=== PATIENT | female | born 1965 | race Caucasian/White ===

== ENCOUNTER 2020-05-18 09:13 | Day surgery (SDC) | payer MEDICAID, SELFPAY ==
--- NOTE | 2020-05-17 14:05 | HO.ANESPROP2 ---
Documented by User: Jayshree Hogan 05/17/20 14:07 HPI - Anesthesia Eval Consult details Narrative: 54yo F for left genicular nerve block s/p TKA PMFSH Past Medical History Medical History Anxiety disorder Asthma Back pain COPD (chronic obstructive pulmonary disease) Depression Elevated cholesterol Fibromyalgia GERD (gastroesophageal reflux disease) HTN (hypertension) Irritable bowel syndrome (IBS) Lung nodule Osteopenia Personal history of tuberculosis Surgical History Surgical History (Updated 05/18/20 @ 10:15 by Perla Soria RN) H/O colonoscopy H/O hernia repair History of back surgery History of esophagogastroduodenoscopy (EGD) Hx of section Hx of total knee replacement Social History Social History Advance Directives Information Provided: No Meds Allergies Allergy/AdvReac Type Severity Reaction Status Date / Time latex [LATEX] Allergy Intermediate RASH; Verified 05/18/20 10:17 redness ciprofloxacin [From CIPRO] AdvReac Intermediate Diarrhea Verified 05/18/20 10:16 Home Medications Medication Instructions Recorded Confirmed Type alendronate 70 mg PO QWEEK 05/15/20 05/15/20 History amlodipine 5 mg PO DAILY 05/15/20 05/15/20 History aspirin [Aspirin Low Dose] 81 mg PO DAILY 05/15/20 05/15/20 History atorvastatin 20 mg PO BEDTIME 05/15/20 05/15/20 History budesonide-formoterol [Symbicort] 2 puff INHALATION BID 05/15/20 05/15/20 History clonazepam 1 mg PO BID 05/15/20 05/15/20 History dexlansoprazole [Dexilant] 60 mg PO DAILY 05/15/20 05/15/20 History diltiazem HCl 360 mg PO DAILY 05/15/20 05/15/20 History doxepin 50 mg PO BEDTIME 05/15/20 05/15/20 History escitalopram oxalate 20 mg PO DAILY 05/15/20 05/15/20 History hydrochlorothiazide 50 mg PO DAILY 05/15/20 05/15/20 History metoprolol tartrate 25 mg PO DAILY 05/15/20 05/15/20 History montelukast 10 mg PO BEDTIME 05/15/20 05/15/20 History roflumilast [Daliresp] 500 mcg PO DAILY 05/15/20 05/15/20 History tiotropium bromide [Spiriva 2 puff INHALATION DAILY 05/15/20 05/15/20 History Respimat] triazolam 0.25 mg PO BEDTIME 05/15/20 05/15/20 History Exam Exam Date and Time: May 17, 2020 1405 Height,Weight and Vital Signs: Height 5 ft 1 in Weight 72.121 kg Assessment and Plan Assessment Anesthesia Assessment: Chart Reviewed Documented by User: Gopi Hawkins 05/18/20 10:33 [facility] Past Medical History Medical History Anxiety disorder Asthma Back pain COPD (chronic obstructive pulmonary disease) Depression Elevated cholesterol Fibromyalgia GERD (gastroesophageal reflux disease) HTN (hypertension) Irritable bowel syndrome (IBS) Lung nodule Osteopenia Personal history of tuberculosis Surgical History Surgical History (Updated 05/18/20 @ 10:15 by Perla Soria RN) H/O colonoscopy H/O hernia repair History of back surgery History of esophagogastroduodenoscopy (EGD) Hx of section Hx of total knee replacement Social History Social History Advance Directives Information Provided: No Meds Allergies Allergy/AdvReac Type Severity Reaction Status Date / Time latex [LATEX] Allergy Intermediate RASH; Verified 05/18/20 10:17 redness ciprofloxacin [From CIPRO] AdvReac Intermediate Diarrhea Verified 05/18/20 10:16 Home Medications Medication Instructions Recorded Confirmed Type alendronate 70 mg PO QWEEK 05/15/20 05/15/20 History amlodipine 5 mg PO DAILY 05/15/20 05/15/20 History aspirin [Aspirin Low Dose] 81 mg PO DAILY 05/15/20 05/15/20 History atorvastatin 20 mg PO BEDTIME 05/15/20 05/15/20 History budesonide-formoterol [Symbicort] 2 puff INHALATION BID 05/15/20 05/15/20 History clonazepam 1 mg PO BID 05/15/20 05/15/20 History dexlansoprazole [Dexilant] 60 mg PO DAILY 05/15/20 05/15/20 History diltiazem HCl 360 mg PO DAILY 05/15/20 05/15/20 History doxepin 50 mg PO BEDTIME 05/15/20 05/15/20 History escitalopram oxalate 20 mg PO DAILY 05/15/20 05/15/20 History hydrochlorothiazide 50 mg PO DAILY 05/15/20 05/15/20 History metoprolol tartrate 25 mg PO DAILY 05/15/20 05/15/20 History montelukast 10 mg PO BEDTIME 05/15/20 05/15/20 History roflumilast [Daliresp] 500 mcg PO DAILY 05/15/20 05/15/20 History tiotropium bromide [Spiriva 2 puff INHALATION DAILY 05/15/20 05/15/20 History Respimat] triazolam 0.25 mg PO BEDTIME 05/15/20 05/15/20 History Exam Airway Mallampati Class: II TM Dist: >3cm Neck ROM: Full Loose/Missing/Broken Teeth: Yes Heart: RRR Assessment and Plan Assessment Anesthesia Assessment: Anesthesia Plan Discussed Final Anesthetic Review NPO: Yes ASA Class: III Anesthetic Plan Anesthetic Plan: MAC:
[2020-05-18] VITALS (8 sets, daily range): BP systolic 78–123; BP diastolic 49–71; PULSE 69–89; RESP 12–18; TEMP 35.8–36; O2SAT 96–99
--- NOTE | 2020-05-18 07:48 | MHC.SHP ---
Pre-Procedural Eval Section A The patient is an INPATIENT: No The History & Physical has been completed within 30 days and I have reviewed it.: No Section B Chief Complaint: Satus Post Left TKR, Chronic Pain Syndrome Details of Present Illness: bilateral knee pain Relevant Family History (Specify if Yes): No Relevant Social History: None Present Medications: see Short Stay Collaborative assessment Medical History: No relevant PMH History of Previous Operations: Relevant previous surgery/procedure and date(s) (TKR bilateral) Allergies: Allergies Allergy/AdvReac Type Severity Reaction Status Date / Time ciprofloxacin [From CIPRO] Allergy Intermediate RASH Verified 05/15/20 10:55 latex [LATEX] Allergy Intermediate RASH; Unverified 04/12/20 17:58 redness PPI AdvReac Intermediate diarrhea Uncoded 05/15/20 10:55 Review of Systems Sugical H&P ROS: Negative: Constitution, Cardiovascular, Respiratory, Neurological, Psychiatric, Hem-Onc, Allergic/Immunologic, Gastrointestinal, Genitourinary, Integumentary, Endocrine and Eyes/Ears/Nose/Throat and Yes, Specify: Musculoskeletal (scars well healed on the knees) Exam Surgical H&P Exam: Normal: HEENT, Normal: Heart, Normal: Lungs, Normal: Extremities, Normal: Abdomen, Normal: Skin and Normal: Neurological Plan Diagnosis/Plan: Unchanged Patient has been examined and remains a candidate for the planned procedure
[2020-05-18] MEDS: Lactated Ringers 1,000 ML 100 ML IVCONT (10:20)
--- NOTE | 2020-05-18 10:43 | FL_ITS ---
EXAMINATION: XR FLUOROSCOPY WITH IMAGES CLINICAL INFORMATION: Geniculate nerve block COMPARISON: CT left knee 04/13/2020 TECHNIQUE: Fluoroscopy performed by Dr. Mendez Morales. Fluoroscopy time: 0.3 minutes DAP: 1.19 Gycm2 Images: 2 FINDINGS: There are spinal needles adjacent to mid aspect distal femoral shaft on medial lateral sides. There is a needle adjacent to mid aspect proximal tibial shaft and medial side. There has been prior knee arthroplasty. The hardware appears intact. No visible acute bony abnormality. FL/FL guidance in OR IMPRESSION: Fluoroscopy for pain management procedure.
[2020-05-18] MEDS: Clindamycin Phosphate/D5W 900 MG/50 ML PIGGYBACK 50 MG IV (12:08)
--- NOTE | 2020-05-18 12:09 | PM.OP ---
Brief Operative Note Date of procedure: 05/18/20 Pre-op diagnosis: Status post total knee replacement left secondary to left knee osteoarthrit Post-op diagnosis: same Procedure: Genicular nerve blocks: Left superior lateral genicular nerve block, left infrapatellar saphenous nerve block, left suprapatellar saphenous nerve block. Implants: None Surgeon: Mendez Morales MD Anesthesia: MAC Estimated blood loss (mL): 0 IV fluids (mL): 400 Urine output (mL): 0 Condition: stable Disposition: PACU
--- NOTE | 2020-05-18 12:11 | P.OP_ITS ---
Operative Note Operative Note Narrative: Narrative: This note is constructed using voice recognition software. While every effort has been made to ensure accuracy, data control clerk supervisor errors may have been included. Narrative: Informed consent was obtained for the procedure before surgery and all the risks and benefits were explained to the patient. All the questions were answered. SHE was brought to the operating room and positioned supine on the Operating table. Antibiotic clindamycin 900 mg was infused. patient was moderately sedated. Ketamine, Fentanyl was avoided during sedation. Patient's left knee was elevated on a gel been and prepped with ChloraPrep. C- arm was brought over the operating field and picture of the knee was obtained. The targets were delineated as connection of the medial diaphysis with metaphysis of the distal femur for the suprapatellar saphenous nerve, Connection of the left medial diaphysis and metaphysis of proximal tibia for infrapatellar saphenous nerve, and connection of lateral left diaphysis and metaphysis for superior genicular nerve. The projections of the point of interest to the skin were injected with small amount of lidocaine 2% and after that 3 22 gauge 3-1/2 inch needles were inserted through the skin and advanced to the point of interest in tunnel vision fashion. After needles touched the bone lateral view obtain and position of the needle in mid shaft of the bones was verified. After that small amount of bupivacaine 1 cc 0.5% was injected into each needle. Patient tolerated procedure well needles were removed sterile dressing was applied patient was transferred to PACU without complications. .
--- NOTE | 2020-05-18 13:40 | HO.POSTANES ---
Post Anesthesia Evaluation Post Anesthesia Evaluation Vital Signs: Vital Signs Temp Pulse Resp BP Pulse Ox 05/18/20 13:09 96.8 F 69 18 92/55 L 99 05/18/20 13:04 98/58 L 98 05/18/20 12:59 70 16 98/58 L 97 05/18/20 12:54 69 16 78/54 L 97 05/18/20 12:49 73 16 84/49 L 97 05/18/20 12:44 70 14 92/56 L 96 05/18/20 12:42 96.6 F L 69 12 85/53 L 97 05/18/20 10:04 96.5 F L 89 16 123/71 97 Anesthesia: Monitored Mental Status: Awake Pain Control: Satisfactory Nausea/Vomiting: None Hydration: Adequate Anesthesia-Related Issues: No Anes. Related Issues
== END 2020-05-18 13:50 | disposition home or self-care (01) ==
PROVIDERS: PCP Internal Medicine; Visit Provider Anesthesiology
PROC: (CPT 64454; principal; 2020-05-18 10:40)
DX: G89.4 Chronic pain syndrome (principal); M25.562 Pain in left knee; M25.561 Pain in right knee; Z96.652 Presence of left artificial knee joint; M96.1 Postlaminectomy syndrome, not elsewhere classified; J44.9 Chronic obstructive pulmonary disease, unspecified; Z88.8 Allergy status to other drugs, medicaments and biological substances; Z88.1 Allergy status to other antibiotic agents; Z91.040 Latex allergy status
CPT/HCPCS: 64454; J2250

== ENCOUNTER 2020-05-26 15:36 | Emergency (ER) | payer MEDICAID, SELFPAY ==
[2020-05-26 16:21] VITALS: BP 106/65; PULSE 138; RESP 17; TEMP 36.6; O2SAT 93; BMI 29.5
--- NOTE | 2020-05-26 16:25 | PC.NURSE ---
CHARGE NURSE NOTIFIED PT IS TACHYCARDIC. INSTRUCTED TO WAIT TO HAVE PROVIDER EVAL PATIENT.
--- NOTE | 2020-05-26 16:40 | PC.NURSE ---
PT EVALED BY AMADA PAZ. PT TO MOVE TO MAIN ED FOR TACHYCARDIA. CHARGE NURSE NOTIFIED.
--- NOTE | 2020-05-26 16:47 | ED.URI ---
HPI - URI/Sore Throat General Chief Complaint: General Medical Stated Complaint: sore throat Time Seen by Provider: 05/26/20 16:45 Source: patient Mode of arrival: ambulatory Limitations: no limitations History of Present Illness HPI Narrative: Patient with history of fibromyalgia been complaining of pain and upper back for last 2 days also complaining of sore throat and pain when she swallows denies any fever or cough no recent COVID contract. Patient did not take her medication metoprolol today when she came heart rate was 130s Related Data Home Medications Medication Instructions Recorded Confirmed alendronate 70 mg PO QWEEK 05/15/20 05/15/20 amlodipine 5 mg PO DAILY 05/15/20 05/15/20 aspirin [Aspirin Low Dose] 81 mg PO DAILY 05/15/20 05/15/20 atorvastatin 20 mg PO BEDTIME 05/15/20 05/15/20 budesonide-formoterol [Symbicort] 2 puff INHALATION BID 05/15/20 05/15/20 clonazepam 1 mg PO BID 05/15/20 05/15/20 dexlansoprazole [Dexilant] 60 mg PO DAILY 05/15/20 05/15/20 diltiazem HCl 360 mg PO DAILY 05/15/20 05/15/20 doxepin 50 mg PO BEDTIME 05/15/20 05/15/20 escitalopram oxalate 20 mg PO DAILY 05/15/20 05/15/20 hydrochlorothiazide 50 mg PO DAILY 05/15/20 05/15/20 metoprolol tartrate 25 mg PO DAILY 05/15/20 05/15/20 montelukast 10 mg PO BEDTIME 05/15/20 05/15/20 roflumilast [Daliresp] 500 mcg PO DAILY 05/15/20 05/15/20 tiotropium bromide [Spiriva 2 puff INHALATION DAILY 05/15/20 05/15/20 Respimat] triazolam 0.25 mg PO BEDTIME 05/15/20 05/15/20 Previous Rx's Medication Instructions Recorded linaclotide 145 mcg capsule 145 mcg PO QAM 30 Days #30 cap 05/08/20 azithromycin [Zithromax] 250 mg PO DAILY 4 Days #4 tab 05/26/20 tramadol 50 mg PO Q8H PRN #20 tab 05/26/20 Allergies Allergy/AdvReac Type Severity Reaction Status Date / Time latex [LATEX] Allergy Intermediate RASH; Verified 05/18/20 10:17 redness ciprofloxacin [From CIPRO] AdvReac Intermediate Diarrhea Verified 05/18/20 10:16 Review of Systems Review of Systems: REVIEW OF SYSTEMS: Pertinent positives and negatives are stated above in the history. GEN: no fevers, chills, fatigue HEENT: no nasal congestion, ear pain NEURO: no headache, dizziness, focal weakness PULM: no cough, shortness of breath CV: no chest pain, palpitations, LE edema ABD: no abdominal pain, nausea, vomiting, diarrhea : no dysuria, urgency, frequency SKIN: no rash ROS otherwise negative x 10 PMFSH Past Medical History Medical History Anxiety disorder Asthma Back pain COPD (chronic obstructive pulmonary disease) Depression Elevated cholesterol Fibromyalgia GERD (gastroesophageal reflux disease) HTN (hypertension) Irritable bowel syndrome (IBS) Lung nodule Osteopenia Personal history of tuberculosis Surgical History H/O colonoscopy H/O hernia repair History of back surgery History of esophagogastroduodenoscopy (EGD) Hx of section Hx of total knee replacement Social History Social History Smoking Status: Current every day smoker Use of substances other than those prescribed or required for medical reasons: No Advance Directives: No Advance Directives Information Provided: No Physical Exam Vital Signs: Vital Signs: Vital Signs Temp Pulse Resp BP Pulse Ox 05/26/20 18:53 98.1 F 104 H 17 106/76 95 05/26/20 17:44 128 H 106/65 05/26/20 16:50 133 H 05/26/20 16:21 97.9 F 138 H 17 106/65 93 Body Mass Index 29.5 Appearance: Alert. Oriented X3. No acute distress. Eyes: Pupils equal, round and reactive to light. ENT: Pharynx normal. no erythema no exudate tonsils are normal no cervical lymphadenopathy Neck: Normal inspection. Neck supple. muscular tenderness at the back of the neck and upper part of the back CVS: tachycardia, no murmur. Pulses normal. Respiratory: No respiratory distress. Breath sounds normal. Abdomen: Soft and nontender. Skin: Skin warm and dry. Normal skin color. Normal skin turgor. Extremities: No lower extremity edema. Good range of movement Neuro: Oriented X 3. No motor deficit. No sensory deficit. Course Course Course Narrative: patient likely with fibromyalgia with likely upper respiratory tract infection COVID-19 test was done will give her prescription for Zithromax and tramadol MDM - URI/Sore Throat ECG Data Attestation: I personally reviewed and interpreted this ECG as follows: Interpretation: heart rate 127 sinus tachycardia poor progression of R-waves no acute ST T wave changes normal axis no acute ischemia Discharge Plan Discharge Clinical Impression: Fibromyalgia Pharyngitis Qualifiers: Pharyngitis/tonsillitis etiology: unspecified etiology Qualified Code(s): J02.9 - Acute pharyngitis, unspecified Patient Disposition: Home, Self-Care Instructions: Pharyngitis (ED), Fibromyalgia (ED) Additional Instructions: drink plenty of fluids and take medication as prescribed Prescriptions: New azithromycin [Zithromax] 250 mg tablet 250 mg PO DAILY 4 Days Qty: 4 RF: 0 tramadol 50 mg tablet 50 mg PO Q8H PRN (Reason: pain) Qty: 20 RF: 0 No Action Linzess 145 mcg capsule 145 mcg PO QAM 30 Days Qty: 30 RF: 1 doxepin 50 mg Capsule 50 mg PO BEDTIME RF: 0 atorvastatin 20 mg Tablet 20 mg PO BEDTIME RF: 0 triazolam 0.25 mg Tablet 0.25 mg PO BEDTIME RF: 0 hydrochlorothiazide 50 mg Tablet 50 mg PO DAILY RF: 0 alendronate 70 mg Tablet 70 mg PO QWEEK RF: 0 clonazepam 1 mg Tablet 1 mg PO BID RF: 0 diltiazem HCl 360 mg Capsule,Extended Release 24hr 360 mg PO DAILY RF: 0 amlodipine 5 mg Tablet 5 mg PO DAILY RF: 0 aspirin [Aspirin Low Dose] 81 mg Tablet,Delayed Release (Dr/Ec) 81 mg PO DAILY RF: 0 montelukast 10 mg Tablet 10 mg PO BEDTIME RF: 0 escitalopram oxalate 20 mg Tablet 20 mg PO DAILY RF: 0 metoprolol tartrate 25 mg Tablet 25 mg PO DAILY RF: 0 budesonide-formoterol [Symbicort] 160-4.5 mcg/actuation Hfa Aerosol Inhaler 2 puff INHALATION BID RF: 0 Dexilant 60 mg Capsule,Biphase Delayed Releas 60 mg PO DAILY RF: 0 Daliresp 500 mcg Tablet 500 mcg PO DAILY RF: 0 Spiriva Respimat 2.5 mcg/actuation Mist 2 puff INHALATION DAILY RF: 0
[2020-05-26 16:50] VITALS: PULSE 133
--- NOTE | 2020-05-26 16:59 | ECG_ITS ---
Test Reason : TACHYCARDIA Blood Pressure : / mmHG Vent. Rate : 127 BPM Atrial Rate : 127 BPM P-R Int : 150 ms QRS Dur : 092 ms QT Int : 316 ms P-R-T Axes : 048 027 062 degrees QTc Int : 459 ms Sinus tachycardia Nonspecific ST and T wave abnormality Abnormal ECG Heart rate has increased ST more depressed Referred By: Tito Nino Electronically Signed By:AILYN LIGHT MD
[2020-05-26 17:44] VITALS: BP 106/65; PULSE 128
[2020-05-26] MEDS: Metoprolol Tartrate 25 MG TABLET PO (17:44)
[2020-05-26] MEDS: traMADoL HCL 50 MG TABLET PO (17:44)
[2020-05-26 18:53] VITALS: BP 106/76; PULSE 104; RESP 17; TEMP 36.7; O2SAT 95
[2020-05-26] MEDS: Azithromycin 500 MG TABLET PO (19:40)
== END 2020-05-26 19:53 | disposition home or self-care (01) ==
PROVIDERS: Emergency Provider Internal Medicine; PCP Internal Medicine
DX: M79.7 Fibromyalgia (principal); J02.9 Acute pharyngitis, unspecified; Z11.59 Encounter for screening for other viral diseases; F17.200 Nicotine dependence, unspecified, uncomplicated; Z71.6 Tobacco abuse counseling
CPT/HCPCS: 87071; 87880; 93005; 99283; 99284; U0003

== ENCOUNTER 2020-06-27 14:53 | Outpatient (REF) | payer MEDICAID, SELFPAY ==
--- NOTE | 2020-06-27 15:01 | XR_ITS ---
EXAMINATION: XR CHEST CLINICAL INFORMATION: COPD COMPARISON: Chest 11 TECHNIQUE: 2 views of the chest were obtained. FINDINGS: The lungs are well-expanded and clear of acute pneumonic process. There is a small calcified granuloma left upper lobe. The heart size and pulmonary vascularity is normal. No gross bony abnormality seen. XR/XR chest 2V IMPRESSION: Unremarkable chest exam.
== END 2020-06-27 14:54 | disposition home or self-care (01) ==
LOC: HO.XRAY 14:53
PROVIDERS: PCP Internal Medicine; Visit Provider Internal Medicine Geriatric Medicine
DX: J44.1 Chronic obstructive pulmonary disease with (acute) exacerbation (principal); R06.2 Wheezing; Z20.828 Contact with and (suspected) exposure to other viral communicable diseases
CPT/HCPCS: 71046

== ENCOUNTER → 2020-06-29 10:35 | Outpatient (BNVA) | payer MEDICAID, SELFPAY | PROVIDERS: PCP Internal Medicine; Referring Provider Internal Medicine; Visit Provider Student in an Organized Health Care Education/Training Program | DX: Z76.89 Persons encountering health services in other specified circumstances (principal) ==

== ENCOUNTER → 2020-08-20 13:57 | Outpatient (BNVA) | payer MEDICAID, SELFPAY | PROVIDERS: PCP Internal Medicine; Referring Provider Internal Medicine; Visit Provider Nurse Practitioner ==

== ENCOUNTER 2020-10-08 17:41 | Outpatient (REF) | payer MEDICAID, SELFPAY ==
--- NOTE | ~2020-10-08 | XR_ITS ---
EXAMINATION: XR CHEST CLINICAL INFORMATION: COPD. Acute exacerbation. COMPARISON: Chest 06/27/2020. CTA chest 06/13/2019 TECHNIQUE: 2 views of the chest were obtained. FINDINGS: The lungs are well-expanded and clear of acute pneumonic process. There is a known partially calcified right upper lobe nodule seen on CT chest 06/13/2019 measuring 7 mm. On chest x-ray measures 1.1 cm which is not optimal measurement. A 4 mm nodule is also seen in left upper lobe. Both of these nodules are stable to last chest x-ray. The rest of lungs are well-expanded and clear. There is bullous changes in both lung apices. Heart size and pulmonary vascularity is normal. No gross bony abnormality. XR/XR chest 2V IMPRESSION: 1. Right upper lobe calcified nodule measures 1.1 cm and a left upper lobe nodule measures 4 mm. Recommend follow-up CT chest to compare these nodules. 2. Emphysematous upper lungs. No acute consolidation seen.
== END 2020-10-08 17:42 | disposition home or self-care (01) ==
LOC: HO.XRAY 17:41
PROVIDERS: PCP Internal Medicine; Visit Provider Family Medicine
DX: J44.1 Chronic obstructive pulmonary disease with (acute) exacerbation (principal)
CPT/HCPCS: 71046

== ENCOUNTER 2021-01-25 14:20 | Outpatient (REF) | payer MEDICAID, SELFPAY ==
--- NOTE | ~2021-01-25 | XR_ITS ---
EXAMINATION: XR BILATERAL WRIST SERIES CLINICAL INFORMATION: Radial styloid tenosynovitis (De Quervain's) COMPARISON: X-rays of the right and left hand September 2010. TECHNIQUE: 4 views of the right wrist and 4 views of the left wrist. FINDINGS: Right Wrist: The bones, joints and soft tissues are normal. Left Wrist: Possible small marginal osteophyte along the 1st carpometacarpal joint, not seen previously. No joint space narrowing. Remaining bones, joints and soft tissues unremarkable. XR/XR wrist LT min 3V IMPRESSION: RIGHT WRIST: Normal. LEFT WRIST: Possible minimal osteoarthritis of the 1st carpometacarpal joint, not seen previously.
--- NOTE | ~2021-01-25 | XR_ITS ---
EXAMINATION: XR BILATERAL WRIST SERIES CLINICAL INFORMATION: Radial styloid tenosynovitis (De Quervain's) COMPARISON: X-rays of the right and left hand September 2010. TECHNIQUE: 4 views of the right wrist and 4 views of the left wrist. FINDINGS: Right Wrist: The bones, joints and soft tissues are normal. Left Wrist: Possible small marginal osteophyte along the 1st carpometacarpal joint, not seen previously. No joint space narrowing. Remaining bones, joints and soft tissues unremarkable. XR/XR wrist RT min 3V IMPRESSION: RIGHT WRIST: Normal. LEFT WRIST: Possible minimal osteoarthritis of the 1st carpometacarpal joint, not seen previously.
== END 2021-01-25 14:21 | disposition home or self-care (01) ==
LOC: HO.XRAY 14:20
PROVIDERS: PCP Internal Medicine; Visit Provider Internal Medicine
DX: M65.4 Radial styloid tenosynovitis [de Quervain] (principal)
CPT/HCPCS: 73110

== ENCOUNTER → 2021-02-04 08:51 | Outpatient (BNVA) | payer MEDICAID, SELFPAY | PROVIDERS: PCP Internal Medicine; Visit Provider Nurse Practitioner ==

== ENCOUNTER 2021-02-07 14:36 | Outpatient (REF) | payer MEDICAID, SELFPAY ==
--- NOTE | ~2021-02-07 | MM_ITS ---
EXAMINATION: MM SCREENING DIGITAL BREAST TOMOSYNTHESIS, BILATERAL CLINICAL INFORMATION: Screening. Asymptomatic. The lifetime risk of breast cancer based on the Tyrer-Cuzick Model is 4%. COMPARISON: Mammography: 09/02/2018, 08/17/2017, 04/28/2016 TECHNIQUE: Digital breast tomosynthesis is performed in both the craniocaudal and mediolateral oblique views along with computer-aided detection (CAD). Synthesized 2D images are generated from the tomosynthesis. FINDINGS: There are scattered areas of fibroglandular density (ACR BI-RADS breast composition Category b). There are no significant masses, abnormal calcifications, or other abnormalities. Parenchymal pattern is similar to prior exams. No developing density. Skin contours are smooth. MM/MM tomosynthesis screening BI IMPRESSION: No mammographic evidence of malignancy. ASSESSMENT: BI-RADS 1: Negative RECOMMENDATION: Routine annual mammography screening. This patient's information was entered into a reminder system with a target due date for their next mammogram.
== END 2021-02-07 14:37 | disposition home or self-care (01) ==
LOC: HO.MAMMO 14:36
PROVIDERS: Visit Provider Internal Medicine
DX: Z12.31 Encounter for screening mammogram for malignant neoplasm of breast (principal)
CPT/HCPCS: 77063; 77067

== ENCOUNTER 2021-02-15 12:59 | Outpatient (REF) | payer MEDICAID, SELFPAY ==
--- NOTE | ~2021-02-15 | MM_ITS ---
EXAMINATION: BONE DENSITOMETRY CLINICAL INDICATION: Age-related osteoporosis. COMPARISON: Previous BD dated 06/09/2014 and baseline BD dated 10/04/2010. TECHNIQUE: Using a Marginize DXA System (software version: 13.1) manufactured by [employer], dual-energy x-ray absorptiometry was performed of the lumbar spine and left hip. The images are of good technical quality. Summary results are attached. FINDINGS: AP SPINE L1-L4: Current: BMD 0.872 g/cm2, Z-score -1.8, T-score -2.6, osteoporosis, 12.7% increase from previous, 2.6% increase from baseline (<5% change is not significant). Prior: BMD 0.774 g/cm2. Baseline: BMD 0.850 g/cm2. LEFT FEMUR, NECK: Current: BMD 0.674 g/cm2, Z-score -1.7, T-score -2.6, osteoporosis. Prior: BMD 0.728 g/cm2. Baseline: BMD 0.782 g/cm2. LEFT FEMUR, TOTAL: Current: BMD 0.734 g/cm2, Z-score -1.6, T-score -2.2, osteopenia, 8.9% decrease from previous, 11.5% decrease from baseline (<5% change is not significant). Prior: BMD 0.806 g/cm2. Baseline: BMD 0.829 g/cm2. IDENTIFIED RISK FACTORS: Osteoporosis, history of fracture (adult), tobacco use (current smoker), family history (parental hip fracture), anticonvulsants, thiazide, menopause, hysterectomy, bilateral oophorectomy. HISTORY OF FRACTURE: Ankle. MEDICATIONS: Calcium supplements or multivitamin, vitamin D, bisphosphonate. MM/XR DEXA axial skeleton IMPRESSION: 1. DIAGNOSIS: Osteoporosis based on the lowest T-score value of -2.6 in the lumbar spine and femoral neck applying World Health Organization criteria. 2. 10-YEAR FRACTURE RISK PREDICTION, FRAX: Major osteoporotic fracture (clinical spine, forearm, hip or shoulder) 19.9%. Hip fracture 4.0%. 3. Treatment Recommendations: NOF guidelines recommend consideration for treatment in postmenopausal women and men age 50 and older presenting with the following: -A hip or vertebral (clinical or morphometric) fracture. -T-score less than or equal to -2.5 at the femoral neck or spine after appropriate evaluation to exclude secondary causes. -Low bone mass at the hip or spine and a 10-year fracture probability by FRAX of greater than or equal to 3% for hip fracture or greater than or equal to 20% for major osteoporotic fracture based on the [place] adapted WHO algorithm. 4. Other Recommendations: All treatment decisions require clinical judgment and consideration of individual patient factors, including patient preferences, comorbidities, previous drug use, risk factors not captured in the FRAX model (e.g. frailty, falls, vitamin D deficiency, increased bone turnover, interval significant decline in bone density) and possible under or overestimation of fracture risk by FRAX. Additional medical evaluation for secondary cause of low bone mineral density may be appropriate. FUTURE SCAN RECOMMENDATION: People with diagnosed cases of osteoporosis or at high risk for fracture should have regular bone mineral density tests. For patients eligible for Medicare, routine testing is allowed once every 2 years. The testing frequency can be increased to one year for patients who have rapidly progressing disease, those who are receiving or discontinuing medical therapy to restore bone mass, or have additional risk factors.
== END 2021-02-15 13:00 | disposition home or self-care (01) ==
LOC: HO.MAMMO 12:59
PROVIDERS: PCP Internal Medicine; Visit Provider Internal Medicine
DX: Z13.820 Encounter for screening for osteoporosis (principal); M81.0 Age-related osteoporosis without current pathological fracture; Z78.0 Asymptomatic menopausal state; Z79.899 Other long term (current) drug therapy
CPT/HCPCS: 77080

== ENCOUNTER 2021-03-29 09:01 | Day surgery (SDC) | payer MEDICAID, SELFPAY ==
[2021-03-26 09:24] VITALS: BMI 30.2
--- NOTE | 2021-03-28 12:16 | HO.ANESPROP2 ---
Documented by User: Jayshree Hogan NP 03/28/21 12:16 HPI - Anesthesia Eval Consult details Narrative: 55yo F for Colonoscopy PMFSH Active Problems Active Problems: All Active Problems (Updated 02/04/21 @ 12:56 by JENNI Lopez) Family history of colon cancer in father (Acute) GERD (gastroesophageal reflux disease) (Acute) Fibromyalgia (Acute) Chronic pain syndrome (Acute) Postlaminectomy syndrome (Acute) Presence of left artificial knee joint (Acute) Presence of right artificial knee joint (Acute) Chronic idiopathic constipation (Acute) Past Medical History Medical History Anxiety disorder Asthma Back pain Chronic pain syndrome COPD (chronic obstructive pulmonary disease) Depression Elevated cholesterol Fibromyalgia Fibromyalgia GERD (gastroesophageal reflux disease) HTN (hypertension) Irritable bowel syndrome (IBS) Lung nodule Osteopenia Personal history of tuberculosis Postlaminectomy syndrome Family History Family History Father Cancer Mother Kidney problem Hypertension CVD (cardiovascular disease) Paternal Uncle Cancer Colon cancer Brother Cancer Brother Colon cancer Surgical History Surgical History H/O colonoscopy H/O hernia repair History of back surgery History of esophagogastroduodenoscopy (EGD) Hx of section Hx of total knee replacement Presence of left artificial knee joint Presence of right artificial knee joint Social History Social History (Updated 03/26/21 @ 09:23 by Nely Brand RN) Tobacco use type: Cigarette Cigarettes Per Day: 3 Are you DNR?: No Advance Directives: No Advance Directives Information Provided: No Advance Directives on File: No Meds Allergies Allergy/AdvReac Type Severity Reaction Status Date / Time latex [LATEX] Allergy Intermediate RASH; Verified 03/29/21 10:01 redness ciprofloxacin [From CIPRO] AdvReac Intermediate Diarrhea Verified 03/29/21 10:01 Home Medications Medication Instructions Recorded Confirmed Last Taken Type alendronate 70 mg tablet 70 mg PO QWEEK 05/15/20 03/26/21 Unknown History amlodipine 5 mg tablet 5 mg PO DAILY 05/15/20 03/26/21 05/18/20 08:00 History aspirin 81 mg tablet,delayed 81 mg PO DAILY 05/15/20 03/26/21 03/22/21 08:00 History release (Aspirin Low Dose) atorvastatin 20 mg tablet 20 mg PO BEDTIME 05/15/20 03/26/21 Unknown History budesonide-formoterol HFA 160 2 puff INHALATION BID 05/15/20 03/26/21 Unknown History mcg-4.5 mcg/actuation aerosol inhaler (Symbicort) clonazepam 1 mg tablet 1 mg PO BID 05/15/20 03/26/21 03/29/21 07:00 History diltiazem HCl 360 mg 360 mg PO DAILY 05/15/20 03/26/21 05/18/20 08:00 History capsule,extended release 24 hr doxepin 50 mg capsule 50 mg PO BEDTIME 05/15/20 03/26/21 Unknown History escitalopram oxalate 20 mg tablet 20 mg PO DAILY 05/15/20 03/26/21 Unknown History hydrochlorothiazide 50 mg tablet 50 mg PO DAILY 05/15/20 03/26/21 Unknown History metoprolol tartrate 25 mg tablet 25 mg PO DAILY 05/15/20 03/26/21 03/29/21 07:00 History montelukast 10 mg tablet 10 mg PO BEDTIME 05/15/20 03/26/21 Unknown History roflumilast 500 mcg tablet 500 mcg PO DAILY 05/15/20 03/26/21 Unknown History (Daliresp) tiotropium bromide 2.5 2 puff INHALATION DAILY 05/15/20 03/26/21 Unknown History mcg/actuation mist for inhalation (Spiriva Respimat) ergocalciferol (vitamin D2) 1,250 1 cap PO QWEEK 03/26/21 03/26/21 Unknown History mcg (50,000 unit) capsule Exam Exam Date and Time: March 28, 2021 1216 Height,Weight and Vital Signs: Height 5 ft 1 in Weight 72.575 kg Assessment and Plan Assessment Anesthesia Assessment: Chart Reviewed Documented by User: Mariella Velasquez MD 03/29/21 10:40 [facility] Past Medical History Medical History Anxiety disorder Asthma Back pain Chronic pain syndrome COPD (chronic obstructive pulmonary disease) Depression Elevated cholesterol Fibromyalgia Fibromyalgia GERD (gastroesophageal reflux disease) HTN (hypertension) Irritable bowel syndrome (IBS) Lung nodule Osteopenia Personal history of tuberculosis Postlaminectomy syndrome Family History Family History Father Cancer Mother Kidney problem Hypertension CVD (cardiovascular disease) Paternal Uncle Cancer Colon cancer Brother Cancer Brother Colon cancer Surgical History Surgical History H/O colonoscopy H/O hernia repair History of back surgery History of esophagogastroduodenoscopy (EGD) Hx of section Hx of total knee replacement Presence of left artificial knee joint Presence of right artificial knee joint Social History Social History (Updated 03/26/21 @ 09:23 by Nely Brand RN) Tobacco use type: Cigarette Cigarettes Per Day: 3 Are you DNR?: No Advance Directives: No Advance Directives Information Provided: No Advance Directives on File: No Meds Allergies Allergy/AdvReac Type Severity Reaction Status Date / Time latex [LATEX] Allergy Intermediate RASH; Verified 03/29/21 10:01 redness ciprofloxacin [From CIPRO] AdvReac Intermediate Diarrhea Verified 03/29/21 10:01 Home Medications Medication Instructions Recorded Confirmed Last Taken Type alendronate 70 mg tablet 70 mg PO QWEEK 05/15/20 03/26/21 Unknown History amlodipine 5 mg tablet 5 mg PO DAILY 05/15/20 03/26/21 05/18/20 08:00 History aspirin 81 mg tablet,delayed 81 mg PO DAILY 05/15/20 03/26/21 03/22/21 08:00 History release (Aspirin Low Dose) atorvastatin 20 mg tablet 20 mg PO BEDTIME 05/15/20 03/26/21 Unknown History budesonide-formoterol HFA 160 2 puff INHALATION BID 05/15/20 03/26/21 Unknown History mcg-4.5 mcg/actuation aerosol inhaler (Symbicort) clonazepam 1 mg tablet 1 mg PO BID 05/15/20 03/26/21 03/29/21 07:00 History diltiazem HCl 360 mg 360 mg PO DAILY 05/15/20 03/26/21 05/18/20 08:00 History capsule,extended release 24 hr doxepin 50 mg capsule 50 mg PO BEDTIME 05/15/20 03/26/21 Unknown History escitalopram oxalate 20 mg tablet 20 mg PO DAILY 05/15/20 03/26/21 Unknown History hydrochlorothiazide 50 mg tablet 50 mg PO DAILY 05/15/20 03/26/21 Unknown History metoprolol tartrate 25 mg tablet 25 mg PO DAILY 05/15/20 03/26/21 03/29/21 07:00 History montelukast 10 mg tablet 10 mg PO BEDTIME 05/15/20 03/26/21 Unknown History roflumilast 500 mcg tablet 500 mcg PO DAILY 05/15/20 03/26/21 Unknown History (Daliresp) tiotropium bromide 2.5 2 puff INHALATION DAILY 05/15/20 03/26/21 Unknown History mcg/actuation mist for inhalation (Spiriva Respimat) ergocalciferol (vitamin D2) 1,250 1 cap PO QWEEK 03/26/21 03/26/21 Unknown History mcg (50,000 unit) capsule Exam Airway Mallampati Class: III TM Dist: >3cm Neck ROM: Full
[2021-03-29 09:58] VITALS: BP 116/69; PULSE 81; RESP 18; TEMP 36.2; O2SAT 94
--- NOTE | 2021-03-29 10:05 | MHC.SHP ---
Pre-Procedural Eval Section A Date of Service: 03/29/21 The patient is an INPATIENT: No The History & Physical has been completed within 30 days and I have reviewed it.: No Section B Chief Complaint: Colon cancer screening Details of Present Illness: Colon cancer screening, family history of colon cancer Relevant Family History (Specify if Yes): Yes Present Medications: see Short Stay Collaborative assessment Medical History: Significant History (Anxiety disorder Asthma Back pain Chronic pain syndrome COPD (chronic obstructive pulmonary disease) Depression Elevated cholesterol Fibromyalgia Fibromyalgia GERD (gastroesophageal reflux disease) HTN (hypertension) Irritable bowel syndrome (IBS) Lung nodule Osteopenia Personal history of tuberculo) History of Previous Operations: Relevant previous surgery/procedure and date(s) (H/O colonoscopy H/O hernia repair History of back surgery History of esophagogastroduodenoscopy (EGD) Hx of section Hx of total knee replacement Presence of left artificial knee joint Presence of right artificial knee joint) Allergies: Allergies Allergy/AdvReac Type Severity Reaction Status Date / Time latex [LATEX] Allergy Intermediate RASH; Verified 03/29/21 10:01 redness ciprofloxacin [From CIPRO] AdvReac Intermediate Diarrhea Verified 03/29/21 10:01 Review of Systems Sugical H&P ROS: Negative: Constitution, Cardiovascular, Respiratory and Gastrointestinal Exam Surgical H&P Exam: Normal: Heart, Normal: Lungs, Normal: Extremities and Normal: Abdomen Plan Diagnosis/Plan: Unchanged I have reviewed the history and physical and performed a pertinent physical examination on my patient. No changes have occurred unless specified.
--- NOTE | 2021-03-29 10:06 | P.BOP_ITS ---
Brief Operative Note Date of Service: 03/29/21 Pre-op diagnosis: Colon cancer screening, chronic constipation, family history of colon cancer Post-op diagnosis: other (Colon polyps, diverticulosis, hemorrhoids) Procedure: COLONOSCOPY TILL CECUM WITH SNARE POLYPECTOMY Consent: Indications for the procedure and potential complications of bleeding, perforation, reaction to medications and missed diagnosis were discussed with the patient and informed consent was obtained. Instrument: Olympus PCF H 190 L variable stiffness pediatric colonoscope Monitoring: Vital signs and clinical assessment, intermittent blood pressure monitoring, continuous EKG monitoring, Pulse oximetry and Carbon Dioxide monitoring were done throughout the procedure. Colon withdrawl time was 21 minutes. Procedure: The patient was placed in the left lateral decubitis position and pre-procedure medications were administered. After a digital rectal examination of the ano-rectum, the video colonoscope was inserted into the rectum and advanced through the colon to the cecum. The colonoscope was slowly withdrawn in a retrograde panoramic fashion and the colon mucosa was carefully examined including a retroflexed view of the rectum. Findings and interventions are described below. Procedure Difficulty: Without difficulty Findings: Terminal Ileum: Not evaluated Cecum: Normal Ascending Colon: Normal Transverse Colon: A 10 mm sessile polyp in the distal transverse colon removed with a cold snare Descending Colon: Normal Sigmoid Colon: Moderate diverticulosis Rectum: A 15 mm diminutive appearing polyp removed with a cold snare Ano-rectum: Small internal hemorrhoids Colon preparation: Good after copious irrigation and some residual adherent stool in the right colon Impression and Post Procedure Diagnosis: Colonoscopy Findings: Two medium sized polyps removed Moderate diverticulosis seen in the sigmoid colon Small hemorrhoids on retroflexed exam. Plan: Await pathology results Patient has an appointment on 04/16/21 in the GI [facility] with Brit Rojas NP. Repeat Colonoscopy interval based on path results - in 3 years if polyps are adenomatous and 5 years if polyps are hyperplastic due to fair prep in the right colon. Above findings were reviewed with the patient and colon polyps and diverticulosis handouts were given in the discharge area Surgeon: Inocente Harman MD Anesthesia: MAC (Yuki Rodas CRNA) Was an High Risk Case Manager used for this Procedure?: Yes High Risk Case Manager: Alvaro Case Estimated blood loss (mL): 0 Pathology: other (A. TRANSVERSE COLON POLYP B. RECTAL POLYP) Condition: stable Disposition: PACU
[2021-03-29] MEDS: Lactated Ringers 1,000 ML 100 ML IVCONT (10:20)
--- NOTE | 2021-03-29 11:07 | P.OP_ITS ---
Operative Note Operative Note Date of Service: 03/29/21 Narrative: Pre-op diagnosis:?Colon cancer screening, chronic constipation, family history of colon cancer Post-op diagnosis:?other (Colon polyps, diverticulosis, hemorrhoids) Procedure:? COLONOSCOPY TILL CECUM WITH SNARE POLYPECTOMY Consent: Indications for the procedure and potential complications of bleeding, perforation, reaction to medications and missed diagnosis were discussed with the patient and informed consent was obtained. Instrument: Olympus PCF H 190 L variable stiffness pediatric colonoscope Monitoring: Vital signs and clinical assessment, intermittent blood pressure monitoring, continuous EKG monitoring, Pulse oximetry and Carbon Dioxide monitoring were done throughout the procedure. Colon withdrawl time was 21 minutes. Procedure: The patient was placed in the left lateral decubitis position and pre-procedure medications were administered. After a digital rectal examination of the ano-rectum, the video colonoscope was inserted into the rectum and advanced through the colon to the cecum. The colonoscope was slowly withdrawn in a retrograde panoramic fashion and the colon mucosa was carefully examined including a retroflexed view of the rectum. Findings and interventions are described below. Procedure Difficulty: Without difficulty Findings: Terminal Ileum: Not evaluated Cecum:? Normal Ascending Colon:? Normal Transverse Colon:? A 10 mm sessile polyp in the distal transverse colon removed with a cold snare Descending Colon:? Normal Sigmoid Colon:? Moderate diverticulosis Rectum:? A 15 mm diminutive appearing polyp removed with a cold snare Ano-rectum:? Small internal hemorrhoids Colon preparation:? Good after copious irrigation and some residual adherent stool in the right colon Impression and Post Procedure Diagnosis: Colonoscopy Findings: Two medium sized polyps removed Moderate diverticulosis seen in the sigmoid colon Small hemorrhoids on retroflexed exam. Plan: Await pathology results Patient has an appointment on 04/16/21 in the GI Clinic with? Brit Rojas NP. Repeat Colonoscopy interval based on path results - in 3 years if polyps are adenomatous and 5 years if polyps are hyperplastic due to fair prep in the right colon. Above findings were reviewed with the patient and colon polyps and diverticulosis handouts were given in the discharge area Surgeon:?Inocente Harman MD Anesthesia:?MAC (Yuki Rodas CRNA) Was an Seamless Hosiery Knitter used for this Procedure?:?Yes Seamless Hosiery Knitter:?Alvaro Case Estimated blood loss (mL):?0 Pathology:?other (A. TRANSVERSE COLON POLYP? B. RECTAL POLYP) Condition:?stable Disposition:?PACU
[2021-03-29 11:47] VITALS: BP 93/47; PULSE 67; RESP 16; TEMP 36.7; O2SAT 96
[2021-03-29 12:12] VITALS: BP 106/53; PULSE 66; RESP 18; O2SAT 92
== END 2021-03-29 13:00 | disposition home or self-care (01) ==
PROVIDERS: PCP Internal Medicine; Visit Provider Internal Medicine Gastroenterology
PROC: 0DJD8ZZ Inspection of Lower Intestinal Tract, Via Natural or Artificial Opening Endoscopic (ICD-10-PCS; CPT 45378; principal; 2021-03-29 10:30)
DX: Z12.11 Encounter for screening for malignant neoplasm of colon (principal); Z80.0 Family history of malignant neoplasm of digestive organs; K63.5 Polyp of colon; K62.1 Rectal polyp; K57.30 Diverticulosis of large intestine without perforation or abscess without bleeding; K64.8 Other hemorrhoids; K59.04 Chronic idiopathic constipation; K21.9 Gastro-esophageal reflux disease without esophagitis; J44.9 Chronic obstructive pulmonary disease, unspecified; I10 Essential (primary) hypertension; M79.7 Fibromyalgia; Z79.899 Other long term (current) drug therapy; Z88.1 Allergy status to other antibiotic agents; Z91.040 Latex allergy status; Z86.16 Personal history of COVID-19; Z86.11 Personal history of tuberculosis
CPT/HCPCS: 45385; 88305

== ENCOUNTER → 2021-04-16 14:16 | Outpatient (BNVA) | payer MEDICAID, SELFPAY | PROVIDERS: PCP Internal Medicine; Visit Provider Nurse Practitioner ==

== ENCOUNTER 2021-05-09 08:27 | Outpatient (REF) | payer MEDICAID, SELFPAY ==
--- NOTE | ~2021-05-09 | US_ITS ---
EXAMINATION: US ABDOMEN COMPLETE CLINICAL INFORMATION: Epigastric pain. COMPARISON: Ultrasound abdomen complete 03/17/2018 and 07/31/2016. CT abdomen and pelvis 08/05/2016. TECHNIQUE: Real-time imaging of the abdominal viscera. FINDINGS: PANCREAS: Normal. ABDOMINAL AORTA: There is evidence of mild atherosclerotic disease. The abdominal aorta is normal in caliber. INFERIOR VENA CAVA: Visualized portions are normal. LIVER: Normal. The liver is normal in size. The liver contour is normal. Parenchymal echogenicity is normal. No focal hepatic lesion. There is no intrahepatic biliary duct dilatation seen. GALLBLADDER: Normal. The gallbladder is physiologically distended without evidence of stones, sludge, polyps, wall thickening or pericholecystic fluid. COMMON BILE DUCT: Normal in caliber measuring 0.5 cm in diameter. RIGHT KIDNEY: Normal. No hydronephrosis. No renal calculi or focal parenchymal lesions. The kidney measures 10.1 cm in maximum dimension. LEFT KIDNEY: Normal. No hydronephrosis. No renal calculi or focal parenchymal lesions. The kidney measures 10.8 cm in maximum dimension. SPLEEN: Normal. The spleen measures 9.7 cm in maximum dimension. FREE FLUID: None. US/US abdomen complete IMPRESSION: Unremarkable exam.
[2021-05-09 08:39] LABS: MANUAL DIFF FLAG NO
[2021-05-09 09:17] LABS: Basophils Percent Auto 0.1 % (0-2); Eosinophils Percent Auto 0.1 % (0-4); Hematocrit 40.7 % (37-47); Hemoglobin 13.5 g/dl (12.0-16.0); Imm Gran Pct Auto 0.7 % (0.0-0.4); Lymphocytes Absolute Auto 1.5 X10*3/uL (1.2-4.9); Lymphocytes Percent Auto 10.1 % (20-40); Mean Corpuscular HGB Conc 33.2 g/dl (31.0-35.0); Mean Corpuscular Hemoglobin 30.2 pg (27.0-33.0); Mean Corpuscular Volume 91.1 fL (80-98); Mean Platelet Volume 11.9 fL (9.4-12.3); Monocytes Absolute Auto 1.2 X10*3/uL (0.1-1.2); Monocytes Percent Auto 7.9 % (2-11); Neutrophils Absolute Auto 11.8 X10*3/uL (2.0-8.3); Neutrophils Percent Auto 81.1 % (45-73); Platelet Count 413 X10*3/uL (160-400); Red Blood Count 4.47 X10*6/uL (4.20-5.50); Red Cell Distribution Width 13.5 % (11.0-16.0); White Blood Count 14.6 X10*3/uL (4.8-10.8)
[2021-05-09 09:37] LABS: Alanine Aminotransferase 11 U/L (0-31); Albumin Level 4.7 g/dL (3.5-5.0); Alkaline Phosphatase 131 U/L (39-117); Anion Gap 18 (12-20); Aspartate Amino Transferase 12 U/L (5-31); Bilirubin Total 0.2 mg/dL (0.0-1.0); Blood Urea Nitrogen 23 mg/dL (9-16); Calcium 10.3 mg/dL (8.4-10.2); Carbon Dioxide 21 mmol/L (22-29); Chloride 108 mmol/L (96-108); Estimated Glomerular Filt Rate > 60; Glucose Random 108 mg/dL (60-115); Potassium 4.6 mmol/L (3.3-5.1); Sodium 142 mmol/L (135-145); Total Protein 7.8 g/dL (6.5-8.0)
== END 2021-05-09 08:28 | disposition home or self-care (01) ==
LOC: HO.US 08:27
PROVIDERS: PCP Internal Medicine; Visit Provider Nurse Practitioner
DX: R10.13 Epigastric pain (principal); Z80.0 Family history of malignant neoplasm of digestive organs
CPT/HCPCS: 36415; 76700; 80053; 85025

== ENCOUNTER 2021-05-13 10:20 | Emergency (ER) | payer MEDICAID, SELFPAY ==
--- NOTE | 2021-05-13 | ECG_ITS ---
Test Reason : CHEST PAIN Blood Pressure : / mmHG Vent. Rate : 057 BPM Atrial Rate : 057 BPM P-R Int : 168 ms QRS Dur : 110 ms QT Int : 420 ms P-R-T Axes : 049 031 047 degrees QTc Int : 408 ms Sinus bradycardia with sinus arrhythmia Nonspecific ST abnormality Intra-ventricular conduction delay Borderline ECG Heart rate has decreased Referred By: Generic ED Physician Electronically Signed By:AILYN LIGHT MD
--- NOTE | ~2021-05-13 | XR_ITS ---
EXAMINATION: XR CHEST CLINICAL INFORMATION: Chest pain, shortness of breath. COMPARISON: Chest radiographs dated 10/08/2020, chest CTA dated 06/13/2019. TECHNIQUE: 2 views of the chest were obtained. FINDINGS: Mild coarsened interstitial markings as well as diminished pulmonary markings in the lung apices, right greater than left are noted. Calcified nodules overlying the upper lung santos/apices are unchanged as well. No focal infiltrate or pleural effusion is seen. The heart and mediastinal structures are unremarkable. XR/XR chest 2V IMPRESSION: Chronic changes associated with known COPD as well as several calcified nodules without significant interval change. No acute cardiopulmonary process.
[2021-05-13 11:03] VITALS: BP 103/56; PULSE 67; RESP 18; TEMP 36.4; O2SAT 96; BMI 30.2
--- NOTE | 2021-05-13 12:21 | ED.CHESTPAIN ---
HPI - Chest Pain General Chief Complaint: Chest Pain Stated Complaint: Diff breathing Time Seen by Provider: 05/13/21 12:21 Source: patient Mode of arrival: ambulatory Limitations: no limitations History of Present Illness HPI narrative: 55-year-old female came in for evaluation of COPD exacerbation. Shortness of breath started about 4 days ago despite using albuterol at home, patient is known active smoker, feels diffuse chest tightness with wheezing, productive cough with yellow sputum, no chest pain, no fever, no chills. No sick contact, patient took 2 doses of COVID vaccination with no flu-like symptoms. No lower extremity swelling or edema, no history of DVT, no recent travel, and if no recent prolonged immobilization. Related Data Home Medications Medication Instructions Recorded Confirmed alendronate 70 mg tablet 70 mg PO QWEEK 05/15/20 03/26/21 amlodipine 5 mg tablet 5 mg PO DAILY 05/15/20 03/26/21 aspirin 81 mg tablet,delayed 81 mg PO DAILY 05/15/20 03/26/21 release (Aspirin Low Dose) atorvastatin 20 mg tablet 20 mg PO BEDTIME 05/15/20 03/26/21 budesonide-formoterol HFA 160 2 puff INHALATION BID 05/15/20 03/26/21 mcg-4.5 mcg/actuation aerosol inhaler (Symbicort) clonazepam 1 mg tablet 1 mg PO BID 05/15/20 03/26/21 diltiazem HCl 360 mg 360 mg PO DAILY 05/15/20 03/26/21 capsule,extended release 24 hr doxepin 50 mg capsule 50 mg PO BEDTIME 05/15/20 03/26/21 escitalopram oxalate 20 mg tablet 20 mg PO DAILY 05/15/20 03/26/21 hydrochlorothiazide 50 mg tablet 50 mg PO DAILY 05/15/20 03/26/21 metoprolol tartrate 25 mg tablet 25 mg PO DAILY 05/15/20 03/26/21 montelukast 10 mg tablet 10 mg PO BEDTIME 05/15/20 03/26/21 roflumilast 500 mcg tablet 500 mcg PO DAILY 05/15/20 03/26/21 (Daliresp) tiotropium bromide 2.5 2 puff INHALATION DAILY 05/15/20 03/26/21 mcg/actuation mist for inhalation (Spiriva Respimat) ergocalciferol (vitamin D2) 1,250 1 cap PO QWEEK 03/26/21 03/26/21 mcg (50,000 unit) capsule Previous Rx's Medication Instructions Recorded dexlansoprazole 60 mg 60 mg PO DAILY #30 cap 02/04/21 capsule,biphase delayed release (Dexilant) linaclotide 145 mcg capsule 145 mcg PO QAM 30 Days #30 cap 02/04/21 (Linzess) albuterol sulfate 2.5 mg/0.5 mL 5 mg INHALATION Q6H PRN #30 ea 05/13/21 solution for nebulization albuterol sulfate 90 mcg/actuation 1 inh INHALATION QID PRN #6.7 g 05/13/21 aerosol inhaler azithromycin 250 mg tablet See Rx Instructions .ROUTE 05/13/21 (Zithromax Z-Yordan) .COMPLEX #6 tab Allergies Allergy/AdvReac Type Severity Reaction Status Date / Time latex [LATEX] Allergy Intermediate RASH; Verified 04/16/21 14:16 redness ciprofloxacin [From CIPRO] AdvReac Intermediate Diarrhea Verified 04/16/21 14:16 Review of Systems Review of Systems: All other systems are reviewed and are negative Constitutional: Reports as per HPI and Reports no additional constitutional complaints Eyes: Reports as per HPI and Reports no additional eye complaints Reports system reviewed and no additional complaints, except as documented Cardiovascular: Reports as per HPI and Reports no additional cardiovascular complaints Respiratory: Reports as per HPI and Reports no additional respiratory complaints Gastrointestinal: Reports as per HPI and Reports no additional gastrointestinal complaints Genitourinary: Reports no additional female genitourinary complaints Musculoskeletal: Reports no additional musculoskeletal complaints Skin/Breast: Reports system reviewed and no additional complaints, except as docu Psychiatric: Reports no additional psychiatric complaints Endocrine: Reports no additional endocrine complaints Hematologic/Lymphatic: Reports no additional hematologic/lymphatic complaints Allergic/Immunologic: Reports no additional allergic/immunologic complaints Reports system reviewed and no additional complaints, except as documented and Reports Abnormal speech present PMFSH Past Medical History Medical History Anxiety disorder Asthma Back pain Chronic pain syndrome COPD (chronic obstructive pulmonary disease) Depression Elevated cholesterol Fibromyalgia Fibromyalgia GERD (gastroesophageal reflux disease) HTN (hypertension) Irritable bowel syndrome (IBS) Lung nodule Osteopenia Personal history of tuberculosis Postlaminectomy syndrome Surgical History H/O colonoscopy H/O hernia repair History of back surgery History of esophagogastroduodenoscopy (EGD) Hx of section Hx of total knee replacement Presence of left artificial knee joint Presence of right artificial knee joint Family History Family History Father Cancer Mother Kidney problem Hypertension CVD (cardiovascular disease) Paternal Uncle Cancer Colon cancer Brother Cancer Brother Colon cancer Social History Social History Patient Tobacco Use Status: Current everyday Tobacco user Tobacco use type: Cigarette Cigarettes Per Day: 3 Use of substances other than those prescribed or required for medical reasons: No Advance Directives: No Advance Directives Information Provided: No Patient : No Physical Exam Vital Signs: Vital Signs: Last Vital Signs Temp 97.6 F 05/13/21 11:03 Pulse 67 05/13/21 13:03 Resp 20 05/13/21 13:03 BP 108/55 L 05/13/21 13:03 Pulse Ox 99 05/13/21 13:03 Body Mass Index 30.2 Vital signs have been reviewed as appeared to be correct. Blood pressure normal. Heart rate normal. Respiration rate normal. Temperature normal. Oxygen saturation normal. Appearance: Alert. Oriented X3. No acute distress. Head: Normal external exam. Normocephalic. Atraumatic. No Quintanilla signs noted. No raccoon eyes noted Eyes: PERRLA. EOMI. Conjunctiva and sclera normal. Eyelids normal. ENT: TM's Normal. Pharynx normal. Uvula midline. Moist mucous membranes. No trismus noted. No drooling noted. No muffled voice noted. Neck: Normal inspection. Neck supple. FROM. No adenopathy. Thyroid Normal. No meningeal signs. No neck mass noted. CVS: Normal heart rate and rhythm. Heart sound normal. No murmurs noted. Pulses normal throughout. Respiratory: No respiratory distress. Painless inspiration. Breath sounds normal. Diffuse bilateral expiratory mild wheezing, with prolonged expiratory phase, Chest nontender. No accessory muscle usage noted or decreased air movement noted. Abdomen: Soft and nontender. Bowel sounds normal in all 4 quadrants. No distention noted. No organomegaly noted. No visible injury noted. Back: No CVA tenderness. Full range of motion noted. Skin: Skin warm and dry. Normal skin color. Normal skin turgor. No rashes/lesions/lacerations noted. Extremities: No lower extremity edema. Extremities exhibit normal range of motion. Extremities nontender. Neuro: Oriented X 3. Cranial nerve exam: II-XII are grossly intact No motor deficit. No sensory deficit. Reflexes normal. Course Course Course Narrative: Assessment and plan. 55-year-old female smoker with history of COPD came in with increased wheezing and difficulty breathing, physical exam is consistent with COPD exacerbation. Leukocytosis patient with a history of chronic leukocytosis in the past. MDM - Chest Pain Medical Records Data Attestation: I reviewed the patient's medical records. Lab Data Attestation: I reviewed the patient's lab results. Result diagrams: 05/13/21 12:47 05/13/21 12:47 Labs: Lab Results 05/13/21 05/13/21 05/13/21 Range/Units 12:47 12:47 12:47 WBC 17.3 H (4.8-10.8) X10*3/uL RBC 4.21 (4.20-5.50) X10*6/uL Hgb 12.8 (12.0-16.0) g/dl Hct 38.7 (37-47) % MCV 91.9 (80-98) fL MCH 30.4 (27.0-33.0) pg MCHC 33.1 (31.0-35.0) g/dl RDW 13.9 (11.0-16.0) % Plt Count 397 (160-400) X10*3/uL MPV 11.6 (9.4-12.3) fL Immature Gran % (Auto) 0.6 H (0.0-0.4) % Neut % (Auto) 63.4 (45-73) % Lymph % (Auto) 26.2 (20-40) % Bledsoe % (Auto) 9.1 (2-11) % Eos % (Auto) 0.5 (0-4) % Baso % (Auto) 0.2 (0-2) % Lymph # (Auto) 4.5 (1.2-4.9) X10*3/uL Bledsoe # (Auto) 1.6 H (0.1-1.2) X10*3/uL Eos # (Auto) 0.1 (0.0-0.4) X10*3/uL Baso # (Auto) 0.0 (0.0-0.2) X10*3/uL Abs Immat Gran (auto) 0.10 H (0.00-0.03) X10*3/uL Absolute Neuts (auto) 10.9 H (2.0-8.3) X10*3/uL Absolute Nucleated RBC 0.000 (0.0-0.012) X10*3/uL Nucleated RBC % (auto) 0.0 (0.0-0.2) /100WBC Smear Tech's Comments VERIFIED Sodium 141 (135-145) mmol/L Potassium 3.9 (3.3-5.1) mmol/L Chloride 106 (96-108) mmol/L Carbon Dioxide 25 (22-29) mmol/L Anion Gap 14 (12-20) BUN 23 H (9-16) mg/dL Creatinine 1.00 (0.5-1.4) mg/dL Estim Creat Clear Calc 56.5 Estimated GFR 57 Random Glucose 92 (60-115) mg/dL Calcium 9.4 D (8.4-10.2) mg/dL Total Bilirubin 0.3 (0.0-1.0) mg/dL Direct Bilirubin < 0.2 (0.0-0.5) mg/dL AST 10 (5-31) U/L ALT 13 (0-31) U/L Alkaline Phosphatase 107 (39-117) U/L Troponin I High Sens < 3.5 (<3.5-17.0) ng/L Total Protein 6.9 (6.5-8.0) g/dL Albumin 4.2 (3.5-5.0) g/dL Lipase 21 (8-78) U/L Imaging Data Chest x-ray: Radiologist's impression: Chronic changes associated with known COPD as well as several calcified nodules without significant interval change. No acute cardiopulmonary process. Discharge Plan Discharge Clinical Impression: Acute exacerbation of chronic obstructive pulmonary disease Patient Disposition: Home, Self-Care Instructions: COPD (Chronic Obstructive Pulmonary Disease) (ED) Prescriptions: New albuterol sulfate 90 mcg/actuation HFA aerosol inhaler 1 inh inhalation QID PRN (Reason: shortness of breath or wheezing) Qty: 6.7 RF: 0 albuterol sulfate 2.5 mg/0.5 mL solution for nebulization 5 mg inhalation Q6H PRN (Reason: shortness of breath or wheezing) Qty: 30 RF: 0 azithromycin [Zithromax Z-Yordan] 250 mg tablet See Rx Instructions .ROUTE .COMPLEX Qty: 6 RF: 0 No Action doxepin 50 mg Capsule 50 mg PO BEDTIME RF: 0 atorvastatin 20 mg Tablet 20 mg PO BEDTIME RF: 0 hydrochlorothiazide 50 mg Tablet 50 mg PO DAILY RF: 0 alendronate 70 mg Tablet 70 mg PO QWEEK RF: 0 clonazepam 1 mg Tablet 1 mg PO BID RF: 0 diltiazem HCl 360 mg Capsule,Extended Release 24hr 360 mg PO DAILY RF: 0 amlodipine 5 mg Tablet 5 mg PO DAILY RF: 0 aspirin [Aspirin Low Dose] 81 mg Tablet,Delayed Release (Dr/Ec) 81 mg PO DAILY RF: 0 montelukast 10 mg Tablet 10 mg PO BEDTIME RF: 0 escitalopram oxalate 20 mg Tablet 20 mg PO DAILY RF: 0 metoprolol tartrate 25 mg Tablet 25 mg PO DAILY RF: 0 budesonide-formoterol [Symbicort] 160-4.5 mcg/actuation Hfa Aerosol Inhaler 2 puff INHALATION BID RF: 0 Daliresp 500 mcg Tablet 500 mcg PO DAILY RF: 0 Spiriva Respimat 2.5 mcg/actuation Mist 2 puff INHALATION DAILY RF: 0 ergocalciferol (vitamin D2) 1,250 mcg (50,000 unit) capsule 1 cap PO QWEEK RF: 0 Linzess 145 mcg capsule 145 mcg PO QAM 30 Days Qty: 30 RF: 6 Dexilant 60 mg capsule,biphase delayed releas 60 mg PO DAILY Qty: 30 RF: 6 Referrals: Isabelle Colon MD [Primary Care Provider] - 2 days
[2021-05-13] MEDS: Albuterol/Iprat 2.5/0.5MG 3 ML AMPUL.NEB INHALE (12:37)
[2021-05-13 12:38] VITALS: PULSE 52; O2SAT 95
[2021-05-13] MEDS: Albuterol Sulfate (0.083%) 2.5 MG/3 ML VIAL.NEB 5 MG INHALE ×2 (12:38→14:28)
[2021-05-13] MEDS: predniSONE 20 MG TABLET 60 MG PO (13:01)
[2021-05-13 13:03] VITALS: BP 108/55; PULSE 67; RESP 20; O2SAT 99
[2021-05-13 13:03] LABS: Basophils Percent Auto 0.2 % (0-2); Eosinophils Absolute Auto 0.1 X10*3/uL (0.0-0.4); Eosinophils Percent Auto 0.5 % (0-4); Hematocrit 38.7 % (37-47); Hemoglobin 12.8 g/dl (12.0-16.0); Imm Gran Pct Auto 0.6 % (0.0-0.4); Lymphocytes Absolute Auto 4.5 X10*3/uL (1.2-4.9); Lymphocytes Percent Auto 26.2 % (20-40); MANUAL DIFF FLAG SCAN; Mean Corpuscular HGB Conc 33.1 g/dl (31.0-35.0); Mean Corpuscular Hemoglobin 30.4 pg (27.0-33.0); Mean Corpuscular Volume 91.9 fL (80-98); Mean Platelet Volume 11.6 fL (9.4-12.3); Monocytes Absolute Auto 1.6 X10*3/uL (0.1-1.2); Monocytes Percent Auto 9.1 % (2-11); Neutrophils Absolute Auto 10.9 X10*3/uL (2.0-8.3); Neutrophils Percent Auto 63.4 % (45-73); Platelet Count 397 X10*3/uL (160-400); Red Blood Count 4.21 X10*6/uL (4.20-5.50); Red Cell Distribution Width 13.9 % (11.0-16.0); SCAN SMEAR FLAG 1; White Blood Count 17.3 X10*3/uL (4.8-10.8)
--- NOTE | 2021-05-13 13:04 | PC.NURSE ---
asthma exacerbation x 4 days. LS with exp wheezing and tight cough heard. Recieving updraft at this time. skin pwd. normal resp effort
[2021-05-13 13:06] VITALS: PULSE 74
[2021-05-13 13:15] LABS: Troponin-I High Sensitivity < 3.5 ng/L (<3.5-17.0)
[2021-05-13 13:22] LABS: Alanine Aminotransferase 13 U/L (0-31); Albumin Level 4.2 g/dL (3.5-5.0); Alkaline Phosphatase 107 U/L (39-117); Anion Gap 14 (12-20); Aspartate Amino Transferase 10 U/L (5-31); Bilirubin Direct < 0.2 mg/dL (0.0-0.5); Bilirubin Total 0.3 mg/dL (0.0-1.0); Blood Urea Nitrogen 23 mg/dL (9-16); Calcium 9.4 mg/dL (8.4-10.2); Carbon Dioxide 25 mmol/L (22-29); Chloride 106 mmol/L (96-108); Creatinine Clr Calc Pharmacy 56.5; Estimated Glomerular Filt Rate 57; Glucose Random 92 mg/dL (60-115); Lipase 21 U/L (8-78); Potassium 3.9 mmol/L (3.3-5.1); Sodium 141 mmol/L (135-145); Total Protein 6.9 g/dL (6.5-8.0)
[2021-05-13 13:39] LABS: SLIDE REVIEW VERIFIED
--- NOTE | 2021-05-13 13:50 | PC.NURSE ---
s/p updraft pt without SOB but ls remain with i/e wheezing
--- NOTE | 2021-05-13 14:07 | PC.NURSE ---
resp called for additional updraft
[2021-05-13 14:29] VITALS: PULSE 64; O2SAT 93
[2021-05-13 15:50] VITALS: BP 114/50; PULSE 76; RESP 18; O2SAT 97
== END 2021-05-13 15:52 | disposition home or self-care (01) ==
PROVIDERS: Emergency Provider Emergency Medicine; PCP Internal Medicine
DX: J44.0 Chronic obstructive pulmonary disease with (acute) lower respiratory infection (principal); R07.9 Chest pain, unspecified; R06.02 Shortness of breath; F17.210 Nicotine dependence, cigarettes, uncomplicated; Z20.822 Contact with and (suspected) exposure to COVID-19; Z71.6 Tobacco abuse counseling; Z79.899 Other long term (current) drug therapy
CPT/HCPCS: 36415; 71046; 80048; 80076; 83690; 84484; 85025; 93005; 94640; 94644; 99285

== ENCOUNTER → 2021-05-23 15:45 | Outpatient (BNVA) | payer MEDICAID, SELFPAY | PROVIDERS: PCP Internal Medicine; Visit Provider Nurse Practitioner ==

== ENCOUNTER 2021-07-23 13:18 | Emergency (ER) | payer MEDICAID, SELFPAY | END 2021-07-23 18:15 | disposition left against medical advice (07) | PROVIDERS: Emergency Provider Emergency Medicine; PCP Internal Medicine | DX: R68.89 Other general symptoms and signs (principal) ==

== ENCOUNTER → 2021-08-21 08:04 | Outpatient (REF) | payer MEDICAID, SELFPAY ==
--- NOTE | ~2021-08-21 | NM_ITS ---
EXAMINATION: NM RADIONUCLIDE SOLID FOOD GASTRIC EMPTYING 4-HOUR STUDY CLINICAL INFORMATION: Gastroesophageal reflux. COMPARISON: No similar priors. TECHNIQUE: A meal consisting of 4 oz of Egg Beaters brand tagged with 1.04 microcuries Tc-99m Sulfur Colloid, 8 oz water and 1 slice of toast with jelly was administered orally to the patient. Images were obtained using a dual head gamma camera in the anterior and posterior projections over of the stomach immediately post ingestion and at hourly intervals up to 4 hours post ingestion. The anterior and posterior counts at each time interval were averaged using the geometric mean and expressed as percentage of the immediate post ingestion counts. FINDINGS: There is good visualization of activity in the stomach immediately post ingestion. As the study progresses, there is good clearance of activity from the stomach and visualization of progressively increasing small bowel activity. By the end of the study, there is almost no retention noted in the stomach. Retention in the stomach at each time interval was: 1 hour 75% (normal 37%-90%) 2 hours 35% (normal 30%-60%) 3 hours 20% 4 hours 2% (normal 0%-10%) NM/NM gastric emptying study IMPRESSION: Normal 4-hour solid food gastric emptying study.
== END ==
LOC: HO.NUCMED 08:04
PROVIDERS: PCP Internal Medicine; Visit Provider Nurse Practitioner
DX: K21.9 Gastro-esophageal reflux disease without esophagitis (principal)
CPT/HCPCS: 78264; A9541

== ENCOUNTER → 2021-08-30 15:53 | Outpatient (BNVA) | payer MEDICAID, SELFPAY | PROVIDERS: Referring Provider Internal Medicine; Visit Provider Nurse Practitioner | DX: K59.04 Chronic idiopathic constipation (principal); K21.9 Gastro-esophageal reflux disease without esophagitis; M81.0 Age-related osteoporosis without current pathological fracture | CPT/HCPCS: 99212 ==

== ENCOUNTER → 2021-09-11 12:49 | Outpatient (BNVA) | payer MEDICAID, SELFPAY | PROVIDERS: PCP Internal Medicine; Referring Provider Internal Medicine; Visit Provider Surgery | DX: R22.2 Localized swelling, mass and lump, trunk (principal) | CPT/HCPCS: 99202 ==

== ENCOUNTER → 2021-09-26 15:04 | Outpatient (BNVA) | payer MEDICAID, SELFPAY | PROVIDERS: PCP Internal Medicine; Referring Provider Internal Medicine; Visit Provider Surgery | DX: R22.2 Localized swelling, mass and lump, trunk (principal); K58.9 Irritable bowel syndrome, unspecified; K21.9 Gastro-esophageal reflux disease without esophagitis; I10 Essential (primary) hypertension; E78.00 Pure hypercholesterolemia, unspecified; G89.4 Chronic pain syndrome; M96.1 Postlaminectomy syndrome, not elsewhere classified; M79.7 Fibromyalgia; M85.80 Other specified disorders of bone density and structure, unspecified site; F17.210 Nicotine dependence, cigarettes, uncomplicated; Z96.651 Presence of right artificial knee joint; Z96.652 Presence of left artificial knee joint; Z88.1 Allergy status to other antibiotic agents; Z91.040 Latex allergy status; Z79.52 Long term (current) use of systemic steroids; Z79.899 Other long term (current) drug therapy | CPT/HCPCS: 99212 ==

== ENCOUNTER 2021-11-08 12:07 | Day surgery (SDC) | payer MEDICAID, SELFPAY ==
--- NOTE | ~2021-11-08 | CT_ITS ---
EXAMINATION: CT ABDOMEN AND PELVIS WITHOUT CONTRAST CLINICAL INFORMATION: Localization scanning for CT-guided biopsy. Biopsy was canceled. Localized swelling, mass and lump, trunk. COMPARISON: 08/16/2021 TECHNIQUE: Multidetector volumetric imaging was performed from the superior aspect of the liver through the pubic symphysis. Sagittal and coronal reformatted images were obtained on the technologist's workstation. This CT examination was performed using dose optimization techniques as appropriate, variously including the following: *Automated exposure control. *Adjustment of mA and/or kV according to patient size (this includes techniques or standardized protocols for targeted exams where dose is matched to indication/reason for exam; i.e. extremities or head). *Use of iterative reconstruction technique. DLP: 342 mGy-cm FINDINGS: Scanning was performed in preparation for anterior midline increased density structure adjacent to scar. Previous PET/CT imaging from [facility] had not been obtained so direct imaging comparison as to whether this definitely represented the mass for biopsy could not be made at time of examination. Review of previous studies dating back to study of 06/19/2014 demonstrated this to have been present and unchanged since that time. I was unable to contact the referring provider and, therefore, biopsy was canceled until further consultation could be obtained. The lesion may represent an endometrioma as it is along the midline scar and patient has had multiple sections in the past. Endometriomas can show up as PET positive lesions. CT/CT abdomen pelvis wo con IMPRESSION: Aborted abdominal biopsy as described above.
[2021-11-08 12:27] VITALS: BMI 31.9
[2021-11-08 12:47] LABS: MANUAL DIFF FLAG NO
[2021-11-08 12:49] LABS: Basophils Absolute Auto 0.1 X10*3/uL (0.0-0.2); Eosinophils Absolute Auto 0.6 X10*3/uL (0.0-0.4); Eosinophils Percent Auto 5.2 % (0-4); Hematocrit 40.5 % (37.0-47.0); Hemoglobin 13.4 g/dl (12.0-16.0); Imm Gran Abs Auto 0.03 X10*3/uL (0.00-0.03); Imm Gran Pct Auto 0.2 % (0.0-0.4); Lymphocytes Absolute Auto 2.9 X10*3/uL (1.2-4.9); Mean Corpuscular HGB Conc 33.1 g/dl (31.0-35.0); Mean Corpuscular Volume 90.8 fL (80.0-98.0); Mean Platelet Volume 10.8 fL (9.4-12.3); Monocytes Absolute Auto 1.1 X10*3/uL (0.1-1.2); Monocytes Percent Auto 8.7 % (2-11); Neutrophils Absolute Auto 7.4 x10*3/uL (2.0-8.3); Neutrophils Percent Auto 60.9 % (45-73); Platelet Count 478 X10*3/uL (160-400); Red Blood Count 4.46 X10*6/uL (4.20-5.50); Red Cell Distribution Width 12.8 % (11.0-16.0); White Blood Count 12.2 X10*3/uL (4.8-10.8)
[2021-11-08 12:59] LABS: INTERNATIONAL NORM RATIO 1.1 (0.9-1.1); Prothrombin Time 12.8 SEC (9.9-13.0)
[2021-11-08 13:02] LABS: Partial Thromboplastin Time 43.7 SEC (24.1-38.0)
== END 2021-11-08 15:37 | disposition home or self-care (01) ==
LOC: HO.SSS 12:08
PROVIDERS: PCP Internal Medicine; Visit Provider Radiology Diagnostic Radiology
DX: R22.2 Localized swelling, mass and lump, trunk (principal); Z53.8 Procedure and treatment not carried out for other reasons
CPT/HCPCS: 36415; 74176; 85025; 85610; 85730; J2250; J3010

== ENCOUNTER → 2021-11-18 09:10 | Outpatient (BNVA) | payer MEDICAID, SELFPAY | PROVIDERS: PCP Internal Medicine; Referring Provider Internal Medicine; Visit Provider Surgery | DX: R22.2 Localized swelling, mass and lump, trunk (principal) | CPT/HCPCS: 99212 ==

== ENCOUNTER 2022-01-29 06:08 | Outpatient (REF) | payer MEDICAID, SELFPAY | END 2022-01-29 06:09 | disposition home or self-care (01) | LOC: HO.HOSX 06:08 | PROVIDERS: Visit Provider Physician Assistant | DX: Z13.89 Encounter for screening for other disorder (principal) ==

== ENCOUNTER 2022-03-14 07:40 | Outpatient (REF) | payer MEDICAID, SELFPAY ==
--- NOTE | ~2022-03-14 | XR_ITS ---
EXAMINATION: XR HIP, LEFT CLINICAL INFORMATION: Pain in unspecified hip. COMPARISON: Right hip done on 08/24/2019. TECHNIQUE: Frontal view of the pelvis and frontal and frog-leg lateral view of the left hip were obtained. FINDINGS: Postsurgical changes are noted overlying the sacrum at midline, similar to prior study dated 08/24/2019. Mild diffuse osteopenia. The bony alignments are intact. The cortices are intact. Mild osteoarthrosis is noted at the superolateral aspect of the left hip, appears similar to the right site. Phleboliths are seen in the pelvis. XR/XR hip LT w PEL1V IMPRESSION: 1. Mild osteoarthrosis of the left hip. 2. Mild diffuse osteopenia. 3. Stable postsurgical changes overlying the sacrum at midline, unchanged since 08/24/2019.
== END 2022-03-14 07:41 | disposition home or self-care (01) ==
LOC: HO.HOSX 07:40
PROVIDERS: Visit Provider Physician Assistant
DX: M70.62 Trochanteric bursitis, left hip (principal)
CPT/HCPCS: 20610; 73502; 99202; J1040

== ENCOUNTER 2022-04-14 13:15 | Emergency (ER) | payer MEDICAID, SELFPAY ==
[2022-04-14] VITALS (8 sets, daily range): BP systolic 100–146; BP diastolic 50–78; PULSE 62–118; RESP 16–26; TEMP 36.6–37.2; O2SAT 75–98; BMI 29.8
--- NOTE | ~2022-04-14 | CT_ITS ---
EXAMINATION: CT CHEST WITHOUT CONTRAST CLINICAL INFORMATION: Cough, leukocytosis. COMPARISON: Chest radiograph 04/14/2022; CTA chest 06/13/2019 TECHNIQUE: Multidetector volumetric CT imaging of the chest is performed without intravenous contrast. Axial MIP volume rendering provided. Sagittal and coronal reformatted images were obtained. This CT examination was performed using dose optimization techniques as appropriate, variously including the following: *Automated exposure control *Adjustment of mA and/or kV according to patient size (this includes techniques or standardized protocols for targeted exams where dose is matched to indication/reason for exam; i.e. extremities or head) *Use of iterative reconstruction technique DLP: 222 mGy-cm FINDINGS: LUNGS: There is no lobar or segmental airspace consolidation or groundglass opacities. There are emphysematous changes greatest upper zones as well as scattered upper bullous changes. There is mild tracheomegaly. No endobronchial lesion or bronchiectasis. There are accentuated subpleural reticular markings and mild linear scarring at the bilateral posterior bases, greater on the right. There are multiple bilateral small calcified granuloma. Largest calcified granuloma left lateral upper lobe just under 0.5 cm and there is heavily calcified granuloma or calcified scar apical lateral right upper lobe 0.6 x 1.3 cm. Calcified granulomata are unremarkable and benign (Fleischner criteria). MEDIASTINUM: No hilar or mediastinal adenopathy. Thoracic aorta normal in caliber. Heart size normal. Trace pericardial effusion greatest anteriorly, 0.8 cm thickness. CORONARY ARTERY CALCIFICATION: Scattered atherosclerotic calcifications. PLEURA: There is no pleural effusion. No pleural mass or thickening. AXILLA: No lymphadenopathy. UPPER ABDOMEN: Unremarkable. OSSEOUS STRUCTURES: Unremarkable. CT/CT chest wo IV con IMPRESSION: -No airspace consolidation or effusion. -Emphysematous and bullous changes. Numerous scattered benign calcified granulomata.
--- NOTE | ~2022-04-14 | XR_ITS ---
EXAMINATION: PORTABLE CHEST 1 VIEW CLINICAL INFORMATION: cough . COMPARISON: 05/13/2021 chest x-ray and 05/09/2021 PET/CT scan. TECHNIQUE: Portable frontal view of the chest was obtained. FINDINGS: Lungs well-expanded. Emphysematous changes are seen bilaterally. Calcified bilateral granulomas are seen in the lung apices. Chronic reticular markings are again seen more set the lung bases. No superimposed focal infiltrate, effusion, edema, or pneumothorax. Cardiac and mediastinal silhouettes within normal limits for size. Mild vascular calcification in the aorta. No acute bony abnormality. XR/XR chest 1V IMPRESSION: Emphysematous changes with calcified granulomas bilaterally. There are chronic appearing coarsened reticular markings similar to prior studies without definitive acute superimposed airspace disease on these chronic changes
--- NOTE | 2022-04-14 13:27 | ECG_ITS ---
Test Reason : DYSPNEA Blood Pressure : / mmHG Vent. Rate : 110 BPM Atrial Rate : 110 BPM P-R Int : 170 ms QRS Dur : 108 ms QT Int : 374 ms P-R-T Axes : 053 017 075 degrees QTc Int : 506 ms Sinus tachycardia Septal infarct , age undetermined ST & T wave abnormality, consider lateral ischemia Abnormal ECG When compared with ECG of 13-MAY-2021 12:06, Vent. rate has increased BY 53 BPM Septal infarct is now Present Non-specific change in ST segment in Anterior leads T wave inversion now evident in Lateral leads QT has lengthened Referred By: Juan Carlos Falcon Electronically Signed By:JASMYN HEREDIA
[2022-04-14] MEDS: Albuterol Sulfate 7.5 MG, Albuterol Sulfate (0.083%) 2.5 MG 10 MG INHALE (13:33)
--- NOTE | 2022-04-14 13:34 | ED.GENADULT ---
HPI - General Adult General Chief complaint: Upper Respiratory Symptoms Stated complaint: SOB X'S 1 WEEK,15LPM NRB 99% PER EMS Time Seen by Provider: 04/14/22 13:18 Source: patient, EMS and old records reviewed History of Present Illness HPI narrative: Patient with history of COPD presents with shortness of breath. She states for the past 5 days or so she has had a cough with brown sputum as well as night sweats. She does not have a history of pneumonia. She tested herself for COVID was negative. Chest pain with coughing and deep breath. It is sharp and left-sided. No nausea vomiting diarrhea or constipation. She has been using her nebulizer without much improvement at home. EMS found patient to have an oxygen saturation in the 70s on room air. She improved significantly with non-rebreather and they were able to wean her down to nasal cannula prior to arrival to the emergency department. She is still complaining of significant dyspnea subjectively however. No other precipitating factors that she is aware of. Former smoker. Related Data Home Medications Medication Instructions Recorded Confirmed amlodipine 5 mg tablet 5 mg PO DAILY 05/15/20 11/18/21 aspirin 81 mg tablet,delayed 81 mg PO DAILY 05/15/20 11/18/21 release (Brianna Low Dose Aspirin) atorvastatin 20 mg tablet 20 mg PO BEDTIME 05/15/20 11/18/21 budesonide-formoterol HFA 160 2 puff inhalation BID 05/15/20 11/18/21 mcg-4.5 mcg/actuation aerosol inhaler (Symbicort) clonazepam 1 mg tablet 1 mg PO BID 05/15/20 11/18/21 diltiazem HCl 360 mg 360 mg PO DAILY 05/15/20 11/18/21 capsule,extended release 24 hr doxepin 50 mg capsule 50 mg PO BEDTIME 05/15/20 11/18/21 escitalopram oxalate 20 mg tablet 20 mg PO DAILY 05/15/20 11/18/21 hydrochlorothiazide 50 mg tablet 50 mg PO DAILY 05/15/20 11/18/21 metoprolol tartrate 25 mg tablet 25 mg PO DAILY 05/15/20 11/18/21 montelukast 10 mg tablet 10 mg PO BEDTIME 05/15/20 11/18/21 roflumilast 500 mcg tablet 500 mcg PO DAILY 05/15/20 11/18/21 (Daliresp) tiotropium bromide 2.5 2 puff inhalation DAILY 05/15/20 11/18/21 mcg/actuation mist for inhalation (Spiriva Respimat) ergocalciferol (vitamin D2) 1,250 1 cap PO QWEEK 03/26/21 11/18/21 mcg (50,000 unit) capsule calcium carbonate 600 mg calcium 600 mg PO BID 08/30/21 11/18/21 (1,500 mg) tablet celecoxib 100 mg capsule 100 mg PO BID 08/30/21 11/18/21 diltiazem HCl 240 mg capsule,24 240 mg PO DAILY 08/30/21 11/18/21 hr,extended release fluticasone propionate 50 1 - 2 spray intranasal DAILY PRN 08/30/21 11/18/21 mcg/actuation nasal spray,suspension zolpidem 10 mg tablet 10 mg PO BEDTIME 08/30/21 11/18/21 Previous Rx's Medication Instructions Recorded albuterol sulfate 2.5 mg/0.5 mL 5 mg inhalation Q6H PRN shortness 05/13/21 solution for nebulization of breath or wheezing #30 ea albuterol sulfate 90 mcg/actuation 1 inh inhalation QID PRN shortness 05/13/21 aerosol inhaler of breath or wheezing #6.7 grams prednisone 20 mg tablet 20 mg PO BID #10 tabs 05/13/21 calcitonin (salmon) 200 1 spray intranasal (ALT) DAILY 08/30/21 unit/actuation nasal spray #3.7 mL lansoprazole 30 mg capsule,delayed 30 mg PO BID 30 days #60 caps 08/30/21 release linaclotide 145 mcg capsule 145 mcg PO QAM #30 caps 09/09/21 (Linzess) tramadol 50 mg tablet 50 mg PO BID PRN pain #20 tabs 11/20/21 famotidine 40 mg tablet 40 mg PO BEDTIME #30 tabs 12/30/21 azithromycin 250 mg tablet 250 mg PO DAILY 5 days #5 tabs 04/14/22 prednisone 20 mg tablet 40 mg PO DAILY #10 tabs 04/14/22 Allergies Allergy/AdvReac Type Severity Reaction Status Date / Time latex [LATEX] Allergy Intermediate RASH; Verified 03/14/22 15:27 redness ciprofloxacin [From CIPRO] AdvReac Intermediate Diarrhea Verified 03/14/22 15:27 Review of Systems Constitutional: Comments: Night sweats. No documented fevers. General malaise. Cardiovascular: Comments: Chest pain as described Respiratory: Comments: dyspnea with cough and brown phlegm Gastrointestinal: Comments: abdominal pain Integumentary/Breasts: Comments: no rash Neurologic: Comments: no focal weakness PMFSH Past Medical History Medical History Abdominal wall mass Anxiety disorder Asthma Back pain Chronic pain syndrome COPD (chronic obstructive pulmonary disease) Depression Elevated cholesterol Fibromyalgia Fibromyalgia GERD (gastroesophageal reflux disease) HTN (hypertension) Irritable bowel syndrome (IBS) Lung nodule Osteopenia Personal history of tuberculosis Postlaminectomy syndrome Surgical History H/O colonoscopy H/O hernia repair History of back surgery History of esophagogastroduodenoscopy (EGD) Hx of section Hx of total knee replacement Presence of left artificial knee joint Presence of right artificial knee joint Family History Family History Father Cancer Mother Kidney problem Hypertension CVD (cardiovascular disease) Paternal Uncle Cancer Colon cancer Brother Cancer Brother Colon cancer Social History Social History Alcohol intake: never Patient Tobacco Use Status: Current everyday Tobacco user Tobacco use type: Cigarette Cigarettes Per Day: 3 Smoked in Last 30 Days: Yes Use of substances other than those prescribed or required for medical reasons: No Advance Directives: No Advance Directives Information Provided: Yes Patient : No Physical Exam ED Vital Signs: Vital Signs - 24 hr 04/14/22 13:21 04/14/22 13:33 04/14/22 13:55 Temperature 98 F Pulse Rate 105 H 104 H 118 H Respiratory Rate 26 H 22 H 20 Blood Pressure 133/73 133/64 Pulse Oximetry 98 97 Oxygen Delivery Method Nasal Cannula Nasal Cannula Oxygen Flow Rate 2 04/14/22 15:58 04/14/22 15:59 04/14/22 18:00 Temperature 98.9 F 98.0 F Pulse Rate 102 H 62 105 H Respiratory Rate 19 16 18 Blood Pressure 116/69 100/50 L 109/55 L Pulse Oximetry 98 98 98 Oxygen Delivery Method Nasal Cannula Nasal Cannula Room Air Oxygen Flow Rate 2 2 BMI result Body Mass Index 29.8 Const Other: patient is awake and alert. Moderate respiratory distress with increased effort. Chest Other: Anterior chest tender palpation along the sternal border Resp Other: bilateral rhonchi with poor air entry. Cardio Other: Mild tachycardia. No murmurs rubs or gallops GI Other: soft nontender nondistended Skin Other: warm pink and dry without rash Neuro Other: nonfocal neuro exam Course Course Course Narrative: COPD exacerbation Bronchitis Pneumonia Chest pain PE less likely IV fluids IV Solu-Medrol 10 mg albuterol with DuoNeb IV antibiotics as patient meets SIRS criteria. patient now with shaking chills. Will repeat temperature. X-ray shows no obvious infiltrates. Labs show leukocytosis at 17,000. D-dimer normal. Will add noncontrast chest CT to evaluate for pneumonia not found on chest x-ray. 17:43. Patient is feeling much better. She states she feels good enough to go home. Will do ambulatory sat 20:32. Patient is ambulatory sat went down to 86% at its lowest. Patient states she feels good however in with still rather go home. Her room air resting saturation is 94 97%. Given this, I think going home is reasonable. Will discharge her home on Zithromax and prednisone Medical Decision Making Lab Data Result diagrams: 04/14/22 13:46 04/14/22 13:46 Labs: Lab Results 04/14/22 04/14/22 04/14/22 Range/Units 13:46 13:46 13:46 WBC 17.4 H (4.8-10.8) X10*3/uL RBC 3.86 L (4.20-5.50) X10*6/uL Hgb 11.4 L (12.0-16.0) g/dl Hct 34.9 L (37.0-47.0) % MCV 90.4 (80.0-98.0) fL MCH 29.5 (27.0-33.0) pg MCHC 32.7 (31.0-35.0) g/dl RDW 13.9 (11.0-16.0) % Plt Count 510 H (160-400) X10*3/uL MPV 9.7 (9.4-12.3) fL Immature Gran % (Auto) 0.8 H (0.0-0.4) % Neut % (Auto) 75.8 H (45-73) % Lymph % (Auto) 13.7 L (20-40) % [place] % (Auto) 6.0 (2-11) % Eos % (Auto) 3.0 (0-4) % Baso % (Auto) 0.7 (0-2) % Lymph # (Auto) 2.4 (1.2-4.9) X10*3/uL [place] # (Auto) 1.1 (0.1-1.2) X10*3/uL Eos # (Auto) 0.5 H (0.0-0.4) X10*3/uL Baso # (Auto) 0.1 (0.0-0.2) X10*3/uL Abs Immat Gran (auto) 0.14 H (0.00-0.03) X10*3/uL Absolute Neuts (auto) 13.2 H (2.0-8.3) x10*3/uL Absolute Nucleated RBC 0.000 (0.0-0.012) X10*3/uL Nucleated RBC % (auto) 0.0 (0.0-0.2) /100WBC D-Dimer High Sensitivty NG/ML Sodium 138 (135-145) mmol/L Potassium 3.4 (3.3-5.1) mmol/L Chloride 93 L (96-108) mmol/L Carbon Dioxide 33 H (22-29) mmol/L Anion Gap 15 (12-20) BUN 12 (9-16) mg/dL Creatinine 0.90 (0.5-1.4) mg/dL Estim Creat Clear Calc 61.6 Estimated GFR > 60 Random Glucose 98 (60-115) mg/dL Lactic Acid 0.6 (0.5-2.0) mmol/L Calcium 10.4 H D (8.4-10.2) mg/dL Total Bilirubin 0.2 (0.0-1.0) mg/dL AST 13 (5-31) U/L ALT 12 (0-31) U/L Alkaline Phosphatase 97 (39-117) U/L Troponin I High Sens (<3.5-17.0) ng/L B-Natriuretic Peptide (<100) pg/mL Total Protein 7.8 (6.5-8.0) g/dL Albumin 4.0 (3.5-5.0) g/dL Respiratory Panel [place] Adenovirus (Rapid PCR) (Not Detect.) B.pert (TEM-PCR) (Not Detect.) B.parapertussis DNA PCR (Not Detect.) C. pneumoniae DNA (PCR) (Not Detect.) Coronavirus OC43 (PCR) (Not Detect.) Coronavirus HKU1 (PCR) (Not Detect.) Coronavirus 229E (PCR) (Not Detect.) Coronavirus NL63 (PCR) (Not Detect.) Human Metapneumovir PCR (Not Detect.) Influenza A (RT-PCR) (Not Detect.) Influenza B (RT-PCR) (Not Detect.) M. pneumoniae (PCR) (Not Detect.) Parainfluenza 1 (PCR) (Not Detect.) Parainfluenza 2 (PCR) (Not Detect.) Parainfluenza 3 (PCR) (Not Detect.) Parainfluenza 4 (PCR) (Not Detect.) RSV (PCR) (Not Detect.) Entero/Rhino (PCR) (Not Detect.) SARS-CoV-2 RNA (RT-PCR) (Not Detect.) 04/14/22 04/14/22 04/14/22 Range/Units 13:46 13:46 13:52 WBC (4.8-10.8) X10*3/uL RBC (4.20-5.50) X10*6/uL Hgb (12.0-16.0) g/dl Hct (37.0-47.0) % MCV (80.0-98.0) fL MCH (27.0-33.0) pg MCHC (31.0-35.0) g/dl RDW (11.0-16.0) % Plt Count (160-400) X10*3/uL MPV (9.4-12.3) fL Immature Gran % (Auto) (0.0-0.4) % Neut % (Auto) (45-73) % Lymph % (Auto) (20-40) % [place] % (Auto) (2-11) % Eos % (Auto) (0-4) % Baso % (Auto) (0-2) % Lymph # (Auto) (1.2-4.9) X10*3/uL [place] # (Auto) (0.1-1.2) X10*3/uL Eos # (Auto) (0.0-0.4) X10*3/uL Baso # (Auto) (0.0-0.2) X10*3/uL Abs Immat Gran (auto) (0.00-0.03) X10*3/uL Absolute Neuts (auto) (2.0-8.3) x10*3/uL Absolute Nucleated RBC (0.0-0.012) X10*3/uL Nucleated RBC % (auto) (0.0-0.2) /100WBC D-Dimer High Sensitivty 202 NG/ML Sodium (135-145) mmol/L Potassium (3.3-5.1) mmol/L Chloride (96-108) mmol/L Carbon Dioxide (22-29) mmol/L Anion Gap (12-20) BUN (9-16) mg/dL Creatinine (0.5-1.4) mg/dL Estim Creat Clear Calc Estimated GFR Random Glucose (60-115) mg/dL Lactic Acid (0.5-2.0) mmol/L Calcium (8.4-10.2) mg/dL Total Bilirubin (0.0-1.0) mg/dL AST (5-31) U/L ALT (0-31) U/L Alkaline Phosphatase (39-117) U/L Troponin I High Sens < 3.5 (<3.5-17.0) ng/L B-Natriuretic Peptide 15 (<100) pg/mL Total Protein (6.5-8.0) g/dL Albumin (3.5-5.0) g/dL Respiratory Panel [place] See note Adenovirus (Rapid PCR) Not Detected (Not Detect.) B.pert (TEM-PCR) Not Detected (Not Detect.) B.parapertussis DNA PCR Not Detected (Not Detect.) C. pneumoniae DNA (PCR) Not Detected (Not Detect.) Coronavirus OC43 (PCR) Not Detected (Not Detect.) Coronavirus HKU1 (PCR) Not Detected (Not Detect.) Coronavirus 229E (PCR) Not Detected (Not Detect.) Coronavirus NL63 (PCR) Not Detected (Not Detect.) Human Metapneumovir PCR Not Detected (Not Detect.) Influenza A (RT-PCR) Not Detected (Not Detect.) Influenza B (RT-PCR) Not Detected (Not Detect.) M. pneumoniae (PCR) Not Detected (Not Detect.) Parainfluenza 1 (PCR) Not Detected (Not Detect.) Parainfluenza 2 (PCR) Not Detected (Not Detect.) Parainfluenza 3 (PCR) Not Detected (Not Detect.) Parainfluenza 4 (PCR) Not Detected (Not Detect.) RSV (PCR) Not Detected (Not Detect.) Entero/Rhino (PCR) Not Detected (Not Detect.) SARS-CoV-2 RNA (RT-PCR) Not Detected (Not Detect.) Discharge Plan Discharge Clinical Impression: Bronchitis, COPD (chronic obstructive pulmonary disease) Patient Disposition: Home, Self-Care Instructions: Acute Bronchitis (ED), COPD (Chronic Obstructive Pulmonary Disease) (ED) Prescriptions: New azithromycin 250 mg tablet 250 mg PO DAILY 5 Days Qty: 5 0RF prednisone 20 mg tablet 40 mg PO DAILY Qty: 10 0RF No Action Linzess 145 mcg capsule 145 mcg PO QAM Qty: 30 6RF famotidine 40 mg tablet 40 mg PO BEDTIME Qty: 30 3RF doxepin 50 mg Capsule 50 mg PO BEDTIME atorvastatin 20 mg Tablet 20 mg PO BEDTIME hydrochlorothiazide 50 mg Tablet 50 mg PO DAILY clonazepam 1 mg Tablet 1 mg PO BID diltiazem HCl 360 mg Capsule,Extended Release 24hr 360 mg PO DAILY amlodipine 5 mg Tablet 5 mg PO DAILY aspirin [Brianna Low Dose Aspirin] 81 mg Tablet,Delayed Release (Dr/Ec) 81 mg PO DAILY montelukast 10 mg Tablet 10 mg PO BEDTIME escitalopram oxalate 20 mg Tablet 20 mg PO DAILY metoprolol tartrate 25 mg Tablet 25 mg PO DAILY budesonide-formoterol [Symbicort] 160-4.5 mcg/actuation Hfa Aerosol Inhaler 2 puff INHALATION BID Daliresp 500 mcg Tablet 500 mcg PO DAILY Spiriva Respimat 2.5 mcg/actuation Mist 2 puff INHALATION DAILY ergocalciferol (vitamin D2) 1,250 mcg (50,000 unit) capsule 1 cap PO QWEEK albuterol sulfate 90 mcg/actuation HFA aerosol inhaler 1 inh inhalation QID PRN (Reason: shortness of breath or wheezing) Qty: 6.7 0RF albuterol sulfate 2.5 mg/0.5 mL solution for nebulization 5 mg inhalation Q6H PRN (Reason: shortness of breath or wheezing) Qty: 30 0RF prednisone 20 mg tablet 20 mg PO BID Qty: 10 0RF calcium carbonate 600 mg calcium (1,500 mg) tablet 600 mg PO BID fluticasone propionate 50 mcg/actuation spray,suspension 1 - 2 spray intranasal DAILY PRN celecoxib 100 mg capsule 100 mg PO BID diltiazem HCl 240 mg capsule,extended release 24 hr 240 mg PO DAILY zolpidem 10 mg tablet 10 mg PO BEDTIME lansoprazole 30 mg capsule,delayed release(DR/EC) 30 mg PO BID 30 Days Qty: 60 6RF calcitonin (salmon) 200 unit/actuation spray,non-aerosol 1 spray intranasal (ALT) DAILY Qty: 3.7 6RF tramadol 50 mg tablet 50 mg PO BID PRN (Reason: pain) Qty: 20 0RF
[2022-04-14] MEDS: Ipratropium Bromide 0.5 MG/2.5 ML SOLUTION INHALE (13:36)
[2022-04-14 13:59] LABS: MANUAL DIFF FLAG NO
[2022-04-14 14:00] LABS: Basophils Absolute Auto 0.1 X10*3/uL (0.0-0.2); Basophils Percent Auto 0.7 % (0-2); Eosinophils Absolute Auto 0.5 X10*3/uL (0.0-0.4); Hematocrit 34.9 % (37.0-47.0); Hemoglobin 11.4 g/dl (12.0-16.0); Imm Gran Abs Auto 0.14 X10*3/uL (0.00-0.03); Imm Gran Pct Auto 0.8 % (0.0-0.4); Lymphocytes Absolute Auto 2.4 X10*3/uL (1.2-4.9); Lymphocytes Percent Auto 13.7 % (20-40); Mean Corpuscular HGB Conc 32.7 g/dl (31.0-35.0); Mean Corpuscular Hemoglobin 29.5 pg (27.0-33.0); Mean Corpuscular Volume 90.4 fL (80.0-98.0); Mean Platelet Volume 9.7 fL (9.4-12.3); Monocytes Absolute Auto 1.1 X10*3/uL (0.1-1.2); Neutrophils Absolute Auto 13.2 x10*3/uL (2.0-8.3); Neutrophils Percent Auto 75.8 % (45-73); Platelet Count 510 X10*3/uL (160-400); Red Blood Count 3.86 X10*6/uL (4.20-5.50); Red Cell Distribution Width 13.9 % (11.0-16.0); White Blood Count 17.4 X10*3/uL (4.8-10.8)
[2022-04-14 14:12] LABS: D Dimer High Sensitivity 202 NG/ML
[2022-04-14 14:13] LABS: Lactic Acid 0.6 mmol/L (0.5-2.0)
[2022-04-14] MEDS: HYDROmorphone HCl 0.5 MG/0.5 ML SYRINGE IVPUSH (14:15)
[2022-04-14] MEDS: Azithromycin 500 MG TABLET PO (14:16)
[2022-04-14] MEDS: cefTRIAXone sodium 1 GM in 0.9 % Sodium Chloride 50 ML IV (14:16)
[2022-04-14] MEDS: methylPREDNISolone Sod Succ 125 MG/2 ML VIAL IVPUSH (14:16)
[2022-04-14 14:20] LABS: Alanine Aminotransferase 12 U/L (0-31); Alkaline Phosphatase 97 U/L (39-117); Anion Gap 15 (12-20); Aspartate Amino Transferase 13 U/L (5-31); Bilirubin Total 0.2 mg/dL (0.0-1.0); Blood Urea Nitrogen 12 mg/dL (9-16); Calcium 10.4 mg/dL (8.4-10.2); Carbon Dioxide 33 mmol/L (22-29); Chloride 93 mmol/L (96-108); Creatinine Clr Calc Pharmacy 61.6; Estimated Glomerular Filt Rate > 60; Glucose Random 98 mg/dL (60-115); Potassium 3.4 mmol/L (3.3-5.1); Sodium 138 mmol/L (135-145); Total Protein 7.8 g/dL (6.5-8.0)
[2022-04-14] MEDS: 0.9 % Sodium Chloride 500 ML IV (14:21)
[2022-04-14 14:27] LABS: B Type Natriuretic Peptide 15 pg/mL (<100); Troponin-I High Sensitivity < 3.5 ng/L (<3.5-17.0)
[2022-04-14 15:27] LABS: Adenovirus PCR Not Detected (Not Detect.); Bordetella parapertussis PCR Not Detected (Not Detect.); Bordetella pertussis PCR Not Detected (Not Detect.); Chlamydia pneumoniae PCR Not Detected (Not Detect.); Coronavirus 229E PCR Not Detected (Not Detect.); Coronavirus HKU1 PCR Not Detected (Not Detect.); Coronavirus NL63 PCR Not Detected (Not Detect.); Coronavirus OC43 PCR Not Detected (Not Detect.); Human metapneumovirus PCR Not Detected (Not Detect.); Influenza A PCR Not Detected (Not Detect.); Influenza B PCR Not Detected (Not Detect.); Mycoplasma pneumoniae PCR Not Detected (Not Detect.); Parainfluenza 1 PCR Not Detected (Not Detect.); Parainfluenza 2 PCR Not Detected (Not Detect.); Parainfluenza 3 PCR Not Detected (Not Detect.); Parainfluenza 4 PCR Not Detected (Not Detect.); RSV PCR Not Detected (Not Detect.); Rhino/Enterovirus PCR Not Detected (Not Detect.); SARS-CoV-2 PCR Not Detected (Not Detect.)
--- NOTE | 2022-04-14 18:44 | PC.NURSE ---
provider requested ambulating O2 eval. at rest HR 106 SpO2 95% RA. pt walked approx. 100 feet. HR 116 and SpO2 86% RA.Pt stated she feels better than when she came in, however still some SOB on exertion. Informed provider of Desat.
== END 2022-04-14 19:11 | disposition home or self-care (01) ==
PROVIDERS: Emergency Provider Emergency Medicine; PCP Internal Medicine
DX: J40 Bronchitis, not specified as acute or chronic (principal); J44.9 Chronic obstructive pulmonary disease, unspecified; R06.02 Shortness of breath; I10 Essential (primary) hypertension; E78.00 Pure hypercholesterolemia, unspecified; K21.9 Gastro-esophageal reflux disease without esophagitis; Z20.822 Contact with and (suspected) exposure to COVID-19; Z79.82 Long term (current) use of aspirin; Z79.02 Long term (current) use of antithrombotics/antiplatelets; Z79.899 Other long term (current) drug therapy
CPT/HCPCS: 36415; 71045; 71250; 80053; 83605; 83880; 84484; 85025; 85379; 87040; 87633; 93005; 94640; 96365; 96375; 99284; 99285; J0696; J1170; J2930

== ENCOUNTER → 2022-05-19 15:11 | Outpatient (BNVA) | payer MEDICAID, SELFPAY | PROVIDERS: PCP Internal Medicine; Referring Provider Internal Medicine; Visit Provider Surgery | DX: R22.2 Localized swelling, mass and lump, trunk (principal) | CPT/HCPCS: 99212 ==

== ENCOUNTER → 2022-08-08 14:44 | Outpatient (BNVA) | payer MEDICAID, SELFPAY | PROVIDERS: PCP Internal Medicine; Visit Provider Nurse Practitioner | DX: K21.9 Gastro-esophageal reflux disease without esophagitis (principal); K59.04 Chronic idiopathic constipation; R68.81 Early satiety | CPT/HCPCS: 99212 ==

== ENCOUNTER → 2022-10-01 08:02 | Outpatient (REF) | payer MEDICAID, SELFPAY ==
--- NOTE | ~2022-10-01 | NM_ITS ---
EXAMINATION: RADIONUCLIDE SOLID FOOD GASTRIC EMPTYING 4-HOUR STUDY CLINICAL INFORMATION: Early satiety. COMPARISON: A previous gastric emptying study dated 08/21/2021 is available for comparison. TECHNIQUE: A standard meal consisting of 4 oz of Egg Beaters brand tagged with 816 microcuries Tc-99m Sulfur Colloid, 8 oz water and 2 slices of toast with jelly was administered orally to the patient. Images were obtained using a dual head gamma camera in the anterior and posterior projections over of the stomach immediately post ingestion and at hourly intervals up to 3 hours post ingestion. Images were not obtained at 4 hours due to the minimal retention at 3 hours. The anterior and posterior counts at each time interval were averaged using the geometric mean and expressed as percentage of the immediate post ingestion counts. FINDINGS: There is good visualization of activity in the stomach immediately post ingestion. As the study progresses, there is good clearance of activity from the stomach and visualization of progressively increasing small bowel activity. By the end of the study, there is almost no retention noted in the stomach. Retention in the stomach at each time interval was: 1 hour 58% (normal 37%-90%) 2 hours 27% (normal 30%-60%) 3 hours 3% 4 hours (Not Obtained) (normal 0%-10%) NM/NM gastric emptying study IMPRESSION: Normal solid food gastric emptying study.
== END ==
LOC: HO.NUCMED 08:02
PROVIDERS: PCP Internal Medicine; Visit Provider Nurse Practitioner
DX: R68.81 Early satiety (principal); K21.9 Gastro-esophageal reflux disease without esophagitis
CPT/HCPCS: 78264; A9541

== ENCOUNTER 2022-10-23 07:43 | Outpatient (REF) | payer MEDICAID, SELFPAY ==
--- NOTE | ~2022-10-23 | CT_ITS ---
EXAMINATION: CT ABDOMEN AND PELVIS WITHOUT AND WITH CONTRAST CLINICAL INFORMATION: Pancreatic mucinous tumor suspected. COMPARISON: 11/08/[address] of the abdomen of 08/05/2016. TECHNIQUE: Multidetector volumetric imaging was performed of the abdomen and pelvis before and after the IV administration of 85 mL of Omnipaque 350 intravenous contrast. Sagittal and coronal reformatted images were obtained on the technologist's workstation. This CT examination was performed using dose optimization techniques as appropriate, variously including the following: *Automated exposure control *Adjustment of mA and/or kV according to patient size (this includes techniques or standardized protocols for targeted exams where dose is matched to indication/reason for exam; i.e. extremities or head) *Use of iterative reconstruction technique DLP: 673 mGy-cm. FINDINGS: LUNG BASES: There are a few calcific granulomas present. No pleural effusion. There is a small amount of pericardial fluid. Heart normal size. LIVER, GALLBLADDER, AND BILIARY TREE: The liver is normal in size, shape, and attenuation. No focal hepatic lesion or biliary ductal dilatation is present. The gallbladder is unremarkable with no evidence of radiopaque gallstones, gallbladder wall thickening, or obvious pericholecystic inflammatory changes. PANCREAS: About the head of the pancreas, there is a 2.6 x 1.5 x 2.5 cm low-density mass, which on noncontrasted study measures approximately 1 Hounsfield unit and on contrast study measures approximately 14 Hounsfield units. No pancreatic ductal dilatation is seen. No peripancreatic inflammatory changes noted. On PET/CT of 05/09/2021 this appeared to measure approximately 1.7 x 1.1 cm in size and was PET negative. On outside study from [facility] from 08/16/2021 this measured approximately 1.7 x 1.0 cm in size. SPLEEN: Unremarkable. ADRENAL GLANDS: Unremarkable. KIDNEYS AND URETERS: The kidneys are normal in size, shape, and attenuation. No hydronephrosis, hydroureter, or calculi seen. No perinephric stranding. There are a few subcentimeter low density structures likely representing cysts seen bilaterally. BLADDER: Decompressed. GASTROINTESTINAL TRACT: No free air or free fluid is identified. No dilated loops of large or small bowel are seen. No pericolonic inflammatory change. The appendix is not visualized. ABDOMINAL WALL: There is again noted to be an anterior midline abdominal wall enhancing mass measuring approximately 2.0 x 1.0 cm in size and is unchanged in size and appearance to study of 08/16/2021 from [facility] and stable compared to study of 06/10/2014 and likely representing an endometrioma. No significant hernia is appreciated. LYMPH NODES: No lymphadenopathy appreciated. VASCULAR: Visceral vessels are patent. No abdominal aortic aneurysm. PELVIC VISCERA: Unremarkable. OSSEOUS STRUCTURES: No suspicious destructive bony lesions identified. Patient is status post previous surgery with fusion L5-S1. CT/CT abdomen pelvis wo/w IV con IMPRESSION: Enlarging pancreatic head low density lesion demonstrating minimal enhancement by approximately 13 Hounsfield units measuring approximately 2.6 x 1.5 x 2.5 cm in size. There is no associated calcification or pancreatic duct dilatation. The above appearance could be seen with serous cystic neoplasm or mucinous cystic neoplasm. An intraductal papillary mucinous neoplasm would seem somewhat less likely due to no dilatation of the pancreatic duct. Less likely, this could be seen with solid pseudopapillary epithelial neoplasm or cystic degeneration of adenocarcinoma, neuroendocrine tumor. Stable anterior midline enhancing solid lesion with appearance of endometrioma. Fleischner guidelines were followed.
[2022-10-23] MEDS: iohexoL 350 MG/ML 100 ML INFUS..BTL IV (08:25)
== END 2022-10-23 07:44 | disposition home or self-care (01) ==
LOC: HO.CT 07:43
PROVIDERS: PCP Internal Medicine; Visit Provider Internal Medicine
DX: K86.2 Cyst of pancreas (principal); M54.9 Dorsalgia, unspecified
CPT/HCPCS: 74178; Q9967

== ENCOUNTER 2023-02-24 11:49 | Outpatient (REF) | payer MEDICAID, SELFPAY ==
--- NOTE | ~2023-02-24 | XR_ITS ---
EXAMINATION: XR HIP, LEFT CLINICAL INFORMATION: Left hip pain, atraumatic COMPARISON: February 2022. TECHNIQUE: Two views of the left hip. FINDINGS: No evidence for acute fracture or dislocation. Slight narrowing of the superior medial left hip joint space is not appreciably changed. Spurring of the superior lateral left acetabular margin does not appear to be appreciably changed. No erosive process. The acetabular and pubic margins are intact. Postsurgical changes overlying the lower lumbar or lumbosacral level. XR/XR hip LT min 2V IMPRESSION: No acute process. Slight narrowing of the superior medial left hip joint space, not appearing significantly changed. Superior lateral left acetabular marginal spurring appears stable.
== END 2023-02-24 11:50 | disposition home or self-care (01) ==
LOC: HO.HHCX 11:49
PROVIDERS: Visit Provider Nurse Practitioner Primary Care
DX: M25.552 Pain in left hip (principal)
CPT/HCPCS: 73502

== ENCOUNTER 2023-03-20 12:45 | Outpatient (AMB) | payer MEDICAID, SELFPAY ==
[2023-03-20 12:56] VITALS: BP 128/94; BMI 33.0
--- NOTE | 2023-03-20 12:56 | A.OFFVIS_ITS ---
Intake Vital Signs 03/20/23 12:56 Height 5 ft 1 in Weight 174 lb 9.698 oz BMI 33.0 BP 128/94 H Blood Pressure Location Rt brachial Position Sitting Intake Visit Reasons: Follow up Results Intake Note: Patient presents to in office visit today in follow up of GERD. CC: Pt c/o LT inguinal pain with radiation to leg for two weeks. Patient sates Famotidine has been working for her but feels like metoclopramide is not working for her. 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 She also feels like the Miacalcin spray is irritating her nose. Will have her stop this then resume her alendronate. She is taking the lansoprazole twice a day and since we really maximized her acid reducing therapy I think will try her on a low dose of Reglan to see if a delay in gastric emptying is causing her severe GERD. I explained this to her and explained to her how to use the medications and any adverse effects that would necessitate immediate cessation of use a notification of my office. She is not diabetic but I will also order a gastric emptying study just to make sure we do not having idiopathic delay that is worse than what I assume is fermentation. She is instructed not to take the Reglan the day of the test although this is probably far into the future given delays in scheduling. She feels that the Linzess 145 micro g is moving her bowels well so this is not a apparent contributing factor. Return office visit in 4 weeks to evaluate her response to these interventions. (2) Chronic idiopathic constipation: Code(s): K59.04 - Chronic idiopathic constipation (3) Early satiety: Code(s): R68.81 - Early satiety Orders: Orders NM gastric emptying study 08/08/22 K21.9 - Gastro-esophageal reflux disease without esophagitis, R68.81 - Early satiety Medications: New metoclopramide HCl (Reglan) Provider aware of possible interaction with lexpro and is monitoring 5 mg PO QIDACHS 120 tabs 3RF K21.9 - Gastro-esophageal reflux disease without esophagitis, R68.81 - Early satiety Patient Instructions: Sarahtony Cardenas Ynes Contin?e tomando el lansoprazol dos veces al d?a, si tiene Dexilant en casa, no lo tome. Puede suspender el aerosol nasal y volver a mildred el alendronato. Estoy agregando un nuevo medicamento llamado metoclopramida y lo jose antes de cada comida y antes de acostarme. Continuar el LInzess. Quiero verte en semanas para lila c?mo est?s. GES 10/01/22 IMPRESSION: Normal solid food gastric emptying study. CT ABD AND PELVIS ORDERED BY PCP 10/30/22? FINDINGS: LUNG BASES: There are a few calcific granulomas present. No pleural effusion. There is a small amount of pericardial fluid. Heart normal size.? LIVER, GALLBLADDER, AND BILIARY TREE: The liver is normal in size, shape, and attenuation. No focal hepatic lesion or biliary ductal dilatation is present. The gallbladder is unremarkable with no evidence of radiopaque gallstones, gallbladder wall thickening, or obvious pericholecystic inflammatory changes.? PANCREAS: About the head of the pancreas, there is a 2.6 x 1.5 x 2.5 cm low-density mass, which on noncontrasted study measures approximately 1 Hounsfield unit and on contrast study measures approximately 14 Hounsfield units. No pancreatic ductal dilatation is seen. No peripancreatic inflammatory changes noted.? On PET/CT of 05/09/2021 this appeared to measure approximately 1.7 x 1.1 cm in size and was PET negative. On outside study from [facility] from 08/16/2021 this measured approximately 1.7 x 1.0 cm in size. SPLEEN: Unremarkable.? ADRENAL GLANDS: Unremarkable.? KIDNEYS AND URETERS: The kidneys are normal in size, shape, and attenuation. No hydronephrosis, hydroureter, or calculi seen. No perinephric stranding. There are a few subcentimeter low density structures likely representing cysts seen bilaterally. BLADDER: Decompressed.? GASTROINTESTINAL TRACT: No free air or free fluid is identified. No dilated loops of large or small bowel are seen. No pericolonic inflammatory change. The appendix is not visualized. ABDOMINAL WALL: There is again noted to be an anterior midline abdominal wall enhancing mass measuring approximately 2.0 x 1.0 cm in size and is unchanged in size and appearance to study of 08/16/2021 from [facility] and stable compared to study of 06/10/2014 and likely representing an endometrioma. No significant hernia is appreciated.? LYMPH NODES: No lymphadenopathy appreciated. VASCULAR: Visceral vessels are patent. No abdominal aortic aneurysm. PELVIC VISCERA: Unremarkable.? OSSEOUS STRUCTURES: No suspicious destructive bony lesions identified. Patient is status post previous surgery with fusion L5-S1.? CT/CT abdomen pelvis wo/w IV con IMPRESSION: Enlarging pancreatic head low density lesion demonstrating minimal. enhancement by approximately 13 Hounsfield units measuring approximately 2.6 x 1.5 x 2.5 cm in size. There is no associated calcification or pancreatic duct dilatation. The above appearance could be seen with serous cystic neoplasm or mucinous cystic neoplasm. An intraductal papillary mucinous neoplasm would seem somewhat less likely due to no dilatation of the pancreatic duct. Less likely, this could be seen with solid pseudopapillary epithelial neoplasm or cystic degeneration of adenocarcinoma, neuroendocrine tumor. ? Stable anterior midline enhancing solid lesion with appearance of endometrioma. ? Fleischner guidelines were followed. TODAY'S VISIT [place]an #Estrella Venu She continues to struggle with the GERD. She only has the famotidine and never got lansoprazole, she has failed protonix and Dexilant in the past as well as omeprazole. Famotidine not working well. She has a new problem of LLQ pain, but she feels the LInzess is working well. Will stop reglan may be overdriving the colon. She tells me they told me you would tell me about the pancreas mass. This is quite a surprise to me, and I backtrack to see that a CT was ordered by her PCP with a mass and she was then send to General. surgery. I will look further in to this. ROV 6 weeks. [facility] Medical History Abdominal wall mass Anxiety disorder Asthma Back pain Chronic pain syndrome COPD (chronic obstructive pulmonary disease) Depression Elevated cholesterol Fibromyalgia Fibromyalgia GERD (gastroesophageal reflux disease) HTN (hypertension) Irritable bowel syndrome (IBS) Lung nodule Osteopenia Personal history of tuberculosis Postlaminectomy syndrome Surgical History H/O colonoscopy H/O hernia repair History of back surgery History of esophagogastroduodenoscopy (EGD) Hx of section Hx of total knee replacement Presence of left artificial knee joint Presence of right artificial knee joint Family History Father Cancer Mother Kidney problem Hypertension CVD (cardiovascular disease) Paternal Uncle Cancer Colon cancer Brother Cancer Brother Colon cancer Social History Alcohol intake: never Patient Tobacco Use Status: Current everyday Tobacco user Tobacco use type: Cigarette Cigarettes Per Day: 3 Review of Systems Const Denies fatigue, Denies fever(s), Denies night sweats, Denies poor appetite and Denies weight loss ENT Reports Normal hearing present, Denies dental pain, Denies dysphagia, Denies hearing loss, Denies mouth pain, Denies odynophagia, Denies throat swelling, Denies tongue swelling and Reports other (Dentition adequate) Card Reports no additional complaints Resp Reports no additional complaints GI Reports abdominal pain, Denies melena, Denies bloating, Denies hematochezia, Reports constipation, Denies GI cramping, Denies dysphagia, Denies excessive flatus, Denies early satiety, Reports heartburn, Denies diarrhea, Denies nausea, Denies odynophagia, Denies vomiting and Denies hematemesis Skin/Breast Denies pruritus, Denies lesions, Denies rash and Denies jaundice Neuro Reports Normal hearing present and Denies Abnormal speech present Endo Denies fatigue Aller/Immun Denies throat swelling and Denies tongue swelling Physical Exam Vital Signs: Last Vital Signs BP 128/94 H 03/20/23 12:56 BMI result Body Mass Index 33.0 Const General: cooperative, no acute distress, well developed and well groomed Nutritional Appearance: well nourished and obese Orientation/consciousness: oriented to person, oriented to place and oriented to time Limitations: language barrier HEENT Head: Yes normocephalic and Yes atraumatic Eyes General: appearance normal, both eyes and all related structures Pupils: Equal, round and reactive pupils present Neck Neck: Yes normal visual inspection and Yes no lymphadenopathy Thyroid: Thyroid normal Resp Effort & Inspection: normal respiratory effort and able to speak in complete sentences Auscultation: clear to auscultation bilaterally Cardio Rate: regular rate Rhythm: regular rhythm Heart sounds: Normal, physiologic split S2 sound present Peripheral pulses: radial pulses present and posterior tibial pulses present GI Inspection: No distended, Yes Abdominal panniculus present and Yes obesity Palpation (GI): Soft to palpation, Tenderness to palpation present (GI) in the LLQ, no guarding, not rigid and No hepatosplenomegaly present Percussion: Yes normal to percussion Auscultation: normal bowel sounds Rectal Exam - Female: deferred Skin General skin exam: no rashes or lesions noted, turgor normal, skin not dry, no jaundice, No spider nevi and no striae Rashes: no rashes Nails: normal Neuro General: oriented to person, oriented to place and oriented to time Cranial nerves: Yes Equal, round and reactive pupils present and Yes Normal hearing present Speech: No Abnormal speech present Extrem General: Yes normal to inspection, No clubbing, No cyanosis and No edema Psych Appearance: grossly normal and well kempt Mental Status: mental status grossly normal Speech and movement: Normal speech and movement present Affect: normal affect Attitude: cooperative Thought process: Normal thought process present and not confabulating Thought content: Normal thought content present Insight: Limited insight present (Psych) Judgement: Limited judgement present (Psych) Assessment & Plan Assessment & Plan (1) GERD (gastroesophageal reflux disease): Code(s): K21.9 - Gastro-esophageal reflux disease without esophagitis Plan: [place] #Estrella Live She continues to struggle with the GERD. She only has the famotidine and never got lansoprazole, she has failed protonix and Dexilant in the past as well as omeprazole. Famotidine not working well. She has a new problem of LLQ pain, but she feels the LInzess is working well. Will stop reglan may be overdriving the colon. She tells me they told me you would tell me about the pancreas mass. This is quite a surprise to me, and I backtrack to see that a CT was ordered by her PCP with a mass and she was then send to General. surgery. I will look further in to this. ROV 6 weeks. (2) Chronic idiopathic constipation: Code(s): K59.04 - Chronic idiopathic constipation (3) Early satiety: Code(s): R68.81 - Early satiety (4) Pancreatic lesion: Comment: CT 10/23/[address] ordered by PCP Enlarging pancreatic head low density lesion demonstrating minimal enhancement by approximately 13 Hounsfield units measuring approximately 2.6 x 1.5 x 2.5 cm in size. There is no associated calcification or pancreatic duct dilatation. The above appearance could be seen with serous cystic neoplasm or mucinous cystic neoplasm. An intraductal papillary mucinous neoplasm would seem somewhat less likely due to no dilatation of the pancreatic duct. Less likely, this could be seen with solid pseudopapillary epithelial neoplasm or cystic degeneration of adenocarcinoma, neuroendocrine tumor. Code(s): K86.9 - Disease of pancreas, unspecified Orders: Orders MR MRCP 03/20/23 K86.9 - Disease of pancreas, unspecified Carbohydrate Antigen 19-9 03/20/23 K86.9 - Disease of pancreas, unspecified Medications: Changed From famotidine 40 mg PO BEDTIME 30 tabs 3RF K21.9 - Gastro-esophageal reflux disease without esophagitis To famotidine 40 mg PO BID 60 tabs 3RF K21.9 - Gastro-esophageal reflux disease without esophagitis Discontinued metoclopramide HCl Provider aware of possible interaction with lexpro and is monitoring Discontinued Reason: Doctor's Order 5 mg PO QIDACHS 120 tabs 3RF K21.9 - Gastro-esophageal reflux disease without esophagitis, R68.81 - Early satiety Coding Level of Care Code Est Pt Level 3 (03935) Diagnoses GERD (gastroesophageal reflux disease) K21.9 Chronic idiopathic constipation K59.04 Early satiety R68.81 Pancreatic lesion K86.9
== END 2023-03-20 13:41 | disposition home or self-care (01) ==
PROVIDERS: PCP Internal Medicine; Visit Provider Nurse Practitioner
DX: K21.9 Gastro-esophageal reflux disease without esophagitis (principal); K59.04 Chronic idiopathic constipation; R68.81 Early satiety; K86.9 Disease of pancreas, unspecified
CPT/HCPCS: 99213

== ENCOUNTER → 2023-03-20 12:45 | Outpatient (BNVA) | payer MEDICAID, SELFPAY | PROVIDERS: PCP Internal Medicine; Visit Provider Nurse Practitioner | DX: K21.9 Gastro-esophageal reflux disease without esophagitis (principal); K59.04 Chronic idiopathic constipation; R68.81 Early satiety; K86.9 Disease of pancreas, unspecified | CPT/HCPCS: 99212 ==

== ENCOUNTER 2023-05-14 12:18 | Outpatient (AMB) | payer MEDICAID, SELFPAY ==
--- NOTE | 2023-05-14 12:27 | A.OFFVIS_ITS ---
Intake Vital Signs 05/14/23 12:29 Height 5 ft 1 in Weight 172 lb BMI 32.5 BP 120/59 L Blood Pressure Location Lt brachial Position Sitting Pulse 86 Intake Visit Reasons: 6 week fu Intake Note: Patient follow up for acid reflex and CT scan results. Patient cc: acid reflex and denies any other GI issues. 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 She only has the famotidine and never got lansoprazole, she has failed protonix and Dexilant in the past as well as omeprazole. Famotidine not working well. She has a new problem of LLQ pain, but she feels the LInzess is working well. Will stop reglan may be overdriving the colon. She tells me they told me you would tell me about the pancreas mass. This is quite a surprise to me, and I backtrack to see that a CT was ordered by her PCP with a mass and she was then send to General. surgery. I will look further in to this. ROV 6 weeks. (2) Chronic idiopathic constipation: Code(s): K59.04 - Chronic idiopathic constipation (3) Early satiety: Code(s): R68.81 - Early satiety (4) Pancreatic lesion: Comment: CT 10/23/[address] ordered by PCP Enlarging pancreatic head low density lesion demonstrating minimal enhancement by approximately 13 Hounsfield units measuring approximately 2.6 x 1.5 x 2.5 cm in size. There is no associated calcification or pancreatic duct dilatation. The above appearance could be seen with serous cystic neoplasm or mucinous cystic neoplasm. An intraductal papillary mucinous neoplasm would seem somewhat less likely due to no dilatation of the pancreatic duct. Less likely, this could be seen with solid pseudopapillary epithelial neoplasm or cystic degeneration of adenocarcinoma, neuroendocrine tumor. Code(s): K86.9 - Disease of pancreas, unspecified Orders: Orders MR MRCP 08/25/23 K86.9 - Disease of pancreas, unspeci fied Carbohydrate Antig en 19-9 03/20/23 K86.9 - Disease of pancreas, unspeci fied Medications: Changed From famotidine 40 mg PO BEDTIME 30 tabs 3RF K21.9 - Gastro-eso phageal reflux dis ease without esoph agitis To famotidine 40 mg PO BID 60 ta bs 3RF K21.9 - Gastro-eso phageal reflux dis ease without esoph agitis Discontinued metoclopramide HCl Provider aware of possible inter action with lexpro and is monitoring Discontinued R jimbo: Doctor's O rder 5 mg PO QIDACHS 1 20 tabs 3RF K21.9 - Gastro-eso phageal reflux dis ease without esoph agitis, R68.81 - E jeremy satiety LABS: [facility] 05/19 scheduled TODAY'S VISIT Serbian #[id number] brent She is doing generally better. Stopping the reglan mostly relieved the pain now she only had the LLQ pain occasionally and it is not severe like it was before. Her GERD is also greatly improved with the Dexilant. she also has famotidine for breakthrough. She feels she is moving her bowels well with her Linzess. Her MRI is coming up on the of this month so I will see her back in 3 weeks. She did not know about the labs for the CA 19-9 so I will send her to get that this week. Fortunately she is feeling generally well and not showing any alarm signs or symptoms. Again, this pancreatic lesion was an incidentaloma discovered on CT scan done for other reasons. ROV 3 weeks. [facility] Medical History Abdominal wall mass Anxiety disorder Asthma Back pain Chronic pain syndrome COPD (chronic obstructive pulmonary disease) Depression Elevated cholesterol Fibromyalgia Fibromyalgia GERD (gastroesophageal reflux disease) HTN (hypertension) Irritable bowel syndrome (IBS) Lung nodule Osteopenia Personal history of tuberculosis Postlaminectomy syndrome Surgical History Presence of left artificial knee joint Presence of right artificial knee joint History of back surgery Hx of section Hx of total knee replacement H/O hernia repair History of esophagogastroduodenoscopy (EGD) H/O colonoscopy Family History Father Cancer Mother Kidney problem Hypertension CVD (cardiovascular disease) Paternal Uncle Cancer Colon cancer Brother Cancer Brother Colon cancer Social History Alcohol intake: never Patient Tobacco Use Status: Current everyday Tobacco user Tobacco use type: Cigarette Cigarettes Per Day: 3 Review of Systems Const Denies fatigue, Denies fever(s), Denies night sweats, Denies poor appetite and Denies weight loss ENT Reports Normal hearing present, Denies dental pain, Denies dysphagia, Denies hearing loss, Denies mouth pain, Denies odynophagia, Denies throat swelling, Denies tongue swelling and Reports other (Dentition adequate) Card Reports no additional complaints Resp Reports no additional complaints GI Denies abdominal pain, Denies melena, Denies bloating, Denies hematochezia, Reports constipation, Reports GI cramping, Denies dysphagia, Denies excessive flatus, Denies early satiety, Reports heartburn, Denies diarrhea, Denies nausea, Denies odynophagia, Denies vomiting and Denies hematemesis Skin/Breast Denies pruritus, Denies lesions, Denies rash and Denies jaundice Neuro Reports Normal hearing present and Denies Abnormal speech present Endo Denies fatigue Aller/Immun Denies throat swelling and Denies tongue swelling Physical Exam Vital Signs: Last Vital Signs Pulse 86 05/14/23 12:29 BP 120/59 L 05/14/23 12:29 BMI result Body Mass Index 32.5 Const General: cooperative, no acute distress, well developed and well groomed Nutritional Appearance: well nourished and obese Orientation/consciousness: oriented to person, oriented to place and oriented to time Limitations: language barrier HEENT Head: Yes normocephalic and Yes atraumatic Eyes General: appearance normal, both eyes and all related structures Pupils: Equal, round and reactive pupils present Neck Neck: Yes normal visual inspection and Yes no lymphadenopathy Thyroid: Thyroid normal Resp Effort & Inspection: normal respiratory effort and able to speak in complete sentences Auscultation: clear to auscultation bilaterally Cardio Rate: regular rate Rhythm: regular rhythm Heart sounds: Normal, physiologic split S2 sound present Peripheral pulses: radial pulses present and posterior tibial pulses present GI Inspection: No distended, Yes Abdominal panniculus present and Yes obesity Palpation (GI): Soft to palpation, nontender, no guarding, not rigid and No hepatosplenomegaly present Percussion: Yes normal to percussion Auscultation: normal bowel sounds Rectal Exam - Female: deferred Skin General skin exam: no rashes or lesions noted, turgor normal, skin not dry, no jaundice, No spider nevi and no striae Rashes: no rashes Nails: normal Neuro General: oriented to person, oriented to place and oriented to time Cranial nerves: Yes Equal, round and reactive pupils present and Yes Normal hearing present Speech: No Abnormal speech present Extrem General: Yes normal to inspection, No clubbing, No cyanosis and No edema Psych Appearance: grossly normal and well kempt Mental Status: mental status grossly normal Speech and movement: Normal speech and movement present Affect: normal affect Attitude: cooperative Thought process: Normal thought process present and not confabulating Thought content: Normal thought content present Insight: Limited insight present (Psych) Judgement: Limited judgement present (Psych) Assessment & Plan Assessment & Plan (1) Chronic idiopathic constipation: Code(s): K59.04 - Chronic idiopathic constipation Plan: LABS: [facility] 05/19 scheduled TODAY'S VISIT Serbian #[id number] brent She is doing generally better. Stopping the reglan mostly relieved the pain now she only had the LLQ pain occasionally and it is not severe like it was before. Her GERD is also greatly improved with the Dexilant. she also has famotidine for breakthrough. She feels she is moving her bowels well with her Linzess. Her MRI is coming up on the of this month so I will see her back in 3 weeks. She did not know about the labs for the CA 19-9 so I will send her to get that this week. Fortunately she is feeling generally well and not showing any alarm signs or symptoms. Again, this pancreatic lesion was an incidentaloma discovered on CT scan done for other reasons. ROV 3 weeks. (2) Pancreatic lesion: Comment: CT 10/23/[address] ordered by PCP Enlarging pancreatic head low density lesion demonstrating minimal enhancement by approximately 13 Hounsfield units measuring approximately 2.6 x 1.5 x 2.5 cm in size. There is no associated calcification or pancreatic duct dilatation. The above appearance could be seen with serous cystic neoplasm or mucinous cystic neoplasm. An intraductal papillary mucinous neoplasm would seem somewhat less likely due to no dilatation of the pancreatic duct. Less likely, this could be seen with solid pseudopapillary epithelial neoplasm or cystic degeneration of adenocarcinoma, neuroendocrine tumor. Code(s): K86.9 - Disease of pancreas, unspecified (3) GERD (gastroesophageal reflux disease): Code(s): K21.9 - Gastro-esophageal reflux disease without esophagitis Coding Level of Care Code Est Pt Level 3 (15220) Diagnoses Chronic idiopathic constipation K59.04 Pancreatic lesion K86.9 GERD (gastroesophageal reflux disease) K21.9
[2023-05-14 12:29] VITALS: BP 120/59; PULSE 86; BMI 32.5
== END 2023-05-14 13:02 | disposition home or self-care (01) ==
PROVIDERS: PCP Internal Medicine; Visit Provider Nurse Practitioner
DX: K59.04 Chronic idiopathic constipation (principal); K86.9 Disease of pancreas, unspecified; K21.9 Gastro-esophageal reflux disease without esophagitis
CPT/HCPCS: 99213

== ENCOUNTER → 2023-05-14 12:18 | Outpatient (BNVA) | payer MEDICAID, SELFPAY | PROVIDERS: PCP Internal Medicine; Visit Provider Nurse Practitioner | DX: K21.9 Gastro-esophageal reflux disease without esophagitis (principal); K59.04 Chronic idiopathic constipation; K86.9 Disease of pancreas, unspecified | CPT/HCPCS: 99212 ==

== ENCOUNTER 2023-05-19 08:41 | Outpatient (REF) | payer MEDICAID, SELFPAY ==
--- NOTE | ~2023-05-19 | MR_ITS ---
EXAMINATION: MR ABDOMEN WITHOUT CONTRAST MR CHOLANGIOPANCREATOGRAPHY CLINICAL INFORMATION: Disease of pancreas, enlarging pancreatic head low-density lesion COMPARISON: CT scan of abdomen and pelvis on 10/23/2022 TECHNIQUE: Examination was performed in a high field strength MRI scanner. Multiplanar multisequence MR imaging of the abdomen was performed without IV contrast enhancement. MR cholangiopancreatography was performed with heavily T2 weighted sequences. 3-dimensional reconstruction of image data was performed. This was performed under concurrent direct supervision and monitoring by radiologist. Maximum intensity projection images were constructed. FINDINGS: MR CHOLANGIOPANCREATOGRAPHY: Normal gallbladder without filling defects. Cystic duct is unremarkable. Bilateral intra hepatic bile ducts, common hepatic duct and common bile duct are normal in size without filling defects. Pancreatic duct is normal in size. LIVER: The liver shows no focal lesion. The calculated hepatic fat percentage is 4.4%, compatible with normal. PANCREAS: A multiseptated cystic lesion measuring 1.3 cm in AP diameter, 2.2 cm in width, 2.4 cm in vertical height (previously 1.5 x 2.6 x [address] scan, 1.7 x 1.1 cm in size on FDG PET scan on 05/09/2021 without abnormal glucose uptake) is seen protruding from medial border of pancreatic uncinate process with possible connection to the proximal pancreatic duct, series 14 image #9, series 3 image #6. SPLEEN: Spleen is normal in size without focal lesion. ADRENAL: Bilateral adrenal glands are normal in shape and size. KIDNEYS: Bilateral kidneys are normal in size with a simple cyst at anterior superior left renal pole measuring 0.8 cm in diameter, for which no follow up imaging is recommended. No abnormal enhancing mass lesion can be seen in the abdomen. MR/MR MRCP IMPRESSION: 1. 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 Follow-up imaging with pre and postcontrast MRI of abdomen, MR cholangiopancreatography every 6 months x4, then every year x2 followed by every 2 years x3 to document stability over 10 years is recommended by [employer]. 2. No evidence of hepatobiliary duct dilatation or ductal stones. 3. No focal liver mass lesion could be found. 4. Superior left renal pole simple cyst is found, for which no follow up imaging is recommended.
[2023-05-25 09:18] LABS: Carbohydrate Antigen 19-9 15 U/mL (<34)
== END 2023-05-19 08:42 | disposition home or self-care (01) ==
LOC: HO.MRI 08:41
PROVIDERS: PCP Internal Medicine; Visit Provider Nurse Practitioner
DX: K86.9 Disease of pancreas, unspecified (principal)
CPT/HCPCS: 36415; 74181; 86301

== ENCOUNTER 2023-06-26 08:21 | Outpatient (REF) | payer MEDICAID, SELFPAY ==
--- NOTE | ~2023-06-26 | XR_ITS ---
EXAMINATION: XR RIBS, LEFT WITH PA CHEST CLINICAL INFORMATION: Left rib pain status-post fall 2 weeks prior. COMPARISON: Chest radiographs dated 05/13/2021; CT chest dated 04/14/2022. TECHNIQUE: 3 views of the left ribs were obtained, together with a frontal view of the chest. FINDINGS: Lungs are clear. No consolidation, pneumothorax, or pleural effusion. There is stable right apical pleural and parenchymal scarring. There are benign, calcified biapical granulomas. The cardiomediastinal silhouette and pulmonary vasculature are normal. Osseous structures are unremarkable. Ribs are intact. No fractures are identified. XR/XR ribs LT min 3V w CXR1V IMPRESSION: 1. No rib fracture, effusion or pneumothorax is seen. 2. There are findings consistent with chronic granulomatous lung disease.
[2023-06-26 12:07] LABS: Anion Gap 14 (12-20); Blood Urea Nitrogen 23 mg/dL (9-16); Calcium 10.5 mg/dL (8.4-10.2); Carbon Dioxide 25 mmol/L (22-29); Chloride 105 mmol/L (96-108); Estimated Glomerular Filt Rate 57; Glucose Random 109 mg/dL (60-115); Potassium 3.3 mmol/L (3.3-5.1); Sodium 141 mmol/L (135-145)
[2023-06-26 12:11] LABS: Cholesterol 179 mg/dL (<200); HDL Cholesterol 61 mg/dL (>40); LDL Cholesterol Calculated 85 mg/dL (<100); Triglycerides 168 mg/dL (<150)
[2023-06-26 12:18] LABS: HBS Num1 0.73 mIU/mL (0-7.99); HBc Num1 0.03 S/CO (0.00-0.79); HBsAGNum1 0.29 S/CO (0.00-0.99); Hepatitis A Antibody IgM 0.16 Index (0-0.79); Hepatitis B Core Antibody Nonreactive (Nonreactive); Hepatitis B Surface Antigen Negative (Negative); ~HepC Num1 0.07 S/CO (0.00-0.79); ~Hepatitis A Antibody IgM Nonreactive (Nonreactive); ~Hepatitis B Surface Antibody NONREACTIVE (Nonreactive); ~Hepatitis C Antibody Nonreactive (Nonreactive)
[2023-06-26 12:30] LABS: TSH reflex Free T4 0.83 uIU/mL (0.32-4.0); Vitamin D 25-OH Total 33.8 ng/mL (>30)
[2023-06-26 12:38] LABS: Reflex LDLD? No
[2023-06-28 17:14] LABS: TS Negative Control Passed; TS Panel A 0; TS Panel B 0; TS Positive Control Passed; TSpotTB Negative (Negative)
[2023-06-30 06:09] LABS: Rubella IgG Antibody 6.79 Index
== END 2023-06-26 08:22 | disposition home or self-care (01) ==
LOC: HO.HHCL 08:21
PROVIDERS: Visit Provider Internal Medicine
DX: Z00.00 Encounter for general adult medical examination without abnormal findings (principal); Z11.1 Encounter for screening for respiratory tuberculosis; I10 Essential (primary) hypertension; J43.9 Emphysema, unspecified; K86.2 Cyst of pancreas; R73.01 Impaired fasting glucose
CPT/HCPCS: 36415; 71101; 80048; 80061; 82306; 84443; 86481; 86704; 86706; 86709; 86735; 86762; 86765; 86803; 87340

== ENCOUNTER 2023-08-14 12:02 | Outpatient (REF) | payer MEDICAID, SELFPAY ==
--- NOTE | ~2023-08-14 | XR_ITS ---
EXAMINATION: XR KNEE, LEFT XR ANKLE, RIGHT XR KNEE, RIGHT CLINICAL INFORMATION: Patient states she fell on July 31. Order states fall on sidewalk, curve. Acute bilateral low back pain, primary osteoarthritis of both knees. Status post total knee replacement. Worsening knee pain. Ankle pain, edema. COMPARISON: CT left knee of 04/13/2020. Radiographs bilateral knees 08/22/2019. TECHNIQUE: 3 views right ankle, 4 views right knee, 4 views left knee. FINDINGS: RIGHT KNEE: Status post right knee total arthroplasty. Hardware appears intact. No significant joint effusion. There appears to have been some interval lateral tibial depression subjacent to the lateral aspect of the prosthesis when compared with exam of 08/22/2019 of uncertain age. LEFT KNEE: No significant joint effusion. Status post left knee total arthroplasty. Hardware appears intact. RIGHT ANKLE: Small dorsal calcaneal spurring. Tiny posterior calcaneal spur. Soft tissue swelling at the ankle. No displaced fracture appreciated. XR/XR knee LT 4V IMPRESSION: 1. Status post bilateral knee total arthroplasty. Hardware appears intact. 2. There appears to have been some interval lateral tibial depression subjacent to the lateral aspect of the prosthesis when compared with exam of 08/22/2019 of uncertain age. 3. Small dorsal calcaneal spurring. Soft tissue swelling at the ankle. Correlation with clinical exam recommended to determine further management. If there is concern for fracture or other underlying pathology, CT scan without intravenous contrast could be obtained for further evaluation.
--- NOTE | ~2023-08-14 | XR_ITS ---
EXAMINATION: XR LUMBOSACRAL SPINE WITH OBLIQUES CLINICAL INFORMATION: Patient fell July 31, low back pain, primary osteoarthritis of both knees. COMPARISON: Lumbar spine of 02/18/2016. TECHNIQUE: 6 views of the lumbar spine including bilateral oblique views. FINDINGS: Dextroscoliosis of the lumbar spine. Redemonstration of postsurgical changes at L5-S1. The bones are diffusely demineralized. Atherosclerotic aortic calcifications. Facet arthritis in the lower lumbar spine. Moderate multilevel lumbar spondylosis. Degenerative changes present on limited views of the bilateral hips and sacroiliac joints. XR/XR lumbar spine 4V min IMPRESSION: 1. Redemonstration of postsurgical changes at L5-S1. 2. Moderate multilevel lumbar spondylosis. 3. Facet arthritis in the lower lumbar spine. 4. MRI could be considered for further evaluation if there is clinical concern for fracture or other underlying pathology.
--- NOTE | ~2023-08-14 | XR_ITS ---
EXAMINATION: XR KNEE, LEFT XR ANKLE, RIGHT XR KNEE, RIGHT CLINICAL INFORMATION: Patient states she fell on July 31. Order states fall on sidewalk, curve. Acute bilateral low back pain, primary osteoarthritis of both knees. Status post total knee replacement. Worsening knee pain. Ankle pain, edema. COMPARISON: CT left knee of 04/13/2020. Radiographs bilateral knees 08/22/2019. TECHNIQUE: 3 views right ankle, 4 views right knee, 4 views left knee. FINDINGS: RIGHT KNEE: Status post right knee total arthroplasty. Hardware appears intact. No significant joint effusion. There appears to have been some interval lateral tibial depression subjacent to the lateral aspect of the prosthesis when compared with exam of 08/22/2019 of uncertain age. LEFT KNEE: No significant joint effusion. Status post left knee total arthroplasty. Hardware appears intact. RIGHT ANKLE: Small dorsal calcaneal spurring. Tiny posterior calcaneal spur. Soft tissue swelling at the ankle. No displaced fracture appreciated. XR/XR ankle RT min 3V IMPRESSION: 1. Status post bilateral knee total arthroplasty. Hardware appears intact. 2. There appears to have been some interval lateral tibial depression subjacent to the lateral aspect of the prosthesis when compared with exam of 08/22/2019 of uncertain age. 3. Small dorsal calcaneal spurring. Soft tissue swelling at the ankle. Correlation with clinical exam recommended to determine further management. If there is concern for fracture or other underlying pathology, CT scan without intravenous contrast could be obtained for further evaluation.
--- NOTE | ~2023-08-14 | XR_ITS ---
EXAMINATION: XR KNEE, LEFT XR ANKLE, RIGHT XR KNEE, RIGHT CLINICAL INFORMATION: Patient states she fell on July 31. Order states fall on sidewalk, curve. Acute bilateral low back pain, primary osteoarthritis of both knees. Status post total knee replacement. Worsening knee pain. Ankle pain, edema. COMPARISON: CT left knee of 04/13/2020. Radiographs bilateral knees 08/22/2019. TECHNIQUE: 3 views right ankle, 4 views right knee, 4 views left knee. FINDINGS: RIGHT KNEE: Status post right knee total arthroplasty. Hardware appears intact. No significant joint effusion. There appears to have been some interval lateral tibial depression subjacent to the lateral aspect of the prosthesis when compared with exam of 08/22/2019 of uncertain age. LEFT KNEE: No significant joint effusion. Status post left knee total arthroplasty. Hardware appears intact. RIGHT ANKLE: Small dorsal calcaneal spurring. Tiny posterior calcaneal spur. Soft tissue swelling at the ankle. No displaced fracture appreciated. XR/XR knee RT 4V IMPRESSION: 1. Status post bilateral knee total arthroplasty. Hardware appears intact. 2. There appears to have been some interval lateral tibial depression subjacent to the lateral aspect of the prosthesis when compared with exam of 08/22/2019 of uncertain age. 3. Small dorsal calcaneal spurring. Soft tissue swelling at the ankle. Correlation with clinical exam recommended to determine further management. If there is concern for fracture or other underlying pathology, CT scan without intravenous contrast could be obtained for further evaluation.
== END 2023-08-14 12:03 | disposition home or self-care (01) ==
LOC: HO.HHCX 12:02
PROVIDERS: Visit Provider Internal Medicine
DX: M54.50 Low back pain, unspecified (principal); M17.0 Bilateral primary osteoarthritis of knee; M25.571 Pain in right ankle and joints of right foot; W10.1XXA Fall (on)(from) sidewalk curb, initial encounter
CPT/HCPCS: 72110; 73564; 73610

== ENCOUNTER 2023-09-03 13:41 | Outpatient (REF) | payer MEDICAID, SELFPAY ==
--- NOTE | ~2023-09-03 | XR_ITS ---
EXAMINATION: XR BILATERAL KNEES CLINICAL INFORMATION: Reason for Exam M25.569 - Pain in unspecified knee COMPARISON: Knee radiographs 08/14/2023 TECHNIQUE: 1 view of the bilateral knees standing and 2 views of each knee FINDINGS: RIGHT KNEE: No acute fracture or dislocation appreciated. Status post post total knee arthroplasty in anatomic alignment. No evidence of hardware fracture or complication. Quadriceps tendon enthesopathy unchanged. No joint effusion. Soft tissues are unremarkable. LEFT KNEE: No acute fracture or dislocation. Status post post total knee arthroplasty in anatomic alignment. No evidence of hardware fracture or complication. No joint effusion. Soft tissues are unremarkable. XR/XR knee LT 2V IMPRESSION: Bilateral total knee arthroplasties in anatomic alignment without evidence of hardware fracture or complication. No joint effusion.
--- NOTE | ~2023-09-03 | XR_ITS ---
EXAMINATION: XR BILATERAL KNEES CLINICAL INFORMATION: Reason for Exam M25.569 - Pain in unspecified knee COMPARISON: Knee radiographs 08/14/2023 TECHNIQUE: 1 view of the bilateral knees standing and 2 views of each knee FINDINGS: RIGHT KNEE: No acute fracture or dislocation appreciated. Status post post total knee arthroplasty in anatomic alignment. No evidence of hardware fracture or complication. Quadriceps tendon enthesopathy unchanged. No joint effusion. Soft tissues are unremarkable. LEFT KNEE: No acute fracture or dislocation. Status post post total knee arthroplasty in anatomic alignment. No evidence of hardware fracture or complication. No joint effusion. Soft tissues are unremarkable. XR/XR knee standing BI IMPRESSION: Bilateral total knee arthroplasties in anatomic alignment without evidence of hardware fracture or complication. No joint effusion.
--- NOTE | ~2023-09-03 | XR_ITS ---
EXAMINATION: XR BILATERAL KNEES CLINICAL INFORMATION: Reason for Exam M25.569 - Pain in unspecified knee COMPARISON: Knee radiographs 08/14/2023 TECHNIQUE: 1 view of the bilateral knees standing and 2 views of each knee FINDINGS: RIGHT KNEE: No acute fracture or dislocation appreciated. Status post post total knee arthroplasty in anatomic alignment. No evidence of hardware fracture or complication. Quadriceps tendon enthesopathy unchanged. No joint effusion. Soft tissues are unremarkable. LEFT KNEE: No acute fracture or dislocation. Status post post total knee arthroplasty in anatomic alignment. No evidence of hardware fracture or complication. No joint effusion. Soft tissues are unremarkable. XR/XR knee RT 2V IMPRESSION: Bilateral total knee arthroplasties in anatomic alignment without evidence of hardware fracture or complication. No joint effusion.
== END 2023-09-03 13:42 | disposition home or self-care (01) ==
LOC: HO.HOSX 13:41
PROVIDERS: PCP Internal Medicine; Visit Provider Orthopaedic Surgery
DX: M25.561 Pain in right knee (principal); M25.562 Pain in left knee
CPT/HCPCS: 73560; 73565; 99212

== ENCOUNTER 2023-09-03 13:41 | Outpatient (AMB) | payer MEDICAID, SELFPAY ==
--- NOTE | 2023-09-03 14:02 | A.OFFVIS_ITS ---
Intake Intake Visit Reasons: New Prob - Right TKA 11/03/17 - Fall 07/31/23 Intake Note: Sarah is a 58 year old female who presents today with complaints of right knee pain s/p fall on 07/31/23. Hx of right TKA 11/03/17. Hx of Left TKA 04/27/2019 with I&D 06/07/2019. She has tried ice application, tylenol and ibuprofen with some releif. Allergies latex [LATEX] Allergy (Intermediate, Verified 05/14/23 12:27) RASH; redness ciprofloxacin [From CIPRO] Adverse Reaction (Intermediate, Verified 05/14/23 12:27) Diarrhea HPI New Prob - Right TKA 11/03/17 - Fall 07/31/23 HPI Details Right TKA was doing well until a fall on . Since then she has been having worsening pain and swelling .She denies fever and chills. The pain is mostly with standing and stairs. She is able to walk on flat ground without difficulty. [facility] Medical History Abdominal wall mass Anxiety disorder Asthma Back pain Chronic pain syndrome COPD (chronic obstructive pulmonary disease) Depression Elevated cholesterol Fibromyalgia Fibromyalgia GERD (gastroesophageal reflux disease) HTN (hypertension) Irritable bowel syndrome (IBS) Lung nodule Osteopenia Personal history of tuberculosis Postlaminectomy syndrome Surgical History Presence of left artificial knee joint Presence of right artificial knee joint History of back surgery Hx of section Hx of total knee replacement H/O hernia repair History of esophagogastroduodenoscopy (EGD) H/O colonoscopy Family History Father Cancer Mother Kidney problem Hypertension CVD (cardiovascular disease) Paternal Uncle Cancer Colon cancer Brother Cancer Brother Colon cancer Social History Alcohol intake: never Patient Tobacco Use Status: Current everyday Tobacco user Tobacco use type: Cigarette Cigarettes Per Day: 3 Physical Exam Extrem Other: mild effusion right knee 0-130 deg motion with well healed incision. Most of her pain localizes to the retropatellar area. stable to v/v/ stress Results Reviewed Results Reviewed: I personally reviewed relevant radiographs. Bilateral total knee arthroplasty in expected post operative position with no hardware complications or evidence of loosening Assessment & Plan Assessment & Plan (1) Patellofemoral arthralgia of right knee: Code(s): M25.561 - Pain in right knee Plan: Patellofemoral arthralgia in the setting of chronic pain. Radiographs are unremarkable. We discussed options. At this time she has a knee sleeve and I don't recommend intervention at this time. I would like to see her back in 6-8 weeks. I suspect this will improve with time. Theoretically resurfacing her patella could benefit her but likely not neccessary. Orders: Orders XR knee standing BI 09/03/23 M25.569 - Pain in unspecified knee XR knee RT 2V 09/03/23 M25.569 - Pain in unspecified knee XR knee LT 2V 09/03/23 M25.569 - Pain in unspecified knee Coding Level of Care Code Est Pt Level 4 (58998) Diagnoses Patellofemoral arthralgia of right knee M25.561
== END 2023-09-03 14:52 | disposition home or self-care (01) ==
PROVIDERS: PCP Internal Medicine; Visit Provider Orthopaedic Surgery
DX: M25.561 Pain in right knee (principal); Z96.651 Presence of right artificial knee joint
CPT/HCPCS: 99213

== ENCOUNTER 2023-09-16 14:10 | Outpatient (REF) | payer MEDICAID, SELFPAY ==
[2023-09-16 14:21] LABS: MANUAL DIFF FLAG NO
[2023-09-16 15:22] LABS: Basophils Absolute Auto 0.1 X10*3/uL (0.0-0.2); Basophils Percent Auto 0.5 % (0-2); Eosinophils Absolute Auto 0.1 X10*3/uL (0.0-0.4); Eosinophils Percent Auto 0.9 % (0-4); Hematocrit 35.7 % (37.0-47.0); Hemoglobin 11.8 g/dl (12.0-16.0); Imm Gran Abs Auto 0.06 X10*3/uL (0.00-0.03); Imm Gran Pct Auto 0.5 % (0.0-0.4); Lymphocytes Absolute Auto 1.1 X10*3/uL (1.2-4.9); Lymphocytes Percent Auto 8.3 % (20-40); Mean Corpuscular HGB Conc 33.1 g/dl (31.0-35.0); Mean Corpuscular Hemoglobin 29.9 pg (27.0-33.0); Mean Corpuscular Volume 90.4 fL (80.0-98.0); Mean Platelet Volume 11.2 fL (9.4-12.3); Monocytes Absolute Auto 0.5 X10*3/uL (0.1-1.2); Monocytes Percent Auto 3.7 % (2-11); Neutrophils Absolute Auto 11.4 x10*3/uL (2.0-8.3); Neutrophils Percent Auto 86.1 % (45-73); Platelet Count 477 X10*3/uL (160-400); Red Blood Count 3.95 X10*6/uL (4.20-5.50); Red Cell Distribution Width 13.5 % (11.0-16.0); White Blood Count 13.3 X10*3/uL (4.8-10.8)
[2023-09-16 20:54] LABS: Erythrocyte Sedimentation Rate 74 MM/HR (0-20)
[2023-09-22 11:44] LABS: Neutrophil Cyto Ab Screen P-ANCA POS (NEGATIVE)
== END 2023-09-16 14:11 | disposition home or self-care (01) ==
LOC: HO.LAB 14:10
PROVIDERS: PCP Internal Medicine; Visit Provider Physician Assistant Medical
DX: J34.89 Other specified disorders of nose and nasal sinuses (principal)
CPT/HCPCS: 36415; 85025; 85652; 86036; 86037

== ENCOUNTER 2023-10-07 10:00 | Outpatient (RCR) | payer MEDICAID, SELFPAY ==
[2023-09-07 14:00] VITALS: BP 131/70; PULSE 117
--- NOTE | 2023-09-07 14:52 | MHC.PT.EP ---
[facility] [place] Office [place] Office [place] Office [address]ia Calvo [address] [phone] F: [phone] F: [phone] F: [phone] F: [phone] Physical Therapy Plan of Care Date of Evaluation: 09/07/23 Date of Surgery: NA Diagnosis: Bilateral primary OA of knee, Pain in L knee Assessment: Sarah is a 58 year old female who is referred to PT for Bilateral primary OA of knee, Pain in L knee . She reports of having in B knee following a fall about a month back. Per pt she fell on her knees. She also stated that she might be having surgery on R Knee and she was advised to do PT only for L knee. We therefore focused session on L knee only. 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 She would benefit from skilled PT to address the aforementioned impairments and improve tolerance to functional activities. Frequency and Duration: The patient will be seen 2/week for 5 weeks Short Term Goals: 1. Pt will have 50% decrease in pain in L knee which will enable her to sleep through the night in 2 weeks. 2. Pt will be able to move her L knee through full plane of motion without pain which will enable her to perform stair negotiation without pain in 3 weeks. [employer] Goals: 1. Pt will demonstrate an increase in muscle strength by 1 grade which will enable her to perform sit to stand, walking and stand without pain in 5 weeks. 2. Pt will be independent with all HEP for symptom management and maintenance following d/c in 5 weeks. Treatment Plan: Modalities to reduce pain, spasms and effusion. Manual therapy to restore motion and function. Therapeutic exercise to improve strength and flexibility. Neuromuscular re-education for posture and balance. Therapeutic activities to return to functional activities of daily living. Electronically signed by: Criss Shy, PT DPT Please sign and return to therapist. Thank you for your referral.
--- NOTE | 2023-10-07 10:31 | MHC.PT.DC ---
[facility] [place] Office [place] Office [place] Office [address] [phone] F: [phone] F: [phone] F: [phone] F: [phone] Physical Therapy Discharge Report Diagnosis: Bilateral primary OA of knee, Pain in L knee Date of Surgery: NA Date of Evaluation: 09/07/23 Date of Discharge: 10/07/23 Treatments to Date: 5 Cancellations to Date: 5 No Shows to Date: 0 Discharge Status: Improved Function Independent with HEP Discharge Summary: Sarah has completed 5 PT visits and arrived stating she has no pain on L side. She however continues to have pain on R side. We have not done any PT for R knee as per pt she was told to not exercise R knee and she could possibly having a surgery on R side. She has made improvements with L LE and is independent with all HEP. She has achieved all goals set for her with respect to L knee. She is therefore being d/c from PT for the same. She is in agreement with the plan. I reviewed all exercises with her today. She as able to perform them without any difficulties. Electronically signed by: Criss Begum, PT DPT Please sign and return to therapist. Thank you for your referral.
== END 2023-10-07 10:32 | disposition home or self-care (01) ==
LOC: HO.PT 10:00
PROVIDERS: PCP Internal Medicine; Visit Provider Internal Medicine
DX: M17.0 Bilateral primary osteoarthritis of knee (principal)
CPT/HCPCS: 97110; 97161

== ENCOUNTER 2023-10-26 13:40 | Outpatient (AMB) | payer MEDICAID, SELFPAY ==
--- NOTE | 2023-10-26 13:57 | MHC.OFFVIS ---
Intake Vital Signs 10/26/23 14:12 Height 5 ft 1 in Weight 172 lb BMI 32.5 Intake Visit Reasons: OV - right knee pain Intake Note: Sarah is a 58 year old female who presents today with complaints of right knee pain s/p fall on 07/31/23. Hx of right TKA 11/03/17. Hx of Left TKA 04/27/2019 with I&D 06/07/2019. Patient reports she is using her knee brace as directed however she is not finding it helpful. She continues to complain of pain and swelling with no relief, she would like to discuss surgery. Allergies latex [LATEX] Allergy (Intermediate, Verified 10/26/23 14:13) RASH; redness ciprofloxacin [From CIPRO] Adverse Reaction (Intermediate, Verified 10/26/23 14:13) Diarrhea HPI OV - right knee pain HPI Details Sarah is a 58 year old female who presents today with complaints of right knee pain s/p fall on 07/31/23. Hx of right TKA 11/03/17. Hx of Left TKA 04/27/2019 with I&D 06/07/2019. Patient reports she is using her knee brace as directed however she is not finding it helpful. She continues to complain of pain and swelling with no relief, she would like to discuss surgery. She denies fever and chills. [facility] Medical History Abdominal wall mass Fibromyalgia Chronic pain syndrome Postlaminectomy syndrome Osteopenia Back pain Irritable bowel syndrome (IBS) GERD (gastroesophageal reflux disease) Fibromyalgia Anxiety disorder Depression Lung nodule Asthma Personal history of tuberculosis COPD (chronic obstructive pulmonary disease) Elevated cholesterol HTN (hypertension) Surgical History Presence of left artificial knee joint Presence of right artificial knee joint History of back surgery Hx of section Hx of total knee replacement H/O hernia repair History of esophagogastroduodenoscopy (EGD) H/O colonoscopy Family History Father Cancer Mother Kidney problem Hypertension CVD (cardiovascular disease) Paternal Uncle Cancer Colon cancer Brother Cancer Brother Colon cancer Social History Alcohol intake: never Patient Tobacco Use Status: Current everyday Tobacco user Tobacco use type: Cigarette Cigarettes Per Day: 3 Physical Exam Vital Signs: BMI result Body Mass Index 32.5 Extrem Other: Right knee effusion with TTP along the tibial plateau medially Results Reviewed Results Reviewed: I personally reviewed relevant radiographs. Right total knee arthroplasty in expected post operative position with no hardware complications or evidence of loosening Assessment & Plan Assessment & Plan (1) Presence of right artificial knee joint: Code(s): Z96.651 - Presence of right artificial knee joint Plan: Three months status post fall with ongoing right knee pain. I recommend a bone scan to assess for loosening. (2) Presence of left artificial knee joint: Code(s): Z96.652 - Presence of left artificial knee joint Plan: no complaints Orders: Orders NM bone scan limited area Today Z96.651 - Presence of right artificial knee joint, Z96.652 - Presence of left artificial knee joint Coding Level of Care Code Est Pt Level 4 (81247) Diagnoses Presence of right artificial knee joint Z96.651 Presence of left artificial knee joint Z96.652
[2023-10-26 14:12] VITALS: BMI 32.5
== END 2023-10-26 14:37 | disposition home or self-care (01) ==
PROVIDERS: PCP Internal Medicine; Visit Provider Orthopaedic Surgery
DX: Z47.89 Encounter for other orthopedic aftercare (principal); Z96.653 Presence of artificial knee joint, bilateral
CPT/HCPCS: 99213

== ENCOUNTER → 2023-10-26 13:40 | Outpatient (BNVA) | payer MEDICAID, SELFPAY | PROVIDERS: PCP Internal Medicine; Visit Provider Orthopaedic Surgery | DX: M25.561 Pain in right knee (principal); Z91.81 History of falling; Z96.653 Presence of artificial knee joint, bilateral | CPT/HCPCS: 99212 ==

== ENCOUNTER → 2023-12-10 10:02 | Outpatient (REF) | payer MEDICAID, SELFPAY ==
--- NOTE | ~2023-12-10 | NM_ITS ---
EXAMINATION: THREE PHASE BONE SCAN CLINICAL INFORMATION: 58-year-old female with bilateral knee prosthesis, presented with right knee pain and swelling, status post fall on July 31, 2023. Right total knee arthroplasty was performed on 11/03/2017 and left total knee arthroplasty on 04/27/2019. COMPARISON: Radiographs of both knees done on 09/03/2023.. TECHNIQUE: Initial rapid sequence images were obtained over the knees during the bolus injection of 28 mCi Tc-99m MDP. Subsequent blood pool and static images of both knees were obtained. In addition, static images of the both lower extremities including the pelvis were also obtained. FINDINGS: The initial flow sequences show symmetric flow pattern to both knees. Subsequent blood pool images also shows symmetric tracer avidity around both knees. In the final delayed images shows mild increased periarticular tracer avidity around both knees, appear fairly symmetric. The remainder of the lower extremities including the pelvis do not show any focal decreased or increased tracer avidity except for increased tracer avidity around both ankle and both hind and midfoot, appear fairly symmetric. Possible differential diagnostic consideration would include posttraumatic and/or nonspecific arthritic changes. Radiographic correlation may be considered for further clarification, if clinically appropriate. NM/NM bone 3 phase IMPRESSION: 1. No scintigraphic evidence of periprosthetic complications identified on either knee. 2. Nonspecific increased tracer avidity however is seen around both ankles including both hindfoot and midfoot, for which clinical correlation and if appropriate radiographic correlation may be considered for further clarification.
--- NOTE | ~2023-12-10 | NM_ITS ---
EXAMINATION: THREE PHASE BONE SCAN CLINICAL INFORMATION: 58-year-old female with bilateral knee prosthesis, presented with right knee pain and swelling, status post fall on July 31, 2023. Right total knee arthroplasty was performed on 11/03/2017 and left total knee arthroplasty on 04/27/2019. COMPARISON: Radiographs of both knees done on 09/03/2023.. TECHNIQUE: Initial rapid sequence images were obtained over the knees during the bolus injection of 28 mCi Tc-99m MDP. Subsequent blood pool and static images of both knees were obtained. In addition, static images of the both lower extremities including the pelvis were also obtained. FINDINGS: The initial flow sequences show symmetric flow pattern to both knees. Subsequent blood pool images also shows symmetric tracer avidity around both knees. In the final delayed images shows mild increased periarticular tracer avidity around both knees, appear fairly symmetric. The remainder of the lower extremities including the pelvis do not show any focal decreased or increased tracer avidity except for increased tracer avidity around both ankle and both hind and midfoot, appear fairly symmetric. Possible differential diagnostic consideration would include posttraumatic and/or nonspecific arthritic changes. Radiographic correlation may be considered for further clarification, if clinically appropriate. NM/NM bone scan limited area IMPRESSION: 1. No scintigraphic evidence of periprosthetic complications identified on either knee. 2. Nonspecific increased tracer avidity however is seen around both ankles including both hindfoot and midfoot, for which clinical correlation and if appropriate radiographic correlation may be considered for further clarification.
== END ==
LOC: HO.NUCMED 10:02
PROVIDERS: PCP Internal Medicine; Visit Provider Orthopaedic Surgery
DX: Z96.652 Presence of left artificial knee joint (principal); Z96.651 Presence of right artificial knee joint
CPT/HCPCS: 78300; 78315; A9503

== ENCOUNTER 2024-01-26 13:44 | Outpatient (REF) | payer MEDICAID, SELFPAY ==
[2024-01-26 16:06] LABS: MANUAL DIFF FLAG NO
[2024-01-26 16:24] LABS: Basophils Absolute Auto 0.1 X10*3/uL (0.0-0.2); Basophils Percent Auto 0.6 % (0-2); Eosinophils Absolute Auto 0.7 X10*3/uL (0.0-0.4); Eosinophils Percent Auto 5.1 % (0-4); Hematocrit 38.6 % (37.0-47.0); Hemoglobin 12.7 g/dl (12.0-16.0); Imm Gran Abs Auto 0.06 X10*3/uL (0.00-0.03); Imm Gran Pct Auto 0.5 % (0.0-0.4); Lymphocytes Absolute Auto 2.1 X10*3/uL (1.2-4.9); Lymphocytes Percent Auto 16.1 % (20-40); Mean Corpuscular HGB Conc 32.9 g/dl (31.0-35.0); Mean Corpuscular Hemoglobin 29.9 pg (27.0-33.0); Mean Corpuscular Volume 90.8 fL (80.0-98.0); Mean Platelet Volume 11.1 fL (9.4-12.3); Monocytes Absolute Auto 0.9 X10*3/uL (0.1-1.2); Monocytes Percent Auto 7.1 % (2-11); Neutrophils Absolute Auto 9.2 x10*3/uL (2.0-8.3); Neutrophils Percent Auto 70.6 % (45-73); Platelet Count 385 X10*3/uL (160-400); Red Blood Count 4.25 X10*6/uL (4.20-5.50); Red Cell Distribution Width 14.5 % (11.0-16.0)
[2024-01-26 16:34] LABS: Estimated Average Glucose 126 mg/dL
[2024-01-26 16:37] LABS: Anion Gap 15 (12-20); Blood Urea Nitrogen 24 mg/dL (9-16); Calcium 9.9 mg/dL (8.4-10.2); Carbon Dioxide 27 mmol/L (22-29); Chloride 99 mmol/L (96-108); Estimated Glomerular Filt Rate 55; Glucose Random 133 mg/dL (60-115); Potassium 3.1 mmol/L (3.3-5.1); Sodium 138 mmol/L (135-145)
[2024-01-26 17:25] LABS: Erythrocyte Sedimentation Rate 50 MM/HR (0-20)
[2024-01-27 23:52] LABS: Myeloperoxidase Antibody <1.0 AI; Proteinase 3 PR3 Antibodies <1.0 AI
[2024-02-11 10:59] LABS: Anti Nuclear Antibody Screen POSITIVE (NEGATIVE)
[2024-02-11 11:19] LABS: Anti Nuclear Antibody Pattern Nuclear, Homogeneous
== END 2024-01-26 13:45 | disposition home or self-care (01) ==
LOC: HO.HHCL 13:44
PROVIDERS: Visit Provider Internal Medicine
DX: L30.9 Dermatitis, unspecified (principal); R73.01 Impaired fasting glucose
CPT/HCPCS: 36415; 80048; 83036; 85025; 85652; 86021; 86038; 86039

== ENCOUNTER 2024-02-01 13:10 | Outpatient (REF) | payer MEDICAID, SELFPAY ==
[2024-02-01 14:51] LABS: Anion Gap 17 (12-20); Blood Urea Nitrogen 21 mg/dL (9-16); Calcium 10.4 mg/dL (8.4-10.2); Carbon Dioxide 25 mmol/L (22-29); Chloride 100 mmol/L (96-108); Estimated Glomerular Filt Rate 54; Glucose Random 197 mg/dL (60-115); Potassium 3.4 mmol/L (3.3-5.1); Sodium 139 mmol/L (135-145)
== END 2024-02-01 13:11 | disposition home or self-care (01) ==
LOC: HO.HHCL 13:10
PROVIDERS: Visit Provider Internal Medicine
DX: E87.6 Hypokalemia (principal)
CPT/HCPCS: 36415; 80048

== ENCOUNTER 2024-02-05 10:26 | Outpatient (AMB) | payer MEDICAID, SELFPAY ==
--- NOTE | 2024-02-05 10:29 | MHC.OFFVIS ---
Vital Signs 02/05/24 10:31 Height 5 ft 1 in Weight 172 lb BMI 32.5 Intake Visit Reasons: O/V bone scan review per NE Intake Note: Sarah is a 58 year old female who presents today for a follow up of her bone scan. Right knee pain s/p fall on 07/31/23. Hx of right TKA 11/03/17. Hx of Left TKA 04/27/2019 with I&D 06/07/2019 Allergies latex [LATEX] Allergy (Intermediate, Verified 10/26/23 14:13) RASH; redness ciprofloxacin [From CIPRO] Adverse Reaction (Intermediate, Verified 10/26/23 14:13) Diarrhea HPI HPI O/V bone scan review per NE: Details: Sarah is a 58 year old female who presents today for a follow up of her bone scan. Right knee pain s/p fall on 07/31/23. Hx of right TKA 11/03/17. Hx of Left TKA 04/27/2019 with I&D 06/07/2019. She actually feels improvement. She does have radiating pain from her buttock down past her knee. She denies fever/chills. [facility] Medical History Abdominal wall mass Fibromyalgia Chronic pain syndrome Postlaminectomy syndrome Osteopenia Back pain Irritable bowel syndrome (IBS) GERD (gastroesophageal reflux disease) Fibromyalgia Anxiety disorder Depression Lung nodule Asthma Personal history of tuberculosis COPD (chronic obstructive pulmonary disease) Elevated cholesterol HTN (hypertension) Surgical History Presence of left artificial knee joint Presence of right artificial knee joint History of back surgery Hx of section Hx of total knee replacement H/O hernia repair History of esophagogastroduodenoscopy (EGD) H/O colonoscopy Family History Father Cancer Mother Kidney problem Hypertension CVD (cardiovascular disease) Paternal Uncle Cancer Colon cancer Brother Cancer Brother Colon cancer Social History Alcohol intake: never Patient Tobacco Use Status: Current everyday Tobacco user Tobacco use type: Cigarette Cigarettes Per Day: 3 Physical Exam Vital Signs: BMI result Body Mass Index 32.5 Extrem Other: inc c/d/i no effusion no limp with gait Results Reviewed Results Reviewed: bonme scan: 1. No scintigraphic evidence of periprosthetic complications identified on either knee. 2. Nonspecific increased tracer avidity however is seen around both ankles including both hindfoot and midfoot, for which clinical correlation and if appropriate radiographic correlation may be considered for further clarification. Assessment & Plan Assessment & Plan (1) Chronic pain syndrome: Comment: I here by testify that I spent 15 minutes in conversation with this patient. Code(s): G89.4 - Chronic pain syndrome Category: Medical Plan: Referral to pain management as there are no identifiable problems with her knee replacements. (2) Presence of left artificial knee joint: Code(s): Z96.652 - Presence of left artificial knee joint Category: Surgical Plan: (3) Presence of right artificial knee joint: Code(s): Z96.651 - Presence of right artificial knee joint Category: Surgical Plan: Orders: Referrals Pain Management Referral G89.4 - Chronic pain syndrome, Z96.651 - Presence of right artificial knee joint, Z96.652 - Presence of left artificial knee joint Coding Level of Care Code Est Pt Level 4 (07087) Diagnoses Chronic pain syndrome G89.4 Presence of left artificial knee joint Z96.652 Presence of right artificial knee joint Z96.651
[2024-02-05 10:31] VITALS: BMI 32.5
== END 2024-02-05 10:56 | disposition home or self-care (01) ==
PROVIDERS: PCP Internal Medicine; Visit Provider Orthopaedic Surgery
DX: G89.4 Chronic pain syndrome (principal); Z96.653 Presence of artificial knee joint, bilateral
CPT/HCPCS: 99213

== ENCOUNTER → 2024-02-05 10:26 | Outpatient (BNVA) | payer MEDICAID, SELFPAY | PROVIDERS: PCP Internal Medicine; Visit Provider Orthopaedic Surgery | DX: G89.4 Chronic pain syndrome (principal); Z96.652 Presence of left artificial knee joint; Z96.651 Presence of right artificial knee joint | CPT/HCPCS: 99212 ==

== ENCOUNTER 2024-02-11 13:08 | Outpatient (REF) | payer MEDICAID, SELFPAY ==
[2024-02-11 16:15] LABS: Calcium 10.2 mg/dL (8.4-10.2)
[2024-02-11 16:36] LABS: Vitamin D 25-OH Total 14.9 ng/mL (>30)
[2024-02-13 12:13] LABS: Calcium, Ionized 5.2 mg/dL (4.7-5.5)
== END 2024-02-11 13:09 | disposition home or self-care (01) ==
LOC: HO.HHCL 13:08
PROVIDERS: Visit Provider Internal Medicine
DX: E83.52 Hypercalcemia (principal)
CPT/HCPCS: 36415; 82306; 82310; 82330

== ENCOUNTER 2024-03-09 14:28 | Outpatient (AMB) | payer MEDICAID, SELFPAY ==
--- NOTE | 2024-03-09 14:29 | MHC.OFFVIS ---
Vital Signs 03/09/24 14:30 Height 5 ft 1 in Weight 166 lb 3.657 oz BMI 31.4 BP 120/66 Blood Pressure Location Lt brachial Position Sitting Pulse 77 Intake Visit Reasons: Follow up medication Intake Note: Patient here to f/u medications. Taking pantoprazole QAM, Famotidine QHS. Patient c/o: reports no improvement. Acid reflux after eating. Quantitative Manager Required: No Accompanied by: Self / Same As Patient Allergies latex [LATEX] Allergy (Intermediate, Verified 10/26/23 14:13) RASH; redness ciprofloxacin [From CIPRO] Adverse Reaction (Intermediate, Verified 10/26/23 14:13) Diarrhea HPI HPI Follow up medication: Details: Assessment & Plan (1) Chronic idiopathic constipation: Code(s): K59.04 - Chronic idiopathic constipation Plan: #[id number] brent She is doing generally better. Stopping the reglan mostly relieved the pain now she only had the LLQ pain occasionally and it is not severe like it was before. Her GERD is also greatly improved with the Dexilant. she also has famotidine for breakthrough. She feels she is moving her bowels well with her Linzess. Her MRI is coming up on the of this month so I will see her back in 3 weeks. She did not know about the labs for the CA 19-9 so I will send her to get that this week. Fortunately she is feeling generally well and not showing any alarm signs or symptoms. Again, this pancreatic lesion was an incidentaloma discovered on CT scan done for other reasons. ROV 3 weeks. (2) Pancreatic lesion: Comment: CT 10/23/[address] ordered by PCP Enlarging pancreatic head low density lesion demonstrating minimal enhancement by approximately 13 Hounsfield units measuring approximately 2.6 x 1.5 x 2.5 cm in size. There is no associated calcification or pancreatic duct dilatation. The above appearance could be seen with serous cystic neoplasm or mucinous cystic neoplasm. An intraductal papillary mucinous neoplasm would seem somewhat less likely due to no dilatation of the pancreatic duct. Less likely, this could be seen with solid pseudopapillary epithelial neoplasm or cystic degeneration of adenocarcinoma, neuroendocrine tumor. Code(s): K86.9 - Disease of pancreas, unspecified (3) GERD (gastroesophageal reflux disease): Code(s): K21.9 - Gastro-esophageal reflux disease without esophagitis MRCP 05/19/23 FINDINGS: MR CHOLANGIOPANCREATOGRAPHY: Normal gallbladder without filling defects. Cystic duct is unremarkable. Bilateral intra hepatic bile ducts, common hepatic duct and common bile duct are normal in size without filling defects. Pancreatic duct is normal in size. LIVER: The liver shows no focal lesion. The calculated hepatic fat percentage is 4.4%, compatible with normal. PANCREAS: A multiseptated cystic lesion measuring 1.3 cm in AP diameter, 2.2 cm in width, 2.4 cm in vertical height (previously 1.5 x 2.6 x [address] scan, 1.7 x 1.1 cm in size on FDG PET scan on 05/09/2021 without abnormal glucose uptake) is seen protruding from medial border of pancreatic uncinate process with possible connection to the proximal pancreatic duct, series 14 image #9, series 3 image #6. SPLEEN: Spleen is normal in size without focal lesion. ADRENAL: Bilateral adrenal glands are normal in shape and size. KIDNEYS: Bilateral kidneys are normal in size with a simple cyst at anterior superior left renal pole measuring 0.8 cm in diameter, for which no follow up imaging is recommended. No abnormal enhancing mass lesion can be seen in the abdomen. MR/MR MRCP IMPRESSION: 1. 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 Follow-up imaging with pre and postcontrast MRI of abdomen, MR cholangiopancreatography every 6 months x4, then every year x2 followed by every 2 years x3 to document stability over 10 years is recommended by [employer] [place] [employer]. 2. No evidence of hepatobiliary duct dilatation or ductal stones. 3. No focal liver mass lesion could be found. 4. Superior left renal pole simple cyst is found, for which no follow up imaging is recommended. CORRESPONDENCE On 01/20/24 @ 16:37 Brit Rojas Wrote To Brit Rojas (2) No do not refill this. We actually referred her back to [facility] due to her complexity and I assume she is getting this from them or from her primary care provider. On 01/15/24 @ 13:14 Socorro Earl Wrote To Bob,October patient has no showed x2 appts, new appointment is scheduled for February and hasn't been seen now for about a year.. please advise if refill appropriate On 01/15/24 @ 13:11 Kalpana Kelley Wrote To Socorro Earl lansoprazole 30 mg capsule,delayed release - 30 mg PO BID 60 caps 0RF 30 days Last Rx written: 12/31/23 Shannon Marie famotidine 40 mg tablet - 40 mg PO BID 60 tabs 3RF Last Rx written: 03/20/23 Concepcion Rojas TODAY'S VISIT [place] #DECLINES PATIENT HAS BEEN LOST TO FOLLOW-UP SINCE 04/2023. She did not come back after the MRI because she was struggling with asthma exacerbations and illnesses. I explained to her that we want to follow-up with the MRI to make sure she does not have pancreatic cancer since we had an undefined discovery on [address]. It would have been preferable to do six-month follow-up but will get the MRI urgently now so that we can catch up. She says she is not doing that well in terms of her GI symptoms. She is taking her lansoprazole twice a day but still has quite a lot of heartburn and feeling like the food is regurgitating. She is also feeling like she is always full and experiencing early satiety. She also has pain that tends to move anywhere from the left to the right and particularly across the lower quadrants of the abdomen. She denies having constipation and takes her Linzess every other day and she feels that this continues to work well for her. The only new medication recently is that she was put on the injectable Forteo for her osteoporosis. For now we are going to give her a trial of dicyclomine to see if we can help with the lower abdominal cramping and I want to get a gastric emptying study to see if this is contributing to the difficulty in controlling her acid reflux. Until then I am reluctant to change the medications until I really know what the underlying pathology is. Return office visit in 6 weeks to evaluate the effects of the dicyclomine. [facility] Medical History Abdominal wall mass Fibromyalgia Chronic pain syndrome Postlaminectomy syndrome Osteopenia Back pain Irritable bowel syndrome (IBS) GERD (gastroesophageal reflux disease) Fibromyalgia Anxiety disorder Depression Lung nodule Asthma Personal history of tuberculosis COPD (chronic obstructive pulmonary disease) Elevated cholesterol HTN (hypertension) Surgical History Presence of left artificial knee joint Presence of right artificial knee joint History of back surgery Hx of section Hx of total knee replacement H/O hernia repair History of esophagogastroduodenoscopy (EGD) H/O colonoscopy Family History Father Cancer Mother Kidney problem Hypertension CVD (cardiovascular disease) Paternal Uncle Cancer Colon cancer Brother Cancer Brother Colon cancer Social History Alcohol intake: never Patient Tobacco Use Status: Current everyday Tobacco user Tobacco use type: Cigarette Cigarettes Per Day: 3 Review of Systems Const Denies fatigue, Denies fever(s), Denies night sweats, Denies poor appetite and Denies weight loss ENT Reports Normal hearing present, Denies dental pain, Denies dysphagia, Denies hearing loss, Denies mouth pain, Denies odynophagia, Denies throat swelling, Denies tongue swelling and Reports other (Dentition adequate) Card Reports no additional complaints Resp Reports no additional complaints GI Details: Denies abdominal pain, Denies melena, Reports bloating, Denies hematochezia, Denies constipation, Reports GI cramping, Denies dysphagia, Denies excessive flatus, Denies early satiety, Reports heartburn, Denies diarrhea, Denies nausea, Denies odynophagia, Denies vomiting and Denies hematemesis Skin/Breast Denies pruritus, Denies lesions, Denies rash and Denies jaundice Neuro Reports Normal hearing present and Denies Abnormal speech present Endo Denies fatigue Aller/Immun Denies throat swelling and Denies tongue swelling Physical Exam Vital Signs: Last Vital Signs Pulse 77 03/09/24 14:30 BP 120/66 03/09/24 14:30 BMI result Body Mass Index 31.4 Const General: cooperative, no acute distress, well developed and well groomed Nutritional Appearance: well nourished and obese Orientation/consciousness: oriented to person, oriented to place and oriented to time Limitations: language barrier HEENT Head: Yes normocephalic and Yes atraumatic Eyes General: appearance normal, both eyes and all related structures Pupils: Equal, round and reactive pupils present Neck Neck: Yes normal visual inspection and Yes no lymphadenopathy Thyroid: Thyroid normal Resp Effort & Inspection: normal respiratory effort and able to speak in complete sentences Auscultation: clear to auscultation bilaterally Cardio Rate: regular rate Rhythm: regular rhythm Heart sounds: Normal, physiologic split S2 sound present Peripheral pulses: radial pulses present and posterior tibial pulses present GI Inspection: Yes distended, Yes Abdominal panniculus present and Yes obesity Palpation (GI): Soft to palpation, nontender, no guarding, not rigid and No hepatosplenomegaly present Percussion: Yes normal to percussion Auscultation: normal bowel sounds Rectal Exam - Female: deferred Skin General skin exam: no rashes or lesions noted, turgor normal, skin not dry, no jaundice, No spider nevi and no striae Rashes: no rashes Nails: normal Neuro General: oriented to person, oriented to place and oriented to time Cranial nerves: Yes Equal, round and reactive pupils present and Yes Normal hearing present Speech: No Abnormal speech present Extrem General: Yes normal to inspection, No clubbing, No cyanosis and No edema Psych Appearance: grossly normal and well kempt Mental Status: mental status grossly normal Speech and movement: Normal speech and movement present Affect: normal affect Attitude: cooperative Thought process: Normal thought process present and not confabulating Thought content: Normal thought content present Insight: Limited insight present (Psych) Judgement: Limited judgement present (Psych) Assessment & Plan Assessment & Plan (1) Pancreatic lesion: Comment: CT 10/23/[address] ordered by PCP Enlarging pancreatic head low density lesion demonstrating minimal enhancement by approximately 13 Hounsfield units measuring approximately 2.6 x 1.5 x 2.5 cm in size. There is no associated calcification or pancreatic duct dilatation. The above appearance could be seen with serous cystic neoplasm or mucinous cystic neoplasm. An intraductal papillary mucinous neoplasm would seem somewhat less likely due to no dilatation of the pancreatic duct. Less likely, this could be seen with solid pseudopapillary epithelial neoplasm or cystic degeneration of adenocarcinoma, neuroendocrine tumor. Code(s): K86.9 - Disease of pancreas, unspecified Category: Medical (2) IPMN (intraductal papillary mucinous neoplasm): Code(s): D49.0 - Neoplasm of unspecified behavior of digestive system Category: Medical (3) Early satiety: Code(s): R68.81 - Early satiety Category: Medical (4) Chronic idiopathic constipation: Code(s): K59.04 - Chronic idiopathic constipation Category: Medical (5) Abdominal cramping: Code(s): R10.9 - Unspecified abdominal pain Category: Medical Plan [place] #DECLINES PATIENT HAS BEEN LOST TO FOLLOW-UP SINCE 04/2023. She did not come back after the MRI because she was struggling with asthma exacerbations and illnesses. I explained to her that we want to follow-up with the MRI to make sure she does not have pancreatic cancer since we had an undefined discovery on [address]. It would have been preferable to do six-month follow-up but will get the MRI urgently now so that we can catch up. She says she is not doing that well in terms of her GI symptoms. She is taking her lansoprazole twice a day but still has quite a lot of heartburn and feeling like the food is regurgitating. She is also feeling like she is always full and experiencing early satiety. She also has pain that tends to move anywhere from the left to the right and particularly across the lower quadrants of the abdomen. She denies having constipation and takes her Linzess every other day and she feels that this continues to work well for her. The only new medication recently is that she was put on the injectable Forteo for her osteoporosis. For now we are going to give her a trial of dicyclomine to see if we can help with the lower abdominal cramping and I want to get a gastric emptying study to see if this is contributing to the difficulty in controlling her acid reflux. Until then I am reluctant to change the medications until I really know what the underlying pathology is. Return office visit in 6 weeks to evaluate the effects of the dicyclomine. Orders: Orders NM gastric emptying study 03/09/24 R68.81 - Early satiety MR MRCP 03/09/24 D49.0 - Neoplasm of unspecified behavior of digestive system, K86.9 - Disease of pancreas, unspecified Medications: New dicyclomine 10 mg PO TID 90 caps 3RF Refilled linaclotide (Linzess) 145 mcg PO QAM 30 caps 6RF K59.04 - Chronic idiopathic constipation lansoprazole 30 mg PO BID 60 caps 6RF K21.9 - Gastro-esophageal reflux disease without esophagitis Coding Level of Care Code Est Pt Level 3 (10648) Diagnoses Pancreatic lesion K86.9 IPMN (intraductal papillary mucinous neoplasm) D49.0 Early satiety R68.81 Chronic idiopathic constipation K59.04 Abdominal cramping R10.9
[2024-03-09 14:30] VITALS: BP 120/66; PULSE 77; BMI 31.4
== END 2024-03-09 15:09 | disposition home or self-care (01) ==
PROVIDERS: PCP Internal Medicine; Visit Provider Nurse Practitioner
DX: K86.9 Disease of pancreas, unspecified (principal); D49.0 Neoplasm of unspecified behavior of digestive system; R68.81 Early satiety; K59.04 Chronic idiopathic constipation; R10.9 Unspecified abdominal pain
CPT/HCPCS: 99213

== ENCOUNTER → 2024-03-09 14:28 | Outpatient (BNVA) | payer MEDICAID, SELFPAY | PROVIDERS: PCP Internal Medicine; Visit Provider Nurse Practitioner | DX: K21.9 Gastro-esophageal reflux disease without esophagitis (principal); K59.04 Chronic idiopathic constipation; K86.9 Disease of pancreas, unspecified; D49.0 Neoplasm of unspecified behavior of digestive system; R68.81 Early satiety; R10.9 Unspecified abdominal pain | CPT/HCPCS: 99212 ==

== ENCOUNTER 2024-03-10 09:43 | Outpatient (REF) | payer MEDICAID, SELFPAY ==
--- NOTE | ~2024-03-10 | MR_ITS ---
EXAMINATION: MR HIP WITHOUT CONTRAST, RIGHT CLINICAL INFORMATION: Right hip pain, history of avascular necrosis, right femur. COMPARISON: Bone scan November 2023. CT abdomen and pelvis July 2021. TECHNIQUE: MRI of the right hip was obtained using routine sequences on a high-field strength magnet. FINDINGS: BONE/CARTILAGE: Normal. No significant effusion. LABRUM/CAPSULE: Minimal intrasubstance increased signal in the posterior labrum not extending to the articular surface likely reflects some degenerative change. No definite tear. LIGAMENTUM TERES: Normal. MUSCLES/TENDONS: There is some mild increased T2 signal along the distal aspect of the gluteus medius tendon compatible with mild peritendinitis and/or partial tearing but no measurable defect or tendon retraction. Remaining muscles and tendons normal. NEUROVASCULAR STRUCTURES: Normal. SUBCUTANEOUS SOFT TISSUES: Normal. ADDITIONAL FINDINGS: Limited evaluation the pelvis also included in the exam. The remaining bone and joints in the pelvis normal. Intrapelvic soft tissues unremarkable. Postsurgical changes at L5-S1 related to prior fusion. MR/MR hip RT wo con IMPRESSION: 1. No evidence of avascular necrosis of the right hip. 2. Mild abnormality of the distal gluteus medius tendon compatible with peritendinitis and/or partial tearing but no measurable defect or tendon retraction.
--- NOTE | ~2024-03-10 | MR_ITS ---
MR LUMBAR SPINE WITHOUT AND WITH CONTRAST CLINICAL INFORMATION: Radiculopathy. COMPARISON: Bone scan December 10, 2023. TECHNIQUE: MRI of the lumbar spine was obtained using routine sequences with and without contrast. Intravenous contrast: Gadavist 7.5 mL FINDINGS: There are 5 nonrib-bearing lumbar-type vertebral bodies. There are postoperative changes following interbody cage placement at L5-S1. Lumbar alignment is maintained. The nonsurgical disc volumes are preserved and the nonsurgical disc remains well-hydrated. There is no bone marrow edema. There are no acute fractures. There is no pathologic enhancement along the cauda equina nerve roots and there are no suspicious enhancing intraosseous lesions. The conus terminates at the L1 level. Small right renal cyst for which no further imaging follow-up is warranted. L1-L2: Disc contour is normal. Mild bilateral facet arthropathy. No central canal stenosis and no foraminal stenosis. L2-L3: Small diffuse annular disc bulge and mild bilateral facet arthropathy. No central canal stenosis and no foraminal stenosis. L3-L4: There is a small diffuse annular disc bulge and there is moderate bilateral hypertrophic facet arthropathy. There is no central canal stenosis and there is no significant foraminal stenosis. L4-L5: There is a diffuse annular disc bulge and there is severe bilateral facet arthropathy. There is no central canal stenosis. There is mild foraminal encroachment bilaterally. L5-S1: Interbody cage in place. 4 right and left lateral osteophytic ridging contacting the extraforaminal L5 nerve roots bilaterally. No central canal stenosis and no foraminal stenosis. Moderate left and mild right facet arthropathy. MR/MR lumbar spine wo/w con IMPRESSION: * At L5-S1, there are postoperative changes following interbody cage placement. Right and left lateral osteophytic ridging at this level contacts the extraforaminal L5 nerve roots bilaterally. * There is advanced bilateral facet arthropathy at L4-L5 and moderate bilateral facet arthropathy at L3-L4 and L5-S1. Additional mild spondylitic changes throughout the lumbar spine as described. No severe central canal stenosis and no severe foraminal stenosis within the lumbar spine. Electronically signed by: Ildefonso Miller MD 04/01/2024 02:47 PM EDT
[2024-03-10] MEDS: gadobutroL 7.5 ML VIAL IVPUSH (11:22)
== END 2024-03-10 09:44 | disposition home or self-care (01) ==
LOC: HO.MRI 09:43
PROVIDERS: PCP Internal Medicine; Visit Provider Internal Medicine
DX: M87.051 Idiopathic aseptic necrosis of right femur (principal); M54.16 Radiculopathy, lumbar region
CPT/HCPCS: 72158; 73721; A9585

== ENCOUNTER 2024-04-03 09:39 | Outpatient (REF) | payer MEDICAID, SELFPAY ==
--- NOTE | ~2024-04-03 | MR_ITS ---
EXAMINATION: MRI ABDOMEN WITHOUT CONTRAST, MRCP CLINICAL INFORMATION: Follow-up pancreatic lesion. COMPARISON: Abdominal MRI 05/19/2023. TECHNIQUE: Multiple routine MRI sequences through the abdomen were obtained without IV contrast. 3D MRCP images were processed on an independent workstation under concurrent supervision. FINDINGS: LUNG BASES: Lung bases are clear. LIVER: Mild hepatomegaly measuring 18 cm craniocaudally. Otherwise, liver is normal in morphology and signal. No liver lesion. GALLBLADDER AND BILIARY TREE: Gallbladder normal. No intrahepatic or extrahepatic biliary ductal dilation. SPLEEN: Normal size. No focal lesion. PANCREAS: Redemonstration of a multiseptated T2 bright cystic-appearing lesion in the uncinate process measuring 1.7 x 2.7 x 2.7 cm (AP by TV by CC diameters) previously 1.5 x 2.6 x 2.4 cm. As before, there is suggestion of a possible connection to the proximal pancreatic duct best visualized on coronal MRCP series 11. No main pancreatic ductal dilatation. No peripancreatic inflammatory changes. ADRENAL GLANDS: No adrenal mass. KIDNEYS AND URETERS: No hydronephrosis. Few simple-appearing Bosniak I cortical cysts for which no imaging follow-up is recommended. GASTROINTESTINAL: No evidence of bowel obstruction or ascites. LYMPHOVASCULAR STRUCTURES: Normal caliber aorta. No pathologically enlarged abdominal or retroperitoneal lymphadenopathy by short axis size criteria. OSSEOUS STRUCTURES: No acute or suspicious osseous abnormalities. MR/MR MRCP IMPRESSION: Multiseptated T2 bright cystic-appearing lesion in the uncinate process of the pancreas is similar to only minimally increased compared to 05/19/2023. Recommend evaluation with EUS/FNA is not previously obtained; alternatively, a follow-up pancreatic MRI protocol with and without IV contrast/MRCP is recommended in 6 months. Mild hepatomegaly. Electronically signed by: Pilar Arambula MD 04/04/2024 08:34 AM EDT
== END 2024-04-03 09:40 | disposition home or self-care (01) ==
LOC: HO.MRI 09:39
PROVIDERS: PCP Internal Medicine; Visit Provider Nurse Practitioner
DX: D49.0 Neoplasm of unspecified behavior of digestive system (principal); K86.9 Disease of pancreas, unspecified
CPT/HCPCS: 74181

== ENCOUNTER → 2024-04-12 08:08 | Outpatient (REF) | payer MEDICAID, SELFPAY ==
--- NOTE | ~2024-04-12 | NM_ITS ---
EXAMINATION: RADIONUCLIDE SOLID FOOD GASTRIC EMPTYING 4-HOUR STUDY CLINICAL INFORMATION: Early satiety. COMPARISON: Prior gastric emptying studies dated 10/01/2022 and 08/21/2021 are available for comparison. TECHNIQUE: A standard meal consisting of 4 oz of Egg Beaters brand equivalent tagged with 1 mCi Tc-99m Sulfur Colloid, 8 oz water and 2 slices of toast with jelly was administered orally to the patient. Images were obtained using a dual head gamma camera in the anterior and posterior projections over of the stomach immediately post ingestion and at hourly intervals up to 4 hours post ingestion. The anterior and posterior counts at each time interval were averaged using the geometric mean and expressed as percentage of the immediate post ingestion counts. FINDINGS: There is good visualization of activity in the stomach immediately post ingestion. As the study progresses, there is good clearance of activity from the stomach and visualization of progressively increasing small bowel activity. By the end of the study, there is almost no retention noted in the stomach. Retention in the stomach at each time interval was: 1 hour 91% (normal 37%-90%) 2 hours 54% (normal 30%-60%) 3 hours 2% 4 hours 0% (normal 0%-10%) Compared to the 2 prior solid gastric emptying studies dated 10/01/2022 and 08/21/2021, there has not been a significant change. Both of the prior study showed very minimal retained activity at 4 hours. NM/NM gastric emptying study IMPRESSION: Normal 4-hour solid food gastric emptying study. Gastric emptying study grading per JNMT Consensus Recommendations in 2008: https://tech.snmjournals.org/content/36/44 Grade 1 (mild retention): 11-20% at 4 hours Grade 2 (moderate retention): 21-35% at 4 hours Grade 3 (severe retention): 36-50% at 4 hours Grade 4 (very severe retention): >50% retention at 4 hours Electronically signed by: Quinton Basilio MD 04/14/2024 03:21 PM EDT
== END ==
LOC: HO.NUCMED 08:08
PROVIDERS: PCP Internal Medicine; Visit Provider Nurse Practitioner
DX: R68.81 Early satiety (principal)
CPT/HCPCS: 78264; A9541

== ENCOUNTER 2024-04-26 12:27 | Outpatient (AMB) | payer MEDICAID, SELFPAY ==
[2024-04-26 12:33] VITALS: BP 124/67; PULSE 126; BMI 30.4
--- NOTE | 2024-04-26 12:33 | MHC.OFFVIS ---
Vital Signs 04/26/24 12:33 Height 5 ft 1 in Weight 160 lb 14.999 oz BMI 30.4 BP 124/67 Blood Pressure Location Lt brachial Position Sitting Pulse 126 H Intake Visit Reasons: 6wk medication Intake Note: Sarah returns to in office follow up of MRCP and gastric emptying. CC: Patient c/o bilateral flank pain with radiation to bilateral lower abd quadrants and back. Pain worst on the left side. She also reports diarrhea some days. 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 There is no associated calcification or pancreatic duct dilatation. The above appearance could be seen with serous cystic neoplasm or mucinous cystic neoplasm. An intraductal papillary mucinous neoplasm would seem somewhat less likely due to no dilatation of the pancreatic duct. Less likely, this could be seen with solid pseudopapillary epithelial neoplasm or cystic degeneration of adenocarcinoma, neuroendocrine tumor. Code(s): K86.9 - Disease of pancreas, unspecified Category: Medical (2) IPMN (intraductal papillary mucinous neoplasm): Code(s): D49.0 - Neoplasm of unspecified behavior of digestive system Category: Medical (3) Early satiety: Code(s): R68.81 - Early satiety Category: Medical (4) Chronic idiopathic constipation: Code(s): K59.04 - Chronic idiopathic constipation Category: Medical (5) Abdominal cramping: Code(s): R10.9 - Unspecified abdominal pain Category: Medical Plan Georgian #DECLINES PATIENT HAS BEEN LOST TO FOLLOW-UP SINCE 04/2023. She did not come back after the MRI because she was struggling with asthma exacerbations and illnesses. I explained to her that we want to follow-up with the MRI to make sure she does not have pancreatic cancer since we had an undefined discovery on [address]. It would have been preferable to do six-month follow-up but will get the MRI urgently now so that we can catch up. She says she is not doing that well in terms of her GI symptoms. She is taking her lansoprazole twice a day but still has quite a lot of heartburn and feeling like the food is regurgitating. She is also feeling like she is always full and experiencing early satiety. She also has pain that tends to move anywhere from the left to the right and particularly across the lower quadrants of the abdomen. She denies having constipation and takes her Linzess every other day and she feels that this continues to work well for her. The only new medication recently is that she was put on the injectable Forteo for her osteoporosis. For now we are going to give her a trial of dicyclomine to see if we can help with the lower abdominal cramping and I want to get a gastric emptying study to see if this is contributing to the difficulty in controlling her acid reflux. Until then I am reluctant to change the medications until I really know what the underlying pathology is. Return office visit in 6 weeks to evaluate the effects of the dicyclomine. Orders: Orders NM gastric emptying study 03/09/24 R68.81 - Early satiety MR MRCP 03/09/24 D49.0 - Neoplasm of unspecified behavior of digestive system, K86.9 - Disease of pancreas, unspecified Medications: New dicyclomine 10 mg PO TID 90 caps 3RF Refilled linaclotide (Linzess) 145 mcg PO QAM 30 caps 6RF K59.04 - Chronic idiopathic constipation lansoprazole 30 mg PO BID 60 caps 6RF K21.9 - Gastro-esophageal reflux disease without esophagitis GASTRIC EMPTYING STUDY 04/14/24 IMPRESSION: Normal 4-hour solid food gastric emptying study. MRCP 04/04/24 FINDINGS: LUNG BASES: Lung bases are clear. LIVER: Mild hepatomegaly measuring 18 cm craniocaudally. Otherwise, liver is normal in morphology and signal. No liver lesion. GALLBLADDER AND BILIARY TREE: Gallbladder normal. No intrahepatic or extrahepatic biliary ductal dilation. SPLEEN: Normal size. No focal lesion. PANCREAS: Redemonstration of a multiseptated T2 bright cystic-appearing lesion in the uncinate process measuring 1.7 x 2.7 x 2.7 cm (AP by TV by CC diameters) previously 1.5 x 2.6 x 2.4 cm. As before, there is suggestion of a possible connection to the proximal pancreatic duct best visualized on coronal MRCP series 11. No main pancreatic ductal dilatation. No peripancreatic inflammatory changes. ADRENAL GLANDS: No adrenal mass. KIDNEYS AND URETERS: No hydronephrosis. Few simple-appearing Bosniak I cortical cysts for which no imaging follow-up is recommended. GASTROINTESTINAL: No evidence of bowel obstruction or ascites. LYMPHOVASCULAR STRUCTURES: Normal caliber aorta. No pathologically enlarged abdominal or retroperitoneal lymphadenopathy by short axis size criteria. OSSEOUS STRUCTURES: No acute or suspicious osseous abnormalities. MR/MR MRCP IMPRESSION: Multiseptated T2 bright cystic-appearing lesion in the uncinate process of the pancreas is similar to only minimally increased compared to 05/19/2023. Recommend evaluation with EUS/FNA is not previously obtained; alternatively, a follow-up pancreatic MRI protocol with and without IV contrast/MRCP is recommended in 6 months. Mild hepatomegaly. Electronically signed by: Pilar Arambula MD 04/04/2024 08:34 AM EDT RP CORRESPONDENCE On 04/21/24 @ 08:09 Socorro Earl Wrote To Rojas,October spoke w/ patient - patient states she has discussed her s/s w/ you previously. patient states that the pain moves from the left to the right, its across the lower quadrant of the abdomen as discussed at prior visit in February. patient states the only difference in s/s now is that she finds the pain is radiating to her lower back. patient states its often alleviated with Tylenol, but for the most part it also comes and it goes. patients NM Gastric Emptying Study appears to have been normal. patient was prescribed a trial of Dicyclomine at last visit for Abdominal Cramping but she is not able to confirm if she is taking it, as she only knows it by color. I spoke w/ pharmacy and they confirmed she picked it up, so should be taking it. patient denies fevers, chills, nausea, vomiting. patient did have two episodes of diarrhea yesterday but for the most part she has normal BMs and she goes daily. patient is set up for a follow up on April 26 and is just wondering if theres more imaging you would like to order. On 04/20/24 @ 16:35 Brit Rojas Wrote To Socorro Earl see below On 04/20/24 @ 16:34 Joseph Estrada Wrote To Brit Rojas Pt called GI MA demarco and LVM. Pt states that they are having abdominal pain and would like to speak to a nurse or provider when able. Please advise. Pt did not provide any additional information when leaving the voicemail. TODAY'S VISIT Georgian #declines We review the imaging and since we do not have access to endoscopic ultrasound at this time I think will repeat the MRI with liver protocol in 6 months. So far it appears just to be a cyst of the pancreas. The dicyclomine has greatly helped her abdominal pain and she is now moving her bowels well and has well controlled GERD on her pantoprazole. She has a new problem that started about 3 months ago the pain that seems to start in the mid to low back and wraps around mostly the left flank but sometimes the right flank. This pain is not affected by eating or moving her bowels, but is somewhat worse at the end of the day and will frequently wake her up in the middle of the night with pain. She describes the pain as throbbing and it also radiates down her legs. She had a recent MRI of her back ordered by her primary care provider at [facility] that shows extensive lumbar degenerative disc disease with disc bulges. I think it is entirely likely that this is related to her back she also has advanced facet arthropathy. I explained this to her and recommend that some Tylenol along with a low-dose Motrin may be helpful. Since she is not seeing her primary care provider for quite some time to follow up on the MRI I will refer her to pain management for consideration of additional therapy and I will get an x-ray of her thoracic spine to see how much this could be contributing to the pain. Return office visit in 6 months [facility] Medical History (Updated 04/26/24 @ 13:23 by JENIN Lopez) Patellofemoral arthralgia of right knee Abdominal wall mass Fibromyalgia Chronic pain syndrome Postlaminectomy syndrome Osteopenia Back pain Irritable bowel syndrome (IBS) GERD (gastroesophageal reflux disease) Fibromyalgia Anxiety disorder Depression Lung nodule Asthma Personal history of tuberculosis COPD (chronic obstructive pulmonary disease) Elevated cholesterol HTN (hypertension) Surgical History (Updated 04/26/24 @ 12:48 by JENNI Lopez) Presence of right artificial knee joint Presence of left artificial knee joint History of back surgery Hx of section Hx of total knee replacement H/O hernia repair History of esophagogastroduodenoscopy (EGD) H/O colonoscopy Family History Father Cancer Mother Kidney problem Hypertension CVD (cardiovascular disease) Paternal Uncle Cancer Colon cancer Brother Cancer Brother Colon cancer Social History Alcohol intake: never Patient Tobacco Use Status: Current everyday Tobacco user Tobacco use type: Cigarette Cigarettes Per Day: 3 Review of Systems Const Denies fatigue, Denies fever(s), Denies night sweats, Denies poor appetite and Denies weight loss ENT Reports Normal hearing present, Denies dental pain, Denies dysphagia, Denies hearing loss, Denies mouth pain, Denies odynophagia, Denies throat swelling, Denies tongue swelling and Reports other (Dentition adequate) Card Reports no additional complaints Resp Reports no additional complaints GI Details: Denies abdominal pain, Denies melena, Denies bloating, Denies hematochezia, Denies constipation, Reports GI cramping, Denies dysphagia, Denies excessive flatus, Denies early satiety, Reports heartburn, Denies diarrhea, Denies nausea, Denies odynophagia, Denies vomiting and Denies hematemesis Reports flank pain Musc Reports back pain, Reports myalgias, Reports radiating pain into limb and Reports stiffness Skin/Breast Denies pruritus, Denies lesions, Denies rash and Denies jaundice Neuro Reports Normal hearing present and Denies Abnormal speech present Endo Denies fatigue Aller/Immun Denies throat swelling and Denies tongue swelling Physical Exam Vital Signs: Last Vital Signs Pulse 126 H 04/26/24 12:33 BP 124/67 04/26/24 12:33 BMI result Body Mass Index 30.4 Const General: cooperative, no acute distress, well developed and well groomed Nutritional Appearance: well nourished, obese and overweight Orientation/consciousness: oriented to person, oriented to place and oriented to time Limitations: No language barrier, ambulation with cane, ambulation with walker and wheelchair HEENT Head: Yes normocephalic and Yes atraumatic Eyes General: appearance normal, both eyes and all related structures Pupils: Equal, round and reactive pupils present Neck Neck: Yes normal visual inspection and Yes no lymphadenopathy Thyroid: Thyroid normal Resp Effort & Inspection: normal respiratory effort and able to speak in complete sentences Auscultation: clear to auscultation bilaterally Cardio Rate: regular rate Rhythm: regular rhythm Heart sounds: Normal, physiologic split S2 sound present Peripheral pulses: radial pulses present and posterior tibial pulses present GI Inspection: No distended and No Abdominal panniculus present Palpation (GI): Soft to palpation, nontender, no guarding, not rigid, No hepatosplenomegaly present and Hepatosplenomegaly present Percussion: Yes normal to percussion Auscultation: normal bowel sounds Rectal Exam - Female: deferred Back/Spine/Pelvis Back: No erythema, No warmth, No ecchymosis and back tenderness Thoracic/Lumbar Spine: pain with thoraco-lumbar ROM, paraspinal muscle tenderness, thoraco-lumbar ROM limited (Only about 25% normal in flexion and [id number] tilt fairly normal in ext), thoraco-lumbar spasm on the right (Severe at the area L5-S1), thoracic spinal tenderness, lumbar spinal tenderness and straight leg raise positive (Unclear if this is due to tight hamstrings or other process) Back/spine/pelvis image: 1. Severe muscle spasm palpable Skin General skin exam: no rashes or lesions noted, turgor normal, skin not dry, no jaundice, No spider nevi and no striae Rashes: no rashes Nails: normal Neuro General: oriented to person, oriented to place and oriented to time Cranial nerves: Yes Equal, round and reactive pupils present and Yes Normal hearing present Speech: No Abnormal speech present Gait exam (Neuro): Normal gait present Motor exam (neuro): 5/5 motor strength present throughout Deep tendon reflexes (DTR's): Right patellar reflex intensity grade: 1+, Left patellar reflex intensity grade: 1+, Right ankle reflex intensity grade: 1+ and Left ankle reflex intensity grade: 1+ Extrem General: Yes normal to inspection, No clubbing, No cyanosis and No edema Psych Appearance: grossly normal and well kempt Mental Status: mental status grossly normal Speech and movement: Normal speech and movement present Affect: normal affect Attitude: cooperative Thought process: Circumstantial thought process present and not confabulating Thought content: Normal thought content present Insight: Limited insight present (Psych) Judgement: Limited judgement present (Psych) Assessment & Plan Assessment & Plan (1) Abdominal cramping: Code(s): R10.9 - Unspecified abdominal pain Category: Medical (2) GERD (gastroesophageal reflux disease): Code(s): K21.9 - Gastro-esophageal reflux disease without esophagitis Category: Medical (3) Chronic idiopathic constipation: Code(s): K59.04 - Chronic idiopathic constipation Category: Medical (4) DJD (degenerative joint disease), lumbar: Code(s): M47.816 - Spondylosis without myelopathy or radiculopathy, lumbar region Category: Medical (5) Flank pain: Code(s): R10.9 - Unspecified abdominal pain Category: Medical (6) Back pain: Comment: lower Code(s): M54.9 - Dorsalgia, unspecified Category: Medical Plan Georgian #declines We review the imaging and since we do not have access to endoscopic ultrasound at this time I think will repeat the MRI with liver protocol in 6 months. So far it appears just to be a cyst of the pancreas. The dicyclomine has greatly helped her abdominal pain and she is now moving her bowels well and has well controlled GERD on her pantoprazole. She has a new problem that started about 3 months ago the pain that seems to start in the mid to low back and wraps around mostly the left flank but sometimes the right flank. This pain is not affected by eating or moving her bowels, but is somewhat worse at the end of the day and will frequently wake her up in the middle of the night with pain. She describes the pain as throbbing and it also radiates down her legs. She had a recent MRI of her back ordered by her primary care provider at [facility] that shows extensive lumbar degenerative disc disease with disc bulges. I think it is entirely likely that this is related to her back she also has advanced facet arthropathy. I explained this to her and recommend that some Tylenol along with a low-dose Motrin may be helpful. Since she is not seeing her primary care provider for quite some time to follow up on the MRI I will refer her to pain management for consideration of additional therapy and I will get an x-ray of her thoracic spine to see how much this could be contributing to the pain. Return office visit in 6 months Orders: Orders XR thoracic spine 2V Today M47.816 - Spondylosis without myelopathy or radiculopathy, lumbar region, M54.9 - Dorsalgia, unspecified, R10.9 - Unspecified abdominal pain Referrals Pain Management Referral M47.816 - Spondylosis without myelopathy or radiculopathy, lumbar region, M54.9 - Dorsalgia, unspecified, R10.9 - Unspecified abdominal pain Coding Level of Care Code Est Pt Level 4 (89270) Diagnoses Abdominal cramping R10.9 GERD (gastroesophageal reflux disease) K21.9 Chronic idiopathic constipation K59.04 DJD (degenerative joint disease), lumbar M47.816 Flank pain R10.9 Back pain M54.9 Time Spent (min) 38
== END 2024-04-26 13:26 | disposition home or self-care (01) ==
PROVIDERS: PCP Internal Medicine; Visit Provider Nurse Practitioner
DX: K21.9 Gastro-esophageal reflux disease without esophagitis (principal); K59.04 Chronic idiopathic constipation; M47.816 Spondylosis without myelopathy or radiculopathy, lumbar region; M54.9 Dorsalgia, unspecified
CPT/HCPCS: 99214

== ENCOUNTER → 2024-04-26 12:27 | Outpatient (BNVA) | payer MEDICAID, SELFPAY | PROVIDERS: PCP Internal Medicine; Visit Provider Nurse Practitioner | DX: R10.9 Unspecified abdominal pain (principal); M54.9 Dorsalgia, unspecified; K21.9 Gastro-esophageal reflux disease without esophagitis; K59.04 Chronic idiopathic constipation; M47.816 Spondylosis without myelopathy or radiculopathy, lumbar region | CPT/HCPCS: 99212 ==

== ENCOUNTER 2024-05-16 10:58 | Outpatient (REF) | payer MEDICAID, SELFPAY | END 2024-05-16 10:59 | disposition home or self-care (01) | LOC: HO.XRAY 10:58 | PROVIDERS: PCP Internal Medicine; Visit Provider Nurse Practitioner | DX: M54.9 Dorsalgia, unspecified (principal); R10.9 Unspecified abdominal pain; M47.816 Spondylosis without myelopathy or radiculopathy, lumbar region | CPT/HCPCS: 72070 ==

== ENCOUNTER 2024-07-01 13:28 | Outpatient (REF) | payer MEDICAID, SELFPAY ==
--- NOTE | ~2024-07-01 | US_ITS ---
EXAMINATION: US TRIPLEX LOWER EXTREMITY, RIGHT CLINICAL INFORMATION: Right leg pain and edema COMPARISON: DVT ultrasound November 10, 2019 TECHNIQUE: Color-flow triplex imaging with spectral analysis and compression Doppler were performed on the right lower extremity. FINDINGS: Respiratory variation, normal compression and augmented flow are noted throughout the right lower extremity. The visualized common femoral vein, superficial femoral vein, profunda femoral vein, popliteal vein and midcalf peroneal and posterior tibial venous segments show no evidence of deep venous thrombosis. Torres's cyst measuring 3.1 x 0.8 x 1.6 cm US/US venous duplex LE RT IMPRESSION: No evidence of deep venous thrombosis involving the right lower extremity. Electronically signed by: Renny Brito MD 07/01/2024 03:17 PM DAMON
== END 2024-07-01 13:29 | disposition home or self-care (01) ==
LOC: HO.US 13:28
PROVIDERS: PCP Internal Medicine; Visit Provider Internal Medicine
DX: M79.604 Pain in right leg (principal)
CPT/HCPCS: 93971

== ENCOUNTER 2024-10-21 10:28 | Outpatient (AMB) | payer MEDICAID, SELFPAY ==
--- NOTE | 2024-10-21 10:40 | MHC.OFFVIS ---
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 She was referred by her Primary Care, Isabelle Ernst MD. She has previously seen Pain Mgmt, who did a left sided medial branch block in 2019 which showed great relief, she was going to book a RFA but patient did not wish to proceed. Patient reports pain radiates to her abdomen with tingling sensation. Patient states she also took a fall on Thursday, landing on her coccyx, hitting her back against the bed frame. Patient also reports right ankle pain. She is currently taking Ibuprofen for pain without relief. Patient reports lack of sleep due to pain. Patient has tried PT for her back without improvement. Patient also states she feels a bump on her lower back. Vocational Services Specialist Required: Yes Vocational Services Specialist Language: Czech Information Interpreted: non-clinical & clinical Allergies latex [LATEX] Allergy (Intermediate, Verified 10/21/24 10:45) RASH; redness ciprofloxacin [From CIPRO] Adverse Reaction (Intermediate, Verified 10/21/24 10:45) Diarrhea Medication List - Last Reconciled 10/21/24 by Sadie Fuentes MD albuterol sulfate 5 mg inhalation Q6H PRN albuterol sulfate 90 mcg/actuation 1 inh inhalation QID PRN aspirin (Brianna Low Dose Aspirin) 81 mg PO DAILY atorvastatin 20 mg PO BEDTIME budesonide-formoterol 160-4.5 mcg/actuation (Symbicort) 2 puffs inhalation BID calcitonin (salmon) 200 unit/actuation 1 spray intranasal (ALT) DAILY calcium carbonate 600 mg PO BID clonazepam 1 mg PO BID dicyclomine 10 mg PO TID diltiazem HCl ER 240 mg PO DAILY doxepin 75 mg PO BEDTIME famotidine 40 mg PO BID fluticasone propionate 50 mcg/actuation 1 - 2 sprays intranasal DAILY PRN lansoprazole 30 mg PO BID linaclotide (Linzess) 145 mcg PO QAM metoprolol tartrate 50 mg PO BID montelukast 10 mg PO BEDTIME roflumilast (Daliresp) 500 mcg PO DAILY teriparatide (Forteo) 20 mcg subcut DAILY tiotropium bromide 2.5 mcg/actuation (Spiriva Respimat) 2 puffs inhalation DAILY zolpidem 10 mg PO BEDTIME HPI Comments Details: Patient confirms that she fell last Thursday. Did not seek urgent care. Denies head trauma, fainting, chest pain or SOB. She clarifies that the ankle pain is chronic. She's here for the lower back pain, right side, radiates down to hip area but not lower than the knee. Denies foot numbness. No weakness. Last time she saw Pain Management was in 2019 and injections for knee. She has not had injections for back pain. She had surgery by Dr. Vu in 2013 for but she could not tell me today what level. Last PT 6 months ago per patient. DC summary seen from PT, she went 5 sessions, cancelled 5 sessions. She does not appear now to want to return to PT. [facility] Medical History (Updated 10/21/24 @ 11:18 by Sadie Fuentes MD) Patellofemoral arthralgia of right knee Abdominal wall mass Fibromyalgia Chronic pain syndrome Postlaminectomy syndrome Osteopenia Back pain Irritable bowel syndrome (IBS) GERD (gastroesophageal reflux disease) Fibromyalgia Anxiety disorder Depression Lung nodule Asthma Personal history of tuberculosis COPD (chronic obstructive pulmonary disease) Elevated cholesterol HTN (hypertension) Surgical History (Updated 04/26/24 @ 12:48 by JENNI Lopez) Presence of right artificial knee joint Presence of left artificial knee joint History of back surgery Hx of section Hx of total knee replacement H/O hernia repair History of esophagogastroduodenoscopy (EGD) H/O colonoscopy Family History Father Cancer Mother Kidney problem Hypertension CVD (cardiovascular disease) Paternal Uncle Cancer Colon cancer Brother Cancer Brother Colon cancer Social History Alcohol intake: never Patient Tobacco Use Status: Current everyday Tobacco user Tobacco use type: Cigarette Cigarettes Per Day: 3 Review of Systems Const All systems reviewed & are unremarkable except as noted in HPI and below Physical Exam Vital Signs: BMI result Body Mass Index 30.2 Constitutional: Patient appears to be in no acute distress, well nourished and well developed. Patient was appropriately conversant and oriented. No appeared inpatient and inconsistent historian. MSK: No specific abnormalities found on inspection of the spine and all extremities. No tenderness over spinous processes. Tender on left SI joint but not right. Tender on upper lumbar paraspinals. Nontender on GT. Lumbar ROM was full. Bilateral hip, knee and ankle ROM WNL. No ligamentous laxity or crepitance. No increased effusion. Straight-leg raising test negative. FABERE test negative. Strength is 5/5 in all muscle groups tested. No increased tone noted. Neurological: Neurologic examination of the upper and lower extremities was nonfocal with intact sensation, muscle stretch reflexes and without focal motor deficits . Torres?s negative bilaterally. Babinski was down going bilaterally. Clonus was negative. Gait is non-antalgic without loss of balance. Results Reviewed Results Reviewed: Saw ortho 2023 - s/p fall on 07/31/23. Hx of right TKA 11/03/17. Hx of Left TKA 04/27/2019 with I&D 06/07/2019 Saw pain management 2019 Saw Rheumatology 2019-fibromyalgia Ordering Physician: Brit RojasC Date of Service: 05/16/24 Procedure(s): XR thoracic spine 2V Accession Number(s): [id number] cc: Brit Rojas-Stefanie; Isabelle Colon MD~ EXAMINATION: XR THORACIC SPINE 3 VIEWS CLINICAL INFORMATION: Dorsalgia, unspecified M54.9. COMPARISON: XR Dorsal thoracic spine 10/03/2015 (report only) TECHNIQUE: 3 views of the thoracic spine were obtained. FINDINGS: No acute visible fracture or dislocation. Levocurvature of the mid thoracic spine. Mild multilevel degenerative changes of the thoracolumbar and lumbosacral spine. Vertebral body has not displaced or maintained. Posterior elements are intact. Paraspinal soft tissues unremarkable. Visualized portions of the chest are unremarkable. XR/XR thoracic spine 2V IMPRESSION: 1. No acute visible fracture or dislocation. 2. Levocurvature of the mid thoracic spine. 3. Mild multilevel degenerative changes of the thoracolumbar and lumbosacral spine. Electronically signed by: Jacqueline Espinoza MD 07/22/2024 02:51 PM [facility] Ordering Physician: Isabelle Colon MD Date of Service: 03/10/24 Procedure(s): MR lumbar spine wo/w con Accession Number(s): [id number] cc: Isabelle Colon MD~ MR LUMBAR SPINE WITHOUT AND WITH CONTRAST CLINICAL INFORMATION: Radiculopathy. COMPARISON: Bone scan December 10, 2023. TECHNIQUE: MRI of the lumbar spine was obtained using routine sequences with and without contrast. Intravenous contrast: Gadavist 7.5 mL FINDINGS: There are 5 nonrib-bearing lumbar-type vertebral bodies. There are postoperative changes following interbody cage placement at L5-S1. Lumbar alignment is maintained. The nonsurgical disc volumes are preserved and the nonsurgical disc remains well-hydrated. There is no bone marrow edema. There are no acute fractures. There is no pathologic enhancement along the cauda equina nerve roots and there are no suspicious enhancing intraosseous lesions. The conus terminates at the L1 level. Small right renal cyst for which no further imaging follow-up is warranted. L1-L2: Disc contour is normal. Mild bilateral facet arthropathy. No central canal stenosis and no foraminal stenosis. L2-L3: Small diffuse annular disc bulge and mild bilateral facet arthropathy. No central canal stenosis and no foraminal stenosis. L3-L4: There is a small diffuse annular disc bulge and there is moderate bilateral hypertrophic facet arthropathy. There is no central canal stenosis and there is no significant foraminal stenosis. L4-L5: There is a diffuse annular disc bulge and there is severe bilateral facet arthropathy. There is no central canal stenosis. There is mild foraminal encroachment bilaterally. L5-S1: Interbody cage in place. 4 right and left lateral osteophytic ridging contacting the extraforaminal L5 nerve roots bilaterally. No central canal stenosis and no foraminal stenosis. Moderate left and mild right facet arthropathy. MR/MR lumbar spine wo/w con IMPRESSION: * At L5-S1, there are postoperative changes following interbody cage placement. Right and left lateral osteophytic ridging at this level contacts the extraforaminal L5 nerve roots bilaterally. * There is advanced bilateral facet arthropathy at L4-L5 and moderate bilateral facet arthropathy at L3-L4 and L5-S1. Additional mild spondylitic changes throughout the lumbar spine as described. No severe central canal stenosis and no severe foraminal stenosis within the lumbar spine. Electronically signed by: Ildefonso Miller MD 04/01/2024 02:47 PM EDT RP Assessment & Plan Assessment & Plan (1) Chronic back pain: Code(s): M54.9 - Dorsalgia, unspecified; G89.29 - Other chronic pain Category: Medical Qualifiers: Back pain location: low back pain Back pain laterality: bilateral Sciatica presence: without sciatica Qualified Code(s): M54.50 - Low back pain, unspecified; G89.29 - Other chronic pain (2) Fibromyalgia: Code(s): M79.7 - Fibromyalgia Category: Medical (3) Lumbar facet joint pain: Code(s): M54.59 - Other low back pain Category: Medical Plan Chronic lower back pain, non radicular, no neurologic deficits on exam today. Suspect lumbar facet pain. Discussed lumbar MRI findings. History of fibromyalgia. Had L5-S1 surgery in the past with Dr. Vu. She does not want to return to PT and she did try to go last year. Discussed exercises/stretches but I feel that she is resistant. She is also resistant to trying injections but after much discussion she agreed to being referred to Pain Management. Assessment and plan discussed with patient, and patient was agreeable. All questions were answered thoroughly. Sadie Fuentes MD, JORGE Board Certified, [place] [employer] and Rehabilitation (ABPMR) Board Certified, [place] [employer] of Electrodiagnostic [employer] (ABEM) Orders: Referrals Pain Management Referral G89.29 - Other chronic pain, M54.59 - Other low back pain, M54.9 - Dorsalgia, unspecified, M79.7 - Fibromyalgia Coding Level of Care Code New Pt Level 4 (18939) Diagnoses Chronic bilateral low back pain without sciatica M54.50; G89.29 Back pain location: low back pain Back pain laterality: bilateral Sciatica presence: without sciatica Fibromyalgia M79.7 Lumbar facet joint pain M54.59
[2024-10-21 10:47] VITALS: BMI 30.2
== END 2024-10-21 11:23 | disposition home or self-care (01) ==
LOC: HO.HOS 10:28
PROVIDERS: PCP Internal Medicine; Visit Provider Physical Medicine & Rehabilitation
DX: M54.59 Other low back pain (principal); G89.29 Other chronic pain; M79.7 Fibromyalgia
CPT/HCPCS: 99204

== ENCOUNTER → 2024-10-21 10:28 | Outpatient (BNVA) | payer MEDICAID, SELFPAY | PROVIDERS: PCP Internal Medicine; Visit Provider Physical Medicine & Rehabilitation | DX: M54.50 Low back pain, unspecified (principal); M79.7 Fibromyalgia; M54.59 Other low back pain; G89.29 Other chronic pain | CPT/HCPCS: 99202 ==

== ENCOUNTER 2024-12-15 00:34 | Inpatient (IN) | payer MEDICAID, SELFPAY ==
[2024-12-15] VITALS (13 sets, daily range): BP systolic 102–140; BP diastolic 40–70; PULSE 62–101; RESP 16–18; TEMP 36.6–37; O2SAT 93–98; BMI 31.3; BMI 29.7
--- NOTE | ~2024-12-15 | CT_ITS ---
CLINICAL HISTORY: LUQ pain, hx pancreatic lesion CT abdomen and pelvis without contrast Comparison: CT/REG/SR - CT ABDOMEN PELVIS WO/W IV CON - 10/23/22 08:07 EDT Findings: Minor atelectasis at the lung bases. 2.7 x 1.5 x 1.7 cm uncinate process pancreas cystic lesion similar to the prior exam. Gallbladder and solid organs otherwise unremarkable. No bowel obstruction, pneumoperitoneum, or pneumatosis. Hysterectomy. Ovaries not identified. Appendectomy. The bones are intact. IMPRESSION: Pancreatic cystic lesion again noted. No inflammatory changes. This document has been electronically signed by: Benigno Erazo MD on 12/15/2024 02:48:08
--- NOTE | 2024-12-15 00:45 | ECG_ITS ---
Test Reason : CP Blood Pressure : */* mmHG Vent. Rate : 59 BPM Atrial Rate : 59 BPM P-R Int : 184 ms QRS Dur : 108 ms QT Int : 488 ms P-R-T Axes : 52 10 27 degrees QTcB Int : 483 ms Sinus bradycardia Otherwise normal ECG When compared with ECG of 14-Apr-2022 14:23, Vent. rate has decreased by 51 bpm Criteria for Septal infarct are no longer Present T wave inversion no longer evident in Lateral leads Referred By: Generic ED Physician Electronically Signed By: Oseas Vincent
[2024-12-15 01:02] LABS: MANUAL DIFF FLAG NO
[2024-12-15 01:03] LABS: Basophils Absolute Auto 0.1 X10*3/uL (0.0-0.2); Basophils Percent Auto 0.8 % (0-2); Eosinophils Absolute Auto 0.9 X10*3/uL (0.0-0.4); Eosinophils Percent Auto 6.5 % (0-4); Hematocrit 34.4 % (37.0-47.0); Hemoglobin 11.5 g/dl (12.0-16.0); Imm Gran Abs Auto 0.05 X10*3/uL (0.00-0.03); Imm Gran Pct Auto 0.3 % (0.0-0.4); Lymphocytes Absolute Auto 2.7 X10*3/uL (1.2-4.9); Lymphocytes Percent Auto 18.6 % (20-40); Mean Corpuscular HGB Conc 33.4 g/dl (31.0-35.0); Mean Corpuscular Hemoglobin 30.7 pg (27.0-33.0); Mean Corpuscular Volume 91.7 fL (80.0-98.0); Mean Platelet Volume 10.8 fL (9.4-12.3); Monocytes Absolute Auto 1.1 X10*3/uL (0.1-1.2); Monocytes Percent Auto 7.5 % (2-11); Neutrophils Absolute Auto 9.5 x10*3/uL (2.0-8.3); Neutrophils Percent Auto 66.3 % (45-73); Platelet Count 330 X10*3/uL (160-400); Red Blood Count 3.75 X10*6/uL (4.20-5.50); Red Cell Distribution Width 13.4 % (11.0-16.0); White Blood Count 14.4 X10*3/uL (4.8-10.8)
--- NOTE | 2024-12-15 01:10 | ED_ITS ---
HPI - Nausea/Vomiting/Diarrhea General Chief complaint: Nausea/Vomiting/Diarrhea Stated complaint: n/v/d x3 bi lat edema Time Seen by Provider: 12/15/24 01:01 Source: patient, family and EMS Mode of arrival: EMS Limitations: no limitations History of Present Illness ED Provider: Dr. Gricel Tabor HPI Narrative: Patient comes to the emergency room complaining of 3 days of nausea vomiting and diarrhea. Patient states that the last time she vomited was over 24 hours ago, patient had diarrhea today. Patient states that earlier today patient checked her blood pressure at home and had a blood pressure in the 80s systolic. Patient complaining of left flank pain and middle lower back pain. Patient denies chest pain or shortness of breath, denies fever chills, denies hematuria or dysuria. Patient states that she ingested multiple doses of squeezed lemon with salt hoping it would help to stop the nausea vomiting and the diarrhea. Did not take any [id number] medications Related Data Home Medications ?Medication ?Instructions ?Recorded ?Confirmed aspirin 81 mg tablet,delayed 81 mg PO DAILY 05/15/20 10/21/24 release (Brianna Low Dose Aspirin) atorvastatin 20 mg tablet 20 mg PO BEDTIME 05/15/20 10/21/24 budesonide-formoterol HFA 160 2 puff inhalation BID 05/15/20 10/21/24 mcg-4.5 mcg/actuation aerosol inhaler (Symbicort) clonazepam 1 mg tablet 1 mg PO BID 05/15/20 10/21/24 montelukast 10 mg tablet 10 mg PO BEDTIME 05/15/20 10/21/24 roflumilast 500 mcg tablet 500 mcg PO DAILY 05/15/20 10/21/24 (Daliresp) tiotropium bromide 2.5 2 puff inhalation DAILY 05/15/20 10/21/24 mcg/actuation mist for inhalation (Spiriva Respimat) calcium carbonate 600 mg PO BID 08/30/21 10/21/24 diltiazem HCl 240 mg capsule,24 240 mg PO DAILY 08/30/21 10/21/24 hr,extended release fluticasone propionate 50 1 - 2 spray intranasal DAILY PRN 08/30/21 10/21/24 mcg/actuation nasal spray,suspension zolpidem 10 mg tablet 10 mg PO BEDTIME 08/30/21 10/21/24 doxepin 75 mg capsule 75 mg PO BEDTIME 08/08/22 10/21/24 metoprolol tartrate 50 mg tablet 50 mg PO BID 03/20/23 10/21/24 teriparatide 20 mcg/dose (560 20 mcg subcut DAILY 10/26/23 10/21/24 mcg/2.24 mL) subcutaneous pen injector (Forteo) Previous Rx's ?Medication ?Instructions ?Recorded albuterol sulfate 2.5 mg/0.5 mL 5 mg inhalation Q6H PRN shortness 05/13/21 solution for nebulization of breath or wheezing #30 ea albuterol sulfate 90 mcg/actuation 1 inh inhalation QID PRN shortness 05/13/21 aerosol inhaler of breath or wheezing #6.7 grams calcitonin (salmon) 200 1 spray intranasal (ALT) DAILY 08/30/21 unit/actuation nasal spray #3.7 mL dicyclomine 10 mg capsule 10 mg PO TID #90 caps 07/05/24 lansoprazole 30 mg capsule,delayed 30 mg PO BID #60 caps 07/06/24 release famotidine 40 mg tablet 40 mg PO BID #60 tabs 10/21/24 linaclotide 145 mcg capsule 145 mcg PO QAM #30 caps 11/23/24 (Linzess) Allergies Allergy/AdvReac Type Severity Reaction Status Date / Time latex [LATEX] Allergy Intermediate RASH; Verified 12/15/24 00:45 redness ciprofloxacin [From CIPRO] AdvReac Intermediate Diarrhea Verified 12/15/24 00:45 Review of Systems 2 Review of Systems: Constitutional : No Weight loss, No Fever, No Chills, No Night Sweats, No Fatigue, No Malaise ENT/Mouth : No Hearing loss, No Ear Pain, No Nasal Congestion, No Sinus Pain, No Hoarseness, No sore throat, No Rhinorrhea, No Swallowing Difficulty Eyes: No Eye Pain, No Swelling, No Redness, No Foreign Body, No Discharge, No Vision Changes Cardiovascular : No Chest Pain, No SOB, No Dyspnea on Exertion, No Orthopnea, No Edema, No Palpitations Respiratory : No Cough, No Sputum, No Wheezing, No Smoke Exposure, No Dyspnea Gastrointestinal : Complaining of nausea vomiting and diarrhea, No Constipation, complaining of left upper quadrant abdominal Pain, No Hematochezia, No Melena Genitourinary : no irregular bleeding, No Dysuria, No Urinary Frequency, No Hematuria, No Urinary Incontinence, No Urgency, No Flank Pain, No Urinary Flow Changes, No Hesitancy Musculoskeletal : Complaining of left middle back pain, No joint pain, No Myalgias, No Joint Swelling Skin : No Skin Lesions, No rash Neuro : No Weakness, No Numbness, No Paresthesias, No Loss of Consciousness, No Dizziness, No Headache Psych : No Anxiety/Panic, No Depression, No SI/HI/AH/VH, No Social Issues, Heme/Lymph: No Bruising, No Bleeding,No Lymphadenopathy Endocrine : No Polyuria, No Polydipsia, No Temperature Intolerance [facility] Past Medical History Medical History Patellofemoral arthralgia of right knee Abdominal wall mass Fibromyalgia Chronic pain syndrome Postlaminectomy syndrome Osteopenia Back pain Irritable bowel syndrome (IBS) GERD (gastroesophageal reflux disease) Fibromyalgia Anxiety disorder Depression Lung nodule Asthma Personal history of tuberculosis COPD (chronic obstructive pulmonary disease) Elevated cholesterol HTN (hypertension) Surgical History (Updated 04/26/24 @ 12:48 by JENNI Lopez) Presence of right artificial knee joint Presence of left artificial knee joint History of back surgery Hx of section Hx of total knee replacement H/O hernia repair History of esophagogastroduodenoscopy (EGD) H/O colonoscopy Family History Family History Father Cancer Mother Kidney problem Hypertension CVD (cardiovascular disease) Paternal Uncle Cancer Colon cancer Brother Cancer Brother Colon cancer Social History Social History Alcohol intake: never Patient Tobacco Use Status: Current everyday Tobacco user Tobacco use type: Cigarette Cigarettes Per Day: 3 Advance Directives: No Advance Directives Information Provided: Yes Physical Exam 2 Vital Signs: Vital Signs: Last Vital Signs Temp 98.0 F 12/15/24 00:38 Pulse 62 12/15/24 00:38 Resp 16 12/15/24 00:38 BP 108/40 L 12/15/24 00:38 Pulse Ox 98 12/15/24 00:38 O2 Del Method Room Air 12/15/24 00:38 BMI result Body Mass Index 31.3 Const: Other: Appearance: Alert. Oriented X3. No acute distress. Well-appearing Eyes: Pupils equal, round and reactive to light. ENT: Pharynx normal. Neck: Normal inspection. Neck supple. No lymph nodes noted. No crepitus CVS: Normal heart rate and rhythm. Pulses normal. Normal S1 and S2 Respiratory: No respiratory distress. Breath sounds normal. No Wheezing. No rales Abdomen: Soft , no significant pain to palpation on the right side of the abdomen, mild to moderate pain to palpation in the right upper quadrant and left flank,. No rigidity. No distention. Back: Mild pain to palpation in the middle left back, no ecchymosis Skin: Skin warm and dry. Normal skin color. Normal skin turgor. Extremities: No lower extremity edema. No Lacerations. No Rash Neuro: Oriented X 3. No motor deficit. No sensory deficit. Moving all extremities. No slurred speech. CN 2 through 12 grossly intact Psych: calm, cooperative, normal affect Course Course Course Narrative: Patient receiving IV fluids, loperamide, Reglan and IV morphine Patient's labs and imaging pending, EKG pending Medications Administered Discontinued Medications Generic Name Dose Route Start Last Admin Trade Name Freq PRN Reason Stop Dose Admin Lactated Ringer's 1,000 mls @ 999 mls/hr 12/15/24 01:09 12/15/24 01:53 Lr IVCONT 12/15/24 02:09 999 mls/hr .Q1H1M ONE Administration Loperamide HCl 4 mg 12/15/24 01:08 12/15/24 01:38 Loperamide Hcl 2 Mg Capsule PO 12/15/24 01:09 4 mg ONCE ONE Administration Metoclopramide HCl 10 mg 12/15/24 01:08 12/15/24 01:38 Metoclopramide Hcl 10 Mg/2 Ml Vial IVPUSH 12/15/24 01:09 10 mg ONCE ONE Administration Morphine Sulfate 2 mg 12/15/24 01:08 12/15/24 01:38 Morphine Sulfate 2 Mg/Ml Cartridge IVPUSH 12/15/24 01:09 2 mg ONCE ONE Administration Protocol Medical Decision Making Medical Decision Making [facility] Narrative: My interpretation of EKG: Normal sinus rhythm, heart rate 59, no ST segment depression or elevation, nonspecific T-wave inversion in lead 3, QTC 483 Patient's white blood cell count 14.4, patient has chronic leukocytosis, hematology at baseline, creatinine is 1.72 which is more elevated patient's previous creatinine at 1.04, normal LFTs, normal troponin, normal lipase Urinalysis shows a small amount of leukocyte esterase, large amount of squamous epithelial cells, not a UTI CT scan does not show any acute abnormality, pancreatic cyst seen again, no change in size Here in the emergency room, patient has not had any episodes of vomiting or diarrhea. Patient's initial creatinine was 1.72, with fluids improved to 1.57. In previous year it was 1.04 patient is still not at baseline. Patient has not had any episodes of vomiting and diarrhea in the emergency room after the above-mentioned medication. I discussed the patient with Dr. Zhang, patient being admitted for RIMA Patient agrees with plan Differential Diagnosis Differential Diagnoses: The differential diagnosis associated with the presentation includes (Dehydration, RIMA, UTI, pyelonephritis) Admission/Observation Consideration of admission/observation: Escalation of care including admission/observation considered Consult Healthcare Provider Management of the patient was discussed with: Hospitalist Lab Data [facility] Lab Attestation statement: I reviewed the patient's lab results. 12/15/24 00:58 12/15/24 03:29 Labs: Lab Results 12/15/24 12/15/24 12/15/24 Range/Units 00:58 01:51 03:29 WBC 14.4 H (4.8-10.8) X10*3/uL RBC 3.75 L (4.20-5.50) X10*6/uL Hgb 11.5 L (12.0-16.0) g/dl Hct 34.4 L (37.0-47.0) % MCV 91.7 (80.0-98.0) fL MCH 30.7 (27.0-33.0) pg MCHC 33.4 (31.0-35.0) g/dl RDW 13.4 (11.0-16.0) % Plt Count 330 (160-400) X10*3/uL MPV 10.8 (9.4-12.3) fL Immature Gran % (Auto) 0.3 (0.0-0.4) % Neut % (Auto) 66.3 (45-73) % Lymph % (Auto) 18.6 L (20-40) % [place] % (Auto) 7.5 (2-11) % Eos % (Auto) 6.5 H (0-4) % Baso % (Auto) 0.8 (0-2) % Lymph # (Auto) 2.7 (1.2-4.9) X10*3/uL [place] # (Auto) 1.1 (0.1-1.2) X10*3/uL Eos # (Auto) 0.9 H (0.0-0.4) X10*3/uL Baso # (Auto) 0.1 (0.0-0.2) X10*3/uL Abs Immat Gran (auto) 0.05 H (0.00-0.03) X10*3/uL Absolute Neuts (auto) 9.5 H (2.0-8.3) x10*3/uL Absolute Nucleated RBC 0.000 (0.0-0.012) X10*3/uL Nucleated RBC % (auto) 0.0 (0.0-0.2) /100WBC Sodium 144 141 (135-145) mmol/L Potassium 3.8 4.8 D (3.3-5.1) mmol/L Chloride 107 111 H (96-108) mmol/L Carbon Dioxide 24 14 L (22-29) mmol/L Anion Gap 17 21 H (12-20) BUN 17 H 16 (9-16) mg/dL Creatinine 1.72 H 1.57 H (0.5-1.4) mg/dL Estim Creat Clear Calc 31.8 34.9 Estimated GFR 30 33 Random Glucose 114 100 (60-115) mg/dL Calcium 9.9 9.7 (8.4-10.2) mg/dL Total Bilirubin 0.1 (0.0-1.0) mg/dL Direct Bilirubin < 0.2 (0.0-0.5) mg/dL AST 19 (5-31) U/L ALT 11 (0-31) U/L Alkaline Phosphatase 91 (39-117) U/L Troponin I High Sens < 2.7 (<3.5-17.0) ng/L Total Protein 7.1 (6.5-8.0) g/dL Albumin 4.2 (3.5-5.0) g/dL Lipase 31 (8-78) U/L Urine Color Yellow Urine Appearance Cloudy Urine pH 5.5 (5.0-9.0) Ur Specific [place] 1.015 (1.005-1.025) Urine Protein Negative (Neg-Trace) mg/dL Urine Glucose (UA) Negative (Negative) mg/dL Urine Ketones Negative (Negative) mg/dL Urine Blood Negative (Negative) Urine Nitrite Negative (Negative) Ur Leukocyte Esterase Small (1+) H (Negative) Urine RBC 0-2 (0-2) /HPF Urine WBC 0-5 (0-5) /HPF Ur Squamous Epith Cells >20 (0-2) /HPF Urine Bacteria None Seen (None Seen) Hyaline Casts >20 (0-2) /LPF Independent Interpretation I performed an independent interpretation of an: CT Scan Radiology Impression Discussion of test interpretation with radiology: I have reviewed the radiologist's reading. Radiologist Impression: Minor atelectasis at the lung bases. 2.7 x 1.5 x 1.7 cm uncinate process pancreas cystic lesion similar to the prior exam. Gallbladder and solid organs otherwise unremarkable. No bowel obstruction, pneumoperitoneum, or pneumatosis. Hysterectomy. Ovaries not identified. Appendectomy. The bones are intact. IMPRESSION: Pancreatic cystic lesion again noted. No inflammatory changes. Critical Care Time Critical Care Time Critical Care Time: Yes Total Critical Care Time: 60 Attestation: I have personally provided critical care time. Time includes review of lab data, radiology results, discussion with consultants, and monitoring for potential decompensation. Intervention performed as documented. Discharge Plan Discharge Clinical Impression: RIMA (acute kidney injury), Nausea vomiting and diarrhea Patient Disposition: Admitted As Inpatient Prescriptions: No Action dicyclomine 10 mg capsule 10 mg PO TID Qty: 90 3RF lansoprazole 30 mg capsule,delayed release(DR/EC) 30 mg PO BID Qty: 60 6RF famotidine 40 mg tablet 40 mg PO BID Qty: 60 3RF Linzess 145 mcg capsule 145 mcg PO QAM Qty: 30 6RF atorvastatin 20 mg Tablet 20 mg PO BEDTIME clonazepam 1 mg Tablet 1 mg PO BID aspirin [Brianna Low Dose Aspirin] 81 mg Tablet,Delayed Release (Dr/Ec) 81 mg PO DAILY montelukast 10 mg Tablet 10 mg PO BEDTIME budesonide-formoterol [Symbicort] 160-4.5 mcg/actuation Hfa Aerosol Inhaler 2 puff INHALATION BID Daliresp 500 mcg Tablet 500 mcg PO DAILY Spiriva Respimat 2.5 mcg/actuation Mist 2 puff INHALATION DAILY albuterol sulfate 90 mcg/actuation HFA aerosol inhaler 1 inh inhalation QID PRN (Reason: shortness of breath or wheezing) Qty: 6.7 0RF albuterol sulfate 2.5 mg/0.5 mL solution for nebulization 5 mg inhalation Q6H PRN (Reason: shortness of breath or wheezing) Qty: 30 0RF calcium carbonate 600 mg calcium (1,500 mg) tablet 600 mg PO BID fluticasone propionate 50 mcg/actuation spray,suspension 1 - 2 spray intranasal DAILY PRN diltiazem HCl 240 mg capsule,extended release 24 hr 240 mg PO DAILY zolpidem 10 mg tablet 10 mg PO BEDTIME calcitonin (salmon) 200 unit/actuation spray,non-aerosol 1 spray intranasal (ALT) DAILY Qty: 3.7 6RF doxepin 75 mg capsule 75 mg PO BEDTIME metoprolol tartrate 50 mg tablet 50 mg PO BID teriparatide [Forteo] 20 mcg/dose (600mcg/2.4mL) pen injector 20 mcg subcut DAILY Print Language: Romanian
--- OUTSIDE RECORDS SUMMARY | 2024-12-15 01:10 | XMS_ITS | Encounter Summary ---
Author Organization [employer] Address [address] [place] [address] [address] [place] [address] Care Team Providers Care Railroad Track Inspector Name Role Phone Isabelle Colon MD Primary Care Provider + Encounter Details Date Type Department Care Team ([facility] Contact Info) Description 01/14/2023 Abstract [facility] MED[facility] [address] [place] [id number] Isabelle Colon MD [address] [place] [phone] Social History Tobacco Use Types Packs/Day Years Used Date Smoking Tobacco: Every Day Cigarettes Passive Smoke Exposure: Current Smokeless Tobacco: Never Alcohol Use Standard Drinks/Week Comments Not Currently 0 (1 standard drink = 0.6 oz pur e alcohol) Depression Answer Date Recorded Patient Health Questionnaire-9 Score 13 11/07/2022 Depression Answer Date Recorded Patient Health Questionnaire-2 Score 4 11/07/2022 Comments Unknown Sex and Gender Information Value Date Recorded Sex Assigned at Female 05/26/2022 10:21 AM EDT Legal Sex Female 10:21 AM EDT Gender Identity Female 05/26/2022 10:21 AM EDT Sexual Orientation Choose not to disclose 2021 10:21 AM EDT COVID-19 Exposure Response Date Recorded In the last 10 days, have yo u been in contact with someone who was confirmed or suspected to have Coronavirus/COVID-19? No / Unsure 01/02/2023 1:00 PM EDT documented as of this encounter Plan of Treatment Upcoming Encounters Date Type Department Care Team ([facility] Contact Info) Description 03/21/2025 10:00 AM EDT Office Visit [facility] [address] [place] [address] [place] [phone] Isabelle Colon MD [address] [place] [phone] documented as of this encounter Visit Diagnoses Not on filedocumented in this encounter Additional Health Concerns Assessment Noted Time PHQ-9 Depression Total Score: 13 023 11:55 AM EDT documented as of this encounter Care Teams Railroad Track Inspector Relationship Specialty Start Date End Date Isabelle Colon MD [address] [place] [phone] PCP - General Family Medicine 05/20/17 documented as of this encounter
--- OUTSIDE RECORDS SUMMARY | 2024-12-15 01:10 | XMS_ITS | Data Portability ---
Author Organization [place] - [facility], Allergy Address [address] [address] Care Team Providers Care Health Worker Name Role Phone SIRENA VÁSQUEZ Primary Care Provider Assessment Encounter Date Assessment Date Assessment LastModified by Organization Details LastModified Time 02/17/2024 02/17/2024 Throat infection appears to be resolving. Continue Augmentin until end of course. Warm saltwater gargles as desired for sore throat. Septal perforation appears stable in size. Dry. Continue saline irrigations. Restart saline spray QID and saline gel QHS+. Reviewed that she needs to keep the nose moist to keep the perforation from enlarging. If there is epistaxis, recommend external pressure applied to inferior portion of nose. Do not insert tissues in the nose. Follow up next available for repeat nasopharyngoscop y. Previously had lesion with negative biopsy in October. Not available 02/17/2024 14:37:30 04/08/2024 04/08/2024 Physical exam reveals stability of the nasal septal perforation; it is clean and moist today. However, the superior aspect of the nasal vault was crusted over, preventing the scheduled attempt at nasopharyngoscop y today in order to re-evaluate the area of previous biopsy. Crusting was removed to patient's tolerance, uncovering purulent material. Recommend mupirocin in irrigant and return for re-evaluation by Dr. Herrera. Not available 04/08/2024 17:23:05 Plan of Treatment Reminders Order Date Submit Date Provider Last Modified By Organization Details Last Modified Time Details Appointments Establish ed 30 2024 02:30P Ines CUNNINGHAM MD Not available Not available Not available Lab None recorded. Referral None recorded. Procedures None recorded. Surgeries None recorded. Imaging None recorded. Medication Orders mupirocin 2 % topical ointment 2023 025 [facility], [address] [place] [address], [phone], 10/19/2024 18:15:17 Victoria Saline nasal gel 2023 024 [facility], [address] [place] [address], [phone], 02/17/2024 14:51:45 Victoria Saline Gel nasal spray 2023 024 [facility], [address] [place] [address], [id number], 02/17/2024 14:51:45 Patient TargetsNo targets recorded. Patient Instructions Encounter Date Encounter Id Patient Instructions Last Modified By Organization Details Last Modified Time 10/19/2024 [id number] Patient with chronic rhinitis and throat irritation secondary to septal perforation with crusting. She had heavy remote intranasal pharmaceutical use and again used it a few weeks ago. Examination shows subtotal perforation with nasal crusting, mild crusting in the nasopharynx but a normal larynx. We discussed the need to avoid any intranasal pharmaceuticals and instead of using the [employer]Med squeeze bottle she can try their SinusGator for powered irrigation. She should do the saline twice daily. She can use K-Y jelly in the nose as needed. Hold off on any mupirocin ointment at the present time as there is no evidence of any infection [email or web address] Not available 10/19/2024 10:34:23 Reason for Referral None Reported. Results Created Date Observation Date Name Description Value Unit Range Abnormal Flag Note LastModifiedBy Organization Detail LastModifiedTime 03/15/2010/17/2022 imagi ng/di agnos tic resul t No observ ation record ed. [email or web address] Not Available 20:51:07 03/15/2010/20/2023 imagi ng/di agnos tic resul t No observ ation record ed. [email or web address] Not Available 20:51:09 03/15/20 24 03/11/2023 imagi ng/di agnos tic resul t No observ ation record ed. [email or web address] Not Available 20:52:12 03/15/20 24 03/13/2023 imagi ng/di agnos tic resul t No observ ation record ed. [email or web address] Not Available 20:52:22 Result Notes None recorded. Problems Name Problem SNOMED Code Status Onset Date Resolution Date Notes Provider Name and Address Organization Details Recorded Time Chronic rhinitis 38724358 Active 2022 Chronic rhinitis; Note: Date Diagnosed : 10/13/2022 3:19 PM (J31.0) Not Available [facility] 4 03:12:22 Chronic pharyngit is 329257 Active 2022 Chronic sore throat; Note: Date Diagnosed : 01/30/2023 1:47 PM (J31.2) Not Available [facility] 4 03:12:23 Dysphonia 42972966 Active 2022 Hoarsenes s; Note: Date Diagnosed : 10/13/2022 3:19 PM (R49.0) Not Available [facility] 4 03:12:23 Pain of right temporoma ndibular joint 71211680273 648717 Active 2022 Arthralgi a of right temporoma ndibular joint; Note: Date Diagnosed : 10/13/2022 3:19 PM (M26.621) Not Available [facility] 4 03:12:23 Otalgia of right ear 4814115988 Active 2022 Otalgia, right ear; Note: Date Diagnosed : 01/30/2023 1:47 PM (H92.01) Not Available [facility] 4 03:12:22 Disorder of nasal sinus 6581015 Active 2022 Perforati on of nasal septum NOS; Note: Date Diagnosed : 10/13/2022 3:19 PM (J34.89) Not Available [facility] 4 03:12:23 Disorder of the nose 04065096 Active 2022 Perforati on of nasal septum NOS; Note: Date Diagnosed : 10/13/2022 3:19 PM (J34.89) Not Available [facility] 4 03:12:23 Perforati on of nasal septum 12129759 Active 2023 JOANN MARTINEZ PA-C [address], [place], [address] , [place] - [facility] 4 14:08:08 Sore throat 867263442 Active 2023 JOANN MARTINEZ PA-C [address] [facility], [place], [address] , [place] [facility] 4 14:08:15 Bleeding from nose 945353119 Active 2023 Epistaxis ; Note: Date Diagnosed : 08/31/2023 4:53 PM (R04.0) Not Available [facility] 4 03:12:22 Tumor of respirato ry system 527669857 Active 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 Procedures Surgical History Date Name Laterality Status Provider Name and Address Organization Details Recorded Time 10/20/19 Fiberoptic Laryngoscopy (Comprehensive) completed XIAO HERRERA MD [address] [facility] [facility] [place], [place], [address], [facility] - [facility] 10/19/2024 10:36:08 04/08/20 Nasal Endoscopy completed JOANN MARTINEZ PA-C [address], [place], [address], [place] - [facility] 04/08/2024 17:25:07 hernia repair completed Sirena Cerrato [place] - [facility] 02/17/2024 13:41:26 Appendectomy completed Sirena Cerrato [place] - [facility] 02/17/2024 13:41:31 section completed Sirena Cerrato [place] - [facility] 02/17/2024 13:41:41 Hysterectomy completed Sirena Cerrato [place] - [facility] 02/17/2024 13:41:47 total knee replacement completed Sirena Cerrato [place] - [facility] 02/17/2024 13:41:57 procedure on spine completed Sirena Cerrato [place] - [facility] 02/17/2024 13:42:02 Imaging Results Imaging Date Name Status LastModified by Organiz ation Details LastModified Time 10/17/2022 imaging/diag nostic result completed Information not available 03/15/2024 20:51:07 10/20/2023 imaging/diag nostic result completed Information not available 03/15/2024 20:51:09 03/11/2023 imaging/diag nostic result completed Information not available 03/15/2024 20:52:12 03/13/2023 imaging/diag nostic result completed Information not available 03/15/2024 20:52:22 Procedure Notes None recorded. Medical Equipment None Reported. Allergies Allergen ID Allergen Name Allergen Category Reaction Reaction Severity Criticality Documentation Date Start Date Code Code System Note Provider Name and Address Organization Details Recorded Time [id number] Cipro medicatio n other Not available Not available 12/08/2023 3 RxNorm React ion: Unkno wn; Not Available [facility] 01:27:10 Medications Name Sig Start Date Stop Date Status Note LastModified by Organization Details LastModified Time pulse oximet airial [id number] USE DAILY NEEDED FOR SHORTNES S OF BREATH 02/16 completed Not Available Not Available Not Available amoxicill in 500 mg capsule TAKE 1 CAPSULE BY MOUTH EVERY 8 HOURS FOR 7 DAYS 10/19 completed Not Available Not Available Not Available prednison e 10 mg tablet TAKE 5 TABLETS BY MOUTH EVERY DAY FOR 2 DAYS, THEN DECREASE BY 1 TABLET EVERY 2 DAYS UNTIL GONE 02/16 completed Not Available Not Available Not Available doxycycli ne hyclate 100 mg capsule TAKE 1 CAPSULE BY MOUTH TWICE DAILY FOR 7 DAYS, STOP azithrom ycin ONLY WHEN ON doxycycl ine 02/16 completed Not Available Not Available Not Available atorvasta tin 20 mg tablet TAKE 1 TABLET BY MOUTH EVERY DAY active Not Available Not Available No t Available albuterol sulfate 2.5 mg/3 mL (0.083 %) solution for nebulizat ion INHALE 1 AMPULE USING A NEBULIZE R EVERY 6 HOURS NEEDED FOR WHEEZING OR SHORTNES S OF BREATH 02/16 completed Not Available Not Available Not Available azithromy ian 250 mg tablet TAKE 2 TABLETS BY MOUTH ON DAY 1, THEN TAKE 1 TABLET DAILY ON DAYS 2-5 10/19 completed Not Available Not Available Not Available ibuprofen 800 mg tablet TAKE 1 TABLET BY MOUTH EVERY 8 HOURS NEEDED FOR MILD PAIN FOR UP TO 10 DAYS 02/16 completed Not Available Not Available Not Available hydrochlo rothiazid e 50 mg tablet TAKE 1 TABLET BY MOUTH EVERY MORNING 02/16 completed Not Available Not Available Not Available famotidin e 40 mg tablet TAKE 1 TABLET BY MOUTH TWICE DAILY active Not Available Not Available No t Available prednison e 20 mg tablet PLEASE SEE ATTACHED FOR DETAILED DIRECTIO NS 10/19 completed Not Available Not Available Not Available doxepin 75 mg capsule TAKE 1 CAPSULE BY MOUTH DAILY AT BEDTIME active Not Available Not Available No t Available prednison e 5 mg tablet TAKE 4 TABLETS EVERY DAY FOR 3 DAYS, 3 TABLETS EVERY DAY FOR 3 DAYS, 2 TABLETS FOR 3 DAYS THEN 1 TABLET FOR 3 DAYS 02/16 completed Not Available Not Available Not Available clonazepa m 1 mg tablet TAKE 1 TABLET BY MOUTH TWICE DAILY NEEDED active Not Available Not Available No t Available diltiazem ER 240 mg capsule,2 4 hr,extend ed release TAKE 1 CAPSULE BY MOUTH ONCE DAILY active Not Available Not Available No t Available aspirin 81 mg tablet,de layed release TAKE 1 TABLET BY MOUTH EVERY MORNING active Not Available Not Available No t Available acetamino phen 500 mg tablet TAKE 1 TO 2 TABLETS BY MOUTH EVERY 6 HOURS NEEDED FOR PAIN OR FEVER active Not Available Not Available No t Available triamcino lone acetonide 0.1 % topical cream APPLY TOPICALL Y TWICE DAILY IN THE MORNING AND AT BEDTIME NEEDED FOR PAIN AND FOR SWELLING 10/19 completed Not Available Not Available Not Available acetamino phen ER 650 mg tablet,ex tended release TAKE 1 TABLET BY MOUTH EVERY 8 HOURS NEEDED FOR MODERATE PAIN FOR UP TO 10d DO NOT BREAK, CRUSH, DISSOLVE OR CHEW 10/19 completed Not Available Not Available Not Available calcium 600 mg (as calcium carbonate 1,500 mg) tablet TAKE 1 TABLET BY MOUTH TWICE DAILY IN THE MORNING AND IN THE EVENING WITH MEALS active Not Available Not Available No t Available Victoria Saline nasal gel APPLY 1 APPLICAT ION IN EACH NOSTRIL EVERY DAY IN THE EVENING DIRECTED active Not Available Not Available No t Available Deep Sea Nasal 0.65 % spray aerosol SPRAY 2 SPRAY IN EACH NOSTRIL FOUR TIMES DAILY DIRECTED active Not Available Not Available No t Available potassium chloride ER 20 mEq tablet,ex tended release(p art/cryst ) TAKE 1 TABLET BY MOUTH TWICE DAILY FOR 3 DAYS. DO NOT BREAK, CRUSH, DISSOLVE OR CHEW. active Not Available Not Available No t Available metoclopr amide 5 mg tablet TAKE 1 TABLET BY MOUTH FOUR TIMES DAILY (BEFORE MEALS AND AT BEDTIME) 02/16 completed Not Available Not Available Not Available betametha sone valerate 0.1 % topical cream APPLY TO THE AFFECTED AREA(S) TWICE DAILY IN THE MORNING AND AT BEDTIME NEEDED FOR DRY SKIN active Not Available Not Available No t Available diltiazem ER 120 mg capsule,2 4 hr,extend ed release active Medicati on ID: [id number] B senia Name: diltiaze m HCl Send Method: E-Prescr ibed Sub s Allowed: subs OK Speci al Instruct ion: TAKE 1 CAPSULE BY MOUTH EVERY MORNING ON AN EMPTY STOMACH Medicati onGeneri cName: diltiaze m HCl Not Available Not Available Not Available lansopraz ole 30 mg capsule,d elayed release TAKE 1 CAPSULE BY MOUTH TWICE DAILY active Not Available Not Available No t Available metoprolo l tartrate 50 mg tablet TAKE 1 TABLET BY MOUTH TWICE DAILY active Not Available Not Available No t Available monteluka st 10 mg tablet TAKE 1 TABLET BY MOUTH EVERY EVENING active Not Available Not Available No t Available ammonium lactate 12 % topical cream USE TWICE DAILY DIRECTED 10/19 completed Not Available Not Available Not Available hydrochlo rothiazid e 25 mg tablet TAKE 1 TABLET BY MOUTH EVERY DAY IN THE MORNING active Not Available Not Available No t Available mupirocin 2 % topical ointment MIX 1 INCH RIBBON WITH irrigant e salino destilad o TWICE DAILY FOR FOURTEEN DAYS 10/19 completed Not Available Not Available Not Available ergocalci ferol (vitamin D2) 1,250 mcg (50,000 unit) capsule TAKE 1 CAPSULE BY MOUTH ONCE PER WEEK active Not Available Not Available No t Available zolpidem 10 mg tablet TAKE 1 TABLET BY MOUTH DAILY AT BEDTIME active Not Available Not Available No t Available fluticaso ne propionat e 50 mcg/actua tion nasal spray,pastora pension INSTILL 1-2 SPRAYS IN EACH NOSTRIL ONCE DAILY NEEDED active Not Available Not Available No t Available dicyclomi ne 10 mg capsule TAKE 1 CAPSULE BY MOUTH THREE TIMES DAILY active Not Available Not Available No t Available amoxicill in 875 mg-potass ium clavulana te 125 mg tablet TAKE 1 TABLET BY MOUTH TWICE DAILY FOR 10 DAYS 02/16 completed Not Available Not Available Not Available Ventolin HFA 90 mcg/actua tion aerosol inhaler INHALE 2 PUFFS BY MOUTH FOUR TIMES DAILY NEEDED FOR WHEEZING active Not Available Not Available No t Available azithromy ian 500 mg tablet TAKE 1 TABLET BY MOUTH 3 TIMES A WEEK ON THURSDAY, Y AND 10/19 completed Not Available Not Available Not Available escitalop dony 20 mg tablet TAKE 1 TABLET BY MOUTH DAILY active Not Available Not Available No t Available metoprolo l tartrate 25 mg tablet 02/16 completed Medicati on ID: [id number] B rand Name: metoprol ol tartrate Send Method: E-Prescr ibed Sub s Allowed: subs OK Speci al Instruct ion: TAKE 1 AND 1/2 TABLETS BY MOUTH TWICE DAILY Me dication GenericN cristi: metoprol ol tartrate Medicat ion ID: [id number] B rand Name: metoprol ol tartrate Send Method: E-Prescr ibed Sub s Allowed: subs OK Speci al Instruct ion: TAKE 1 AND 1/2 TABLETS BY MOUTH TWICE DAILY Me dication GenericN cristi: metoprol ol tartrate Not Available Not Available Not Available Victoria Saline Gel nasal spray Take 2 sprays 4 times a day by nasal route for 30 days. 2023 active Not Available Not Available Not Avai lable BD Ultra-Fin e Mini Pen Needle 31 gauge x 3/16 active Not Available Not Available Not Available acidophil us 25 million cell-pect in, citrus 100 mg tablet TAKE 1 TABLET BY MOUTH TWICE DAILY 10/19 completed Not Available Not Available Not Available chlorhexi dine gluconate 0.12 % mouthwash SWISH 15 ML IN THE MOUTH OR THROAT FOR 30 SECONDS THEN SPIT OUT FOR UP TO 14 DAYS active Not Available Not Available No t Available Symbicort 160 mcg-4.5 mcg/actua tion HFA aerosol inhaler INHALE 2 PUFFS BY MOUTH TWICE DAILY, RINSE MOUTH AFTER USING. active Not Available Not Available No t Available FreeStyle Lite Strips USE TO TEST BLOOD SUGAR EVERY DAY active Not Available Not Available No t Available diclofena c 1 % topical gel APPLY 2 GRAMS TOPICALL Y TO AFFECTED AREA(S) TWICE DAILY IN THE MORNING AND AT BEDTIME NEEDED FOR PAIN 02/16 completed Not Available Not Available Not Available Forteo 20 mcg/dose (560 mcg/2.24 mL) subcutane ous pen injector INJECT 20 mcg SUBCUTAN EOUSLY ONCE DAILY active Not Available Not Available No t Available blood pressure test kit-large cuff USE TO CHECK BLOOD PRESSURE DIRECTED 02/16 completed Not Available Not Available Not Available roflumila st 500 mcg tablet TAKE 1 TABLET BY MOUTH EVERY DAY active Not Available Not Available No t Available Comfort EZ Pen [place] 31 gauge x 5/16 USE 1 DAILY WITH FORTEO active Not Available Not Available No t Available TRUEplus Lancets 33 gauge USE TO TEST BLOOD SUGAR EVERY MORNING DIRECTED 02/16 completed Not Available Not Available Not Available Linzess 145 mcg capsule TAKE 1 CAPSULE BY MOUTH EVERY DAY IN THE MORNING active Not Available Not Available No t Available Spiriva Respimat 2.5 mcg/actua tion solution for inhalatio n INHALE 2 PUFFS BY MOUTH EVERY DAY active Not Available Not Available No t Available Vitals Date Recorded Body height Body mass index (BMI) Body weight Provider Name and Address Organization Details Last Updated DateTime 10/19/2024 154.94 cm 30.4 kg/m2 25835.37 g Denisa Wren [place] - [facility] 10/19/2024 10:06:52 Date Recorded Body height Body mass index (BMI) Body weight Provider Name and Address Organization Details Last Updated DateTime 04/08/2024 154.94 cm 30.6 kg/m2 99083.96 g Miles Ty [place] - [facility] 04/08/2024 13:13:56 Social History None recorded. Functional Status None recorded. Mental Status None recorded. Family History Nothing Reported. Medical History Condition Response Emphysema Y Hypertension Y COPD Y Asthma Y GERD/Reflux Y Gynecological HistoryNo gynecological history recorded. Obstetrics History GPAL:G 0 P 0 0 0 0 Past Encounters Encounter ID Performer Location Encounter Start Date Encounter Closed Date Diagnosis/Indication Diagnosis SNOMED-CT Code Diagnosis ICD10 Code Diagnosis Note [id number] JOANN MARTINEZ PA-C [facility] [address] [address] 02/17/2024 13:30:00 02/17/2024 14:08:31 Perforation of nasal septum 91843021 J34.89 Sore throat 789751765 J0 2.9 [id number] JOANN MARTINEZ PA-C [facility] [address] [address] 04/08/2024 13:10:24 04/11/2024 13:18:00 Disorder of the nose 53178599 J34.89 Perforatio n of nasal septum 51526414 J34.89 Tumor of r espiratory system 858534522 D49.1 [id number] XIAO THOMASON MD [facility] [address] [address] 10/19/2024 09:58:12 10/19/2024 10:35:11 Perforation of nasal septum 51033774 J34.89 Chronic hoarseness 09518 82835 105 R49.0 Chronic rhinitis 1970937 6 J31.0 Health Concerns Section Related Observation LastModified by Organization Detai ls LastModified Time None Recorded Concern Status LastModified by Organization Details LastModified Time None Recorded Advance Directives Directive None Recorded Payers Insurance Date Sequence Insurance Name Policy Number Policy Camacho Covered Member ID Camacho Member ID Guarantor Name 10/19/2024 1 [place] Quick [id number] Sarah Quick Notes Date Note Type Note Provider Name and Address Organization Details Recorded Time 02/17/2024 text/html 58 year old laura steele presents for evaluation of nose and throat. Referred here by PCP for throat infection. Started about ten days ago. Was given Augmentin, hasn't finished it yet, feels improved but not resolved. Still having pain in the center of the throat, worse when swallowing. States there is something white in the back of the throat. Had fever a week ago but no longer. Voice normal. No dysphagia nor hemoptysis. Reports nasal congestion. Taking saline irrigations once daily. She is seeing some yellow mucus in her irrigant. Having epistaxis intermittently. Last one was about 3 days ago, brief. She puts wads of tissue in the nose to stop the bleeding. History of cocaine use with septal perforation. ANCA testing previously negative. She is not using saline gel or saline spray. JASMYN CASTELLANOS MD 100 [facility],[address], [address], [place] - [facility] 02/18/2024 14:22:54 04/08/2024 text/html 58 year old laura steele presents for re-evaluation. [place] like her throat infection fully resolved with the Augmentin but in the past 4 days she has been experiencing pain in the throat, pain right side of the nose, and the right ear. A little intermittent hoarseness, coughing up a small amount of light red blood, and postnasal drip. No dysphagia, fever. Has been using the saline spray 3-4 times per day and the saline gel as well. Performing saline irrigations and there is a little red and yellow material in the irrigant. Distilled water. MODESTO FELTON MD 100 [facility],[place] [address], [place], [address], [facility] - [facility] 04/11/2024 07:33:26 10/19/2024 text/html Patient with longstanding history of septal perforation secondary to remote intranasal pharmaceutical use. Admits to use 2 months agoShe has chronic nasal irritation, postnasal drip and intermittently gets throat or ear discomfort. This is been going on for many years. She does irrigations daily and has used saline gel or mupirocin as needed.Denies eating, drinking or swallowing difficulties. Intermittent throat clearing and voice change.2 cigs per dayNo alcohol or marijuana XIAO HERRERA MD [address] [place] [address], [place], [address], [facility] - [facility] 10/19/2024 10:36:59 OBGyn Episode No OBEpisode recorded.
--- OUTSIDE RECORDS SUMMARY | 2024-12-15 01:10 | XMS_ITS | Encounter Summary ---
Author Organization [employer] Address [address] [place] [address] [address] [place] [address] Care Team Providers Care Home Fire Alarm Installer Name Role Phone Isabelle Colon MD Primary Care Provider + Encounter Details Date Type Department Care Team (Late st Contact Info) Description 07/08/2022 Orders Only [facility] [address] [place] [address] Marianna Patel LPN Social History Tobacco Use Types Packs/Day Years Used Date Smoking Tobacco: Never Assessed Comments Unknown Sex and Gender Information Value Date Recorded Sex Assigned at Female 05/26/2022 10:21 AM EDT Legal Sex Female 10:21 AM EDT Gender Identity Female 05/26/2022 10:21 AM EDT Sexual Orientation Choose not to disclose 2021 10:21 AM EDT documented as of this encounter Plan of Treatment Upcoming Encounters Date Type Department Care Team (Late st Contact Info) Description 03/21/2025 10:00 AM EDT Office Visit [facility] MEDICINE [address] [place] [id number] Isabelle Colon MD [address] [place] [phone] documented as of this encounter Visit Diagnoses Not on filedocumented in this encounter Care Teams Home Fire Alarm Installer Relationship Specialty Start Date End Date Isabelle Colon MD [address] [place] [address] [phone] PCP - General Family Medicine 05/20/17 documented as of this encounter
--- OUTSIDE RECORDS SUMMARY | 2024-12-15 01:10 | XMS_ITS | Encounter Summary ---
Author Organization [employer] Address [address] [place] [address] [address] [place] [address] Care Team Providers Care General I Farmworker Name Role Phone Isabelle Colon MD Primary Care Provider + Reason for Visit * Reason Comments Med Refill Encounter Details Date Type Department Care Team (Late Contact Info) Description 08/20/2022 Refill [facility] [address] [place] [address] [phone] Isabelle Colon MD [address] [place] [address] [phone] Social History Tobacco Use Types Packs/Day Years Used Date Smoking Tobacco: Every Day Cigarettes Smokeless Tobacco: Never Comments Unknown Sex and Gender Information Value [...] suspected to have Coronavirus/COVID-19? No / Unsure 08/19/2022 3:48 PM EST documented as of this encounter Plan of Treatment Upcoming Encounters Date Type Department Care Team (Late Contact Info) Description 03/21/2025 10:00 AM EDT Office Visit [facility] [address] [place] [address] [phone] Isabelle Colon MD [address] [place] [address] [phone] documented as of this encounter Visit Diagnoses Not on filedocumented in this encounter Care Teams General I Farmworker Relationship Specialty Start Date End Date Isabelle Colon MD [address] [place] [phone] PCP - General Family Medicine 05/20/17 documented as of this encounter
--- OUTSIDE RECORDS SUMMARY | 2024-12-15 01:10 | XMS_ITS | Encounter Summary ---
Author Organization [employer] Address [address] [facility] [address] [address] [place] [address] Care Team Providers Care Implementation Project Manager Name Role Phone Isabelle Colon MD Primary Care Provider + Reason for Visit * Reason Onset Date Comments PT-1 11/18/2024 Encounter Details Date Type Department Care Team ([facility] Contact Info) Description 11/18/2024 Telephone [facility] [address], [place] [phone] Isabelle Colon MD [address], [place] [phone] PT-1 (/) Social History Tobacco Use Types Packs/Day Years Used Date Smoking Tobacco: Some Days Cigarettes Passive Smoke Exposure: Current Smokeless Tobacco: Never Alcohol Use Standard Drinks/Week Comments Not Currently 0 (1 standard drink = 0.6 oz pur e alcohol) social Depression Answer Date Recorded Patient Health Questionnaire-9 Score 11 06/25/2023 Patient Health Questionnaire-9 Score 11 06/25/2023 Last PHQ-9: Questionnaire Data Not on file 1 08/25/2022 Housing Stability Answer Date Recorded What is your housing situation today? I have radha schneider 01/12/[address] you li ve. Do you have problems with any of the following? None of the above 01/12/2024 Food Insecurity Answer Date Recorded Within the past 12 months, y ou worried that your food would run out before you got money to buy more: Never True 01/12/2024 Within the past 12 months,th e food you bought just didn't last and you didn't have enough money to get more: Never True Transportation Answer Date Recorded In the past 12 months, has l ack of transportation kept you from medical appts, meetings, work or from getting things needed for daily living? No 01/12/2024 Utilities Answer Date Recorded In the past 12 months, has t he electric, gas, oil or water company threatened to shut off services in your home? No 01/12/2024 Depression Answer Date Recorded Patient Health Questionnaire-2 Score 2 06/25/2023 Internet Access Answer Date Recorded Internet Access Q1 Yes 03/28/2024 Internet Access Q2 Not on file 03/28/2024 Comments No Sex and Gender Information Value Date Recorded Sex Assigned at Female 05/26/2022 10:21 AM EDT Legal Sex Female 10:21 AM EDT Gender Identity Female 05/26/2022 10:21 AM EDT Sexual Orientation Choose not to disclose 2021 10:21 AM EDT documented as of this encounter Miscellaneous Notes * Telephone Encounter - Nikhil Castro - 11/18/2024 1:14 PM EDT .Patient calling requesting PT1 Home Address verified: Y/N: Yes Provider name or facility name: [address] [place] [id number] for [facility] Escort needed: Y/N: No Do you have a wheelchair: Y/N: No If yes- Manual or electric: Visits: (5 x Yearly) Patient calling requesting PT1 Home Address verified: Y/N: Yes Provider name or facility name: [address] [place] [id number] at [facility] Escort needed: Y/N: No Do you have a wheelchair: Y/N: No If yes- Manual or electric: Visits: (5 x Yearly) Contact Ivy at [phone] documented in this encounter Plan of Treatment Upcoming Encounters Date Type Department Care Team ([facility] st Contact Info) Description 03/21/2025 10:00 AM EDT Office Visit [facility] [address] [place] [phone] Isabelle Colon MD [address] [place] [address] documented as of this encounter Visit Diagnoses Not on filedocumented in this encounter Additional Health Concerns Assessment Noted Time PHQ-9 Depression Total Score: 11 023 9:15 AM EST documented as of this encounter Care Teams Implementation Project Manager Relationship Specialty Start Date End Date Isabelle Colon MD [address] [place] [phone] PCP - General Family Medicine 05/20/17 documented as of this encounter
--- OUTSIDE RECORDS SUMMARY | 2024-12-15 01:10 | XMS_ITS | Clinical Summary ---
Author Organization [employer] Address [address] [place] [address] [address] [place] [address] Care Team Providers Care Leather Goods Maker Name Role Phone Isabelle Colon MD Primary Care Provider + Allergies Active Allergy Reactions Criticality Noted Date Comments Ciprofloxacin 11/02/2014 Latex Unknown 07/16/2022 Allergy listed in preferred pharmacy system Other reaction(s): skin irritation Medications SM All Day Allergy Relief 10 MG tabletIndicatio ns:Seasonal allergic rhinitis, unspecified trigger TAKE 1 TABLET BY MOUTH EVERY DAY NEEDED FOR ALLERGIES 30 tablet Active clonazePAM (KlonoPIN) 1 MG tablet take 1 tablet twice daily as needed Active dilTIAZem ER (Tiazac) 240 MG 24 hr capsule take 1 capsule by oral route every day Active escitalopram (Lexapro) 20 MG tablet Take 1 tablet by mouth at bed time. Active Roflumilast (Daliresp) 500 MCG tablet Take 1 tablet by mouth at bed time. Active zolpidem (Ambien) 10 MG tablet Take 1 tablet by mouth at bed time. Active doxepin (SINEquan) 75 MG capsule TAKE 1 CAPSULE BY MOUTH ONCE DAILY AT BEDTIME Active albuterol 108 (90 Base) MCG/ACT inhaler Inhale 2 puffs every 4 (four) hours if needed for wheezing. Active albuterol (2.5 MG/3ML) 0.083% nebulizer solutionIndicat ions:COPD exacerbation (CMS/HCC) INHALE 1 AMPULE USING A NEBULIZER THREE TIMES DAILY NEEDED FOR SHORTNESS OF BREATH / FOR ASTHMA 90 mL 1 023 Active Fluticasone-Ume clidin-Vilant (Trelegy Ellipta) 200-62.5-25 MCG/ACT aerosol powderIndicatio ns:Mucopurulent chronic bronchitis (CMS/HCC) Inhale 1 Inhalation in the morning. 1 each 11 023 Active Deep Sea Nasal [employer] 0.65 % nasal spray USE 2 SPRAYS IN EACH NOSTRIL EVERY 2 TO 3 HOURS NEEDED FOR NASAL CONGESTION 44 mL 2 023 Active metoprolol tartrate (Lopressor) 50 MG tablet Take 50 mg by mouth 2 times daily. 023 Active TRUEplus Lancets 33G miscIndications :Hyperglycemia, unspecified TEST BLOOD SUGAR EVERY MORNING DIRECTED 100 each 11 023 Active famotidine (Pepcid) 40 MG tabletIndicatio ns:Gastro-esoph ageal reflux disease without esophagitis TAKE 1 TABLET BY MOUTH AT BEDTIME 90 tablet 1 023 Active lansoprazole (Prevacid) [address] capsuleIndicati ons:Gastro-esop hageal reflux disease without esophagitis Take 1 capsule (30 mg) by mouth 2 times daily. Do not crush or chew. 60 capsule 6 024 Active Linzess 145 MCG capsuleIndicati ons:Chronic idiopathic constipation TAKE 1 CAPSULE BY MOUTH EVERY DAY IN THE MORNING DO NOT BREAK, CRUSH, DISSOLVE OR CHEW 90 capsule 1 024 Active Blood Pressure Monitoring (Blood Pressure Cuff) misc Use daily as prescribed 1 each 024 Active Misc. Devices (Pulse Oximeter For Finger) misc Use daily prn SOB 1 each 024 Active ammonium lactate (Amlactin) 12 % cream USE TWICE DAILY DIRECTED 140 g 11 024 Active betamethasone valerate (Valisone) 0.1 % cream Apply topically if needed in the morning and at bedtime (dryness). 45 g 2 024 Active Forteo injection INJECT 20 mcg SUBCUTANEOUSLY ONCE DAILY 024 Active Aspirin Low Dose 81 MG EC tabletIndicatio ns:Essential hypertension TAKE 1 TABLET BY MOUTH EVERY DAY IN THE MORNING 90 tablet 3 024 Active calcium carbonate 1500 (600 Ca) MG tabletIndicatio ns:Age related osteoporosis, unspecified pathological fracture presence TAKE 1 TABLET BY MOUTH TWICE DAILY WITH BREAKFAST AND WITH DINNER 180 tablet 3 Active montelukast (Singulair) 10 MG tablet Take 1 tablet (10 mg) by mouth in the evening. 90 tablet 1 Active fluticasone (Flonase) 50 MCG/ACT nasal sprayIndication s:Rhinitis, unspecified type USE 1-2 SPRAYS IN EACH NOSTRIL ONCE DAILY NEEDED 48 g 1 Active ergocalciferol (Vitamin D2) 1.25 MG (09298 UT) capsule TAKE 1 CAPSULE BY MOUTH ONCE A WEEK 12 capsule 1 Active Symbicort 160-4.5 MCG/ACT inhaler INHALE 2 PUFFS BY MOUTH TWICE DAILY, RINSE MOUTH AFTER USING. Active atorvastatin (Lipitor) 20 MG tablet TAKE 1 TABLET BY MOUTH EVERY DAY 90 tablet 1 Active azelastine (Astelin) 0.1 % nasal spray Administer 1 spray into each nostril Once per day. Use in each nostril as directed 30 mL 025 2025 Active hydroCHLOROthia zide 12.5 MG tablet Take 1 tablet (12.5 mg) by mouth Once per day. 90 tablet 3 025 2025 Active Acetaminophen Extra Strength 500 MG tabletIndicatio ns:Left hip pain TAKE 1 TO 2 TABLETS BY MOUTH EVERY 6 HOURS NEEDED FOR PAIN OR FEVER 90 tablet 3 Active FREESTYLE LITE test stripIndication s:IFG (impaired fasting glucose) TEST BLOOD SUGAR ONCE A DAY 100 each 12 025 2025 Active dilTIAZem ER (Tiazac) 120 MG 24 hr capsuleIndicati ons:Essential hypertension Take 1 capsule (120 mg) by mouth in the morning. 1 cap po/d along with 240mg , total of 360mg/d 90 capsule 3 023 2024 Discontinued(D ose adjustment) hydroCHLOROthia zide (HYDRODiuril) 25 MG tablet Take 1 tablet (25 mg) by mouth Once per day. 90 tablet 3 024 2024 Discontinued(R eorder (will not trigger notification to Pharmacy)) Acetaminophen Extra Strength 500 MG tabletIndicatio ns:Left hip pain TAKE 1 TO 2 TABLETS BY MOUTH EVERY 6 HOURS NEEDED FOR PAIN OR FEVER 90 tablet 3 024 2024 Discontinued(R eorder (will not trigger notification to Pharmacy)) dicyclomine (Bentyl) 10 MG capsule Take 10 mg by mouth 3 times daily. 024 2024 Discontinued(T herapy completed) atorvastatin (Lipitor) 20 MG tablet TAKE 1 TABLET BY MOUTH EVERY DAY 90 tablet 1 024 2024 Discontinued Active Problems Problem Noted Date Diagnosed Date Left hip pain 12/01/2024 Dysfunction of right eustachian tube 12/01/2024 Assessment & Plan (12/01/2024 4:09 PM EDT): Probably related to recent URI. Use Astelin once per day & Flonase once nightly Non-recurrent acute serous otitis media of left ear 06/17/2024 Assessment & Plan (06/17/2024 12:51 PM EST): Advised to use Flonase BID x 1 week then prn. Right leg pain 06/17/2024 Assessment & Plan (06/17/2024 2:17 PM EST): Most likely due to Disc Disease of Spine, see plan of care. Low concern for DVT: Advised to go to ED immediately if she develops again severe calf pain or swelling of one leg only. 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 She will like to see Dr. Zayas to be evaluated for possibility of lumbar spine surgery. Advised to go to acupuncture clinic, continue Tylenol + Flexeril prn. Will refer to Orthopaedic Surgery. Class 1 obesity due to exces s calories with serious comorbidity and body mass index (BMI) of 31.0 to 31.9 in adult 06/17/2024 Assessment & Plan (06/17/2024 1:03 PM EST): Discussed re weight reduction options including exercise, life style modifications, diet and referral to wildland fire operations specialist. Recommended to decrease soda and sugary beverage consumption, increase protein intake with meals (at least 1 portion of protein with each meal) to assist with satiety, increase dietary fiber Recommended at least 150 min/week of moderate intensity exercise. Encounter for immunization 03/17/2024 Assessment & Plan (06/17/2024 1:04 PM EST): Pt agreed to have influenza and Covid vaccination today. Vitamin D deficiency 03/02/2024 Assessment & Plan (03/02/2024 2:45 PM EDT): - she has been on Vitamin D for 3 months, extend up to 6 months and recheck levels. - may need to hold off Forteo on until Vitamin D is properly supplemented Hypercalcemia 02/10/2024 Assessment & Plan (02/10/2024 2:50 PM EDT): ? Sec to hydrochlorothiazide or forteo? Repeat BMP on lower dose of hydrochlorothiazide Check Vit D levels Subacute pansinusitis 02/10/2024 Assessment & Plan (02/10/2024 2:56 PM EDT): Rx Augmentin + Flonase Rx probiotics to reduce risk of abs related diarrhea as patient has taken numerous abs recently. Advised re risks of candidiasis, will call prn. Will have ENT (Ear, Nose and Throat surgical office) fu with her due to recurrent sinusitis and recently POS ANCA titers, ro granulomatous disease. Lumbar radiculopathy, chronic 01/22/2024 Assessment & Plan (06/17/2024 2:16 PM EST): Refer to orthopedic surgery , Dr Vu (per patient's request). Didn't complete PT due to pain, declined addtl epidural inj. 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 Partially improving with triamcinolone cream + Mositurizing cream daily. Use betamethasone cream, may need to dc Forteo and switch to another med for osteoporosis. Will call endocrinology for that and fu with patient. Assessment & Plan (01/22/2024 4:01 PM EDT): On elbows, upper chest? Ro calcific dermatitis from Forteo? She will use triamcinolone cream + Mositurizing cream daily x1 w then prn and keep sxs dairy. FU in mo with labs Preop examination 11/03/2023 Assessment & Plan (11/03/2023 10:23 AM EDT): RCRI score is 0 which is 3.9% Surgery should proceed as schedule I instructed NPO after midnight the day of the procedure, patient should take her blood pressure medications and anxiety medication the morning of the procedure with a small sip of water Acute pain of left knee 08/20/2023 Rib pain on left side 06/25/2023 Assessment & Plan (06/25/2023 10:52 AM EST): S/p fall, seems to be accidental, denies Hx of violence Use tylenol + diclofenac gel prn + heat to effected area Order rib x-rays Renal cyst, acquired, left 06/25/2023 Screening mammogram for breast cancer 06/25/2023 Assessment & Plan (03/17/2024 10:38 AM EDT): Order from mammogram on 05/2023 given to pt to reschedule mammogram. Encounter for preventive health examination 05/29 Assessment & Plan (03/17/2024 10:37 AM EDT): Discussed with patient re increase fresh fruit and vegetable intake. Counseled re moderate exercise as tolerated, up to 20min/d Patient feels safe at home. PAP smear: N/A, she had hysterectomy. Mammogram: Overdue, TBO Bone density test: UTD, next one due 2024 Eye exam: Information not available will attain information from Eye and Lasik office. CRC screen: UTD, next one due 2030. Lipids/FBS: UTD, next one due January 2025 Vaccinations: TDAP booster today, will need Covid, RSV, and Flu in the fall, other IZ are UTD. Dental visit : UTD, next one due October 30, 2024 Assessment & Plan (06/25/2023 10:54 AM EST): Discussed with patient re increase fresh fruit and vegetable intake. Counseled re moderate exercise as tolerated, up to 20min/d Patient feels safe at home. PAP smear NA, pt does not need one due to benign hysterectomy Mammogram overdue, will order Bone density test overdue, has ann next wk Eye exam up to date, due 2023 CRC screen up to date, due on 2030 Labs overdue, to be ordered Vaccinations TD + Flu today, counseled to have Covid IZ at our walk-in Covid IZ clinic Dental visit up to date next one due 2023 Periodontal disease 12/23/2022 Primary osteoarthritis of both knees 11/07/2022 Assessment & Plan (08/14/2023 2:21 PM EST): Sp TKR, had a recent fall Reminded her to ambulate with cane at all times. Use tylenol/celebrex prn Refer to PT. Order Xrays, if any abn is seen on knee implants, will refer to orthopedics. She agreed to have flu shot today. Assessment & Plan (11/07/2022 12:33 PM EDT): Referred to PT as above. Dental abscess 11/04/2022 IFG (impaired fasting glucose) 09/19/2022 Assessment & Plan (02/10/2024 3:06 PM EDT): A1c and RBS are at goal now that patient is off pRD. She had significant hyperglycemia when she was on it. Advised re low carb consumption. Will give PRD only when absolute needed. Assessment & Plan (01/22/2024 4:00 PM EDT): Order labs Counseled re more frequent low calorie/carb meals. Check fgstk 1x daily Encouraged physical activity as tolerated. FU in 4 months. Assessment & Plan (06/25/2023 10:51 AM EST): Order labs Controlled. A1c is at goal. Counseled re more frequent low calorie/carb meals. Check fgstk three x daily Encouraged physical activity as tolerated. FU in 4 months. Assessment & Plan (11/07/2022 12:35 PM EDT): Is at goal. Continue checking fingersticks TIW I have discussed with patient regarding increasing physicial activity and decrease calorie intake I'll check FBS with next set of labs. To check RBS at next visit. FU with me next visit Assessment & Plan (09/19/2022 1:56 PM EST): Seems to be improving with lifestyle modificaitons I have discussed with patient regarding increasing physicial activity and decrease calorie intake I'll check FBS with next set of labs. To check RBS at next visit. FU with dietitian Due for A1C in 2 months. Mid back pain on left side 09/19/2022 Assessment & Plan (11/07/2022 12:34 PM EDT): Most likely OA. Refer to PT and recommended to come to acupuncture, pt needs transportation Tylenol PRN and FU in 3 months Congratulated her for quitting smoking. Assessment & Plan (09/19/2022 1:55 PM EST): Seems to be muscular, recommended mentholated patch to affected area and use diclofenac gel Take tylenol PRN FU results of CT scan. Hyperglycemia 08/19/2022 Assessment & Plan (08/19/2022 7:03 PM EST): Patient has known IFG and I shared her A1c result with her today. Counseled re more frequent low calorie/carb meals. Check fgstk 1x/ daily and fu w me in 1m Encouraged physical activity as tolerated. Refer to camera tuning engineer. Lower urinary tract symptoms (LUTS) 08/19/2022 Assessment & Plan (08/19/2022 7:08 PM EST): Increased U. Frequency is related to hyperglycemia Abdominal mass 07/16/2022 Pulmonary emphysema 07/16/2022 Assessment & Plan (06/25/2023 10:43 AM EST): Seems to be more stabled, counseled to quit smoking IZ as above Asthenia 07/16/2022 Pancreatic cyst 07/16/2022 Assessment & Plan (06/25/2023 10:43 AM EST): Followed by surgery, MRCP showed stable uncinate process cyst FU MRCP q6m Assessment & Plan (11/07/2022 12:36 PM EDT): Refer to GI for further evaluation, I discussed with the patient that it could be a benign condition but needs further evalution to r/o malignancy at this time. Assessment & Plan (09/19/2022 1:54 PM EST): Will order FU CT scan of the abdomen, due since July. Diarrhea 07/16/2022 Dizziness 07/16/2022 Assessment & Plan (08/19/2022 7:07 PM EST): Most likely related to fluctuating BS levels + COPD exacerbation Epigastric pain 07/16/2022 Greater trochanteric pain syndrome 07/16/2022 Hip pain 07/16/2022 Overview (03/17/2024): OA + Gluteus tendinitis (see MRI 03/10/24) Assessment & Plan (03/17/2024 2:29 PM EDT): Has DJD changes on recent MRI + Gluteus tendinitis. Will refer to PT Advised re heat to affected area + Diclofenac gel Take tylenol + meloxicam daily x 2w FU with me in 3m, consider joint injection clinic vs Pain clinic History of arthroplasty of left knee 07/16/2022 Bilateral leg edema 07/16/2022 Assessment & Plan (06/17/2024 12:51 PM EST): Most likely related to veinous insufficiency. Advised to use compression stockings and follow up with Vascular Surgery which I do not recommend at this time. Assessment & Plan (03/02/2024 2:42 PM EDT): - could be related to veinous insufficiency vs fluid overload - advised to use compression stockings daily - continue to use hydrochlorothiazide 25 mg daily, monitor BP and BMP Moderate persistent asthma with acute exacerbati on 07/16/2022 Nail discoloration 07/16/2022 Nonrheumatic aortic valve insufficiency 07/16/20 Recurrent major depression in partial remission 07/16/2022 Assessment & Plan (06/25/2023 10:51 AM EST): Seems to be stable, coping well with after 18 months Cont FU w/ mental health team Gerri Perez) She feels safe at home and able to reach out for safety FU with ADA Shoulder pain 07/16/2022 Vascular insufficiency 07/16/2022 COVID-19 07/02/2020 COPD exacerbation 08/17/2018 Assessment & Plan (12/01/2024 4:05 PM EDT): Status post Z-Yordan plus PRD, has residual SHINE. I gave her reassurance, encouraged to drink p.o. fluids We discussed about risk of dehydration, electrolyte disbalance She will continue on Trelegy and DuoNeb nebs Follow-up with pulmonology Assessment & Plan (08/19/2022 7:09 PM EST): Unfortunately patient continues with residual SOB/cough sp 1w PRD. I will give her PRD x 2w and have her fu with pulmonology. D/w her re risk of hyperglycemia, IFG progression. Encouraged lwo calorie diet, water intake FU w Pulmonology, congratulated her for quitting smoking FU w me in 1m Food insecurity 07/08/2018 History of total knee arthroplasty 07/08/2018 Contact dermatitis due to acid 12/29/2017 Knee pain 08/12/2017 Sinus tachycardia 01/23/2017 Assessment & Plan (03/02/2024 2:40 PM EDT): - controlled under Diltiazem 360 mg, she may be having LE edema secondary to CCB, will monitor edema - has appointment with cardiology next month Assessment & Plan (06/25/2023 3:17 PM EST): On diltiazem 360mg, currently out of 120mg tab. Refill for diltiazem CD 120mg tab/hs sent to pharmacy , take 240mg in the am (separate rx), total of 360mg/d Fu with cardiology Myositis 05/05/2014 Urinary incontinence, mixed 05/20/2012 Hyperlipidemia 03/25/2012 Depressive disorder 03/22/2012 Backache 03/22/2012 Lung mass 03/22/2012 Osteoporosis 03/22/2012 Assessment & Plan (06/17/2024 2:20 PM EST): Patient not compliant with Forteo due to perceived side effects (leg edema is not significant, arthralgias seem to be the same as before and rash is resolved). I called [facility] endocrinology practice and left a message to Dr. Sierra re this issue and fu with patient. Continue Vit D supplementation and Forteo until told otherwise by Dr Sierra. Patient understands the risk of fractures. Assessment & Plan (02/10/2024 3:07 PM EDT): On forteo, she seem not to tolerate it due to dermatitis, wants it dc I will talk with [facility] endocrinology for fabien alternative med. She's aware that bisphosphonate is probably not an option anymore. Continue Forteo, Ca and Vit D for now, she's aware of the importance of taking osteoporosis med at this time.. Assessment & Plan (01/22/2024 4:00 PM EDT): On forteo, unclear if she 's having cutaneous calcinosis or dermatitis. Cont Vit D + Calcium Fu win 1mo, showed fu with endocrinology re Forteo. Assessment & Plan (06/25/2023 10:50 AM EST): Off Fosamax and Teracycline FU BMD results with program clerk Continue ergocalciferol Vitamin D, check levels Chronic obstructive lung disease 02/20/2012 Assessment & Plan (02/10/2024 3:09 PM EDT): Recurrent exacerbations, sp PRD rx, still has wheezing Advised to use albuterol updraft q4h x 2d then prn, fu with pulmonary. No change in other meds. Assessment & Plan (01/22/2024 3:58 PM EDT): Sp recent COPD exacerbation , sp PRD + abs. FU with pulmonary. Continue singulair, trelegy, daliresp, albuterol prn Will order repeated ANAs labs and fax to pulmonary, ro granulomatous lung disease/vasculitis Assessment & Plan (09/19/2022 2:01 PM EST): Patient has recurrent exacerbations and seems to have significantly decreased exercise tolerance. Albuterol updraft today, patient needs to FU with blasting contract miner, she seems to be a candidate for Daliresp. She will reschedule appointment with blasting contract miner. Congratulated her on quitting smoking Continue albuterol q6 hours and Symbicort BID and Spiriva. Will consider switching to Trelegy to maximize compliance issues. Asthma 02/20/2012 Essential hypertension 02/20/2012 Assessment & Plan (12/01/2024 4:07 PM EDT): She reported an episode of hypotension, lowered HCTZ to 12.5/d continue diltiazem and metoprolol to control sinus tachycardia Follow-up with cardiology Check BP at home BIW and follow-up in 6 weeks Assessment & Plan (03/02/2024 2:39 PM EDT): Controlled. Compliant w/meds Continue hydrochlorothiazide 25 mg + Diltiazem same dose Counseled re low salt diet/increase moderate physical activity. Check home BP BIW and prn CP/EAGLE/SHINE Non smoking patient. F/u in 3 months Assessment & Plan (02/10/2024 3:08 PM EDT): Controlled on lower dose of hydrochlorothiazide Repeat BMP in 2w, continue diltiazem and metoprolol, will do EKG at next RV Assessment & Plan (06/25/2023 10:43 AM EST): Controlled. Compliant w/meds No change in medications Counseled re low salt diet/increase moderate physical activity. Check home BP BIW and prn CP/EAGLE/SHINE Fu 6 m Assessment & Plan (11/07/2022 12:37 PM EDT): BP is at goal. Continue Metoprolol 50 mg BID recently adjusted by lining feller blindstitch, diltiazem, HCTZ Counseled re low salt diet/increase moderate physical activity. Check home BP BIW and prn CP/EAGLE/SHINE Non smoking patient. 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 10/08/2017 03/17/2024 Assessment & Plan (01/22/2024 3:59 PM EDT): Repeat MRI due to worsening leg pain Encounters Date Type Department Care Team Description 12/08/2024 Refill [facility] [address] [place], [place] [phone] Isabelle Colon MD IFG (impaired fasting glucose) (Primary Dx) 12/02/2024 Telephone [facility] [address] [place] [address] Isabelle Colon MD DME humidifer 12/01/2024 11:15 AM EDT Office Visit [facility] [address] [place] [address] Isabelle Colon MD Dysfunction of right eustachian tube (Primary Dx); Left hip pain; COPD exacerbation (CMS/HCC); Essential hypertension 12/01/2024 Travel 11/30/2024 Telephone [facility] [address] [place] [phone] Isabelle Colon MD Chart Prep 11/29/[address] [phone] Isabelle Colon MD august recall 11/18/2024 Patient Outreach [facility] [address] [place] [address] [phone] Isabelle Colon MD Care Coordination ([facility] outreach for SDOH PT-1 and food needs-referral completed /) 11/18/[address] [phone] Isabelle Colon MD PT-1 (/) 11/15/2024 Patient Outreach [address] [phone] Isabelle Colon MD 11/15/2024 Refill [facility] [address] [place] [address] [phone] Isabelle Colon MD 10/07/2024 Population Health Risk Score [facility] () Department [address] [place] [id number] Provider, Population Health Generic from Last 3 Months Immunizations Immunization Administration Dates Next Due Influenza Injectable Quadriv alant Preservative Free IIV4 MDCK 06/07/2020 Influenza injectable quadriv alent IIV4 with preservative 04/09/2015 Influenza injectable quadriv alent preservative free 08/14/2023,04/28/2022,05/27/2021,04/27,07/08/2018 Influenza, IIV3, injectable 05/16/2014, 1 Influenza, Split (incl. du fied surface antigen) 04/18/2013,03/22/2012 Influenza, seasonal, injecta ble, preservative free 06/17/2024,05/08/2016 Moderna Covid-19 Vaccine 12+ 05/27/2021,11/03/19 21,10/05/2020 Moderna Covid-19 Vaccine 6+ Bivalent 08/08/2022 Pfizer Covid-19 Vaccine 12+ 06/17/2024 Pneumococcal Conjugate PCV 20 05/29/2022 Pneumococcal Polysaccharide PPSV23 07/08,05/08/2016,03/22/2013,07/03 Tdap 03/17/2024,03/22/2012 Zoster, Recombinant 08/21/2020,06/07/2020 Social History Tobacco Use Types Packs/Day Years Used Date Smoking Tobacco: Some Days Cigarettes Passive Smoke Exposure: Current Smokeless Tobacco: Never Tobacco Cessation:Ready to Q uit: Not Asked; Counseling Given: Not Answered Alcohol Use Standard Drinks/Week Comments Not Currently [...] not to disclose 2021 10:21 AM EDT Last Filed Vital Signs Vital Sign Reading Time Taken Comments Blood Pressure 128/71 12/01/2024 10:50 AM EDT Pulse 84 12/01/2024 10:50 AM EDT Temperature 35.8 ??C (96.5 ??F) 12/01/2024 10:50 AM E DT Respiratory Rate 20 12/01/2024 10:50 AM EDT Oxygen Saturation 97% 12/01/2024 10:50 AM EDT Inhaled Oxygen Concentration - - Weight 74.6 kg (164 lb 8 oz) 12/01/2024 10:50 AM EDT Height 154.9 cm (5' 1 ) 12/01/2024 10:50 AM EDT Body Mass Index 31.08 12/01/2024 10:50 AM EDT Plan of Treatment Upcoming Encounters Date Type Department Care Team (Late st Contact Info) Description 03/21/2025 10:00 AM EDT Office Visit [facility] [address] [place] [address] Isabelle Colon MD [address] [place] [address] Health Maintenance Due Date Last Done Comments CT Colonography 1963 Dental Prophylaxis 1963 FIT DNA/Cologuard 1963 FIT 1963 FOBT 1963 HIV Screening 1963 Sigmoidoscopy 1963 Disability Screening 1963 Alcohol/Substance Use Screening 1975 Dental X-Ray: Full Mouth 01/22/2021 01/21/2018 Mammogram 02/15/2023 02/15/2021, 01/24, 09/03/2018, Additional history exists RSV Patients and Patients Aged 60 years or older (1 - Risk 60-74 years 1-dose series) 2023 Depression Screening 06/25/2024 06/25/2023, 06/25/20 23 Dental Oral Exam 09/18/2024 03/17/2024 SDOH Screening 01/11/2025 01/12/2024 Dental X-Ray: Bitewings 01/26/2025 01/26/2024, 11/04 Diabetes: Hemoglobin A1C 02/09/2025 024, 01/26/2024, 11/03/2023, Additional history exists Tobacco Screening 12/01/2025 12/01/2024 Colonoscopy 03/29/2026 03/29/2021 Colorectal Cancer Screening 03/29/2026 Lipid Panel 06/26/2028 06/26/2023, 01/24/2021 DTaP/Tdap/Td Vaccines (3 - Td or Tdap) 03/17/2034 03/17/2024, 03/22/2012 Zoster Vaccines Completed 08/21/2020, 06/07/2020 Pneumococcal Vaccine: 50+ Years Completed 05/29/2022, 07/08/2018, 05/08/2016, Additional history exists Hepatitis C Screening Completed 06/26/2023 COVID-19 Vaccine Completed 06/17/2024, , 05/27/2021, Additional history exists Influenza Vaccine Completed 06/17/2024, , 04/28/2022, Additional history exists HIB Vaccines Aged Out No longer eligi ble based on patient's age to complete this topic HPV Vaccines Aged Out No longer eligi ble based on patient's age to complete this topic Hepatitis A Vaccines Aged Out No long er eligible based on patient's age to complete this topic Hepatitis B Vaccines Aged Out No long er eligible based on patient's age to complete this topic IPV Vaccines Aged Out No longer eligi ble based on patient's age to complete this topic Meningococcal B Vaccine Aged Out No l onger eligible based on patient's age to complete this topic Meningococcal Vaccine Aged Out No sharita arthur eligible based on patient's age to complete this topic RSV under 20 months Aged Out No longe r eligible based on patient's age to complete this topic Rotavirus Vaccines Aged Out No longer eligible based on patient's age to complete this topic Procedures Procedure Name Priority Date/Time Associated Diagnosis Comments PERIODIC ORAL EVALUATION - ESTABLISHED PATIENT Routine 03/17/2024 10:30 AM EDT Encounter for dental examination Closed fracture of tooth, initial encounter Dental caries POCT GLYCATED HEMOGLOBIN, TOTAL Routine 02/10/2024 11:45 AM EDT IFG (impaired fasting glucose) BITEWINGS - 2 RADIOGRAPHIC IMAGES Routine 01/26/2024 1:00 PM EDT HEPATITIS PANEL, GENERAL Routine 06/26/2023 8:23 AM EST Encounter for preventive health examination LIPID PANEL WITH REFLEX TO DIRECT LDL Routine 06/26/2023 8:23 AM EST Essential hypertension Pancreatic cyst IFG (impaired fasting glucose) HM COLONOSCOPY Routine 03/29/2021 10:49 AM EDT MAMMOGRAM GENERIC Routine 02/15/2021 1:0 0 PM EDT from Last 3 Months or Most Recently Relevant to Health Maintenance Results * (ABNORMAL) POCT HGB A1C (02/10/2024 11:45 AM EDT) Hemoglobin A1C 6.1(A) 4.0 - 6.0 % QC Media Lot # [id number] Lot# Expiration Date [id number] Blood 02/10/2024 11:4 5 AM EDT Isabelle Colon MD POINT OF CARE TEST ENTER /EDIT ORDERABLES Final Result * (ABNORMAL) Lipid Panel with Reflex to Direct LDL (06/26/2023 8:23 AM EST) Triglycerides 168(H) <150 mg/dL [facility] Comment:Desirable Triglyceri de: less than 150 mg/dLBorderline High Triglyceride 150-199 mg/dLHigh Triglyceride: 200-499 mg/dLVery High Triglyceride: greater than or equal to 5OO mg/dL Cholesterol 179 <200 mg/dL [facility] Comment:Desirable Cholestero l: less than 200 mg/dLBorderline High Cholesterol: 200-239 mg/dLHigh Cholesterol: greater than 239 mg/dL LDL Cholesterol Calculated 85 <100 mg/dL [facility] Comment:Desirable LDL: less than 100 mg/dLNear Optimal/Above Optimal LDL: 110- 129 mg/dLBorderline High LDL: 130-159 mg/dLHigh LDL: 160-189 mg/dLVery High LDL: greater than or equal to 190 mg/dL HDL Cholesterol 61 >40 mg/dL [facility] Comment:Desirable HDL: great er than 40 mg/dL Note: This HDL assay may give artificially low results in patients with liver disease. Blood 06/26/2023 8:23 AM EST 06/26/2023 11:12 AM EST Isabelle Colon MD LAB BLOOD ORDERABLES Fin al Result Performing Organization Address [facility] Co de Phone Number [facility] [address] [place] [address] [phone] * Hepatitis Panel, General (06/26/2023 8:23 AM EST) Hepatitis A IgM Nonreactive Nonreactive [facility] Comment:IgM antibodies to EAGLE V not detected; does not exclude earlyacute or recovered HAV infection. ~Hepatitis B Surface Antibody NONREACTIVE Nonreactive [facility] Comment:Nonreactive: < 8.00 mIU/mL Hepatitis B Core Antibody Nonreactive Nonreactive [facility] Hepatitis C Antibody Nonreactive Nonreactive [facility] Comment:Antibodies to HCV no t detected; does not exclude early acuteHCV infection. Hepatitis B Surface Ag Negative Negative [facility] Blood 06/26/2023 8:23 AM EST 06/26/2023 11:12 AM EST Isabelle Colon MD LAB BLOOD ORDERABLES Fin al Result Performing Organization Address [facility] Co de Phone Number [facility] [address] [place] [address] [phone] * Hm Colonoscopy (03/29/2021 10:49 AM EDT) us Eliecer Provider HEALTH MAINTENANCE Final Result * Mammography Report 1 (02/15/2021 1:00 PM EDT) Anatomical Region Laterality Modality Breast Bilateral Mammography 02/15/2021 1:00 PM EDT Narrative 02/22/2021 5:14 PM EDT Refer to the Notes tab for result details [facility] Procedure: Mammography Report 1 Procedure Note Provider, MD Eliecer - 10/19/2022 Refer to the Notes tab for result details [facility] Procedure: Mammography Report 1 Isabelle Colon MD IMG BI PROCEDURES Final Result from Last 3 Months or Most Recently Relevant to Health Maintenance Insurance [facility] C3 DENTAL-[facility] MEDICAID STAND ADULT Care Teams Leather Goods Maker Relationship Specialty Start Date End Date Isabelle Colon MD [address] [place] [phone] PCP - General Family Medicine 05/20/17
--- OUTSIDE RECORDS SUMMARY | 2024-12-15 01:10 | XMS_ITS | Encounter Summary ---
Author Organization [employer] Address [address] [facility] 7t [place] [address] Care Team Providers Care Soft Sugar Cutter Name Role Phone Isabelle Colon MD Primary Care Provider + Encounter Details Date Type Department Care Team (Latest Contact Info) Description 09/24/2021 Abstract [facility] CONVERSIONS Dental, Provider, DDS Social History Tobacco Use Types Packs/Day Years [...] Description 03/21/2025 10:00 AM EDT Office Visit [facility]ICINE [address] [place] [phone] Isabelle Colon MD [address] [place] [address] documented as of this encounter Visit Diagnoses Not on filedocumented in this encounter Care Teams Soft Sugar Cutter Relationship Specialty Start Date End Date Isabelle Colon MD [address] [place] [address] PCP - General Family Medicine 05/20/17 documented as of this encounter
--- OUTSIDE RECORDS SUMMARY | 2024-12-15 01:10 | XMS_ITS | Encounter Summary ---
Author Organization [employer] Address [address] [facility] 7t [place] [address] Care Team Providers Care Zoo Veterinarian Name Role Phone Isabelle Colon MD Primary Care Provider + Reason for Visit * Reason Onset Date Comments delivery case 12/24/2022 Encounter Details Date Type Department Care Team ([facility] st Contact Info) Description 12/24/[address] [facility] ADULT DENTAL [address] [place], [place] [phone] Zachary Miller DDS [address] [place] [phone] delivery case Social History Tobacco Use Types Packs/Day Years [...] suspected to have Coronavirus/COVID-19? No / Unsure 12/23/2022 8:20 AM EDT documented as of this encounter Miscellaneous Notes * Telephone Encounter - Tiffany Byrd - 12/29/2022 10:41 AM EDT Patient called in stain that she missed her 8am appt because she was told that if she was still swollen she wouldn't be able to get the case delivered. She is still swollen with some pain and wants to reschedule her appt. No appts available on PAR side. She is concerned of not having an appt scheduled due to not having her teeth and would like to rs as soon as possible. * Telephone Encounter - Tiffany Byrd - 12/24/2022 9:33 AM EDT Patient had ext done yesterday 12/23. She tates she is in a lot of pain and swelling and that she wouldn't be able to come in today for delivery. She is currently not scheduled but seems like partialwas sent out to lab. Had it been here she would have declined appt because she feels so bad. She says that she sees something long in her gum inside one of the wounds. She would like medication sent to pharmacy for the pain and swelling. documented in this encounter Plan of Treatment Upcoming Encounters Date Type Department Care Team (Late st Contact Info) Description 03/21/2025 10:00 AM EDT Office Visit [facility] MEDICINE [address] [place] [address] Isabelle Colon MD [address] [place] [address] documented as of this encounter Visit Diagnoses Not on filedocumented in this encounter Additional Health Concerns Assessment Noted Time PHQ-9 Depression Total Score: 13 04/2 023 11:55 AM EDT documented as of this encounter Care Teams Zoo Veterinarian Relationship Specialty Start Date End Date Isabelle Colon MD [address] [place] [phone] PCP - General Family Medicine 05/20/17 documented as of this encounter
--- OUTSIDE RECORDS SUMMARY | 2024-12-15 01:10 | XMS_ITS | Encounter Summary ---
Author Organization [employer] Address [address] [place] [address] 7t [place] [address] Care Team Providers Care Cutting Table Operator Name Role Phone Isabelle Colon MD Primary Care Provider + Encounter Details Date Type Department Care Team ([facility] Contact Info) Description 02/09/2023 Orders Only [facility] MEDICINE [address] [place] [address] [phone] Marianna Patel LPN Social History Tobacco Use [...] Office Visit [facility] MEDICINE [address] [place] [address] [phone] Isabelle Colon MD [address] [place] [address] [phone] documented as of this encounter Visit Diagnoses Not on filedocumented in this encounter Additional Health Concerns Assessment Noted Time PHQ-9 Depression Total Score: 13 023 11:55 AM EDT documented as of this encounter Care Teams Cutting Table Operator Relationship Specialty Start Date End Date Isabelle Colon MD [address] [place] [phone] PCP - General Family Medicine 05/20/17 documented as of this encounter
--- OUTSIDE RECORDS SUMMARY | 2024-12-15 01:10 | XMS_ITS | Encounter Summary ---
Author Organization [employer] Address [address] [facility] 7t [place] [address] Care Team Providers Care Call Center Receptionist Name Role Phone Isabelle Colon MD Primary Care Provider + Reason for Visit * Reason Comments Med Refill Encounter Details Date Type Department Care Team ([facility] st Contact Info) Description 10/11/2023 Refill [facility] [address] [place], [place] [phone] Isabelle Colon MD [address] [place], [place] [phone] Left hip pain Social History Tobacco Use Types Packs/Day Years Used Date Smoking Tobacco: Former Cigarettes Passive Smoke Exposure: Current Smokeless Tobacco: [...] housing situation today? I have radha schneider 05/11/[address] you li ve. Do you have problems with any of the following? None of the above 05/11/2023 Food Insecurity Answer Date Recorded Within the past 12 months, y ou worried that your food would run out before you got money to buy more: Often true 05/11/2023 Within the past 12 months,th e food you bought just didn't last and you didn't have enough money to get more: Often true Transportation Answer Date Recorded In the past 12 months, has l ack of transportation kept you from medical appts, meetings, work or from getting things needed for daily living? No 05/11/2023 Utilities Answer Date Recorded In the past 12 months, has t he electric, gas, oil or water company threatened to shut off services in your home? No 05/11/2023 Depression Answer Date Recorded Patient Health Questionnaire-2 Score 2 06/25/2023 Comments Unknown Sex and Gender Information Value [...] Description 03/21/2025 10:00 AM EDT Office Visit [facility] MED[facility] [address] [place] [phone] Isabelle Colon MD [address] [place] [phone] documented as of this encounter Visit Diagnoses Diagnosis Left hip pain Pain in joint, pelvic region and thigh documented in this encounter Additional Health Concerns Assessment Noted Time PHQ-9 Depression Total Score: 11 023 9:15 AM EST documented as of this encounter Care Teams Call Center Receptionist Relationship Specialty Start Date End Date Isabelle Colon MD [address] [place] [phone] PCP - General Family Medicine 05/20/17 documented as of this encounter
--- OUTSIDE RECORDS SUMMARY | 2024-12-15 01:10 | XMS_ITS | Encounter Summary ---
Author Organization [employer] Address [address] [facility] 7t [place] [address] Care Team Providers Care Jewelry Sorter Name Role Phone Isabelle Colon MD Primary Care Provider + Reason for Visit * Reason Onset Date Comments Referral 06/26/2023 Encounter Details Date Type Department Care Team ([facility] st Contact Info) Description 06/26/2023 Telephone [facility] [address] [place], [place] [phone] Isabelle Colon MD [address] [place], [place] [phone] Referral Social History Tobacco Use Types Packs/Day Years [...] encounter Miscellaneous Notes * Telephone Encounter - Michelle Vanegas - 06/26/2023 2:19 PM EST Tc from [facility] calling to inform they receive a referral for BI MAMMOGRAM SCREENING BILATERAL and they don't do that type of mammogram. documented in this encounter Plan of Treatment Upcoming Encounters Date Type Department Care Team (Late st Contact Info) Description 03/21/2025 10:00 AM EDT Office Visit [facility] [address] [place] [address] Isabelle Colon MD [address] [place] [address] documented as of this encounter Visit Diagnoses Not on filedocumented in this encounter Additional Health Concerns Assessment Noted Time PHQ-9 Depression Total Score: 11 023 9:15 AM EST documented as of this encounter Care Teams Jewelry Sorter Relationship Specialty Start Date End Date Isabelle Colon MD [address] [place] [address] PCP - General Family Medicine 05/20/17 documented as of this encounter
--- OUTSIDE RECORDS SUMMARY | 2024-12-15 01:10 | XMS_ITS | Encounter Summary ---
Author Organization [employer] Address [address] [facility] [address] 7t [place] [address] Care Team Providers Care Malthouse Laborer Name Role Phone Isabelle Colon MD Primary Care Provider + Encounter Details Date Type Department Care Team ([facility] st Contact Info) Description 10/14/2023 Telephone [facility] [address] [place] [phone] Isabelle Colon MD [address] [place], [place] [phone] Social History Tobacco Use Types Packs/Day Years [...] Description 03/21/2025 10:00 AM EDT Office Visit [facility] [address] [place] [phone] Isabelle Colon MD [address] [place] [phone] documented as of this encounter Visit Diagnoses Not on filedocumented in this encounter Additional Health Concerns Assessment Noted Time PHQ-9 Depression Total Score: 11 023 9:15 AM EST documented as of this encounter Care Teams Malthouse Laborer Relationship Specialty Start Date End Date Isabelle Colon MD [address] [place] [phone] PCP - General Family Medicine 05/20/17 documented as of this encounter
[2024-12-15 01:29] LABS: Alanine Aminotransferase 11 U/L (0-31); Albumin Level 4.2 g/dL (3.5-5.0); Alkaline Phosphatase 91 U/L (39-117); Anion Gap 17 (12-20); Aspartate Amino Transferase 19 U/L (5-31); Bilirubin Direct < 0.2 mg/dL (0.0-0.5); Bilirubin Total 0.1 mg/dL (0.0-1.0); Blood Urea Nitrogen 17 mg/dL (9-16); Calcium 9.9 mg/dL (8.4-10.2); Carbon Dioxide 24 mmol/L (22-29); Chloride 107 mmol/L (96-108); Creatinine Clr Calc Pharmacy 31.8; Estimated Glomerular Filt Rate 30; Glucose Random 114 mg/dL (60-115); Lipase 31 U/L (8-78); Potassium 3.8 mmol/L (3.3-5.1); Sodium 144 mmol/L (135-145); Total Protein 7.1 g/dL (6.5-8.0); Troponin-I High Sensitivity < 2.7 ng/L (<3.5-17.0)
[2024-12-15] MEDS: Loperamide HCl 2 MG CAPSULE 4 MG PO (01:38)
[2024-12-15] MEDS: Morphine Sulfate 2 MG/ML CARTRIDGE IVPUSH (01:38)
[2024-12-15] MEDS: Metoclopramide HCl 10 MG/2 ML VIAL IVPUSH (01:38)
[2024-12-15] MEDS: Lactated Ringers 1,000 ML 999 ML IVCONT (01:53)
[2024-12-15 01:58] LABS: Appearance Urine Cloudy; Color Urine Yellow; Glucose Urine UA Negative (Negative); Leukocyte Esterase Urine Small (1+) (Negative); Nitrite Urine Negative (Negative); PH 5.5 (5.0-9.0); Specific Gravity - Urine 1.015 (1.005-1.025); UMIC TRIGGER UACC YES; Urine Blood Negative (Negative); Urine Ketones Negative (Negative); Urine Protein Negative (Neg-Trace)
[2024-12-15 02:11] LABS: Bacteria Urine None Seen (None Seen); Hyaline Casts Urine >20 /LPF (0-2); RBC Urine 0-2 /HPF (0-2); Squamous Epithelial Cell Urine >20 /HPF (0-2); UACC Culture Trigger YES; WBC Urine 0-5 /HPF (0-5)
[2024-12-15 03:51] LABS: Anion Gap 21 (12-20); Blood Urea Nitrogen 16 mg/dL (9-16); Calcium 9.7 mg/dL (8.4-10.2); Carbon Dioxide 14 mmol/L (22-29); Chloride 111 mmol/L (96-108); Creatinine Clr Calc Pharmacy 34.9; Estimated Glomerular Filt Rate 33; Glucose Random 100 mg/dL (60-115); Potassium 4.8 mmol/L (3.3-5.1); Sodium 141 mmol/L (135-145)
--- NOTE | 2024-12-15 06:13 | PM.IMHP ---
History of Present Illness Date of Service: 12/15/24 Attending physician on admission: Herminio Zhang Chief Complaint: N/V/D Patient is a 59-year-old female with a past medical history significant for IBS, GERD, fibromyalgia, COPD/asthma overlap, anxiety, hypertension, who presented to the ED due to nausea, vomiting and diarrhea x3 days with low back pain, chest pain headache and lower extremity edema. She reports that she last vomited 24 hours ago however her diarrhea has increased. She was having diarrhea about 5 times a day, has not had any diarrhea since being in the emergency department. She was vomiting about 3 times a day. No blood in the vomit or stool. She was experiencing left upper quadrant discomfort radiating to the back. She denies any urinary symptoms including frequency, urgency or dysuria. Her low back pain is chronic. She also has a history of irritable bowel syndrome and follows with Gastroenterology. Review of Systems Constitutional: Constitutional: Denies body ache(s), Denies chills, Denies fatigue, Denies fever(s) and Reports headache(s) Eyes: Eyes: Denies change in vision and Denies photophobia ENT: Reports headache(s), Denies nasal congestion, Denies nasal discharge and Denies sore throat Cardiovascular: Cardiovascular: Reports chest pain, Denies syncope, Denies rapid heart rate, Reports leg edema and Denies dyspnea Respiratory: Respiratory: Denies cough, Denies dyspnea and Denies wheezing Gastrointestinal: Gastrointestinal: Reports as per HPI Genitourinary: Genitourinary: Denies difficulty voiding, Denies dysuria and Denies urinary urgency Musculoskeletal: Musculoskeletal: Reports back pain Integumentary/Breasts: Skin/Breast: Denies rash Neurologic: Denies confusion, Denies syncope and Reports headache(s) Psychiatric: Psychiatric: Denies confusion Endocrine: Endocrine: Denies fatigue Hematologic/Lymphatic: Hematologic/Lymphatic: Denies easy bleeding and Denies easy bruising Allergic/Immunologic: Allergic/Immunologic: Denies wheezing [facility] Medical History Patellofemoral arthralgia of right knee Abdominal wall mass Fibromyalgia Chronic pain syndrome Postlaminectomy syndrome Osteopenia Back pain Irritable bowel syndrome (IBS) GERD (gastroesophageal reflux disease) Fibromyalgia Anxiety disorder Depression Lung nodule Asthma Personal history of tuberculosis COPD (chronic obstructive pulmonary disease) Elevated cholesterol HTN (hypertension) Functional capacity: independent ambulation Family History Father Cancer Mother Kidney problem Hypertension CVD (cardiovascular disease) Paternal Uncle Cancer Colon cancer Brother Cancer Brother Colon cancer Surgical History (Updated 04/26/24 @ 12:48 by JENNI Lopez) Presence of right artificial knee joint Presence of left artificial knee joint History of back surgery Hx of section Hx of total knee replacement H/O hernia repair History of esophagogastroduodenoscopy (EGD) H/O colonoscopy Social History Alcohol intake: never Patient Tobacco Use Status: Current everyday Tobacco user Tobacco use type: Cigarette Cigarettes Per Day: 3 Advance Directives: No Advance Directives Information Provided: Yes Do you have a plan to hurt others: No Plan Patient : No Narrative: Smokes less than 1/2 pack per day, no alcohol or drug use Meds Allergies Allergy/AdvReac Type Severity Reaction Status Date / Time latex [LATEX] Allergy Intermediate RASH; Verified 12/15/24 00:45 redness ciprofloxacin [From CIPRO] AdvReac Intermediate Diarrhea Verified 12/15/24 00:45 Active Medications: Current Medications Acetaminophen (Acetaminophen 325 Mg Tablet) 975 mg PO Q6H PRN PRN Reason: Pain, Mild 1-3,fever,headache Calcium Carbonate (Calcium Carbonate 750 Mg Tab.Chew) 750 mg PO Q4H PRN PRN Reason: Heartburn Enoxaparin Sodium (Enoxaparin Sodium 40 Mg/0.4 Ml Syringe) 40 mg SUBCUT Q24H GIN Magnesium Hydroxide (Milk Of Magnesia 30 Ml Oral.Susp) 30 ml PO DAILY PRN PRN Reason: Constipation Melatonin (Melatonin 3 Mg Tablet) 6 mg PO BEDTIME PRN PRN Reason: Insomnia Morphine Sulfate (Morphine Sulfate 4 Mg/Ml Cartridge) 2 mg IVPUSH Q4H PRN; Protocol PRN Reason: Pain, Severe (Pain Scale 7-10) Nicotine (Nicotine 7 Mg Patch.Td24) 7 mg TRANSDERMA DAILY GIN Ondansetron HCl (Ondansetron Hcl 4 Mg/2 Ml Vial) 4 mg IVPUSH Q8H PRN PRN Reason: Nausea and Vomiting Oxycodone HCl (Oxycodone Hcl Immed Release 5 Mg Tablet) 5 mg PO Q6H PRN PRN Reason: Pain, Moderate(Pain Scale 4-6) Sodium Chloride (0.9 % Sodium Chloride Flush 3 Ml Syringe) [facility] Medications ?Medication ?Instructions ?Recorded ?Confirmed ?Last Taken ?Type aspirin 81 mg tablet,delayed 81 mg PO DAILY 05/15/20 10/21/24 03/22/21 08:00 History release (Brianna Low Dose Aspirin) atorvastatin 20 mg tablet 20 mg PO BEDTIME 05/15/20 10/21/24 Unknown History budesonide-formoterol HFA 160 2 puff inhalation BID 05/15/20 10/21/24 Unknown History mcg-4.5 mcg/actuation aerosol inhaler (Symbicort) clonazepam 1 mg tablet 1 mg PO BID 05/15/20 10/21/24 03/29/21 07:00 History montelukast 10 mg tablet 10 mg PO BEDTIME 05/15/20 10/21/24 Unknown History roflumilast 500 mcg tablet 500 mcg PO DAILY 05/15/20 10/21/24 Unknown History (Daliresp) tiotropium bromide 2.5 2 puff inhalation DAILY 05/15/20 10/21/24 Unknown History mcg/actuation mist for inhalation (Spiriva Respimat) calcium carbonate 600 mg PO BID 08/30/21 10/21/24 Unknown History diltiazem HCl 240 mg capsule,24 240 mg PO DAILY 08/30/21 10/21/24 Unknown History hr,extended release fluticasone propionate 50 1 - 2 spray intranasal DAILY PRN 08/30/21 10/21/24 Unknown History mcg/actuation nasal spray,suspension zolpidem 10 mg tablet 10 mg PO BEDTIME 08/30/21 10/21/24 Unknown History doxepin 75 mg capsule 75 mg PO BEDTIME 08/08/22 10/21/24 Unknown History metoprolol tartrate 50 mg tablet 50 mg PO BID 03/20/23 10/21/24 Unknown History teriparatide 20 mcg/dose (560 20 mcg subcut DAILY 10/26/23 10/21/24 Unknown History mcg/2.24 mL) subcutaneous pen injector (Forteo) Physical Exam Vital Signs and Narrative: Vital Signs: Last Vital Signs Temp 98.1 F 12/15/24 04:25 Pulse 71 12/15/24 04:25 Resp 16 12/15/24 04:25 BP 102/52 L 12/15/24 04:25 Pulse Ox 98 12/15/24 04:25 O2 Del Method Room Air 12/15/24 04:25 BMI result Body Mass Index 31.3 General: AOx3, no acute distress Resp: CTA bilaterally, no wheezing or crackles CVS: S1, S2, RRR GI: +BS, NT, no distention Skin: Warm, dry Neuro: Cranial nerves II-XII grossly intact bilaterally. Motor grossly intact bilaterally Extremities: No LE edema Psych: Appropriate affect Const: General: No confusion Orientation/consciousness: No confusion Eyes: Direct Ophthalmoscopy: No photophobia Neuro: General: No confusion Results Labs 12/15/24 06:19 12/15/24 03:29 Labs: Laboratory Results - last 24 hr 12/15/24 12/15/24 12/15/24 00:58 01:51 03:29 MCV 91.7 MCH 30.7 MCHC 33.4 RDW 13.4 Plt Count 330 MPV 10.8 Immature Gran % (Auto) 0.3 Neut % (Auto) 66.3 Lymph % (Auto) 18.6 L [place] % (Auto) 7.5 Eos % (Auto) 6.5 H Baso % (Auto) 0.8 Lymph # (Auto) 2.7 [place] # (Auto) 1.1 Eos # (Auto) 0.9 H Baso # (Auto) 0.1 Abs Immat Gran (auto) 0.05 H Absolute Neuts (auto) 9.5 H Absolute Nucleated RBC 0.000 Nucleated RBC % (auto) 0.0 Anion Gap 17 21 H Estim Creat Clear Calc 31.8 34.9 Estimated GFR 30 33 Random Glucose 114 100 Calcium 9.9 9.7 Total Bilirubin 0.1 Direct Bilirubin < 0.2 AST 19 ALT 11 Alkaline Phosphatase 91 Total Protein 7.1 Albumin 4.2 Lipase 31 Urine Color Yellow Urine Appearance Cloudy Urine pH 5.5 Ur Specific [place] 1.015 Urine Protein Negative Urine Glucose (UA) Negative Urine Ketones Negative Urine Blood Negative Urine Nitrite Negative Ur Leukocyte Esterase Small (1+) H Urine RBC 0-2 Urine WBC 0-5 Ur Squamous Epith Cells >20 Urine Bacteria None Seen Hyaline Casts >20 Assessment and Plan (1) RIMA (acute kidney injury): Status: Acute (2) Nausea vomiting and diarrhea: Status: Acute (3) Class 1 obesity: Status: Acute (4) Tobacco use: Status: Acute Plan Patient is a 59-year-old female with a past medical history significant for IBS, GERD, fibromyalgia, COPD/asthma overlap, anxiety, hypertension, who presented to the ED due to nausea, vomiting and diarrhea x3 days with low back pain, chest pain headache and lower extremity edema. RIMA secondary to dehydration in the setting of viral illness with associated nausea, vomiting and diarrhea - current and 1.72, 1.56 after 1 L IV fluids - WBC 14.4, vital signs stable, no sepsis - troponin negative - EKG nonischemic, sinus bradycardia - UA negative - abdominopelvic CT negative, chronic known pancreatic cyst - GI panel and C diff - monitor CBC and BMP Hyperchloremic metabolic acidosis - secondary to vomiting and diarrhea - bicarb 14 - repeat BMP and VBG to assess need to bicarb drip - 1 L IV fluids as above - monitor BMP COPD/asthma overlap, no acute exacerbation - continue home inhalers HTN - continue home meds Anxiety - continue home meds GERD - continue home meds Fibromyalgia - continue home meds Class 1 obesity - BMI 31.3 - weight loss encouraged Tobacco use disorder - nicotine patch per patient request - smoking cessation discussed Med reconciliation not complete upon admission Full code VTE prophylaxis: Lovenox Patient with acute RIMA secondary to dehydration in the setting of likely viral illness with vomiting and diarrhea, requiring admission for at least 2 midnight stay for IV fluids and monitoring. Quality Stroke Does the patient have a stroke diagnosis?: No VTE Prior VTE?: No VTE Risk Level:: Medical - moderate - high VTE Device Contraindication: Treatment Not Indicated VTE Drug Contraindication: N/A - Med Ordered
[2024-12-15] MEDS: Enoxaparin Sodium 40 MG/0.4 ML SYRINGE SUBCUT (06:17)
[2024-12-15 06:23] LABS: Venous Blood Gas Refer to POC result
[2024-12-15 06:26] LABS: MANUAL DIFF FLAG NO
[2024-12-15 06:27] LABS: Basophils Absolute Auto 0.2 X10*3/uL (0.0-0.2); Eosinophils Percent Auto 6.7 % (0-4); Hematocrit 34.8 % (37.0-47.0); Hemoglobin 11.4 g/dl (12.0-16.0); Imm Gran Abs Auto 0.06 X10*3/uL (0.00-0.03); Imm Gran Pct Auto 0.4 % (0.0-0.4); Lymphocytes Absolute Auto 3.6 X10*3/uL (1.2-4.9); Mean Corpuscular HGB Conc 32.8 g/dl (31.0-35.0); Mean Corpuscular Hemoglobin 30.2 pg (27.0-33.0); Mean Corpuscular Volume 92.3 fL (80.0-98.0); Mean Platelet Volume 11.2 fL (9.4-12.3); Monocytes Absolute Auto 1.3 X10*3/uL (0.1-1.2); Monocytes Percent Auto 8.2 % (2-11); Neutrophils Absolute Auto 9.5 x10*3/uL (2.0-8.3); Neutrophils Percent Auto 60.7 % (45-73); Platelet Count 305 X10*3/uL (160-400); Red Blood Count 3.77 X10*6/uL (4.20-5.50); Red Cell Distribution Width 13.3 % (11.0-16.0); White Blood Count 15.6 X10*3/uL (4.8-10.8)
[2024-12-15 06:28] LABS: VBG Base Excess -0.4 mmol/L; VBG HCO3 21 mmol/L (22-26); VBG pCO2 27 mmHg; VBG pH 7.49 (7.32-7.43); VBG pO2 64 mmHg
[2024-12-15 06:49] LABS: Anion Gap 15 (12-20); Blood Urea Nitrogen 16 mg/dL (9-16); Calcium 9.6 mg/dL (8.4-10.2); Carbon Dioxide 21 mmol/L (22-29); Chloride 112 mmol/L (96-108); Creatinine Clr Calc Pharmacy 39.6; Estimated Glomerular Filt Rate 39; Glucose Random 93 mg/dL (60-115); Potassium 4.4 mmol/L (3.3-5.1); Sodium 144 mmol/L (135-145)
--- NOTE | 2024-12-15 08:29 | PHA.MEDREC ---
Addendum entered by Santiago Nelson rao 12/15/24 09:18: Med rec was reviewed by [facility]. Addendum entered by Thom Candelario 12/15/24 09:01: Patient confirmed she was still taking the Calcitonin nasal spray even tho there are no claims for that. I called [facility] and they confirmed the patient has not filled the Calcitonin nasal spray since 10/2022, I took that off the med rec since it has not been filled since then. Original Note: Pharmacy Consult ? Medication Reconciliation Pharmacy has completed the medication reconciliation. Spoke with patient utilizing field examiner and patient was able to confirm her medications. Patient confirmed she is still taking the Azithromycin 500mg tab 3XW on and took it yesterday 12/14. Patient also confirmed her Forteo injection once a day and confirmed she can have someone bring it in if she needs to. Patient confirmed she still takes the Dicyclomine 10mg tab and Linzess 145mcg tabs as needed for IBS. Patient confirmed she still takes the Atorvastatin 20mg tablet despite it last being filled 08/24/24 for a 90 day supply.
[2024-12-15] MEDS: 0.9 % Sodium Chloride Flush 3 ML SYRINGE IVFLUSH ×2 (08:30→19:47)
[2024-12-15] MEDS: Nicotine 7 MG PATCH.TD24 TRANSDERMA (09:09)
[2024-12-15] MEDS: Morphine Sulfate 4 MG/ML CARTRIDGE 2 MG IVPUSH (10:48)
[2024-12-15] MEDS: Lactated Ringers 1,000 ML 125 ML IVCONT ×2 (10:49→19:48)
[2024-12-15] MEDS: Albuterol/Iprat 2.5/0.5MG 3 ML AMPUL.NEB INHALE ×3 (12:04→18:44)
--- NOTE | 2024-12-15 13:21 | PM.EVENT ---
Event Note Date of Service: 12/15/24 Event Note: Chart reviewed/patient examined. Agree with H&P and plan as outlined Time Spent With Patient Time: Total time managing care of this patient today ____ minutes.
[2024-12-15] MEDS: clonazePAM 1 MG TABLET PO ×2 (14:01→19:48)
[2024-12-15] MEDS: hydroCHLOROthiazide 12.5 MG TABLET PO (14:01)
[2024-12-15] MEDS: Aspirin Enteric Coated 81 MG TABLET.DR PO (14:01)
[2024-12-15] MEDS: Escitalopram Oxalate 20 MG TABLET PO (14:02)
[2024-12-15] MEDS: Roflumilast 500 MCG TABLET PO (14:02)
[2024-12-15] MEDS: Metoprolol Tartrate 50 MG TABLET PO ×2 (14:02→19:48)
[2024-12-15] MEDS: Famotidine 20 MG TABLET 40 MG PO ×2 (14:02→19:47)
[2024-12-15] MEDS: dilTIAZem HCL CD 240 MG CAP.ER.DEG PO (14:03)
--- NOTE | 2024-12-15 14:33 | MHC.CM.PN ---
CM ASSESSMENT COMPLETED W/ PPAP COORDINATOR. PATIENT LIVES IN AN APARTMENT ALONE. HAS A STAFF NURSE ANESTHETIST DAILY FOR 2 HRS/DAY TO ASSIST W/ DRESSING, COOKING, SHOWERING. USES CANE PRN FOR WEAKNESS. REPORTS SHE HAS OCCASIONAL FALLS. PCP SIRENA VÁSQUEZ MD REPORTS SHE HAS AN HCP NAMING HER DAUGHTER, ASHLEY BOURGEOIS, [facility]. COPY REQUESTED. ASHLEY: [phone] DP: GOAL IS HOME, WOULD BE OPEN TO [facility] FOR PT SERVICES IF RECOMMENDED, NO PREFERENCE TO AGENCY. DAUGHTER TO TRANSPORT. CM WILL CONTINUE TO FOLLOW.
[2024-12-15] MEDS: Omeprazole 20 MG CAPSULE.DR PO (19:48)
[2024-12-15] MEDS: Atorvastatin Calcium 20 MG TABLET PO (19:48)
[2024-12-15] MEDS: Zolpidem Tartrate 5 MG TABLET 10 MG PO (19:48)
[2024-12-15] MEDS: Doxepin HCl 25 MG CAPSULE 75 MG PO (19:48)
[2024-12-15] MEDS: Montelukast Sodium 10 MG TABLET PO (19:48)
[2024-12-15] MEDS: Melatonin 3 MG TABLET 6 MG PO (22:51)
[2024-12-16 03:15] VITALS: BP 138/70; PULSE 88; RESP 18; TEMP 36.8; O2SAT 92
[2024-12-16] MEDS: Enoxaparin Sodium 40 MG/0.4 ML SYRINGE SUBCUT (03:21)
[2024-12-16] MEDS: Lactated Ringers 1,000 ML 125 ML IVCONT (03:22)
[2024-12-16 06:39] LABS: Basophils Percent Auto 0.3 % (0-2); Eosinophils Percent Auto 0.1 % (0-4); Hematocrit 32.9 % (37.0-47.0); Hemoglobin 11.1 g/dl (12.0-16.0); Imm Gran Abs Auto 0.15 X10*3/uL (0.00-0.03); Lymphocytes Absolute Auto 0.9 X10*3/uL (1.2-4.9); Lymphocytes Percent Auto 5.9 % (20-40); Mean Corpuscular HGB Conc 33.7 g/dl (31.0-35.0); Mean Corpuscular Hemoglobin 30.9 pg (27.0-33.0); Mean Corpuscular Volume 91.6 fL (80.0-98.0); Mean Platelet Volume 11.7 fL (9.4-12.3); Monocytes Absolute Auto 0.2 X10*3/uL (0.1-1.2); Monocytes Percent Auto 1.1 % (2-11); NRBC Pct Auto 0.5 /100WBC (0.0-0.2); Neutrophils Absolute Auto 13.5 x10*3/uL (2.0-8.3); Neutrophils Percent Auto 91.6 % (45-73); Red Blood Count 3.59 X10*6/uL (4.20-5.50); Red Cell Distribution Width 13.2 % (11.0-16.0)
[2024-12-16 06:40] LABS: Platelet Count 207 X10*3/uL (160-400); White Blood Count 14.8 X10*3/uL (4.8-10.8)
[2024-12-16 06:46] LABS: Anion Gap 14 (12-20); Blood Urea Nitrogen 20 mg/dL (9-16); Calcium 9.5 mg/dL (8.4-10.2); Carbon Dioxide 23 mmol/L (22-29); Chloride 110 mmol/L (96-108); Creatinine Clr Calc Pharmacy 57.4; Estimated Glomerular Filt Rate > 60; Glucose Random 155 mg/dL (60-115); Potassium 4.1 mmol/L (3.3-5.1); Sodium 143 mmol/L (135-145)
[2024-12-16 07:03] LABS: MANUAL DIFF FLAG SCAN
[2024-12-16 07:04] LABS: SLIDE REVIEW VERIFIED
[2024-12-16] MEDS: Aspirin Enteric Coated 81 MG TABLET.DR PO (07:55)
[2024-12-16] MEDS: Azelastine HCl Nasal 137 MCG/Spray 30 ML 1 SPRAY NOSTRIL-B (07:55)
[2024-12-16] MEDS: clonazePAM 1 MG TABLET PO (07:55)
[2024-12-16] MEDS: Escitalopram Oxalate 20 MG TABLET PO (07:55)
[2024-12-16] MEDS: oxyCODONE HCl Immed Release 5 MG TABLET PO (07:55)
[2024-12-16] MEDS: Omeprazole 20 MG CAPSULE.DR PO (07:55)
[2024-12-16] MEDS: Roflumilast 500 MCG TABLET PO (07:56)
[2024-12-16] MEDS: Metoprolol Tartrate 50 MG TABLET PO (07:56)
[2024-12-16] MEDS: Famotidine 20 MG TABLET 40 MG PO (07:56)
[2024-12-16] MEDS: dilTIAZem HCL CD 240 MG CAP.ER.DEG PO (07:56)
[2024-12-16] MEDS: hydroCHLOROthiazide 12.5 MG TABLET PO (07:56)
[2024-12-16 07:57] VITALS: BP 128/64; PULSE 85; RESP 18; TEMP 36.2; O2SAT 91
[2024-12-16] MEDS: Nicotine 7 MG PATCH.TD24 TRANSDERMA (07:57)
--- NOTE | 2024-12-16 10:58 | PM.DS ---
DS: Providers Provider Date of Service: 12/16/24 Date of admission: 12/15/24 04:17 Date of discharge: 12/16/24 Primary care physician: Isabelle Colon MD DS: Diagnosis Discharge Diagnosis (1) RIMA (acute kidney injury): Status: Acute (2) Nausea vomiting and diarrhea: Status: Acute (3) Class 1 obesity: Status: Acute (4) Tobacco use: Status: Acute DS: Summary Hospital Course Hospital Course: 59-year-old female with a past medical history significant for IBS, GERD, fibromyalgia, COPD/asthma overlap, anxiety, hypertension, who presented to the ED due to nausea, vomiting and diarrhea x3 days with low back pain, chest pain headache and lower extremity edema. She reports that she last vomited 24 hours ago however her diarrhea has increased. She was having diarrhea about 5 times a day, has not had any diarrhea since being in the emergency department. She was vomiting about 3 times a day. No blood in the vomit or stool. She was experiencing left upper quadrant discomfort radiating to the back. She denies any urinary symptoms including frequency, urgency or dysuria. Her low back pain is chronic. She also has a history of irritable bowel syndrome and follows with Gastroenterology. Hospital Course Patient was admitted to the hospital and found to have acute kidney injury secondary to nausea vomiting and diarrhea. She was volume repleted with lactated Ringer's and over the next 24 hours her creatinine returned to baseline and she was taking adequate p.o. intake. She was found to be extremely wheezy and mildly short of breath without sputum production. She was given pulse dose steroids for 24 hours with good results. She will be discharged on a prednisone taper. At this point she is medically acceptable for discharge and will follow up with the PCP next available Time Attestation Discharge Coordination Time (in mins): 35 Quality: Safe Use of Opioids Does Pt have an Active Cancer Diagnosis on the Problem List?: No Quality: Stroke Does the patient have a stroke diagnosis?: No Physical Exam Vital Signs: Vital Signs: Last Vital Signs Temp 97.1 F 12/16/24 07:57 Pulse 85 12/16/24 07:57 Resp 18 12/16/24 07:57 BP 128/64 12/16/24 07:57 Pulse Ox 91 L 12/16/24 07:57 O2 Del Method Room Air 12/16/24 07:57 BMI result Body Mass Index 29.7 Const: Other: Awake alert no acute distress Resp: Other: Improved aeration to the bases with decreased expiratory wheezes throughout Cardio: Other: No S4; positive S1-S2; no S3 murmurs rubs or gallops GI: Other: Soft nontender nondistended normoactive bowel sounds Extrem: Other: No edema bilaterally DS: Data Data Completed and Pending Labs on day of discharge: Laboratory Results - last 24 hr 12/16/24 06:25 WBC 14.8 H RBC 3.59 L Hgb 11.1 L Hct 32.9 L MCV 91.6 MCH 30.9 MCHC 33.7 RDW 13.2 Plt Count 207 D MPV 11.7 Immature Gran % (Auto) 1.0 H Neut % (Auto) 91.6 H Lymph % (Auto) 5.9 L Ritchie % (Auto) 1.1 L Eos % (Auto) 0.1 Baso % (Auto) 0.3 Lymph # (Auto) 0.9 L Ritchie # (Auto) 0.2 Eos # (Auto) 0.0 Baso # (Auto) 0.0 Abs Immat Gran (auto) 0.15 H Absolute Neuts (auto) 13.5 H Absolute Nucleated RBC 0.070 H Nucleated RBC % (auto) 0.5 H Smear Tech's Comments VERIFIED Sodium 143 Potassium 4.1 Chloride 110 H Carbon Dioxide 23 Anion Gap 14 BUN 20 H Creatinine 0.93 Estim Creat Clear Calc 57.4 Estimated GFR > 60 Random Glucose 155 H Calcium 9.5 Discharge Plan Discharge Anticipated Discharge Date/Time: 12/16/24 10:51 Patient Disposition: Home Health Service Discharge Diagnosis: Acute kidney injury Referrals: Isabelle Colon MD [Primary Care Provider] - 1 Week Discharge Medications: New prednisone 10 mg tablet See Rx Instructions .Route .COMPLEX Qty: 45 0RF Rx Instructions: 10 mg orally; 5 tabs p.o. daily x3 days; 4 tabs p.o. daily x3 days; 3 tabs daily x3 days; 2 tabs daily x3 days; 1 tab daily x3 days Continued lansoprazole 30 mg capsule,delayed release(DR/EC) 30 mg PO BID Qty: 60 6RF famotidine 40 mg tablet 40 mg PO BID Qty: 60 3RF atorvastatin 20 mg Tablet 20 mg PO BEDTIME clonazepam 1 mg Tablet 1 mg PO BID aspirin [Brianna Low Dose Aspirin] 81 mg Tablet,Delayed Release (Dr/Ec) 81 mg PO DAILY montelukast 10 mg Tablet 10 mg PO BEDTIME budesonide-formoterol [Symbicort] 160-4.5 mcg/actuation Hfa Aerosol Inhaler 2 puff INHALATION BID roflumilast [Daliresp] 500 mcg Tablet 500 mcg PO DAILY Spiriva Respimat 2.5 mcg/actuation Mist 2 puff INHALATION DAILY albuterol sulfate 90 mcg/actuation HFA aerosol inhaler 1 inh inhalation QID PRN (Reason: shortness of breath or wheezing) Qty: 6.7 0RF albuterol sulfate 2.5 mg/0.5 mL solution for nebulization 5 mg inhalation Q6H PRN (Reason: shortness of breath or wheezing) Qty: 30 0RF acetaminophen 500 mg tablet 500 - 1,000 mg PO Q6H PRN (Reason: fever) azelastine 137 mcg (0.1 %) spray,non-aerosol 1 spray intranasal DAILY azithromycin 500 mg tablet 500 mg PO MOWEFR escitalopram oxalate 20 mg tablet 20 mg PO DAILY hydrochlorothiazide 12.5 mg tablet 12.5 mg PO DAILY Linzess 145 mcg capsule 145 mcg PO DAILY PRN (Reason: IBS) dicyclomine 10 mg capsule 10 mg PO TID PRN (Reason: IBS) calcium carbonate 600 mg calcium (1,500 mg) tablet 600 mg PO BID fluticasone propionate 50 mcg/actuation spray,suspension 1 - 2 spray intranasal DAILY PRN (Reason: Allergy Symptoms) diltiazem HCl 240 mg capsule,extended release 24 hr 240 mg PO DAILY zolpidem 10 mg tablet 10 mg PO BEDTIME calcitonin (salmon) 200 unit/actuation spray,non-aerosol 1 spray intranasal (ALT) DAILY Qty: 3.7 6RF doxepin 75 mg capsule 75 mg PO BEDTIME metoprolol tartrate 50 mg tablet 50 mg PO BID teriparatide [Forteo] 20 mcg/dose (600mcg/2.4mL) pen injector 20 mcg subcut DAILY Discharge Orders: Discharge Order (Routine); Ordered 12/16/24 Ordered By: Manuel River Diet: Advance to usual diet Activity on Discharge: As tolerated Stand Alone Forms: Patient Portal Discharge page Print Language: Pakistani Care Plan Goals: Continue all medications as taken prior to the hospital. Prednisone taper has been added for your wheezing.. Take with food Health Concerns: Drink plenty of fluids. You should attempt to quit smoking Plan of Treatment: Follow up with the PCP next available Assessment: See discharge summary
--- NOTE | 2024-12-16 11:03 | MHC.CM.PN ---
Patient medically cleared for dc home w/ new PT services via [facility]. Daughter will provide transport.
--- NOTE | 2024-12-16 11:11 | W.MHC.F2F ---
Service Date Service Date: 12/16/24 Encounter Date of encounter: 12/16/24 Encounter: Acute hospitalization Reasons for Services Signs and symptoms assessed: Respiratory status med management and gait training Reason for senior care: medication management, medication treatment and teach disease management Reason for physical therapy: home safety and mobility and gait/transfer training Homebound: Leaving the home is medically contraindicated at this time without the asist of a device and/or another person due th the listed conditions above and below. Reason homebound: unsteady gait / fall risk and poor balance / fall risk Certification: Based on the above findings, I certify that this patient is confined to the home and needs intermittent senior care care, physical therapy and/or speech therapy, or continues to need occupational therapy. The patient is under my care, and I have initiated the establishment of the plan of care. The patient will be followed by a physician who will periodically review the plan of care. Time Spent With Patient Time: Total time managing care of this patient today ____ minutes.
[2024-12-16 12:30] LABS: CDiff Gene PCR NEGATIVE (Negative)
[2024-12-16 14:12] LABS: Adenovirus F 40/41 Not Detected (Not Detect.); Astrovirus Not Detected (Not Detect.); Campylobacter Not Detected (Not Detect.); Cryptosporidium Not Detected (Not Detect.); Cyclospora cayetanensis Not Detected (Not Detect.); E. coli EAEC Not Detected (Not Detect.); E. coli EPEC Not Detected (Not Detect.); E. coli ETEC Not Detected (Not Detect.); E. coli STEC Not Detected (Not Detect.); Entamoeba histolytica Not Detected (Not Detect.); Giardia lamblia Not Detected (Not Detect.); Norovirus GI/GII Not Detected (Not Detect.); Plesiomonas shigelloides Not Detected (Not Detect.); Rotavirus A Not Detected (Not Detect.); Salmonella Not Detected (Not Detect.); Sapovirus Not Detected (Not Detect.); Shigella sp./EIEC Not Detected (Not Detect.); Vibrio Not Detected (Not Detect.); Vibrio Cholerae Not Detected (Not Detect.); Yersinia enterocolitica Not Detected (Not Detect.)
== END 2024-12-16 11:51 | disposition home health service (06) | DRG 422 ==
LOC: HO.ED 04:19 → HO.EDOVER 04:34 → HO.S3 07:25
PROVIDERS: Physician Assistant; Admitting Provider Student in an Organized Health Care Education/Training Program; Emergency Provider Emergency Medicine; PCP Internal Medicine; Visit Provider Hospitalist
DX: E86.0 Dehydration (principal); E87.20 Acidosis, unspecified; N17.9 Acute kidney failure, unspecified; E87.8 Other disorders of electrolyte and fluid balance, not elsewhere classified; E66.811 Obesity, class 1; F41.9 Anxiety disorder, unspecified; I10 Essential (primary) hypertension; K21.9 Gastro-esophageal reflux disease without esophagitis; M79.7 Fibromyalgia; J44.9 Chronic obstructive pulmonary disease, unspecified; Z68.31 Body mass index [BMI] 31.0-31.9, adult; Z71.3 Dietary counseling and surveillance; F17.210 Nicotine dependence, cigarettes, uncomplicated; Z71.6 Tobacco abuse counseling; Z79.82 Long term (current) use of aspirin; Z79.899 Other long term (current) drug therapy
CPT/HCPCS: 36415; 74176; 80048; 80053; 81001; 82248; 82803; 83690; 84484; 85025; 87086; 87493; 87507; 93005; 94640; 99285; J1650; J2270; J2765; J2919; J7120

== ENCOUNTER → 2024-12-15 00:45 | Outpatient (BNV) | payer MEDICAID, SELFPAY | PROVIDERS: Admitting Provider Student in an Organized Health Care Education/Training Program; Emergency Provider Emergency Medicine; PCP Internal Medicine; Visit Provider Internal Medicine Cardiovascular Disease | DX: R00.1 Bradycardia, unspecified (principal) | CPT/HCPCS: 93010 ==

== ENCOUNTER → 2024-12-15 01:08 | Outpatient (BNV) | payer MEDICAID, SELFPAY | PROVIDERS: Emergency Provider Emergency Medicine; Visit Provider Radiology Diagnostic Radiology | DX: K86.2 Cyst of pancreas (principal) | CPT/HCPCS: 74176 ==

== ENCOUNTER → 2024-12-15 04:17 | Outpatient (BNV) | payer MEDICAID, SELFPAY | PROVIDERS: Admitting Provider Student in an Organized Health Care Education/Training Program; Emergency Provider Emergency Medicine; Visit Provider Physician Assistant | DX: N17.9 Acute kidney failure, unspecified (principal); R11.2 Nausea with vomiting, unspecified; R19.7 Diarrhea, unspecified; E66.811 Obesity, class 1; Z72.0 Tobacco use | CPT/HCPCS: 99223; 99239; 99499; G0180 ==

== ENCOUNTER 2025-01-05 09:57 | Outpatient (REF) | payer MEDICAID, SELFPAY ==
--- NOTE | ~2025-01-05 | XR_ITS ---
EXAMINATION: XR CHEST CLINICAL INFORMATION: wheezing. s/p prednisone taper. COMPARISON: June 26, 2023 TECHNIQUE: 2 views of the chest were obtained. FINDINGS: Heart size is normal. Perihilar structures are unremarkable. There is stable calcified 6 mm nodule in the left upper lung and to a focal calcified granulomas in the right upper lung. Lungs are clear otherwise. There is no evidence of pleural effusion. XR/XR chest 2V IMPRESSION: Stable biapical calcified granulomas. No acute disease. Electronically signed by: Kevin Torres MD 01/05/2025 10:26 AM EDT
--- OUTSIDE RECORDS SUMMARY | 2025-01-05 11:13 | XMS_ITS | Data Portability ---
Author Organization [place] - [facility], Allergy Address [address] [address] Care Team Providers Care Puncher And Fastener Name Role Phone ISABELLE VÁSQUEZ Primary Care Provider [phone] Assessment Encounter Date Assessment Date Assessment LastModified [...] Appointments Establish ed 30 2024 02:30P Ines CUNNINGAHM MD Not available Not available Not available Lab None recorded. Referral None recorded. Procedures None recorded. Surgeries None recorded. Imaging None recorded. Medication Orders mupirocin 2 % topical ointment 2023 025 [facility], [address] [place] [address], [id number], 10/19/2024 18:15:17 Buhler Saline nasal gel 2023 024 [facility], [address] [place] [address], [id number], 02/17/2024 14:51:45 Buhler Saline Gel nasal spray 2023 024 [facility], [address] [place] [address], [id number], 02/17/2024 14:51:45 Patient TargetsNo targets recorded. Patient Instructions Encounter Date Encounter Id Patient Instructions Last Modified By Organization Details Last Modified Time 10/19/2024 [id number] Patient with chronic rhinitis and throat irritation [...] Address Organization Details Recorded Time Chronic rhinitis 02583070 Active 2022 Chronic rhinitis; Note: Date Diagnosed : 10/13/2022 3:19 PM (J31.0) Not Available [facility] 4 03:12:22 Chronic pharyngit is 736121 Active 2022 Chronic sore throat; Note: Date Diagnosed : 01/30/2023 1:47 PM (J31.2) Not Available [facility] 4 03:12:23 Dysphonia 55158385 Active 2022 Hoarsenes s; Note: Date Diagnosed : 10/13/2022 3:19 PM (R49.0) Not Available [facility] 4 03:12:23 Pain of right temporoma ndibular joint 30828568338 847237 Active 2022 Arthralgi a of right temporoma ndibular joint; Note: Date Diagnosed : 10/13/2022 3:19 PM (M26.621) Not Available [facility] 4 03:12:23 Otalgia of right ear 5527086965 Active 2022 Otalgia, right ear; Note: Date Diagnosed : 01/30/2023 1:47 PM (H92.01) Not Available [facility] 4 03:12:22 Disorder of nasal sinus 5744642 Active 2022 Perforati on of nasal septum NOS; Note: Date Diagnosed : 10/13/2022 3:19 PM (J34.89) Not Available [facility] 4 03:12:23 Disorder of the nose 80153994 Active 2022 Perforati on of nasal septum NOS; Note: Date Diagnosed : 10/13/2022 3:19 PM (J34.89) Not Available [facility] 4 03:12:23 Perforati on of nasal septum 25795286 Active 2023 JOANN MARTINEZ PA-C [address], [place], [address] , [place] - [facility] 4 14:08:08 Sore throat 568871753 Active 2023 JOANN MARTINEZ PA-C [address] [facility], [place], [address] , [place] - [facility] 4 14:08:15 Bleeding from nose 376623892 Active 2023 Epistaxis ; Note: Date Diagnosed : 08/31/2023 4:53 PM (R04.0) Not Available [facility] 4 03:12:22 Tumor of respirato ry system 280544253 Active 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 Procedures Surgical History Date Name Laterality Status Provider Name and Address Organization Details Recorded Time 10/20/19 Fiberoptic Laryngoscopy (Comprehensive) completed XIAO HERRERA MD [address] [facility], [address] [facility], [place], [address], [facility] - [facility] 10/19/2024 10:36:08 04/08/20 Nasal Endoscopy completed JOANN MARTINEZ PA-C [address], [place], [address], [place] - [facility] 04/08/2024 17:25:07 hernia repair completed Isabelle Cerrato [place] [facility] 02/17/2024 13:41:26 Appendectomy completed Isabelle Cerrato [place] [facility] 02/17/2024 13:41:31 section completed Isabelle Cerrato [place] [facility] 02/17/2024 13:41:41 Hysterectomy completed Isabelle Cerrato [place] [facility] 02/17/2024 13:41:47 total knee replacement completed Isabelle Cerrato [place] [facility] 02/17/2024 13:41:57 procedure on spine completed Isabelle Cerrato [facility] 02/17/2024 13:42:02 Imaging Results None recorded. Procedure Notes None recorded. Medical Equipment None Reported. Allergies Allergen ID Allergen Name Allergen Category Reaction Reaction Severity Criticality Documentation Date Start Date Code Code System Note Provider Name and Address Organization Details Recorded Time 790462 Cipro medicatio n other Not available Not available 12/08/202386506 3 RxNorm React ion: Unkno wn; Not Available [facility] 01:27:10 Medications Name Sig Start Date Stop Date Status Note LastModified by Organization Details LastModified Time pulse oximet airial [id number] USE DAILY NEEDED FOR SHORTNES S OF [...] FOR WHEEZING OR SHORTNES S OF BREATH 07/24 /2024 completed Not Available Not Available Not Available [...] Not Available Not Available No t Available Buhler Saline nasal gel APPLY 1 APPLICAT ION [...] hr,extend ed release active Medicati on ID: [id number] B rand Name: diltiaze m HCl Send Method: E-Prescr [...] MOUTH 3 TIMES A WEEK ON THURSDAY, AND 10/19 completed Not Available Not Available Not Available escitalop dony 20 mg tablet TAKE 1 TABLET BY MOUTH DAILY active Not Available Not Available No t Available metoprolo l tartrate 25 mg tablet 02/16 completed Medicati on ID: [id number] B rand Name: metoprol ol tartrate Send Method: E-Prescr ibed Sub s Allowed: subs OK Speci al Instruct ion: TAKE 1 AND 1/2 TABLETS BY MOUTH TWICE DAILY Me dication GenericN cristi: metoprol ol tartrate Medicat ion ID: [id number] B rand Name: metoprol ol tartrate Send Method: E-Prescr ibed Sub s Allowed: subs OK Speci al Instruct ion: TAKE 1 AND 1/2 TABLETS BY MOUTH TWICE DAILY Me dication GenericN cristi: metoprol ol tartrate Not Available Not Available Not Available Buhler Saline Gel nasal spray Take 2 sprays 4 times a day by nasal route for 30 days. 2023 active Not Available Not Available Not Avai lable BD Ultra-Fin e Mini Pen Needle 31 gauge x 10/09 active Not Available Not Available Not Available [...] Available No t Available Comfort EZ Pen [place] 31 gauge x 5/16 USE 1 DAILY [...] Updated DateTime 10/19/2024 154.94 cm 30.4 kg/m2 91022.37 g Denisa Wren [facility] 10/19/2024 10:06:52 Date Recorded Body height Body mass index (BMI) Body weight Provider Name and Address Organization Details Last Updated DateTime 04/08/2024 154.94 cm 30.6 kg/m2 80835.96 g Miles Ty [facility] 04/08/2024 13:13:56 Social History None recorded. [...] Diagnosis ICD10 Code Diagnosis Note [id number] JOANN KETCHEN, PA-C [facility] [address] [place] [address] 02/17/2024 13:30:00 02/17/2024 14:08:31 Perforation of nasal septum 14712612 J34.89 Sore throat 389463724 J0 2.9 [id number] JOANN MARTINEZ PA-C [facility] [address] [place] [address] 04/08/2024 13:10:24 04/11/2024 13:18:00 Disorder of the nose 50908365 J34.89 Perforatio n of nasal septum 26563510 J34.89 Tumor of r espiratory system 408845534 D49.1 [id number] XIAO THOMASON MD [facility] [address] [place] [address] 10/19/2024 09:58:12 10/19/2024 10:35:11 Perforation of nasal septum 33643657 J34.89 Chronic hoarseness 62585 70121 105 R49.0 Chronic rhinitis 4736592 6 J31.0 Health Concerns Section Related Observation LastModified by Organization Detai ls LastModified Time None Recorded Concern Status LastModified by Organization Details LastModified Time None Recorded Advance Directives Directive None Recorded Payers Insurance Date Sequence Insurance Name Policy Number Policy Camacho Covered Member ID Camacho Member ID Guarantor Name 10/19/2024 1 [place] [facility] Sarah Quick [id number] Sarah Quick Notes Date Note Type Note [...] or saline spray. JASMYN CASTELLANOS MD [address] [facility], [address],[place] [address], [place], [address], [facility] - [facility] 02/18/2024 14:22:54 04/08/2024 text/html 58 year old laura steele presents for re-evaluation. [place] like her throat infection fully resolved with [...] irrigant. Distilled water. MODESTO FELTON MD [address] [facility],[place] [address], [place], [address], [facility] - [facility] 04/11/2024 07:33:26 10/19/2024 text/html Patient with [...] dayNo alcohol or marijuana XIAO HERRERA MD [address] [facility], [place], [address], [facility] - [facility] 10/19/2024 10:36:59 OBGyn Episode No OBEpisode recorded.
== END 2025-01-05 09:58 | disposition home or self-care (01) ==
LOC: HO.HHCX 09:57
PROVIDERS: Visit Provider Family Medicine
DX: N17.9 Acute kidney failure, unspecified (principal)
CPT/HCPCS: 71046

== ENCOUNTER → 2025-01-05 09:58 | Outpatient (BNV) | payer MEDICAID, SELFPAY | PROVIDERS: Visit Provider Radiology Diagnostic Radiology | DX: J84.10 Pulmonary fibrosis, unspecified (principal) | CPT/HCPCS: 71046 ==

== ENCOUNTER 2025-01-05 10:12 | Outpatient (REF) | payer MEDICAID, SELFPAY ==
[2025-01-05 11:22] LABS: Appearance Urine Clear; Color Urine Yellow; Glucose Urine UA Negative (Negative); Leukocyte Esterase Urine Trace (Negative); Nitrite Urine Negative (Negative); UMIC TRIGGER UACC YES; Urine Blood Negative (Negative); Urine Ketones Trace mg/dL (Negative); Urine Protein Negative (Neg-Trace)
[2025-01-05 11:24] LABS: Bacteria Urine Trace (None Seen); RBC Urine 0-2 /HPF (0-2); WBC Urine 0-5 /HPF (0-5)
[2025-01-05 11:31] LABS: Estimated Average Glucose 126 mg/dL; Hemoglobin A1C 129.0416 umol/L
[2025-01-05 11:50] LABS: Anion Gap 14 (12-20); Blood Urea Nitrogen 27 mg/dL (9-16); Calcium 9.8 mg/dL (8.4-10.2); Carbon Dioxide 26 mmol/L (22-29); Chloride 105 mmol/L (96-108); Estimated Glomerular Filt Rate 56; Glucose Random 93 mg/dL (60-115); Sodium 141 mmol/L (135-145)
[2025-01-05 12:09] LABS: Vitamin D 25-OH Total 40.6 ng/mL (>30)
== END 2025-01-05 10:13 | disposition home or self-care (01) ==
LOC: HO.HHCL 10:12
PROVIDERS: Nurse Practitioner Primary Care; Visit Provider Family Medicine
DX: Z13.89 Encounter for screening for other disorder (principal)
CPT/HCPCS: 36415; 80048; 81001; 82306; 83036

== ENCOUNTER 2025-01-25 12:27 | Outpatient (AMB) | payer MEDICAID, SELFPAY ==
--- NOTE | 2025-01-25 12:33 | A.OFFVIS_ITS ---
Vital Signs 01/25/25 12:45 Height 5 ft 1 in Weight 160 lb BMI 30.2 BP 134/68 Blood Pressure Location Lt brachial Position Sitting Pulse 119 H Pulse Oximetry (%) 96 Oxygen Delivery Method Room Air Intake Visit Reasons: F/U r/s 12/13/24 N/V Intake Note: Patient cc: vomiting, chronic abdominal pain, diarrhea on and off, one week ago patient was using the bathroom and have a blood clots with her stool, and marylou e swallowing difficulty with back/neck pain. Back Pad Inspector Required: Yes Back Pad Inspector Name: [facility] interpeter Accompanied by: Self / Same As Patient Allergies latex (LATEX) Allergy (Intermediate, Verified 01/25/25 12:38) RASH; redness ciprofloxacin (From CIPRO) Adverse Reaction (Intermediate, Verified 01/25/25 12:38) Diarrhea HPI HPI F/U r/s 12/13/24 N/V: Details: Assessment & Plan (1) Abdominal cramping: Code(s): R10.9 - Unspecified abdominal pain Category: Medical (2) GERD (gastroesophageal reflux disease): Code(s): K21.9 - Gastro-esophageal reflux disease without esophagitis Category: Medical (3) Chronic idiopathic constipation: Code(s): K59.04 - Chronic idiopathic constipation Category: Medical (4) DJD (degenerative joint disease), lumbar: Code(s): M47.816 - Spondylosis without myelopathy or radiculopathy, lumbar region Category: Medical (5) Flank pain: Code(s): R10.9 - Unspecified abdominal pain Category: Medical (6) Back pain: Comment: lower Code(s): M54.9 - Dorsalgia, unspecified Category: Medical Plan Pashto #declines We review the imaging and since we do not have access to endoscopic ultrasound at this time I think will repeat the MRI with liver protocol in 6 months. So far it appears just to be a cyst of the pancreas. The dicyclomine has greatly helped her abdominal pain and she is now moving her bowels well and has well controlled GERD on her pantoprazole. She has a new problem that started about 3 months ago the pain that seems to start in the mid to low back and wraps around mostly the left flank but sometimes the right flank. This pain is not affected by eating or moving her bowels, but is somewhat worse at the end of the day and will frequently wake her up in the middle of the night with pain. She describes the pain as throbbing and it also radiates down her legs. She had a recent MRI of her back ordered by her primary care provider at [facility] that shows extensive lumbar degenerative disc disease with disc bulges. I think it is entirely likely that this is related to her back she also has advanced facet arthropathy. I explained this to her and recommend that some Tylenol along with a low-dose Motrin may be helpful. Since she is not seeing her primary care provider for quite some time to follow up on the MRI I will refer her to pain management for consideration of additional therapy and I will get an x-ray of her thoracic spine to see how much this could be contributing to the pain. Return office visit in 6 months Orders: Orders XR thoracic spine 2V Today M47.816 - Spondylosis without myelopathy or radiculopathy, lumbar region, M54.9 - Dorsalgia, unspecified, R10.9 - Unspecified abdominal pain Referrals Pain Management Referral M47.816 - Spondylosis without myelopathy or radiculopathy, lumbar region, M54.9 - Dorsalgia, unspecified, R10.9 - Unspecified abdominal pain XR THORACIC SPINE 01/05/2025 FINDINGS: No acute visible fracture or dislocation. Levocurvature of the mid thoracic spine. Mild multilevel degenerative changes of the thoracolumbar and lumbosacral spine. Vertebral body has not displaced or maintained. Posterior elements are intact. Paraspinal soft tissues unremarkable. Visualized portions of the chest are unremarkable. XR/XR thoracic spine 2V IMPRESSION: 1. No acute visible fracture or dislocation. 2. Levocurvature of the mid thoracic spine. 3. Mild multilevel degenerative changes of the thoracolumbar and lumbosacral spine. TODAYS VISIT Pashto # Phyllis johnson later live Next office visit repeat MRI to check on pancreatic cyst. Her GI regimen consists of dicyclomine, Linzess, lansoprazole, and famotidine for breakthrough. She was seen in the ER for increasing upper abd pain and N/V. This is similar to the pain we discussed at her last visit but it has gotten much worse. The pain occurs most every day, but is episodic int that she may have 4-5 hours w/o the pain. At times it wakes her up in pao middle of the night. She has not had an appetite which she feels is r/t the pain. She is eating very small portions, but eating DOES seem to worsen the pain; onset of about 1/2-1 hr after initiation of eating. The pain is describes as crushing /twisting and she does have a feeling of movement like my intestines are twisting. She is only using the LInzess 145mcg prn, and I think that the starting and stopping of the colon is a part of the pain. She admits that if she takes it daily she has diarrhea, so clearly the dose is too strong. Lowering to 72mcg. Also, with conversation, she has run out of her bentyl, increasing this to 20mg from 10mg and re initiating as she admits this helped with the pain. The pain always starts on the left side and is worse on that side. With this I really believe the only organ that this could be is the bowels since she does not have any breathing problems or cough, she has not been in any motor vehicle accidents, and the CAT scans seem to take renal pain such as nephrolithiasis out of the differential diagnosis. She also did not have a UTI. ROV 4 weeks. [facility] Medical History Patellofemoral arthralgia of right knee Abdominal wall mass Fibromyalgia Chronic pain syndrome Postlaminectomy syndrome Osteopenia Back pain Irritable bowel syndrome (IBS) GERD (gastroesophageal reflux disease) Fibromyalgia Anxiety disorder Depression Lung nodule Asthma Personal history of tuberculosis COPD (chronic obstructive pulmonary disease) Elevated cholesterol HTN (hypertension) Surgical History Presence of right artificial knee joint Presence of left artificial knee joint History of back surgery Hx of section Hx of total knee replacement H/O hernia repair History of esophagogastroduodenoscopy (EGD) H/O colonoscopy Family History Father Cancer Mother Kidney problem Hypertension CVD (cardiovascular disease) Paternal Uncle Cancer Colon cancer Brother Cancer Brother Colon cancer Social History Household Members Other:: self Housing: Apartment Do you presently have visiting nurse or other home services: Yes (CARDIAC SPECIALIST) Alcohol intake: never Patient Tobacco Use Status: Current everyday Tobacco user Tobacco use type: Cigarette Cigarettes Per Day: 3 Second Hand Smoke Exposure: No service: No Review of Systems Const Denies fatigue, Denies fever(s), Denies night sweats, Denies poor appetite and Denies weight loss Eyes Reports requires corrective lenses ENT Reports Normal hearing present, Denies dental pain, Denies dysphagia, Denies hearing loss, Denies mouth pain, Denies odynophagia, Denies throat swelling, Denies tongue swelling and Reports other (Dentition adequate) GI Details: Denies abdominal pain, Denies melena, Denies bloating, Denies hematochezia, Denies constipation, Denies GI cramping, Denies dysphagia, Denies excessive flatus, Denies early satiety, Denies heartburn, Denies diarrhea, Denies nausea, Denies odynophagia, Denies vomiting and Denies hematemesis Skin/Breast Denies pruritus, Denies lesions, Denies rash and Denies jaundice Neuro Reports Normal hearing present and Denies Abnormal speech present Endo Denies fatigue Aller/Immun Denies throat swelling and Denies tongue swelling Physical Exam Vital Signs: Last Vital Signs Pulse 119 H 01/25/25 12:45 BP 134/68 01/25/25 12:45 Pulse Ox 96 01/25/25 12:45 Oxygen Delivery Method Room Air 01/25/25 12:45 BMI result Body Mass Index 30.2 Const General: cooperative, no acute distress, well developed and well groomed Nutritional Appearance: well nourished, obese and overweight Orientation/consciousness: oriented to person, oriented to place and oriented to time Limitations: No language barrier, ambulation with cane, ambulation with walker and wheelchair HEENT Head: Yes normocephalic and Yes atraumatic Eyes General: appearance normal, both eyes and all related structures Pupils: Equal, round and reactive pupils present Neck Neck: Yes normal visual inspection and Yes no lymphadenopathy Thyroid: Thyroid normal Resp Effort & Inspection: normal respiratory effort and able to speak in complete sentences Auscultation: clear to auscultation bilaterally Cardio Rate: regular rate Rhythm: regular rhythm Heart sounds: Normal, physiologic split S2 sound present Peripheral pulses: radial pulses present and posterior tibial pulses present GI Inspection: No distended and No Abdominal panniculus present Palpation (GI): Soft to palpation, nontender, no guarding, not rigid, No hepatosplenomegaly present and Hepatosplenomegaly present Percussion: Yes normal to percussion Auscultation: normal bowel sounds Rectal Exam - Female: deferred Skin General skin exam: no rashes or lesions noted, turgor normal, skin not dry, no jaundice, No spider nevi and no striae Rashes: no rashes Nails: normal Neuro General: oriented to person, oriented to place and oriented to time Cranial nerves: Yes Equal, round and reactive pupils present and Yes Normal hearing present Speech: No Abnormal speech present Extrem General: Yes normal to inspection, No clubbing, No cyanosis and No edema Psych Thought process: Normal thought process present and not confabulating Thought content: Normal thought content present Insight: Good insight present (Psych) Judgement: Good judgement present (Psych) Results Reviewed Results Reviewed: 12/15/24 12/15/24 12/15/24 Range/Units 00:58 01:51 03:29 WBC 14.4 H (4.8-10.8) X10*3/uL RBC 3.75 L (4.20-5.50) X10*6/uL Hgb 11.5 L (12.0-16.0) g/dl Hct 34.4 L (37.0-47.0) % MCV 91.7 (80.0-98.0) fL MCH 30.7 (27.0-33.0) pg MCHC 33.4 (31.0-35.0) g/dl RDW 13.4 (11.0-16.0) % Plt Count 330 (160-400) X10*3/uL MPV 10.8 (9.4-12.3) fL Immature Gran % (Auto) 0.3 (0.0-0.4) % Neut % (Auto) 66.3 (45-73) % Lymph % (Auto) 18.6 L (20-40) % Wilkes % (Auto) 7.5 (2-11) % Eos % (Auto) 6.5 H (0-4) % Baso % (Auto) 0.8 (0-2) % Lymph # (Auto) 2.7 (1.2-4.9) X10*3/uL Wilkes # (Auto) 1.1 (0.1-1.2) X10*3/uL Eos # (Auto) 0.9 H (0.0-0.4) X10*3/uL Baso # (Auto) 0.1 (0.0-0.2) X10*3/uL Abs Immat Gran (auto) 0.05 H (0.00-0.03) X10*3/uL Absolute Neuts (auto) 9.5 H (2.0-8.3) x10*3/uL Absolute Nucleated RBC 0.000 (0.0-0.012) X10*3/uL Nucleated RBC % (auto) 0.0 (0.0-0.2) /100WBC Sodium 144 141 (135-145) mmol/L Potassium 3.8 4.8 D (3.3-5.1) mmol/L Chloride 107 111 H (96-108) mmol/L Carbon Dioxide 24 14 L (22-29) mmol/L Anion Gap 17 21 H (12-20) BUN 17 H 16 (9-16) mg/dL Creatinine 1.72 H 1.57 H (0.5-1.4) mg/dL Estim Creat Clear Calc 31.8 34.9 Estimated GFR 30 33 Random Glucose 114 100 (60-115) mg/dL Calcium 9.9 9.7 (8.4-10.2) mg/dL Total Bilirubin 0.1 (0.0-1.0) mg/dL Direct Bilirubin < 0.2 (0.0-0.5) mg/dL AST 19 (5-31) U/L ALT 11 (0-31) U/L Alkaline Phosphatase 91 (39-117) U/L Troponin I High Sens < 2.7 (<3.5-17.0) ng/L Total Protein 7.1 (6.5-8.0) g/dL Albumin 4.2 (3.5-5.0) g/dL Lipase 31 (8-78) U/L Urine Color Yellow Urine Appearance Cloudy Urine pH 5.5 (5.0-9.0) Ur Specific [place] 1.015 (1.005-1.025) Urine Protein Negative (Neg-Trace) mg/dL Urine Glucose (UA) Negative (Negative) mg/dL Urine Ketones Negative (Negative) mg/dL Urine Blood Negative (Negative) Urine Nitrite Negative (Negative) Ur Leukocyte Esterase Small (1+) H (Negative) Urine RBC 0-2 (0-2) /HPF Urine WBC 0-5 (0-5) /HPF Ur Squamous Epith Cells >20 (0-2) /HPF Urine Bacteria None Seen (None Seen) Hyaline Casts >20 (0-2) /LPF CT ABDOMEN PELVIS 12/15/2024 Findings: Minor atelectasis at the lung bases. 2.7 x 1.5 x 1.7 cm uncinate process pancreas cystic lesion similar to the prior exam. Gallbladder and solid organs otherwise unremarkable. No bowel obstruction, pneumoperitoneum, or pneumatosis. Hysterectomy. Ovaries not identified. Appendectomy. The bones are intact. IMPRESSION: Pancreatic cystic lesion again noted. No inflammatory changes. Assessment & Plan Assessment & Plan (1) Chronic idiopathic constipation: Code(s): K59.04 - Chronic idiopathic constipation Category: Medical (2) GERD (gastroesophageal reflux disease): Code(s): K21.9 - Gastro-esophageal reflux disease without esophagitis Category: Medical (3) Flank pain: Code(s): R10.9 - Unspecified abdominal pain Category: Medical (4) Epigastric pain: Code(s): R10.13 - Epigastric pain Category: Medical (5) Abdominal cramping: Code(s): R10.9 - Unspecified abdominal pain Category: Medical (6) Pancreatic lesion: Comment: CT 10/23/[address] ordered by PCP Enlarging pancreatic head low density lesion demonstrating minimal enhancement by approximately 13 Hounsfield units measuring approximately 2.6 x 1.5 x 2.5 cm in size. There is no associated calcification or pancreatic duct dilatation. The above appearance could be seen with serous cystic neoplasm or mucinous cystic neoplasm. An intraductal papillary mucinous neoplasm would seem somewhat less likely due to no dilatation of the pancreatic duct. Less likely, this could be seen with solid pseudopapillary epithelial neoplasm or cystic degeneration of adenocarcinoma, neuroendocrine tumor. Code(s): K86.9 - Disease of pancreas, unspecified Category: Medical Plan Pashto # Phyllis johnson later live Next office visit repeat MRI to check on pancreatic cyst. Her GI regimen consists of dicyclomine, Linzess, lansoprazole, and famotidine for breakthrough. She was seen in the ER for increasing upper abd pain and N/V. This is similar to the pain we discussed at her last visit but it has gotten much worse. The pain occurs most every day, but is episodic int that she may have 4-5 hours w/o the pain. At times it wakes her up in pao middle of the night. She has not had an appetite which she feels is r/t the pain. She is eating very small portions, but eating DOES seem to worsen the pain; onset of about 1/2-1 hr after initiation of eating. The pain is describes as crushing /twisting and she does have a feeling of movement like my intestines are twisting. She is only using the LInzess 145mcg prn, and I think that the starting and stopping of the colon is a part of the pain. She admits that if she takes it daily she has diarrhea, so clearly the dose is too strong. Lowering to 72mcg. Also, with conversation, she has run out of her bentyl, increasing this to 20mg from 10mg and re initiating as she admits this helped with the pain. The pain always starts on the left side and is worse on that side. With this I really believe the only organ that this could be is the bowels since she does not have any breathing problems or cough, she has not been in any motor vehicle accidents, and the CAT scans seem to take renal pain such as nephrolithiasis out of the differential diagnosis. She also did not have a UTI. ROV 4 weeks. Because of the need for very careful questioning of her symptoms, the patient has limited ability to communicate them, and review of all of the ER paperwork this was a very long visit. Medications: New linaclotide (Linzess) 72 mcg PO QAM 30 caps 6RF K59.04 - Chronic idiopathic constipation dicyclomine 20 mg PO QID 120 tabs 1RF 30 days Coding Level of Care Code Est Pt Level 4 (94428) Diagnoses Chronic idiopathic constipation K59.04 GERD (gastroesophageal reflux disease) K21.9 Flank pain R10.9 Epigastric pain R10.13 Abdominal cramping R10.9 Pancreatic lesion K86.9 Time Spent (min) 42
[2025-01-25 12:45] VITALS: BP 134/68; PULSE 119; O2SAT 96; BMI 30.2
--- OUTSIDE RECORDS SUMMARY | 2025-01-25 12:59 | XMS_ITS | Data Portability ---
Author Organization [place] - [facility], Allergy Address [address] [facility] 100 [place] [address] Care Team Providers Care Political Researcher Name Role Phone SIRENA VÁSQUEZ Primary Care [...] Orders mupirocin 2 % topical ointment [address]23 [facility], [address] [place] [address], [id number], 10/19/2024 18:15:17 [place] Saline nasal gel [address]23 [facility], [address] [place] [address], [id number], 02/17/2024 14:51:45 [place] Saline Gel nasal spray [address] [facility], [address] [place] [address], [id number], 02/17/2024 14:51:45 Patient TargetsNo targets recorded. Patient Instructions Encounter Date Encounter Id Patient Instructions Last Modified By Organization Details Last Modified Time 10/19/2024 [id number] Patient with chronic rhinitis and throat irritation [...] Address Organization Details Recorded Time Chronic rhinitis 87161994 Active 2022 Chronic rhinitis; Note: Date Diagnosed : 10/13/2022 3:19 PM (J31.0) Not Available [facility] 4 03:12:22 Chronic pharyngit is 731425 Active 2022 Chronic sore throat; Note: Date Diagnosed : 01/30/2023 1:47 PM (J31.2) Not Available [facility] 4 03:12:23 Dysphonia 79216391 Active 2022 Hoarsenes s; Note: Date Diagnosed : 10/13/2022 3:19 PM (R49.0) Not Available [facility] 4 03:12:23 Pain of right temporoma ndibular joint 49672769414 689240 Active 2022 Arthralgi a of right temporoma ndibular joint; Note: Date Diagnosed : 10/13/2022 3:19 PM (M26.621) Not Available [facility] 4 03:12:23 Otalgia of right ear 4633367349 Active 2022 Otalgia, right ear; Note: Date Diagnosed : 01/30/2023 1:47 PM (H92.01) Not Available [facility] 4 03:12:22 Disorder of nasal sinus 9902887 Active 2022 Perforati on of nasal septum NOS; Note: Date Diagnosed : 10/13/2022 3:19 PM (J34.89) Not Available [facility] 4 03:12:23 Disorder of the nose 07077392 Active 2022 Perforati on of nasal septum NOS; Note: Date Diagnosed : 10/13/2022 3:19 PM (J34.89) Not Available [facility] 4 03:12:23 Perforati on of nasal septum 17624500 Active 2023 JOANN MARTINEZ PA-C [address] 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 [address], [place], [address] , [place] - [facility] 5 10:36:25 Problem Notes None recorded. Procedures Surgical History Date Name Laterality Status Provider Name and Address Organization Details Recorded Time 10/20/19 25 Fiberoptic Laryngoscopy (Comprehensive) completed XIAO HERRERA MD [address] [facility] [address] [facility], [place], [address], [facility] - [facility] 10/19/2024 10:36:08 04/08/20 24 Nasal Endoscopy completed JOANN MARTINEZ PA-C [address], [place], [address], [place] - [facility] 04/08/2024 17:25:07 hernia repair completed Sirena Cerrato [place] - [facility] 02/17/2024 13:41:26 Appendectomy completed Sirena Cerrato [place] - [facility] 02/17/2024 13:41:31 section completed Sirena Cerrato [place] - [facility] 02/17/2024 13:41:41 Hysterectomy completed Sirena Cerrato [place] - [facility] 02/17/2024 13:41:47 total knee replacement completed Sirena Cerrato [place] - [facility] 02/17/2024 13:41:57 procedure on spine completed Sirena Cerrato [place] - [facility] 02/17/2024 13:42:02 Imaging Results None recorded. Procedure Notes None recorded. Medical Equipment None Reported. Allergies Allergen ID Allergen Name Allergen Category Reaction Reaction Severity Criticality Documentation Date Start Date Code Code System Note Provider Name and Address Organization Details Recorded Time 842260 Cipro medicatio n other Not available Not available 12/08/202342154 3 RxNorm React ion: Unkno wn; Not Available [facility] 01:27:10 Medications Name Sig Start Date Stop Date Status Note LastModified by Organization Details LastModified Time pulse oximet airial [id number] USE DAILY NEEDED FOR SHORTNES S OF [...] Not Available Not Available No t Available [place] Saline nasal gel APPLY 1 APPLICAT ION [...] hr,extend ed release active Medicati on ID: [id number] B senia Name: diltiaze m HCl Send [...] mg tablet 02/16 completed Medicati on ID: [id number] B rand Name: metoprol ol tartrate Send Method: E-Prescr ibed Sub s Allowed: subs OK Speci al Instruct ion: TAKE 1 AND 1/2 TABLETS BY MOUTH TWICE DAILY Me dication GenericN cristi: metoprol ol tartrate Medicat ion ID: [id number] B rand Name: metoprol ol tartrate Send Method: E-Prescr ibed Sub s Allowed: subs OK Speci al Instruct ion: TAKE 1 AND 1/2 TABLETS BY MOUTH TWICE DAILY Me dication GenericN cristi: metoprol ol tartrate Not Available Not Available Not Available [place] Saline Gel nasal spray Take 2 sprays [...] Available No t Available Comfort EZ Pen [place] 31 gauge x 5/16 USE 1 DAILY [...] Updated DateTime 10/19/2024 154.94 cm 30.4 kg/m2 16588.37 g Denisa Wren [facility] 10/19/2024 10:06:52 Date Recorded Body height Body mass index (BMI) Body weight Provider Name and Address Organization Details Last Updated DateTime 04/08/2024 154.94 cm 30.6 kg/m2 01523.96 g Miles Ty [facility] 04/08/2024 13:13:56 Social History None recorded. Functional Status None recorded. Mental Status None recorded. Family History Nothing Reported. Medical History Condition Response Emphysema Y COPD Y Asthma Y GERD/Reflux Y Hypertension Y Gynecological HistoryNo gynecological history recorded. Obstetrics History GPAL:G 0 P 0 0 0 0 Past Encounters Encounter ID Performer Location Encounter Start Date Encounter Closed Date Diagnosis/Indication Diagnosis SNOMED-CT Code Diagnosis ICD10 Code Diagnosis Note [id number] JOANN MARTINEZ PA-C [facility] [address] [place] [address] 02/17/2024 13:30:00 02/17/2024 14:08:31 Perforation of nasal septum 14933326 J34.89 Sore throat 516123356 J0 2.9 [id number] JOANN MARTINEZ PA-C [facility] [address] [place] [address] 04/08/2024 13:10:24 04/11/2024 13:18:00 Disorder of the nose 09870757 J34.89 Perforatio n of nasal septum 65464466 J34.89 Tumor of r espiratory system 416001154 D49.1 [id number] XIAO THOMASON MD [facility] [address] [address] 10/19/2024 09:58:12 10/19/2024 10:35:11 Perforation of nasal septum 89979374 J34.89 Chronic hoarseness 28560 52838 105 R49.0 Chronic rhinitis 7939280 6 J31.0 Health Concerns Section Related Observation LastModified by Organization Detai ls LastModified Time None Recorded Concern Status LastModified by Organization Details LastModified Time None Recorded Advance Directives Directive None Recorded Payers Insurance Date Sequence Insurance Name Policy Number Policy Camacho Covered Member ID Camacho Member ID Guarantor Name 10/19/2024 1 [place] [facility] Sarah Quick [id number] Sarah Quick Notes Date Note Type Note [...] or saline spray. JASMYN CASTELLANOS MD [address] [facility] [address], [address], [facility] - [facility] 02/18/2024 14:22:54 04/08/2024 text/html 58 year old laura steele presents for re-evaluation. [place] like her throat infection fully resolved with [...] irrigant. Distilled water. MODESTO FELTON MD [address] [facility],[address], [address], [facility] 04/11/2024 07:33:26 10/19/2024 text/html Patient with [...] alcohol or marijuana XIAO HERRERA MD [address] [facility] [address], [place], [address], [facility] - [facility] 10/19/2024 10:36:59 OBGyn Episode No OBEpisode recorded.
--- OUTSIDE RECORDS SUMMARY | 2025-01-25 12:59 | XMS_ITS | Encounter Summary ---
Author Organization [employer] Address [address] [place] [address] Care Team Providers Care Agricultural Real Estate Agent Name Role Phone Isabelle Colon MD Primary Care Provider + Encounter Details Date Type Department Care Team (Late st Contact Info) Description 12/17/2023 Orders Only [facility] [address] [place], [place] [phone] ProviderEliecer MD Social History Tobacco Use Types Packs/Day Years [...] Care Team (Late st Contact Info) Description 04/03/2025 2:30 PM EDT Office Visit [facility] [address] [place] [address] Isabelle Colon MD [address] [place] [phone] documented as of this encounter Procedures Procedure Name Priority Date/Time Associated Diagnosis Comments HM COLONOSCOPY Routine 03/29/2021 10:49 AM EDT documented in this encounter Results * Hm Colonoscopy (03/29/2021 10:49 AM EDT) us Historical Provider HEALTH MAINTENANCE Final Result documented in this encounter Visit Diagnoses Not on filedocumented in this encounter Additional Health Concerns Assessment Noted Time PHQ-9 Depression Total Score: 11 023 9:15 AM EST documented as of this encounter Care Teams Agricultural Real Estate Agent Relationship Specialty Start Date End Date Isabelle Colon MD [address] [place] [id number] PCP - General Family Medicine 05/20/17 [facility] 12/28/24 documented as of this encounter
== END 2025-01-25 13:17 | disposition home or self-care (01) ==
LOC: HO.HGI 12:28
PROVIDERS: Visit Provider Nurse Practitioner
DX: K59.04 Chronic idiopathic constipation (principal); K21.9 Gastro-esophageal reflux disease without esophagitis; R10.9 Unspecified abdominal pain; R10.13 Epigastric pain; K86.9 Disease of pancreas, unspecified
CPT/HCPCS: 99214

== ENCOUNTER → 2025-01-25 12:27 | Outpatient (BNVA) | payer MEDICAID, SELFPAY | PROVIDERS: Visit Provider Nurse Practitioner | DX: K59.04 Chronic idiopathic constipation (principal); K21.9 Gastro-esophageal reflux disease without esophagitis; R10.13 Epigastric pain; R10.9 Unspecified abdominal pain; R13.10 Dysphagia, unspecified | CPT/HCPCS: 99212 ==

== ENCOUNTER 2025-04-07 15:12 | Outpatient (AMB) | payer MEDICAID, SELFPAY ==
--- OUTSIDE RECORDS SUMMARY | 2025-04-03 14:30 | XMS_ITS | Encounter Summary ---
Author Organization [employer] Address [address] [place] [address] [address] [place] [address] Care Team Providers Care Counting Machine Operator Name Role Phone Isabelle Colon MD Primary Care Provider + Reason for Referral * Consultation (Routine) - Closed Specialty Diagnoses / Procedures Referred By Stephanie soni Referred To Contact General Surgery Diagnoses Pancreatic cyst Isabelle Colon MD [address] [place] [id number] Phone: tel: fax: [facility] General Surgeons [address] [place] [address] [address] [place], [place] Phone: tel: fax: Referral ID Status Reason Start Date Expiration Date V isits Requested Visits Authorized [id number] Closed Specialty Services Required 04/06/2025 04/05/2026 1 1 * Imaging (Routine) - Pending Review Specialty Diagnoses / Procedures Referred By Stephanie soni Referred To Contact Radiology Diagnoses Paravertebral mass Procedures MR Thoracic Spine w/o Contrast Isabelle Colon MD [address] [place] [address] Phone: tel: fax: [facility] [address] [place] [address] Phone: tel: fax: Referral ID Status Reason Start Date Expiration Date V isits Requested Visits Authorized [id number] Pending Review 04/03/2025 04/03/2026 1 1 * Imaging (Routine) - Authorized Specialty Diagnoses / Procedures Referred By Stephanie soni Referred To Contact Radiology Diagnoses Screening mammogram for breast cancer Procedures BI Mammogram Screening Tomosynthesis Bilateral Isabelle Colon MD [address] [place] [address] Phone: tel: fax: [address] Phone: tel: fax: Referral ID Status Reason Start Date Expiration Date V isits Requested Visits Authorized [id number] Authorized 04/03/2025 04/03/2026 1 1 Encounter Details Date Type Department Care Team (Late st Contact Info) Description 04/03/2025 2:30 PM EDT Office Visit [facility] [address] [place] [address] Isabelle Colon MD [address], [place] [phone] Encounter for preventive health examination (Primary Dx); Class 1 obesity due to excess calories with serious comorbidity and body mass index (BMI) of 31.0 to 31.9 in adult; Pancreatic cyst; Paravertebral mass; Overweight; Dietary counseling; Exercise counseling; Screening mammogram for breast cancer Social History Tobacco Use Types Packs/Day Years Used Date Smoking Tobacco: Former Cigarettes Passive Smoke Exposure: Current Smokeless Tobacco: Never Tobacco Cessation:Counseling Given: Not Answered Alcohol Use Standard Drinks/Week Comments Not Currently 0 (1 standard drink = 0.6 oz pur e alcohol) social Depression Answer Date Recorded Patient Health Questionnaire-9 Score 9 01/05/2025 Patient Health Questionnaire-9 Score 9 01/05/2025 Last PHQ-9: Questionnaire Data Not on file 0 01/05/2025 Housing Stability Answer Date Recorded What is your housing situation today? I have radha schneider 01/05/[address] you li ve. Do you have problems with any of the following? I am not sure 01/05/2025 Food Insecurity Answer Date Recorded Within the [...] Date Recorded Patient Health Questionnaire-2 Score 2 01/05/2025 Internet Access Answer Date Recorded Internet Access Q1 Yes 03/28/2024 Internet Access Q2 Not on file 03/28/2024 Comments No Sex and Gender Information Value Date Recorded Sex Assigned at Female 05/26/2022 10:21 AM EDT Legal Sex Female 10:21 AM EDT Gender Identity Female 05/26/2022 10:21 AM EDT Sexual Orientation Choose not to disclose 2021 10:21 AM EDT documented as of this encounter Last Filed Vital Signs Vital Sign Reading Time Taken Comments Blood Pressure 126/84 04/03/2025 2:21 PM EDT Pulse 77 04/03/2025 2:21 PM EDT Temperature 36.2 C (97.1 F) 04/03/2025 2:21 PM EDT Respiratory Rate 24 04/03/2025 2:21 PM EDT Oxygen Saturation 94% 04/03/2025 2:21 PM EDT Inhaled Oxygen Concentration - - Weight 74.5 kg (164 lb 3.2 oz) 04/03/2025 2:21 P M EDT Height 154.9 cm (5' 1 ) 04/03/2025 2:21 PM EDT Body Mass Index 31.03 04/03/2025 2:21 PM EDT documented in this encounter Progress Notes * Isabelle Colon MD - 04/03/2025 2:30 PM EDT SUBJECTIVE: Sarah Quick is a 59 y.o. year old female who presents for routine physical exam. Deniesrecent illness, injury, or hospitalization. Patient here for PE. -PAP smear: N/A sec to [facility] -Colonoscopy: 2020 benign polyps -Mammogram: 2022 -BMD test: 2022, fu by endocrinology. 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 Patient has not seen surgery in over a year for follow-up of pancreatic cyst Social History Social History Narrative Not on file Problem List[1] Family History[2] Review of Systems Constitutional: Negative for chills, fatigue and fever. HENT: Negative for congestion, ear pain, nosebleeds, rhinorrhea, sinus pressure, sore throat and trouble swallowing. Eyes: Negative for pain and discharge. Respiratory: Positive for cough and shortness of breath. Negative for chest tightness. Cardiovascular: Negative for chest pain, palpitations and leg swelling. Gastrointestinal: Negative for abdominal pain, blood in stool, constipation, diarrhea and nausea. Endocrine: Negative for polydipsia and polyuria. Genitourinary: Negative for dysuria, frequency, genital sores, pelvic pain and vaginal discharge. Musculoskeletal: Positive for arthralgias and back pain. Negative for neck pain. Skin: Negative for rash. Allergic/Immunologic: Negative for environmental allergies. Neurological: Negative for dizziness, seizures, weakness, light-headedness and headaches. Hematological: Negative for adenopathy. Psychiatric/Behavioral: Negative for agitation, behavioral problems, self-injury and suicidal ideas. OBJECTIVE: Vitals: 04/03/25 1421 BP: 126/84 Pulse: 77 Resp: 24 Temp: 97.1 ??F (36.2 ??C) SpO2: 94% Physical Exam HENT: Right Ear: Tympanic membrane and ear canal normal. Left Ear: Tympanic membrane and ear canal normal. Mouth/Throat: Mouth: Mucous membranes are moist. Pharynx: No oropharyngeal exudate or posterior oropharyngeal erythema. Eyes: Pupils: Pupils are equal, round, and reactive to light. Cardiovascular: Rate and Rhythm: Regular rhythm. Pulses: Normal pulses. Heart sounds: Normal heart sounds. No murmur heard. Pulmonary: Breath sounds: Examination of the right-middle field reveals wheezing. Examination of the left-middle field reveals wheezing. Examination of the right- lower field reveals wheezing. Examination of theleft-lower field reveals wheezing. Wheezing present. Abdominal: General: Bowel sounds are normal. Palpations: Abdomen is soft. Tenderness: There is no abdominal tenderness. Musculoskeletal: General: Normal range of motion. Cervical back: Neck supple. Thoracic back: Tenderness (over 7-11-12 area on left side/paravertebral area) present. Lumbar back: Tenderness present. Skin: General: Skin is warm. Neurological: General: No focal deficit present. Mental Status: She is alert and oriented to person, place, and time. Psychiatric: Mood and Affect: Mood normal. Behavior: Behavior normal. Problem List Items Addressed This Visit Encounter for preventive health examination - Primary Discussed with patient re increase fresh fruit and vegetable intake. Counseled re moderate exercise as tolerated, up to 20min/d Patient feels safe at home. PAP smear: N/A, she had hysterectomy. Mammogram: Overdue, TBO Bone density test: UTD, simply restarted on Forteo by planimeter operator and tolerates well. Follow-upwith planimeter operator Eye exam: Information not available will attain information from Eye and Lasik office. CRC screen: UTD, next one due 2030. Lipids/FBS: UTD, next one due December 2025 Vaccinations: Will need Covid, RSV, and Flu in the fall, advised to get them at earliest convenience, other IZ are UTD. Dental visit : UTD, next one due April 2025 I gave her information about healthcare proxy Class 1 obesity due to excess calories with serious comorbidity and body mass index (BMI) of 31.0 to 31.9 in adult Patient has obesity, BMI of 31. Discussed re weight reduction options including exercise, life style modifications, diet. Recommended to decrease soda and sugary beverage consumption, increase protein intake with meals (at least 1 portion of protein with each meal) to assist with satiety, increase dietary fiber Recommended at least 150 min/week of moderate intensity exercise. 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 Order MRI of the T spine Continue lidocaine patch as needed RESOLVED: Overweight Screening mammogram for breast cancer Missed appointment on 2023, will order mammogram Other Visit Diagnoses Dietary counseling Exercise counseling Follow Up: Medications Ordered Prior to Encounter[3] [1] Patient Active Problem List Diagnosis Abdominal mass COPD exacerbation (CMS/HCC) Chronic obstructive lung disease (CMS/HCC) Pulmonary emphysema (CMS/HCC) Asthenia Asthma Contact dermatitis due to acid COVID-19 Pancreatic cyst Depressive disorder Diarrhea Dizziness Epigastric pain Essential hypertension Food insecurity Backache Greater trochanteric pain syndrome Hip pain History of arthroplasty of left knee History of total knee arthroplasty Hyperlipidemia Knee pain Bilateral leg edema Moderate persistent asthma with acute exacerbation Lung mass Myositis Nail discoloration Nonrheumatic aortic valve insufficiency Osteoporosis Recurrent major depression in partial remission (CMS/HCC) Shoulder pain Sinus tachycardia Urinary incontinence, mixed Vascular insufficiency Lower urinary tract symptoms (LUTS) IFG (impaired fasting glucose) Mid back pain on left side Dental abscess Primary osteoarthritis of both knees Periodontal disease Rib pain on left side Renal cyst, acquired, left Screening mammogram for breast cancer Encounter for preventive health examination Acute pain of left knee Preop examination Lumbar radiculopathy, chronic Dermatitis Hypercalcemia Subacute pansinusitis Vitamin D deficiency Encounter for immunization Right leg pain Degeneration of intervertebral disc of lumbar region with discogenic back pain and lower extremity pain Class 1 obesity due to excess calories with serious comorbidity and body mass index (BMI) of 31.0 to 31.9 in adult Left hip pain Dysfunction of right eustachian tube Ill-fitting dentures Paravertebral mass [2] No family history on file. [3] Current Outpatient Medications on File Prior to Visit Medication Sig Dispense Refill Acetaminophen Extra Strength 500 MG tablet TAKE 1 TO 2 TABLETS BY MOUTH EVERY 6 HOURS NEEDED FORPAIN OR FEVER 90 tablet 3 albuterol (2.5 MG/3ML) 0.083% nebulizer solution INHALE 1 AMPULE USING A NEBULIZER THREE TIMES DAILY NEEDED FOR SHORTNESS OF BREATH / FOR ASTHMA 90 mL 1 albuterol 108 (90 Base) MCG/ACT inhaler Inhale 2 puffs every 4 (four) hours if needed for wheezing. Aspirin Low Dose 81 MG EC tablet TAKE 1 TABLET BY MOUTH EVERY DAY IN THE MORNING 90 tablet 3 atorvastatin (Lipitor) 20 MG tablet TAKE 1 TABLET BY MOUTH EVERY DAY 90 tablet 1 [place] Saline Nasal gel APPLY 1 APPLICATION IN EACH NOSTRIL EVERY DAY IN THE EVENING DIRECTED azelastine (Astelin) 0.1 % nasal spray Administer 1 spray into each nostril Once per day. Use in each nostril as directed 30 mL 0 azithromycin (Zithromax) 500 MG tablet Take 1 tablet by mouth 3 (three) times a week. Thursday, Thursday, Thursday Blood Pressure Monitoring (Blood Pressure Cuff) misc Use daily as prescribed 1 each 0 calcium carbonate 1500 (600 Ca) MG tablet TAKE 1 TABLET BY MOUTH TWICE DAILY WITH BREAKFAST AND WITH DINNER 180 tablet 3 clonazePAM (KlonoPIN) 1 MG tablet Comfort EZ Pen [place] 31G X 8 MM misc USE 1 DAILY WITH FORTEO dicyclomine (Bentyl) 10 MG capsule Take 1 capsule by mouth in the morning and 1 capsule at noon and1 capsule in the evening. dilTIAZem ER (Tiazac) 240 MG 24 hr capsule doxepin (SINEquan) 75 MG capsule TAKE 1 CAPSULE BY MOUTH ONCE DAILY AT BEDTIME ergocalciferol (Vitamin D2) 1.25 MG (29492 UT) capsule TAKE 1 CAPSULE BY MOUTH ONCE PER WEEK 12 capsule 1 escitalopram (Lexapro) 20 MG tablet Take 1 tablet by mouth at bed time. famotidine (Pepcid) 40 MG tablet TAKE 1 TABLET BY MOUTH AT BEDTIME 90 tablet 1 fluticasone (Flonase) 50 MCG/ACT nasal spray INSTILL 1-2 SPRAYS IN EACH NOSTRIL ONCE DAILY NEEDED 48 g 1 Forteo 560 MCG/2.24ML solution pen-injector Inject 20 mcg under the skin Once per day. FREESTYLE LITE test strip TEST BLOOD SUGAR ONCE A DAY 100 each 12 hydroCHLOROthiazide 12.5 MG tablet Take 1 tablet (12.5 mg) by mouth Once per day. 90 tablet 3 lansoprazole (Prevacid) [address] capsule Take 1 capsule (30 mg) by mouth 2 times daily. Do not crush or chew. 60 capsule 6 Linzess 145 MCG capsule TAKE 1 CAPSULE BY MOUTH EVERY DAY IN THE MORNING DO NOT BREAK, CRUSH, DISSOLVE OR CHEW 90 capsule 1 metoprolol tartrate (Lopressor) 50 MG tablet Take 50 mg by mouth in the morning and 50 mg in the evening. Misc. Devices (Pulse Oximeter For Finger) misc Use daily prn SOB 1 each 0 montelukast (Singulair) 10 MG tablet TAKE 1 TABLET BY MOUTH EVERY EVENING 90 tablet 1 Roflumilast (Daliresp) 500 MCG tablet Take 1 tablet by mouth at bed time. SM All Day Allergy Relief 10 MG tablet TAKE 1 TABLET BY MOUTH EVERY DAY NEEDED FOR ALLERGIES 30 tablet 0 Spiriva Respimat 2.5 MCG/ACT inhaler Inhale 2 puffs Once per day. Symbicort 160-4.5 MCG/ACT inhaler TRUEplus Lancets 33G misc TEST BLOOD SUGAR EVERY MORNING DIRECTED 100 each 11 zolpidem (Ambien) 10 MG tablet Take 1 tablet by mouth at bed time. No current facility-administered medications on file prior to visit. 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 Order MRI of the T spine Continue lidocaine patch as needed * Assessment & Plan Note - Isabelle Colon MD - 04/03/2025 5:18 PM EDT Associated Problem(s): Encounter for preventive health examination Discussed with patient re increase fresh fruit and vegetable intake. Counseled re moderate exercise as tolerated, up to 20min/d Patient feels safe at home. PAP smear: N/A, she had hysterectomy. Mammogram: Overdue, TBO Bone density test: UTD, simply restarted on Forteo by planimeter operator and tolerates well. Follow-upwith planimeter operator Eye exam: Information not available will attain information from Eye and Lasik office. CRC screen: UTD, next one due 2030. Lipids/FBS: UTD, next one due December 2025 Vaccinations: Will need Covid, RSV, and Flu in the fall, advised to get them at earliest convenience, other IZ are UTD. Dental visit : UTD, next one due April 2025 I gave her information about healthcare proxy * Assessment & Plan Note - Isabelle Colon MD - 04/03/2025 5:15 PM EDT Associated Problem(s): Screening mammogram for breast cancer Missed appointment on 2023, will order mammogram * Assessment & Plan Note - Isabelle Colon MD - 04/03/2025 5:14 PM EDT Associated Problem(s): Pancreatic cyst Needs to be followed by surgery, we will do a referral again MRCP showed stable uncinate process cyst, last CT scan of the abdomen in November 2024 shows stable cyst * Assessment & Plan Note - Isabelle Colon MD - 04/03/2025 5:12 PM EDT Associated Problem(s): Class 1 obesity due to excess calories with serious comorbidity and body mass index (BMI) of 31.0 to 31.9 in adult Patient has obesity, BMI of 31. Discussed re weight reduction options including exercise, life style modifications, diet. Recommended to decrease soda and sugary beverage consumption, increase protein intake with meals (at least 1 portion of protein with each meal) to assist with satiety, increase dietary fiber Recommended at least 150 min/week of moderate intensity exercise. Follow-up in 6 months * Assessment & Plan Note - Isabelle Colon MD - 04/03/2025 5:12 PM EDT Associated Problem(s): Overweight (Resolved 04/03/2025) documented in this encounter Plan of Treatment Scheduled Orders Name Type Priority Associated Diagnoses Orde r Schedule BI Mammogram Screening Tomosynthesis Bilateral Imaging Routine Screening mammogram for breast cancer Expected: 04/03/2025 (Approximate), Expires: 06/03/2026 MR Thoracic Spine w/o Contrast Imaging Routine Paravertebral mass Expected: 04/03/2025 (Approximate), Expires: 04/03/2026 Scheduled Referrals Name Type Priority Associated Diagnoses Orde r Schedule Referral to General Surgery Outpatient Referral Routine Pancreatic cyst Expected: 04/03/2025 (Approximate), Expires: 04/03/2026 documented as of this encounter Visit Diagnoses Diagnosis Encounter for preventive health examination- Primary Class 1 obesity due to excess calories with serious comorbidity and body mass index (BMI) of 31.0 to 31.9 in adult Pancreatic cyst Cyst and pseudocyst of pancreas Paravertebral mass Overweight Dietary counseling Dietary surveillance and counseling Exercise counseling Screening mammogram for breast cancer documented in this encounter Additional Health Concerns Assessment Noted Time PHQ-9 Depression Total Score: 9 01/06/20 25 9:14 AM EDT documented as of this encounter Care Teams Counting Machine Operator Relationship Specialty Start Date End Date Isabelle Colon MD [address] [place] [id number] PCP - General Family Medicine 05/20/17 documented as of this encounter
--- NOTE | 2025-04-07 15:14 | MHC.OFFVIS ---
Vital Signs 04/07/25 15:15 Height 5 ft 1 in Weight 161 lb 13.109 oz BMI 30.6 BP 102/67 Blood Pressure Location Lt brachial Position Sitting Pulse 66 Intake Visit Reasons: f/u [facility] Intake Note: Sarah presents to in office follow up of [facility]. CC: Patient c/o burning and pain from upper abdomen and right sided abd pain since yesterda, abdominal bloating, and nausea. Car Greaser Required: Yes Car Greaser Name: [facility] Accompanied by: Self / Same As Patient Allergies latex (LATEX) Allergy (Intermediate, Verified 04/07/25 15:20) RASH; redness ciprofloxacin (From CIPRO) Adverse Reaction (Intermediate, Verified 04/07/25 15:20) Diarrhea HPI HPI f/u [facility]: Details: Assessment & Plan (1) Chronic idiopathic constipation: Code(s): K59.04 - Chronic idiopathic constipation Category: Medical (2) GERD (gastroesophageal reflux disease): Code(s): K21.9 - Gastro-esophageal reflux disease without esophagitis Category: Medical (3) Flank pain: Code(s): R10.9 - Unspecified abdominal pain Category: Medical (4) Epigastric pain: Code(s): R10.13 - Epigastric pain Category: Medical (5) Abdominal cramping: Code(s): R10.9 - Unspecified abdominal pain Category: Medical (6) Pancreatic lesion: Comment: CT 10/23/[address] ordered by PCP Enlarging pancreatic head low density lesion demonstrating minimal enhancement by approximately 13 Hounsfield units measuring approximately 2.6 x 1.5 x 2.5 cm in size. There is no associated calcification or pancreatic duct dilatation. The above appearance could be seen with serous cystic neoplasm or mucinous cystic neoplasm. An intraductal papillary mucinous neoplasm would seem somewhat less likely due to no dilatation of the pancreatic duct. Less likely, this could be seen with solid pseudopapillary epithelial neoplasm or cystic degeneration of adenocarcinoma, neuroendocrine tumor. Code(s): K86.9 - Disease of pancreas, unspecified Category: Medical Plan Georgian # Phyllis johnson later live Next office visit repeat MRI to check on pancreatic cyst. Her GI regimen consists of dicyclomine, Linzess, lansoprazole, and famotidine for breakthrough. She was seen in the ER for increasing upper abd pain and N/V. This is similar to the pain we discussed at her last visit but it has gotten much worse. The pain occurs most every day, but is episodic int that she may have 4-5 hours w/o the pain. At times it wakes her up in pao middle of the night. She has not had an appetite which she feels is r/t the pain. She is eating very small portions, but eating DOES seem to worsen the pain; onset of about 1/2-1 hr after initiation of eating. The pain is describes as crushing /twisting and she does have a feeling of movement like my intestines are twisting. She is only using the LInzess 145mcg prn, and I think that the starting and stopping of the colon is a part of the pain. She admits that if she takes it daily she has diarrhea, so clearly the dose is too strong. Lowering to 72mcg. Also, with conversation, she has run out of her bentyl, increasing this to 20mg from 10mg and re initiating as she admits this helped with the pain. The pain always starts on the left side and is worse on that side. With this I really believe the only organ that this could be is the bowels since she does not have any breathing problems or cough, she has not been in any motor vehicle accidents, and the CAT scans seem to take renal pain such as nephrolithiasis out of the differential diagnosis. She also did not have a UTI. ROV 4 weeks. Because of the need for very careful questioning of her symptoms, the patient has limited ability to communicate them, and review of all of the ER paperwork this was a very long visit. Medications: New linaclotide (Linzess) 72 mcg PO QAM 30 caps 6RF K59.04 - Chronic idiopathic constipation dicyclomine 20 mg PO QID 120 tabs 1RF 30 days TODAY'S VISIT Georgian # PFSH Medical History (Updated 04/07/25 @ 15:41 by JENNI Lopez) Flank pain Abdominal cramping Epigastric pain Class 1 obesity Patellofemoral arthralgia of right knee Abdominal wall mass Fibromyalgia Chronic pain syndrome Postlaminectomy syndrome Osteopenia Back pain Irritable bowel syndrome (IBS) GERD (gastroesophageal reflux disease) Fibromyalgia Anxiety disorder Depression Lung nodule Asthma Personal history of tuberculosis COPD (chronic obstructive pulmonary disease) Elevated cholesterol HTN (hypertension) Surgical History Presence of right artificial knee joint Presence of left artificial knee joint History of back surgery Hx of section Hx of total knee replacement H/O hernia repair History of esophagogastroduodenoscopy (EGD) H/O colonoscopy Family History Father Cancer Mother Kidney problem Hypertension CVD (cardiovascular disease) Paternal Uncle Cancer Colon cancer Brother Cancer Brother Colon cancer Social History Household Members Other:: self Housing: Apartment Do you presently have visiting nurse or other home services: Yes ([employer]) Alcohol intake: never Patient Tobacco Use Status: Current everyday Tobacco user Tobacco use type: Cigarette Cigarettes Per Day: 3 Second Hand Smoke Exposure: No service: No Review of Systems Const Reports fatigue, Denies fever(s), Denies night sweats, Denies poor appetite and Denies weight loss ENT Reports Normal hearing present, Denies dental pain, Denies dysphagia, Denies hearing loss, Denies mouth pain, Denies odynophagia, Denies throat swelling, Denies tongue swelling and Reports other (Dentition adequate) Card Reports leg edema Resp Reports no additional complaints GI Details: Reports abdominal pain, Denies melena, Denies bloating, Denies hematochezia, Denies constipation, Denies GI cramping, Denies dysphagia, Denies excessive flatus, Denies early satiety, Reports heartburn, Denies diarrhea, Denies nausea, Denies odynophagia, Denies vomiting and Denies hematemesis Musc Reports back pain and Reports myalgias Skin/Breast Denies pruritus, Denies lesions, Denies rash and Denies jaundice Neuro Reports Normal hearing present and Denies Abnormal speech present Endo Reports fatigue Aller/Immun Denies throat swelling and Denies tongue swelling Physical Exam Vital Signs: Last Vital Signs Pulse 66 04/07/25 15:15 BP 102/67 04/07/25 15:15 BMI result Body Mass Index 30.6 Const General: cooperative, no acute distress, well developed and well groomed Nutritional Appearance: well nourished and obese Orientation/consciousness: oriented to person, oriented to place and oriented to time Limitations: language barrier HEENT Head: Yes normocephalic and Yes atraumatic Eyes General: appearance normal, both eyes and all related structures Pupils: Equal, round and reactive pupils present Neck Neck: Yes normal visual inspection and Yes no lymphadenopathy Thyroid: Thyroid normal Resp Effort & Inspection: normal respiratory effort and able to speak in complete sentences Auscultation: clear to auscultation bilaterally Cardio Rate: regular rate Rhythm: regular rhythm Heart sounds: Normal, physiologic split S2 sound present Peripheral pulses: radial pulses present and posterior tibial pulses present GI Inspection: No distended, Yes Abdominal panniculus present and Yes obesity Palpation (GI): Soft to palpation, nontender, no guarding, not rigid and No hepatosplenomegaly present Percussion: Yes normal to percussion Auscultation: normal bowel sounds Rectal Exam - Female: deferred Skin General skin exam: no rashes or lesions noted, turgor normal, skin not dry, no jaundice, No spider nevi and no striae Rashes: no rashes Nails: normal Neuro General: oriented to person, oriented to place and oriented to time Cranial nerves: Yes Equal, round and reactive pupils present and Yes Normal hearing present Speech: No Abnormal speech present Extrem General: Yes normal to inspection, No clubbing, No cyanosis and No edema Psych Appearance: grossly normal and well kempt Mental Status: mental status grossly normal Speech and movement: Normal speech and movement present Affect: normal affect Attitude: cooperative Thought process: Normal thought process present and not confabulating Thought content: Normal thought content present Insight: Limited insight present (Psych) Judgement: Limited judgement present (Psych) Assessment & Plan Assessment & Plan (1) GERD (gastroesophageal reflux disease): Code(s): K21.9 - Gastro-esophageal reflux disease without esophagitis Category: Medical (2) Pancreatic lesion: Comment: CT 10/23/[address] ordered by PCP Enlarging pancreatic head low density lesion demonstrating minimal enhancement by approximately 13 Hounsfield units measuring approximately 2.6 x 1.5 x 2.5 cm in size. There is no associated calcification or pancreatic duct dilatation. The above appearance could be seen with serous cystic neoplasm or mucinous cystic neoplasm. An intraductal papillary mucinous neoplasm would seem somewhat less likely due to no dilatation of the pancreatic duct. Less likely, this could be seen with solid pseudopapillary epithelial neoplasm or cystic degeneration of adenocarcinoma, neuroendocrine tumor. Code(s): K86.9 - Disease of pancreas, unspecified Category: Medical (3) Chronic idiopathic constipation: Code(s): K59.04 - Chronic idiopathic constipation Category: Medical (4) Left sided abdominal pain: Code(s): R10.9 - Unspecified abdominal pain Category: Medical Plan Georgian # the live Her GI regimen consists of dicyclomine, Linzess, lansoprazole, and famotidine for breakthrough. - The patient is a 59-year-old female presenting with abdominal pain and swelling, leg swelling, and weight loss. - Detailed pain description includes burning sensation in the left upper quadrant and epigastric area, with associated stomach rumblings. - Reports new leg swelling, currently unexplained. - No constipation, bowel movements are regular; taking dicyclomine and lansoprazole regularly. - The presence of a pancreatic cyst is noted, with pending evaluation. - Experiences fatigue, intermittent nausea, and recent weight loss of approximately five pounds. - Incident of low-grade fever noted a week prior without chills or shortness of breath. - Hypotension mentioned elation to blood pressure changes. - T11 mass noted from a recent MRI of thoracic spine ordered by primary care. - Begin increased dose of dicyclomine at 20 mg to manage pain. In terms of her other multiple vague complaints we will get some blood work to see if we can uncover any etiology as a courtesy. I suggest we get an MRI to further characterize the pancreatic cyst and make sure there is nothing to be terribly concerned about. I also noted at T11 mass on her past imaging studies but she tells me that her primary care providers ordering an MRI of her spine to try to see what this may entail. I would like to get her cardiology notes to see if we should be concerned in reference to her leg swelling and fatigue. Return office visit in 3 weeks Orders: Orders MRCP 04/07/25 K86.9 - Disease of pancreas, unspecified TSH reflex Free T4 04/13/25 R10.9 - Unspecified abdominal pain US abdomen complete 04/07/25 R10.9 - Unspecified abdominal pain Comprehensive Met. Panel 04/13/25 R10.9 - Unspecified abdominal pain Complete Blood Count Auto Diff 04/13/25 R10.9 - Unspecified abdominal pain Medications: New dicyclomine 20 mg PO QID 120 tabs 1RF 30 days Refilled lansoprazole 30 mg PO BID 60 caps 6RF K21.9 - Gastro-esophageal reflux disease without esophagitis Discontinued famotidine Discontinued Reason: Doctor's Order 40 mg PO BID 60 tabs 3RF K21.9 - Gastro-esophageal reflux disease without esophagitis Coding Level of Care Code Est Pt Level 4 (37423) Diagnoses GERD (gastroesophageal reflux disease) K21.9 Pancreatic lesion K86.9 Chronic idiopathic constipation K59.04 Left sided abdominal pain R10.9
[2025-04-07 15:15] VITALS: BP 102/67; PULSE 66; BMI 30.6
--- OUTSIDE RECORDS SUMMARY | 2025-04-07 17:37 | XMS_ITS | Encounter Summary ---
Author Organization [employer] Address [address] [place] [address] Care Team Providers Care Welding Machine Operator Arc Name Role Phone Isabelle Colon MD Primary Care Provider + Encounter Details Date Type Department Care Team ([facility] st Contact Info) Description 10/14/2023 Telephone [facility] [address] [place] [id number] Isabelle Colon MD [address] [place], [place] [phone] Social History Tobacco Use Types Packs/Day Years [...] as of this encounter Plan of Treatment Not on file documented as of this encounter Visit Diagnoses Not on filedocumented in this encounter Additional Health Concerns Assessment Noted Time PHQ-9 Depression Total Score: 11 023 9:15 AM EST documented as of this encounter Care Teams Welding Machine Operator Arc Relationship Specialty Start Date End Date Isabelle Colon MD [address] [place] [id number] PCP - General Family Medicine 05/20/17 [facility] 12/28/24 01/29/25 documented as of this encounter
--- OUTSIDE RECORDS SUMMARY | 2025-04-07 17:37 | XMS_ITS | Encounter Summary ---
Author Organization [employer] Address [address] [facility] [address] [place] [address] Care Team Providers Care Data Analysis Manager Name Role Phone Isabelle Colon MD Primary Care Provider + Reason for Visit * Reason Onset Date Comments delivery case 12/24/2022 Encounter Details Date Type Department Care Team ([facility] st Contact Info) Description 12/24/2022 Telephone [facility] [address] [place], [place] [phone] Zachary Miller DDS [address] [place] [address] delivery case Social History Tobacco Use Types [...] documented in this encounter Plan of Treatment Not on file documented as of this encounter Visit Diagnoses Not on filedocumented in this encounter Additional Health Concerns Assessment Noted Time PHQ-9 Depression Total Score: 13 04/14/2 023 11:55 AM EDT documented as of this encounter Care Teams Data Analysis Manager Relationship Specialty Start Date End Date Isabelle Colon MD [address] [place] [id number] PCP - General Family Medicine 05/20/17 [facility] 12/28/24 01/29/25 documented as of this encounter
--- OUTSIDE RECORDS SUMMARY | 2025-04-07 17:37 | XMS_ITS | Clinical Summary ---
Author Organization [employer] Address [address] [place] [address] [address] [place] [address] Care Team Providers Care Machine Try Out Setter Name Role Phone Isabelle Colon MD Primary Care Provider + Allergies Active Allergy Reactions Criticality Noted Date Comments Ciprofloxacin 11/02/2014 Latex Unknown 07/16/2022 Allergy listed in preferred pharmacy system Other reaction(s): skin irritation Medications SM All Day Allergy Relief 10 MG tabletIndicatio ns:Seasonal allergic rhinitis, unspecified trigger TAKE 1 TABLET BY MOUTH EVERY DAY NEEDED FOR ALLERGIES 30 tablet 07/08/20 22 Active clonazePAM (KlonoPIN) 1 MG tablet 01/04/20 22 Active dilTIAZem ER (Tiazac) 240 MG 24 hr capsule 07/24/20 21 Active escitalopram (Lexapro) 20 MG tablet Take 1 tablet by mouth at bed time. 01/04/20 22 Active Roflumilast (Daliresp) 500 MCG tablet Take 1 tablet by mouth at bed time. Active zolpidem (Ambien) 10 MG tablet Take 1 tablet by mouth at bed time. 01/03/20 22 Active doxepin (SINEquan) 75 MG capsule TAKE 1 CAPSULE BY MOUTH ONCE DAILY AT BEDTIME Active albuterol 108 (90 Base) MCG/ACT inhaler Inhale 2 puffs every 4 (four) hours if needed for wheezing. Active albuterol (2.5 MG/3ML) 0.083% nebulizer solutionIndicat ions:COPD exacerbation (CMS/HCC) INHALE 1 AMPULE USING A NEBULIZER THREE TIMES DAILY NEEDED FOR SHORTNESS OF BREATH / FOR ASTHMA 90 mL 1 09/05/19 23 Active metoprolol tartrate (Lopressor) 50 MG tablet Take 50 mg by mouth in the morning and 50 mg in the evening. 10/15/19 23 Active TRUEplus Lancets 33G miscIndications :Hyperglycemia, unspecified TEST BLOOD SUGAR EVERY MORNING DIRECTED 100 each 11 02/10/20 23 Active famotidine (Pepcid) 40 MG tabletIndicatio ns:Gastro-esoph ageal reflux disease without esophagitis TAKE 1 TABLET BY MOUTH AT BEDTIME 90 tablet 1 02/14/20 23 Active lansoprazole (Prevacid) [address] capsuleIndicati ons:Gastro-esop hageal reflux disease without esophagitis Take 1 capsule (30 mg) by mouth 2 times daily. Do not crush or chew. 60 capsule 6 10/09/19 24 Active Linzess 145 MCG capsuleIndicati ons:Chronic idiopathic constipation TAKE 1 CAPSULE BY MOUTH EVERY DAY IN THE MORNING DO NOT BREAK, CRUSH, DISSOLVE OR CHEW 90 capsule 1 11/26/19 24 Active Blood Pressure Monitoring (Blood Pressure Cuff) misc Use daily as prescribed 1 each 01/22/20 24 Active Misc. Devices (Pulse Oximeter For Finger) misc Use daily prn SOB 1 each 01/22/20 24 Active Aspirin Low Dose 81 MG EC tabletIndicatio ns:Essential hypertension TAKE 1 TABLET BY MOUTH EVERY DAY IN THE MORNING 90 tablet 3 06/27/20 24 Active calcium carbonate 1500 (600 Ca) MG tabletIndicatio ns:Age related osteoporosis, unspecified pathological fracture presence TAKE 1 TABLET BY MOUTH TWICE DAILY WITH BREAKFAST AND WITH DINNER 180 tablet 3 06/27/20 24 Active Symbicort 160-4.5 MCG/ACT inhaler 07/28/19 25 Active atorvastatin (Lipitor) 20 MG tablet TAKE 1 TABLET BY MOUTH EVERY DAY 90 tablet 1 11/18/19 25 Active azelastine (Astelin) 0.1 % nasal spray Administer 1 spray into each nostril Once per day. Use in each nostril as directed 30 mL 12/02/19 25 026 Active hydroCHLOROthia zide 12.5 MG tablet Take 1 tablet (12.5 mg) by mouth Once per day. 90 tablet 3 12/02/19 25 026 Active Acetaminophen Extra Strength 500 MG tabletIndicatio ns:Left hip pain TAKE 1 TO 2 TABLETS BY MOUTH EVERY 6 HOURS NEEDED FOR PAIN OR FEVER 90 tablet 3 12/02/19 25 Active FREESTYLE LITE test stripIndication s:IFG (impaired fasting glucose) TEST BLOOD SUGAR ONCE A DAY 100 each 12 12/09/19 25 026 Active azithromycin (Zithromax) 500 MG tablet Take 1 tablet by mouth 3 (three) times a week. Thursday, Thursday, Thursday Active Comfort EZ Pen Eden 31G X 8 MM misc USE 1 DAILY WITH FORTEO 08/24/19 25 Active [place] Saline Nasal gel APPLY 1 APPLICATION IN EACH NOSTRIL EVERY DAY IN THE EVENING DIRECTED 11/29/19 25 Active Forteo 560 MCG/2.24ML solution pen-injector Inject 20 mcg under the skin Once per day. 11/24/19 25 Active Spiriva Respimat 2.5 MCG/ACT inhaler Inhale 2 puffs Once per day. Active dicyclomine (Bentyl) 10 MG capsule Take 1 capsule by mouth in the morning and 1 capsule at noon and 1 capsule in the evening. Active ergocalciferol (Vitamin D2) 1.25 MG (64820 UT) capsule TAKE 1 CAPSULE BY MOUTH ONCE PER WEEK 12 capsule 1 02/02/20 25 Active montelukast (Singulair) 10 MG tablet TAKE 1 TABLET BY MOUTH EVERY EVENING 90 tablet 1 02/10/20 25 Active fluticasone (Flonase) 50 MCG/ACT nasal sprayIndication s:Rhinitis, unspecified type INSTILL 1-2 SPRAYS IN EACH NOSTRIL ONCE DAILY NEEDED 48 g 1 03/22/20 25 Active fluticasone (Flonase) 50 MCG/ACT nasal sprayIndication s:Rhinitis, unspecified type USE 1-2 SPRAYS IN EACH NOSTRIL ONCE DAILY NEEDED 48 g 1 08/09/19 25 025 Discontinued Active Problems Problem Noted Date Diagnosed Date 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 Order MRI of the T spine Continue lidocaine patch as needed Ill-fitting dentures 03/29/2025 Left hip pain 12/01/2024 Dysfunction of right eustachian tube 12/01/2024 Assessment & Plan (12/01/2024 4:09 PM EDT): Probably related to recent URI. Use Astelin once per day & Flonase once nightly Right leg pain 06/17/2024 Assessment & Plan [...] 31.9 in adult 06/17/2024 Assessment & Plan (04/03/2025 5:12 PM EDT): Patient has obesity, BMI of 31. Discussed re weight reduction options including exercise, life style modifications, diet. Recommended to decrease soda and sugary beverage consumption, increase protein intake with meals (at least 1 portion of protein with each meal) to assist with satiety, increase dietary fiber Recommended at least 150 min/week of moderate intensity exercise. Follow-up in 6 months Assessment & Plan (06/17/2024 1:03 PM EST): Discussed re weight reduction options including exercise, life style modifications, diet and referral to technical service specialist. Recommended to decrease soda and sugary [...] Vitamin D deficiency 03/02/2024 Assessment & Plan (01/06/2025 8:39 AM EDT): - she has been on Vitamin D for 3 months, extend up to 6 months and recheck levels. - may need to hold off Forteo on until Vitamin D is properly supplemented Assessment & Plan (03/02/2024 2:45 PM EDT): [...] for breast cancer 06/25/2023 Assessment & Plan (04/03/2025 5:15 PM EDT): Missed appointment on 2023, will order mammogram Assessment & Plan (03/17/2024 10:38 AM EDT): Order from mammogram on 05/2023 given to pt to reschedule mammogram. Encounter for preventive health examination 05/29 Assessment & Plan (04/03/2025 5:18 PM EDT): Discussed with patient re increase fresh fruit and vegetable intake. Counseled re moderate exercise as tolerated, up to 20min/d Patient feels safe at home. PAP smear: N/A, she had hysterectomy. Mammogram: Overdue, TBO Bone density test: UTD, simply restarted on Forteo by scrap preparer and tolerates well. Follow-up with scrap preparer Eye exam: Information not available will attain [...] I gave her information about healthcare proxy Assessment & Plan (03/17/2024 10:37 AM EDT): [...] 2023 CRC screen up to date, due 2030 Labs overdue, to be ordered Vaccinations [...] tylenol PRN FU results of CT scan. Lower urinary tract symptoms (LUTS) 08/19/2022 Assessment & Plan (08/19/2022 7:08 PM EST): Increased U. Frequency is related to hyperglycemia Abdominal mass 07/16/2022 Pulmonary emphysema 07/16/2022 Assessment & Plan (06/25/2023 10:43 AM EST): Seems to be more stabled, counseled to quit smoking IZ as above Asthenia 07/16/2022 Pancreatic cyst 07/16/2022 Assessment & Plan (04/03/2025 5:14 PM EDT): Needs to be followed by surgery, we will do a referral again MRCP showed stable uncinate process cyst, last CT scan of the abdomen in November 2024 shows stable cyst Assessment & Plan (06/25/2023 10:43 AM EST): [...] before and rash is resolved). I called [facility] endocrinology practice and left a message to Dr. Sierra re this issue and fu with patient. Continue Vit D supplementation and Forteo until told otherwise by Dr Sierra. Patient understands the risk of fractures. Assessment & Plan (02/10/2024 3:07 PM EDT): On forteo, she seem not to tolerate it due to dermatitis, wants it dc I will talk with [facility] endocrinology for fabien alternative med. She's aware [...] Fosamax and Teracycline FU BMD results with scrap preparer Continue ergocalciferol Vitamin D, check levels Chronic obstructive lung disease 02/20/2012 Assessment & Plan (01/06/2025 8:38 AM EDT): Recurrent exacerbations, sp PRD rx, still has wheezing Advised to use albuterol updraft q4h x 2d then prn, fu with pulmonary. No change in other meds. Assessment & Plan (02/10/2024 3:09 PM EDT): [...] updraft today, patient needs to FU with helper/driver, she seems to be a candidate for Daliresp. She will reschedule appointment with helper/driver. Congratulated her on quitting smoking Continue albuterol q6 hours and Symbicort BID and Spiriva. Will consider switching to Trelegy to maximize compliance issues. Asthma 02/20/2012 Essential hypertension 02/20/2012 Assessment & Plan (01/06/2025 8:40 AM EDT): She reported an episode of hypotension, lowered HCTZ to 12.5/d continue diltiazem and metoprolol to control sinus tachycardia Follow-up with cardiology Check BP at home BIW and follow-up in 6 weeks Assessment & Plan (12/01/2024 4:07 PM EDT): [...] Metoprolol 50 mg BID recently adjusted by channel opener, diltiazem, HCTZ Counseled re low salt diet/increase moderate physical activity. Check home BP BIW and prn CP/EAGLE/SHINE Non smoking patient. FU with me in 6 months Resolved Problems Problem Noted Date Diagnosed Date Resolved Date Overweight 04/03/2025 04/03/2025 Assessment & Plan (04/03/2025 5:12 PM EDT): Non-recurrent acute serous o titis media of left ear 06/17/2024 04/03/2025 Assessment & Plan (06/17/2024 12:51 PM EST): Advised to use Flonase BID x 1 week then prn. Hyperglycemia 08/19/2022 04/03/2025 Assessment & Plan (08/19/2022 7:03 PM EST): Patient has known IFG and I shared her A1c result with her today. Counseled re more frequent low calorie/carb meals. Check fgstk 1x/ daily and fu w me in 1m Encouraged physical activity as tolerated. Refer to manager case management. 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 10/08/2017 03/17/2024 Assessment & Plan (01/22/2024 3:59 PM EDT): Repeat MRI due to worsening leg pain Encounters Date Type Department Care Team Description 04/06/2025 Telephone [facility] [address] [place] [address] Isabelle Colon MD 04/03/2025 2:30 PM EDT Office Visit [facility] [address] [place] [address] Isabelle Colon MD Encounter for preventive health examination (Primary Dx); Class 1 obesity due to excess calories with serious comorbidity and body mass index (BMI) of 31.0 to 31.9 in adult; Pancreatic cyst; Paravertebral mass; Overweight; Dietary counseling; Exercise counseling; Screening mammogram for breast cancer 04/03/2025 Travel 03/31/[address] [address] Isabelle Colon MD Chart Prep 03/29/2025 11:00 AM EDT Office Visit [facility] AD[facility] DENTAL [address] [place] [phone] Zachary Miller DDS Ill-fitting dentures (Primary Dx) 03/23/2025 Patient Outreach [address] [address] Isabelle Colon MD Pre-visit Planning ([facility] screening completed on 01/05/2025) 03/19/2025 Refill [facility] [address] [place], [place] [phone] Isabelle Colon MD Rhinitis, unspecified type 02/07/2025 Refill [facility] [address] [place] [address] Isabelle Colon MD 02/01/[address] [address] Isabelle Colon MD 01/19/2025 2:30 PM EDT Clinical Support [address] [address] Maribel Minor RN Essential hypertension [I10] 01/19/2025 Travel 01/06/2025 Orders Only [address] [address] Pastora Jorgensen MD 01/05/2025 9:30 AM EDT Office Visit [address] [address] Pastora Jorgensen MD Mucopurulent chronic bronchitis (CMS/HCC) (Primary Dx); Essential hypertension; RIMA (acute kidney injury) (CMS/HCC); Acute left-sided thoracic back pain; Wheezing; Vitamin D deficiency 01/05/2025 Results Follow-Up [address] [address] Ernestina Chambers ANP Basic Metabolic Panel, Hemoglobin A1c 01/05/2025 Results Follow-Up [facility] [address] [place], [place] [phone] Pastora Jorgensen MD Urinalysis, Complete, with Reflex to Culture, Vitamin D, 25-Hydroxy, Total, Immunoassay 01/05/2025 Travel from Last 3 Months Immunizations Immunization Administration [...] Mass Index 31.03 04/03/2025 2:21 PM EDT Plan of Treatment Health Maintenance Due Date Last Done Comments CT Colonography 1965 Dental Prophylaxis 1965 FIT DNA/Cologuard 1965 FIT 1965 FOBT 1965 HIV Screening 1965 Sigmoidoscopy 1965 Dental X-Ray: Full Mouth 01/22/2021 01/21/2018 Mammogram 02/15/2023 02/15/2021, 01/24, 09/03/2018, Additional history exists RSV Patients and Patients Aged 60 years or older (1 - Risk 60-74 years 1-dose series) 2023 Dental Oral Exam 09/18/2024 03/17/2024 Dental X-Ray: Bitewings 01/26/2025 01/26/2024, 11/04 Influenza Vaccine (#1) 2025 , 08/14/2023, 04/28/2022, Additional history exists Depression Monitoring 07/07/2025 01/05/2025, 025 Alcohol/Substance Use Screening 01/05/2026 01/05/2025 Diabetes: Hemoglobin A1C 01/05/2026 025, 02/10/2024, 01/26/2024, Additional history exists Disability Screening 01/05/2026 01/05/2025 SDOH Screening 01/05/2026 01/05/2025 Colonoscopy 03/29/2026 03/29/2021 Colorectal Cancer Screening 03/29/2026 Tobacco Screening 04/03/2026 04/03/2025 Lipid Panel 06/26/2028 06/26/2023, 01/24/2021 DTaP/Tdap/Td Vaccines (3 - Td or Tdap) 03/17/2034 03/17/2024, 03/22/2012 Zoster Vaccines Completed 08/21/2020, 06/07/2020 Pneumococcal Vaccine: 50+ Years Completed 05/29/2022, 07/08/2018, 05/08/2016, Additional history exists Hepatitis C Screening Completed 06/26/2023 COVID-19 Vaccine Completed 06/17/2024, , 05/27/2021, Additional history exists HIB Vaccines Aged Out [...] Procedure Name Priority Date/Time Associated Diagnosis Comments CASE PRESENTATION, DETAILED AND EXTENSIVE TREATMENT PLANNING Routine 03/29/2025 11:00 AM EDT LIMITED ORAL EVALUATION - PROBLEM FOCUSED Routine 03/29/2025 11:00 AM EDT VITAMIN D,25-OH,TOTAL,IA Routine 01/05/2025 10:15 AM EDT Vitamin D deficiency URINALYSIS, COMPLETE, WITH REFLEX TO CULTURE Routine 01/05/2025 10:15 AM EDT RIMA (acute kidney injury) (CMS/HCC) HEMOGLOBIN A1C Routine 01/05/2025 10:15 AM EDT IFG (impaired fasting glucose) BASIC METABOLIC PANEL Routine 01/05/2025 10:15 AM EDT RIMA (acute kidney injury) (CMS/HCC) XR CHEST 2 VIEWS Routine 01/05/2025 9:22 AM EDT RIMA (acute kidney injury) (CMS/HCC) PERIODIC ORAL EVALUATION - ESTABLISHED PATIENT Routine 03/17/2024 10:30 AM EDT Encounter for dental examination Closed fracture of tooth, initial encounter Dental caries BITEWINGS - 2 RADIOGRAPHIC IMAGES Routine 01/26/2024 [...] Recently Relevant to Health Maintenance Results * Vitamin D, 25-Hydroxy, Total, Immunoassay (01/05/2025 10:15 AM EDT) Vitamin D 25-OH Total 40.6 >30 ng/mL [facility] Comment: Health Based Reference Values*< 20 ng/mL [id number] ng/mL Insufficient> 30 ng/mL Sufficient*Carmen RAGSDALE. N Engl J Med. 2007;357:266-280There is no well-established upper level of normal vitamin Dlevels. Some laboratories use 50 ng/mL as an upper limit ofnormal. However, toxicity is patient-dependent and may occurat any level. Careful correlation with the patient'spresentation is necessary and, if there is concern forvitamin D toxicity, treatment should be consideredirrespective of the serum level.Care must be taken in interpreting Vitamin D results fromdifferent laboratories and methodologies. Published datademonstrated that results from patients undergoinghemodialysis may show a negative bias when tested withvarious automated 25-OH vitamin D assays when compared toLC-MS/MS.When testing samples from patients whose predominant form ofVitamin D is Vitamin D2, such as patients receiving VitaminD2 supplementation, results that are subtherapeutic shouldbe confirmed with another method such as LC-MS/MS. Blood Venous blood specimen / Unknown 01/05/2025 10:15 AM EDT 01/05/2025 11:12 AM EDT us Pastora Jorgensen MD LAB BLOOD ORDERABLES Final Resul t [facility] [address] [place] [phone] * (ABNORMAL) Urinalysis, Complete, with Reflex to Culture (01/05/2025 10:15 AM EDT) Color Urine Yellow [facility] Appearance Urine Clear [facility] PH 5.0 5.0 - 9.0 [facility] Glucose Urine UA Negative Negative mg/dL [facility] Urine Blood Negative Negative [facility] Specific [place] - Urine 1.020 1.005 - 1.025 [facility] Urine Protein Negative Neg-Trace mg/dL [facility] Urine Ketones Trace Negative mg/dL [facility] Nitrite Urine Negative Negative [facility] Leukocyte Esterase Urine Trace(A) Negative [facility] RBC Urine 0-2 0 - 2 /HPF [facility] Urine WBC 0-5 0 - 5 /HPF [facility] Urine Squamous Epithelial Cell 6-10 0 - 2 /HPF [facility] Urine Bacteria Trace None Seen [facility] Hyaline Casts, Urine 3-5 0 - 2 /LPF [facility] Urine 01/05/2025 10:1 5 AM EDT 01/05/2025 11:11 AM EDT Narrative [facility] - 01/05/2025 11:25 AM EDT Urine, Clean Catch us Pastora Jorgensen MD LAB URINE ORDERABLES Final Resul t [facility] [address] [place] [phone] * Hemoglobin A1c (01/05/2025 10:15 AM EDT) Hemoglobin A1c 6.0 <6.0 % [facility] Comment:Hemoglobin A1C Refer ence Range Adults: 4.8 - 6.0 % Non diabetic: < 6.0 % Goal: < 7.0 %Additional Action Suggested: > 8.0 %Note: Hemoglobin A1c results are invalid for patients with abnormal amounts of HbF. Blood transfusions may impact the HbA1c concentration in the patient sample. Estimated Average Glucose 126 mg/dL [facility] Comment:eAG = Estimated ave rage glucose which is %A1C expressed asaverage glucose, using the formula of the [id number] Glucose study (ADAG), Diabetes Care, Vol.31,#8,Feb. 2007 Blood Venous blood specimen / Unknown 01/05/2025 10:15 AM EDT 01/05/2025 11:10 AM EDT Ernestina Chambers [facility] LAB BLOOD ORDERABLES Final Resul t Performing Organization Address [facility] de Phone Number [facility] [address] [place] [phone] * (ABNORMAL) Basic Metabolic Panel (01/05/2025 10:15 AM EDT) Sodium 141 135 - 145 mmol/L [facility] Potassium 4.0 3.3 - 5.1 mmol/L [facility] Chloride 105 96 - 108 mmol/L [facility] Carbon Dioxide 26 22 - 29 mmol/L [facility] Anion Gap 14 12 - 20 [facility] Urea Nitrogen (BUN) 27(H) 9 - 16 mg/dL [facility] Creatinine, Serum 1.01 0.5 - 1.4 mg/dL [facility] Estimated Glomerular Filt Rate 56 [facility] Comment:Chronic Kidney Disea se: Estimated GFR < 60 mL/min/1.88v0Olqxeo Kidney Disease: Estimated GFR < 15 mL/min/1.73m2 Glucose 93 60 - 115 mg/dL [facility] Calcium 9.8 8.4 - 10.2 mg/dL [facility] Blood Venous blood specimen / Unknown 01/05/2025 10:15 AM EDT 01/05/2025 11:12 AM EDT Ernestina Chambers ANP LAB BLOOD ORDERABLES Final Resul t Performing Organization Address [facility] de Phone Number [facility] [address] [place] [phone] [phone] * XR Chest 2 Views (01/05/2025 9:22 AM EDT) Anatomical Region Laterality Modality Chest Radiographic Amy ging 01/05/2025 9:22 AM EDT Narrative 01/05/2025 10:29 AM EDT [facility] [address] [place] [address] XRay Report Signed Patient: Sarah Kline MR#: [id number] : 1965 Acct:[id number] Age/Sex: 59 / F ADM Date: 01/05/25 Loc: HO.ALESSANDROCX Attending Dr: Pastora Jorgensen MD Ordering Physician: Pastora Jorgensen MD Date of Service: 01/05/25 Procedure(s): XR chest 2V Accession Number(s): [id number] cc: Pastora Jorgensen MD EXAMINATION: XR CHEST CLINICAL INFORMATION: wheezing. s/p prednisone taper. COMPARISON: June 26, 2023 TECHNIQUE: 2 views of the chest were obtained. FINDINGS: Heart size is normal. Perihilar structures are unremarkable. There is stable calcified 6 mm nodule in the left upper lung and to a focal calcified granulomas in the right upper lung. Lungs are clear otherwise. There is no evidence of pleural effusion. XR/XR chest 2V IMPRESSION: Stable biapical calcified granulomas. No acute disease. Electronically signed by: Kevin Torres MD 01/05/2025 10:26 AM EDT Dictated By: Kevin Torres MD Signed By: <Electronically signed by Kevin Torres MD in OV> 01/05/25 1026 DD/ 0922 TD/TT: 01/05/25 1010 [employer] Analysis: Procedure Note Donotuseinterpreter, Image - 01/05/2025 [facility] [address] [place] [address] XRay Report Signed Patient: Sarah KlineMR#: [id number] : 1965Acct:[id number] Age/Sex: 59 / FADM Date: 01/05/25 Loc: HOGERALDCX Attending Dr: Pastora Jorgensen MD Ordering Physician: Pastora Jorgensen MD Date of Service: 01/05/25 Procedure(s): XR chest 2V Accession Number(s): [id number] cc: Pastora Jorgensen MD EXAMINATION: XR CHEST CLINICAL INFORMATION: wheezing. s/p prednisone taper. COMPARISON: June 26, 2023 TECHNIQUE: 2 views of the chest were obtained. FINDINGS: Heart size is normal. Perihilar structures are unremarkable. There is stable calcified 6 mm nodule in the left upper lung and to a focal calcified granulomas in the right upper lung. Lungs are clear otherwise. There is no evidence of pleural effusion. XR/XR chest 2V IMPRESSION: Stable biapical calcified granulomas. No acute disease. Electronically signed by: Kevin Torres MD 01/05/2025 10:26 AM EDT RP Dictated By: Kevin Torres MD Signed By: <Electronically signed by Kevin Torres MD in OV> 01/05/25 1026 DD/ 0922 TD/TT: 01/05/25 1010 [employer]: Pastora Jorgensen MD IMG XR PROCEDURES Edited Result - Final * (ABNORMAL) Lipid Panel with Reflex to Direct LDL (06/26/2023 8:23 AM EST) Triglycerides 168(H) <150 mg/dL [facility] Comment:Desirable Triglyceri de: less than 150 mg/dLBorderline High Triglyceride 150-199 mg/dLHigh Triglyceride: 200-499 mg/dLVery High Triglyceride: greater than or equal to 5OO mg/dL Cholesterol 179 <200 mg/dL [facility] Comment:Desirable Cholestero l: less than 200 mg/dLBorderline High Cholesterol: 200-239 mg/dLHigh Cholesterol: greater than 239 mg/dL LDL Cholesterol Calculated 85 <100 mg/dL [facility] Comment:Desirable LDL: less than 100 mg/dLNear Optimal/Above Optimal LDL: 110- 129 mg/dLBorderline High LDL: 130-159 mg/dLHigh LDL: 160-189 mg/dLVery High LDL: greater than or equal to 190 mg/dL HDL Cholesterol 61 >40 mg/dL [facility] Comment:Desirable HDL: great er than 40 mg/dL Note: This HDL assay may give artificially low results in patients with liver disease. Blood 06/26/2023 8:23 AM EST 06/26/2023 11:12 AM EST Isabelle Colon MD LAB BLOOD ORDERABLES Fin al Result Performing Organization Address [facility] de Phone Number [facility] [address] [place] [phone] [phone] * Hepatitis Panel, General (06/26/2023 8:23 AM EST) Hepatitis A IgM Nonreactive Nonreactive [facility] Comment:IgM antibodies to EAGLE V not detected; does not exclude earlyacute or recovered HAV infection. ~Hepatitis B Surface Antibody NONREACTIVE Nonreactive [facility] Comment:Nonreactive: < 8.00 mIU/mL Hepatitis B Core Antibody Nonreactive Nonreactive [facility] LABS Hepatitis C Antibody Nonreactive Nonreactive [facility] Comment:Antibodies to HCV no t detected; does not exclude early acuteHCV infection. Hepatitis B Surface Ag Negative Negative [facility] Blood 06/26/2023 8:23 AM EST 06/26/2023 11:12 AM EST Isabelle Colon MD LAB BLOOD ORDERABLES Fin al Result Performing Organization Address [facility] Co de Phone Number [facility] [address] [place] [address] [phone] * Hm Colonoscopy (03/29/2021 10:49 AM EDT) Historical Provider HEALTH MAINTENANCE Final Result * Mammography Report 1 (02/15/2021 1:00 PM EDT) Anatomical Region Laterality Modality Breast Bilateral Mammography 02/15/2021 1:00 PM EDT Narrative 02/22/2021 5:14 PM EDT Refer to the Notes tab for result details [facility] Procedure: Mammography Report 1 Procedure Note Provider, Eliecer, - 10/19/2022 Refer to the Notes tab for result details Legacy Procedure: Mammography Report 1 Isabelle Colon MD IMG BI PROCEDURES Final Result from Last 3 Months or Most Recently Relevant to Health Maintenance Insurance [facility] STANDARD DENTAL-[facility] MEDICAID STAND ADULT Care Teams Machine Try Out Setter Relationship Specialty Start Date End Date Isabelle Colon MD [address] [place] [phone] PCP - General Family Medicine 05/20/17
--- OUTSIDE RECORDS SUMMARY | 2025-04-07 17:37 | XMS_ITS | Clinical Summary ---
Author Organization [facility] Address [address] [place] [phone] Phone Care Team Providers Care Maple Syrup Maker Name Role Phone Unknown, Unknown Primary Care Provider Jorge ortiz Social History Tobacco Use Types Packs/Day Years Used Date Smoking Tobacco: Never Assessed Education Answer Date Recorded Are you interested in more education? Not on ivan e 11/21/2022 Are you concerned about learning? Not on file 11/21/2022 No 11/21/2022 No 11/21/2022 Digital Access Answer Date Recorded No 12/23/2022 No 12/23/2022 No 12/23/2022 Reliable internet access at home? Not on file 12/23/2022 Device with a working camera? Not on file Comments Unknown Sex and Gender Information Value Date Recorded Sex Assigned at Not on file Legal Sex Female 11:41 AM EST Gender Identity Not on file Sexual Orientation Not on file Plan of Treatment Not on file Medical Devices Not on file Insurance [facility] C[address] A[employer] [address] [place] [id number] [place] [address] [place] [address] [address] [place] [address] C3 [employer] [place] [id number] [place] [address] [address] [place] [id number] [place] [address] [address] [place] [id number] [place] [address] C3 ACO [facility] C3 ACO Care Teams Maple Syrup Maker Relationship Specialty Start Date End Date Unknown, Unknown, PCP - General 07/13/18 Additional Source Comments The information contained in this document represents components of the legal health record. It is not the complete legal health record.[facility]
--- OUTSIDE RECORDS SUMMARY | 2025-04-07 17:37 | XMS_ITS | Encounter Summary ---
Author Organization [email or web address] Address [address] [facility] 7t [place] [address] Care Team Providers Care Packaging Design Engineer Name Role Phone Isabelle Colon MD Primary Care Provider + Encounter Details Date Type Department Care Team (Latest Contact Info) Description 09/24/[address] [facility] Dental, Provider, DDS Social History Tobacco [...] on filedocumented in this encounter Care Teams Packaging Design Engineer Relationship Specialty Start Date End Date Isabelle Colon MD [address] [place] [address] PCP - General Family Medicine 05/20/17 [facility] 12/28/24 01/29/25 documented as of this encounter
--- OUTSIDE RECORDS SUMMARY | 2025-04-07 17:37 | XMS_ITS | Encounter Summary ---
Author Organization [employer] Address [address] [facility] 7t [place] [address] Care Team Providers Care Basketball Assembler Name Role Phone Isabelle Colon MD Primary Care Provider + Encounter Details Date Type Department Care Team ([facility] st Contact Info) Description 04/06/2025 Telephone [facility] [address] [place], [place] [phone] Isabelle Colon MD [address] [place], [place] [phone] Social History Tobacco Use Types Packs/Day Years [...] encounter Miscellaneous Notes * Telephone Encounter - Adali Garcia - 04/06/2025 11:30 AM EDT Incoming call from Cony at [facility] radiology department requesting MRI order to be update to MRI Thoracic Spine WWO Contrast. Please advise! documented in this encounter Plan of Treatment Not on file documented as of this encounter Visit Diagnoses Not on filedocumented in this encounter Additional Health Concerns Assessment Noted Time PHQ-9 Depression Total Score: 9 01/06/20 25 9:14 AM EDT documented as of this encounter Care Teams Basketball Assembler Relationship Specialty Start Date End Date Isabelle Colon MD [address] [place] [address] PCP - General Family Medicine 05/20/17 documented as of this encounter
--- OUTSIDE RECORDS SUMMARY | 2025-04-07 17:37 | XMS_ITS | Encounter Summary ---
Author Organization [employer] Address [address] [facility] 7t [place] [address] Care Team Providers Care Floor Waxer Name Role Phone Isabelle Colon MD Primary Care Provider + Encounter Details Date Type Department Care Team (Latest Contact Info) Description 04/03/2025 Travel Social History Tobacco Use Types Packs/Day Years [...] documented as of this encounter Care Teams Floor Waxer Relationship Specialty Start Date End Date Isabelle Colon MD [address] [place] [address] PCP - General Family Medicine 05/20/17 documented as of this encounter
--- OUTSIDE RECORDS SUMMARY | 2025-04-07 17:37 | XMS_ITS | Encounter Summary ---
Author Organization [employer] Address [address] [place] [address] 7t [place] [address] Care Team Providers Care Associate Business Analyst Name Role Phone Isabelle Colon MD Primary Care Provider + Encounter Details Date Type Department Care Team ([facility] st Contact Info) Description 02/09/2023 Orders Only [facility] MEDICINE [address] [place] [address] Marianna Patel LPN Social History Tobacco Use [...] documented as of this encounter Care Teams Associate Business Analyst Relationship Specialty Start Date End Date Isabelle Colon MD [address] [place] [address] PCP - General Family Medicine 05/20/17 [facility] 12/28/24 01/29/25 documented as of this encounter
--- OUTSIDE RECORDS SUMMARY | 2025-04-07 17:37 | XMS_ITS | Encounter Summary ---
Author Organization [employer] Address [address] [facility] [address] 7t [place] [address] Care Team Providers Care Derrick Barge Operator Name Role Phone Isabelle Colon MD Primary Care Provider + Encounter Details Date Type Department Care Team (Late st Contact Info) Description 12/17/2023 Orders Only [facility] MEDICINE 230 [place], [place] [phone] ProviderEliecer MD Social History Tobacco Use Types [...] on file documented as of this encounter Procedures Procedure [...] documented as of this encounter Care Teams Derrick Barge Operator Relationship Specialty Start Date End Date Isabelle Colon MD [address] [place] [address] PCP - General Family Medicine 05/20/17 [facility] 12/28/24 01/29/25 documented as of this encounter
--- OUTSIDE RECORDS SUMMARY | 2025-04-07 17:37 | XMS_ITS | Encounter Summary ---
Author Organization [employer] Address [address] [facility] 7t [place] [address] Care Team Providers Care Environmental Aid Name Role Phone Isabelle Colon MD Primary Care Provider + Encounter Details Date Type Department Care Team ([facility] st Contact Info) Description 07/08/2022 Orders Only [facility] [address] [place] [address] Marianna Patel LPN Social History Tobacco Use [...] on filedocumented in this encounter Care Teams Environmental Aid Relationship Specialty Start Date End Date Isabelle Colon MD [address] [place] [address] PCP - General Family Medicine 05/20/17 [facility] 12/28/24 01/29/25 documented as of this encounter
--- OUTSIDE RECORDS SUMMARY | 2025-04-07 17:37 | XMS_ITS | Encounter Summary ---
Author Organization [employer] Address [address] [facility] [address] 7t [place] [address] Care Team Providers Care Receiving And Processing Supervisor Name Role Phone Isabelle Colon MD Primary Care Provider + Encounter Details Date Type Department Care Team ([facility] st Contact Info) Description 01/06/2025 Orders Only [facility] MEDICINE [address] [place] [address] Pastora Jorgensen MD 230 [place], [place] [phone] Social History Tobacco Use Types Packs/Day Years [...] documented as of this encounter Care Teams Receiving And Processing Supervisor Relationship Specialty Start Date End Date Isabelle Colon MD [address] [place] [phone] PCP - General Family Medicine 05/20/17 [facility] 12/28/24 01/29/25 documented as of this encounter
--- OUTSIDE RECORDS SUMMARY | 2025-04-07 17:37 | XMS_ITS | Encounter Summary ---
Author Organization [employer] Address [address] [facility] 7t [place] [address] Care Team Providers Care Swat Team Member Name Role Phone Isabelle Colon MD Primary Care Provider + Reason for Visit * Reason Onset Date Comments Referral 06/26/2023 Encounter Details Date Type Department Care Team ([facility] st Contact Info) Description 06/26/2023 Telephone [facility] MEDICINE 230 [place], [place] [phone] Isabelle Colon MD [address] [place], [place] [phone] Referral Social History Tobacco Use Types Packs/Day [...] documented as of this encounter Care Teams Swat Team Member Relationship Specialty Start Date End Date Isabelle Colon MD [address] [place] [address] PCP - General Family Medicine 05/20/17 [facility] 12/28/24 01/29/25 documented as of this encounter
--- OUTSIDE RECORDS SUMMARY | 2025-04-07 17:37 | XMS_ITS | Encounter Summary ---
Author Organization [facility] Address [address] [facility] [address] [place] [address] Phone Care Team Providers Care Shoe Lacer Name Role Phone Unknown, Unknown Primary Care Provider Jorge ortiz Encounter Details Date Type Department Care Team (Late st Contact Info) Description 08/02/2018 Ancillary Orders [facility] [address] [place] [address] Saskia Moralez PA [address] [place] [address] [email or web address] Social History Tobacco Use Types Packs/Day Years Used Date Smoking Tobacco: Never Assessed Comments Unknown Sex and Gender Information Value Date Recorded Sex Assigned at Not on file Legal Sex Female 11:41 AM EST Gender Identity Not on file Sexual Orientation Not on file documented as of this encounter Plan of Treatment Not on file documented as of this encounter Results * Holter Monitor 48 Hours (08/02/2018 11:17 AM EST) Anatomical Region Laterality Modality Heart Other Narrative 08/02/2018 11:34 AM EST Holter monitor report Indication palpitations Findings: The underlying rhythm is a normal sinus rhythm with average heart rate 96 bpm, minimum heart rate 53 bpm, maximum heart rate 138 bpm. There are very rare isolated PVCs. There are very rare isolated premature atrial contractions. No tachyarrhythmias. Conclusion: Normal Holter monitor. Procedure Note Anders Doss MD - 08/02/2018 Holter monitor report Indication palpitations Findings: The underlying rhythm is a normal sinus rhythm with average heart rate 96bpm, minimum heart rate 53 bpm, maximum heart rate 138 bpm. There are very rare isolated PVCs. There are very rare isolated premature atrial contractions. No tachyarrhythmias. Conclusion: Normal Holter monitor. Saskia [facility] ORDERA BLES Final Result documented in this encounter Visit Diagnoses Diagnosis Palpitations Palpitations documented in this encounter Care Teams Shoe Lacer Relationship Specialty Start Date End Date Unknown, Unknown, MD PCP - General 07/13/18 documented as of this encounter Additional Source Comments The information contained in this document represents components of the legal health record. It is not the complete legal health record.[facility]
--- OUTSIDE RECORDS SUMMARY | 2025-04-07 17:37 | XMS_ITS | Encounter Summary ---
Author Organization [employer] Address [address] [facility] 7t [place] [address] Care Team Providers Care Furnace Setter Name Role Phone Isabelle Colon MD Primary Care Provider + Encounter Details Date Type Department Care Team ([facility] st Contact Info) Description 01/14/2023 Abstract [facility] MEDICINE [address] [place] [address] Isabelle Colon MD 230 [place], [place] [phone] Social History Tobacco Use Types Packs/Day Years [...] documented as of this encounter Care Teams Furnace Setter Relationship Specialty Start Date End Date Isabelle Colon MD [address] [place] [phone] PCP - General Family Medicine 05/20/17 [facility] 12/28/24 01/29/25 documented as of this encounter
--- OUTSIDE RECORDS SUMMARY | 2025-04-07 17:37 | XMS_ITS | Encounter Summary ---
Author Organization [employer] Address [address] [place] [address] 7t [place] [address] Care Team Providers Care Rigging Engineer Name Role Phone Isabelle Colon MD Primary Care Provider + Reason for Visit * Reason Comments Med Refill Encounter Details Date Type Department Care Team ([facility] st Contact Info) Description 08/20/2022 Refill [facility] MEDICINE [address] [place] [phone] Isabelle Colon MD [address] [place] [address] [phone] Social History Tobacco Use Types Packs/Day Years [...] on filedocumented in this encounter Care Teams Rigging Engineer Relationship Specialty Start Date End Date Isabelle Colon MD [address] [place] [address] [phone] PCP - General Family Medicine 05/20/17 [facility] 12/28/24 01/29/25 documented as of this encounter
--- OUTSIDE RECORDS SUMMARY | 2025-04-07 17:37 | XMS_ITS | Encounter Summary ---
Author Organization [employer] Address [address] [facility] 7t [place] [address] Care Team Providers Care Transportation Engineer Name Role Phone Isabelle Colon MD Primary Care Provider + Reason for Visit * Reason Comments Med Refill Encounter Details Date Type Department Care Team ([facility] st Contact Info) Description 10/11/2023 Refill [facility] MEDICINE 230 [place], [place] [phone] Isabelle Colon MD 230 [place], [place] [phone] Left hip pain Social History Tobacco Use [...] documented as of this encounter Care Teams Transportation Engineer Relationship Specialty Start Date End Date Isabelle Colon MD [address] [place] [address] PCP - General Family Medicine 05/20/17 [facility] 12/28/24 01/29/25 documented as of this encounter
--- OUTSIDE RECORDS SUMMARY | 2025-04-07 17:37 | XMS_ITS | Encounter Summary ---
Author Organization [employer] Address [address] [facility] 7t [place] [address] Care Team Providers Care Fruit Grading Supervisor Name Role Phone Isabelle Colon MD Primary Care Provider + Reason for Visit * Reason Onset Date Comments PT-1 11/18/2024 Encounter Details Date Type Department Care Team ([facility] Contact Info) Description 11/18/2024 Telephone [facility] MEDICINE [address] [place], [place] [phone] Isabelle Colon MD 230 [place], [place] [phone] PT-1 (/) Social History Tobacco Use Types [...] Y/N: Yes Provider name or facility name: [address] [place] [phone] for [facility] Cardiology Escort needed: Y/N: No Do you have a wheelchair: Y/N: No If yes- Manual or electric: Visits: (5 x Yearly) Patient calling requesting PT1 Home Address verified: Y/N: Yes Provider name or facility name: [address] [place] [address] at [facility] Escort needed: Y/N: No Do you have a wheelchair: Y/N: No If yes- Manual or electric: Visits: (5 x Yearly) Contact Ivy at [phone] documented in this encounter Plan of Treatment Not on file documented as of this encounter Visit Diagnoses Not on filedocumented in this encounter Additional Health Concerns Assessment Noted Time PHQ-9 Depression Total Score: 11 023 9:15 AM EST documented as of this encounter Care Teams Fruit Grading Supervisor Relationship Specialty Start Date End Date Isabelle Colon MD [address] [place] [address] PCP - General Family Medicine 05/20/17 [facility] 12/28/24 01/29/25 documented as of this encounter
== END 2025-04-07 15:50 | disposition home or self-care (01) ==
LOC: HO.HGI 15:13
PROVIDERS: Visit Provider Nurse Practitioner
DX: K21.9 Gastro-esophageal reflux disease without esophagitis (principal); K86.9 Disease of pancreas, unspecified; K59.04 Chronic idiopathic constipation; R10.9 Unspecified abdominal pain
CPT/HCPCS: 99214

== ENCOUNTER → 2025-04-07 15:12 | Outpatient (BNVA) | payer MEDICAID, SELFPAY | PROVIDERS: Visit Provider Nurse Practitioner | DX: K86.9 Disease of pancreas, unspecified (principal); R10.12 Left upper quadrant pain; K21.9 Gastro-esophageal reflux disease without esophagitis; K59.04 Chronic idiopathic constipation; R63.4 Abnormal weight loss; M79.89 Other specified soft tissue disorders; R53.83 Other fatigue; F17.210 Nicotine dependence, cigarettes, uncomplicated | CPT/HCPCS: 99212 ==

== ENCOUNTER 2025-04-13 14:08 | Outpatient (REF) | payer MEDICAID, SELFPAY ==
[2025-04-13 14:22] LABS: MANUAL DIFF FLAG NO
[2025-04-13 14:38] LABS: Hematocrit 36.2 % (37.0-47.0); Hemoglobin 11.7 g/dl (12.0-16.0); Imm Gran Abs Auto 0.01 X10*3/uL (0.00-0.03); Imm Gran Pct Auto 0.1 % (0.0-0.4); Lymphocytes Absolute Auto 1.8 X10*3/uL (1.2-4.9); Mean Corpuscular HGB Conc 32.3 g/dl (31.0-35.0); Mean Corpuscular Hemoglobin 29.7 pg (27.0-33.0); Mean Corpuscular Volume 91.9 fL (80.0-98.0); NRBC Abs Auto 0.000 X10*3/uL (0.0-0.012); NRBC Pct Auto 0.0 /100WBC (0.0-0.2); Platelet Count 361 X10*3/uL (160-400); Red Blood Count 3.94 X10*6/uL (4.20-5.50); White Blood Count 7.4 X10*3/uL (4.8-10.8)
[2025-04-13 15:39] LABS: Alanine Aminotransferase 12 U/L (0-31); Albumin Level 4.5 g/dL (3.5-5.0); Alkaline Phosphatase 91 U/L (39-117); Anion Gap 14 (12-20); Aspartate Amino Transferase 20 U/L (5-31); Blood Urea Nitrogen 22 mg/dL (9-16); Calcium 10.3 mg/dL (8.4-10.2); Carbon Dioxide 28 mmol/L (22-29); Chloride 105 mmol/L (96-108); Estimated Glomerular Filt Rate 46; Potassium 4.0 mmol/L (3.3-5.1); Sodium 143 mmol/L (135-145); Total Protein 7.8 g/dL (6.5-8.0)
--- OUTSIDE RECORDS SUMMARY | 2025-04-13 16:05 | XMS_ITS | Encounter Summary ---
Author Organization [facility] Address [address] [facility] [address] [place] [address] Phone Care Team Providers Care Rehabilitation Services Coordinator Name Role Phone Unknown, Unknown Primary Care Provider Jorge ortiz Encounter Details Date Type Department Care Team (Late st Contact Info) Description 08/02/2018 Ancillary Orders [facility] [address] [place] [address] Saskia Moralez PA [address] [place] [address] [email or web address] Social History Tobacco Use Types Packs/Day [...] Palpitations documented in this encounter Care Teams Rehabilitation Services Coordinator Relationship Specialty Start Date End Date Unknown, Unknown, MD PCP - General 07/13/18 documented as of this encounter Additional Source Comments The information contained in this document represents components of the legal health record. It is not the complete legal health record.[facility]
--- OUTSIDE RECORDS SUMMARY | 2025-04-13 16:05 | XMS_ITS | Clinical Summary ---
Author Organization [facility] Address [address] [place] [phone] Phone Care Team Providers Care Motocross Racer Name Role Phone Unknown, Unknown Primary Care [...] file Medical Devices Not on file Insurance [facility] C3 ACO [address] [place] [id number] [place] [address] [place] [place] [address] [address] [place] [address] C3 A[employer] [facility] C3 [address]CO [address] [place] [id number] [place] [address] [address] [place] [id number] [place] [address] [address] [place] [id number] [place] [address] C3 ACO [facility] C3 ACO Care Teams Motocross Racer Relationship Specialty Start Date End Date Unknown, Unknown, PCP - General 07/13/18 Additional Source Comments The information contained in this document represents components of the legal health record. It is not the complete legal health record.[facility]
== END 2025-04-13 14:09 | disposition home or self-care (01) ==
LOC: HO.LAB 14:08
PROVIDERS: Visit Provider Nurse Practitioner
DX: R10.9 Unspecified abdominal pain (principal)
CPT/HCPCS: 36415; 80053; 84443; 85025

== ENCOUNTER → 2025-04-19 09:08 | Outpatient (BNV) | payer MEDICAID, SELFPAY | PROVIDERS: Visit Provider Family Medicine | DX: K86.2 Cyst of pancreas (principal) | CPT/HCPCS: 74183 ==

== ENCOUNTER 2025-04-19 09:09 | Outpatient (REF) | payer MEDICAID, SELFPAY ==
--- NOTE | ~2025-04-19 | MR_ITS ---
CLINICAL HISTORY: K86.9 - Disease of pancreas, unspecified MR abdomen with and without gadolinium Comparison: CT/SR - CT ABDOMEN PELVIS WO IV CON - 12/15/24 01:[address]/REG/SR - CT ABDOMEN PELVIS WO/W IV CON - 10/23/22 08:07 EDT Findings: Trace pericardial effusion. Pancreatic head cyst is unchanged from 2022 measuring 2.8 x 2.2 cm. Continued follow-up is recommended. Bilateral renal cysts. No pancreatic ductal dilation. No adjacent inflammatory changes. No ascites. Liver, spleen, and adrenal glands are unremarkable. Postoperative changes L5-S1. IMPRESSION: 1. Pancreatic head cyst is unchanged from 2022 measuring 2.8 x 2.2 cm. Continued follow-up is recommended. 2. No pancreatic ductal dilation. No adjacent inflammatory changes. This document has been electronically signed by: Mohamud Pimentel DO on 04/20/2025 12:47:30
--- OUTSIDE RECORDS SUMMARY | 2025-04-19 10:45 | XMS_ITS | Encounter Summary ---
Author Organization [employer] Address [address] [facility] [address] 7t [place] [address] Care Team Providers Care Ply Splicer Name Role Phone Isabelle Colon MD Primary Care Provider + Encounter Details Date Type Department Care Team (Late st Contact Info) Description 12/17/2023 Orders Only [facility] MEDICINE 230 [place], [place] [phone] ProviderEliecer MD Social History Tobacco Use Types [...] documented as of this encounter Care Teams Ply Splicer Relationship Specialty Start Date End Date Isabelle Colon MD [address] [place] [address] PCP - General Family Medicine 05/20/17 [facility] 12/28/24 01/29/25 documented as of this encounter
--- OUTSIDE RECORDS SUMMARY | 2025-04-19 10:45 | XMS_ITS | Encounter Summary ---
Author Organization [employer] Address [address] [place] [address] 7t [place] [address] Care Team Providers Care Assorter Name Role Phone Isabelle Colon MD Primary Care Provider + Reason for Visit * Reason Comments Med Refill Encounter Details Date Type Department Care Team ([facility] st Contact Info) Description 08/20/2022 Refill [facility] MEDICINE [address] [place] [phone] Isabelle Colon MD [address] [place] [address] [phone] Social History Tobacco Use Types Packs/Day Years [...] on filedocumented in this encounter Care Teams Assorter Relationship Specialty Start Date End Date Isabelle Colon MD [address] [place] [address] [phone] PCP - General Family Medicine 05/20/17 [facility] 12/28/24 01/29/25 documented as of this encounter
--- OUTSIDE RECORDS SUMMARY | 2025-04-19 10:45 | XMS_ITS | Encounter Summary ---
Author Organization [employer] Address [address] [place] [address] 7 [place] [address] Care Team Providers Care Tile Setter Apprentice Name Role Phone Isabelle Vásquez MD Primary Care Provider + Reason for Referral * Imaging (Routine) - Pending Review Specialty Diagnoses / Procedures Referred By Stephanie soni Referred To Contact Radiology Diagnoses Mid back pain on left side Paravertebral mass Procedures MRI THORACIC SPINE W WO CONTRAST Isabelle Vásquez MD [address] [place] [address] Phone: tel: fax: Referral ID Status Reason Start Date Expiration Date V isits Requested Visits Authorized [id number] Pending Review 04/18/2025 04/18/2026 1 1 Encounter Details Date Type Department Care Team (Late st Contact Info) Description 04/06/2025 Telephone [facility] [address] [place] [address] Isabelle Vásquez MD [address] [place] [address] [phone] Social History Tobacco Use Types Packs/Day Years [...] as of this encounter Miscellaneous Notes * Addendum Note - Isabelle Vásquez MD - 04/18/2025 4:14 PM EDTAddended by: ISABELLE VÁSQUEZ on: 04/18/2025 04:14 PM Modules accepted: Orders * Telephone Encounter - Adali Garcia - 04/06/2025 11:30 AM EDT Incoming call from Cony at [facility] radiology department requesting MRI order to be update to MRI Thoracic Spine WWO Contrast. Please advise! documented in this encounter Plan of Treatment Scheduled Orders Name Type Priority Associated Diagnoses Orde r Schedule MRI THORACIC SPINE W WO CONTRAST Imaging Routine Mid back pain on left side Paravertebral mass Expected: 04/18/2025 (Approximate), Expires: 04/18/2026 documented as of this encounter Visit Diagnoses Diagnosis Mid back pain on left side- Primary Paravertebral mass documented in this encounter Additional Health Concerns Assessment Noted Time PHQ-9 Depression Total Score: 9 01/06/20 25 9:14 AM EDT documented as of this encounter Care Teams Tile Setter Apprentice Relationship Specialty Start Date End Date Isabelle Vásquez MD 230 [place] [address] PCP - General Family Medicine 05/20/17 documented as of this encounter
--- OUTSIDE RECORDS SUMMARY | 2025-04-19 10:46 | XMS_ITS | Encounter Summary ---
Author Organization [employer] Address [address] [facility] 7t [place] [address] Care Team Providers Care Corporate Licensed Broker Name Role Phone Isabelle Colon MD Primary Care Provider + Reason for Visit * Reason Onset Date Comments Referral 06/26/2023 Encounter Details Date Type Department Care Team ([facility] st Contact Info) Description 06/26/2023 Telephone [facility] [address] [place], [place] [phone] Isabelle Colon MD [address] [place], [place] [phone] Referral Social History Tobacco Use Types Packs/Day [...] documented as of this encounter Care Teams Corporate Licensed Broker Relationship Specialty Start Date End Date Isabelle Colon MD [address] [place] [phone] PCP - General Family Medicine 05/20/17 [facility] 12/28/24 01/29/25 documented as of this encounter
--- OUTSIDE RECORDS SUMMARY | 2025-04-19 10:46 | XMS_ITS | Clinical Summary ---
Author Organization [employer] Address [address] [place] [address] 7t [place] [address] Care Team Providers Care Restorative Coordinator Name Role Phone Isabelle Colon MD Primary [...] Thursday, Thursday, Thursday Active Comfort EZ Pen Hegins 31G X 8 MM misc USE 1 DAILY WITH FORTEO 08/24/19 25 Active Gustine Saline Nasal gel APPLY 1 APPLICATION IN [...] evening. Active ergocalciferol (Vitamin D2) 1.25 MG (80229 UT) capsule TAKE 1 CAPSULE BY MOUTH [...] life style modifications, diet and referral to recreation program specialist. Recommended to decrease soda and sugary [...] test: UTD, simply restarted on Forteo by mower sharpener and tolerates well. Follow-up with mower sharpener Eye exam: Information not available will attain [...] before and rash is resolved). I called [facility] endocrinology practice and left a message to Dr. Sierra re this issue and fu with patient. Continue Vit D supplementation and Forteo until told otherwise by Dr Sierra. Patient understands the risk of fractures. Assessment & Plan (02/10/2024 3:07 PM EDT): On forteo, she seem not to tolerate it due to dermatitis, wants it dc I will talk with [facility] endocrinology for fabien alternative med. She's aware [...] Fosamax and Teracycline FU BMD results with mower sharpener Continue ergocalciferol Vitamin D, check levels Chronic [...] updraft today, patient needs to FU with heel seat trimmer, she seems to be a candidate for D[facility]. She will reschedule appointment with heel seat trimmer. Congratulated her on quitting smoking Continue albuterol [...] Metoprolol 50 mg BID recently adjusted by pencil maker, diltiazem, HCTZ Counseled re low salt diet/increase [...] Encouraged physical activity as tolerated. Refer to hydraulic rubbish compactor mechanic. 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 10/08/2017 03/17/2024 Assessment & Plan (01/22/2024 3:59 PM EDT): Repeat MRI due to worsening leg pain Encounters Date Type Department Care Team Description 04/13/2025 Orders Only GENERIC EXTERNAL DATA DEPARTMENT Provider, Generic External Data 04/06/2025 Telephone [employer] [facility] [address] [place] [address] Isabelle Colon MD 04/03/2025 2:30 PM EDT Office Visit [facility] [address] [place] [address] Isabelle Colon MD Encounter for preventive health examination (Primary Dx); Class 1 obesity due to excess calories with serious comorbidity and body mass index (BMI) of 31.0 to 31.9 in adult; Pancreatic cyst; Paravertebral mass; Overweight; Dietary counseling; Exercise counseling; Screening mammogram for breast cancer 04/03/2025 Travel 03/31/2025 Telephone [facility] [address] [place] [phone] Isabelle Colon MD Chart Prep 03/29/2025 11:00 AM EDT Office Visit [facility] ADULT DENTAL [address] [place] [phone] Zachary Miller DDS Ill-fitting dentures (Primary Dx) 03/23/2025 Patient Outreach [facility] [address] [place] [phone] Isabelle Colon MD Pre-visit Planning (SDOH screening completed on 01/05/2025) 03/19/2025 Refill [facility] [address] [place], [place] [phone] Isabelle Colon MD Rhinitis, unspecified type 02/07/2025 Refill [facility] [address] [place], [place] [phone] Isabelle Colon MD 02/01/2025 Refill [facility] [address] [place] [phone] Isabelle Colon MD 01/19/2025 2:30 PM EDT Clinical Support [address] [address] Maribel Minor RN Essential hypertension [I10] 01/19/2025 Travel from Last 3 Months Immunizations Immunization [...] Full Mouth 01/22/2021 01/21/2018 Mammogram 02/15/2023 02/15/2021, 0711/2020, 09/03/2018, Additional history exists RSV Patients and [...] Procedure Name Priority Date/Time Associated Diagnosis Comments TSH W/REFLEX TO FT4 Routine 04/13/2025 2 :21 PM EDT COMPREHENSIVE METABOLIC PANEL Routine 04/13/2025 2:21 PM EDT CBC WITH AUTO DIFFERENTIAL Routine 04/13/2025 2:21 PM EDT CASE PRESENTATION, DETAILED AND EXTENSIVE TREATMENT PLANNING Routine 03/29/2025 11:00 AM EDT LIMITED ORAL EVALUATION - PROBLEM FOCUSED Routine 03/29/2025 11:00 AM EDT HEMOGLOBIN A1C Routine 01/05/2025 10:15 AM EDT IFG (impaired fasting glucose) PERIODIC ORAL EVALUATION - ESTABLISHED PATIENT Routine [...] Recently Relevant to Health Maintenance Results * TSH with Reflex to Free T4 (04/13/2025 2:21 PM EDT) TSH reflex Free T4 0.82 0.32 - 4.0 uIU/mL [facility] 04/13/2025 2:21 PM EDT 04/13/2025 2:21 PM EDT us Generic External Data Provider LAB BLOOD ORDERAB LES Final Result [facility] [address] [place] [phone] * (ABNORMAL) CBC auto differential (04/13/2025 2:21 PM EDT) White Blood Count 7.4 4.8 - 10.8 X10*3/uL [facility] Red Blood Count 3.94(L) 4.20 - 5.50 X10*6/uL [facility] Hemoglobin 11.7(L) 12.0 - 16.0 g/dl [facility] Hematocrit 36.2(L) 37.0 - 47.0 % [facility] Mean Corpuscular Volume 91.9 80.0 - 98.0 fL [facility] Mean Corpuscular Hemoglobin 29.7 27.0 - 33.0 pg [facility] Mean Corpuscular HGB Conc 32.3 31.0 - 35.0 g/dl [facility] Red Cell Distribution Width 13.0 11.0 - 16.0 % [facility] Platelet Count 361 160 - 400 X10*3/uL [facility] Mean Platelet Volume 11.1 9.4 - 12.3 fL [facility] Neutrophils Percent Auto 57.9 45 - 73 % [facility] Imm Gran Pct Auto 0.1 0.0 - 0.4 % [facility] Lymphocytes Percent Auto 24.7 20 - 40 % [facility] Monocytes Percent Auto 8.0 2 - 11 % [facility] Eosinophils Percent Auto 7.8(H) 0 - 4 % [facility] Basophils Percent Auto 1.5 0 - 2 % [facility] NRBC Pct Auto 0.0 0.0 - 0.2 /100WBC [facility] Neutrophils Absolute Auto 4.3 2.0 - 8.3 x10*3/uL [facility] Imm Gran Abs Auto 0.01 0.00 - 0.03 X10*3/uL [facility] Lymphocytes Absolute Auto 1.8 1.2 - 4.9 X10*3/uL [facility] Monocytes Absolute Auto 0.6 0.1 - 1.2 X10*3/uL [facility] Eosinophils Absolute Auto 0.6(H) 0.0 - 0.4 X10*3/uL [facility] Basophils Absolute Auto 0.1 0.0 - 0.2 X10*3/uL [facility] NRBC Abs Auto 0.000 0.0 - 0.012 X10*3/uL [facility] 04/13/2025 2:21 PM EDT 04/13/2025 2:21 PM EDT us Generic External Data Provider LAB BLOOD ORDERAB LES Final Result [facility] [address] [place] [phone] * (ABNORMAL) Comprehensive Metabolic Panel (04/13/2025 2:21 PM EDT) Sodium 143 135 - 145 mmol/L [facility] Potassium 4.0 3.3 - 5.1 mmol/L [facility] Chloride 105 96 - 108 mmol/L [facility] Carbon Dioxide 28 22 - 29 mmol/L [facility] Anion Gap 14 12 - 20 [facility] Urea Nitrogen (BUN) 22(H) 9 - 16 mg/dL [facility] Creatinine, Serum 1.19 0.5 - 1.4 mg/dL [facility] Estimated Glomerular Filt Rate 46 [facility] Comment:Chronic Kidney Disea se: Estimated GFR < 60 mL/min/1.39i2Rzsaac Kidney Disease: Estimated GFR < 15 mL/min/1.73m2 Glucose 137(H) 60 - 115 mg/dL [facility] Calcium 10.3(H) 8.4 - 10.2 mg/dL [facility] Bilirubin, Total 0.3 0.0 - 1.0 mg/dL [facility] Aspartate Amino Transferase 20 5 - 31 U/L [facility] Alanine Aminotransferase 12 0 - 31 U/L [facility] Total Protein 7.8 6.5 - 8.0 g/dL [facility] Albumin Level 4.5 3.5 - 5.0 g/dL [facility] Alkaline Phosphatase 91 39 - 117 U/L [facility] 04/13/2025 2:21 PM EDT 04/13/2025 2:21 PM EDT us Generic External Data Provider LAB BLOOD ORDERAB LES Final Result Performing Organization Address [facility]/ZIP Co de Phone Number [facility] [address] [place] [phone] * Hemoglobin A1c (01/05/2025 10:15 AM EDT) Hemoglobin A1c 6.0 <6.0 % [facility] Comment:Hemoglobin A1C Refer ence Range Adults: 4.8 - 6.0 % Non diabetic: < 6.0 % Goal: < 7.0 %Additional Action Suggested: > 8.0 %Note: Hemoglobin A1c results are invalid for patients with abnormal amounts of HbF. Blood transfusions may impact the HbA1c concentration in the patient sample. Estimated Average Glucose 126 mg/dL [facility] Comment:eAG = Estimated ave rage glucose which is %A1C expressed asaverage glucose, using the formula of the [id number] Glucose study (ADAG), Diabetes Care, Vol.31,#8,Feb. 2007 Blood Venous blood specimen / Unknown 01/05/2025 10:15 AM EDT 01/05/2025 11:10 AM EDT Ernestina Chambers [facility] LAB BLOOD ORDERABLES Final Resul t Performing Organization Address [facility] Co de Phone Number [facility] [address] [place] [phone] * (ABNORMAL) Lipid Panel with Reflex to Direct LDL (06/26/2023 8:23 AM EST) Triglycerides 168(H) <150 mg/dL [facility] Comment:Desirable Triglyceri de: less than 150 mg/dLBorderline High Triglyceride 150-199 mg/dLHigh Triglyceride: 200-499 mg/dLVery High Triglyceride: greater than or equal to 5OO mg/dL Cholesterol 179 <200 mg/dL [facility] Comment:Desirable Cholestero l: less than 200 mg/dLBorderline High Cholesterol: 200-239 mg/dLHigh Cholesterol: greater than 239 mg/dL LDL Cholesterol Calculated 85 <100 mg/dL [facility] Comment:Desirable LDL: less than 100 mg/dLNear Optimal/Above Optimal LDL: 110- 129 mg/dLBorderline High LDL: 130-159 mg/dLHigh LDL: 160-189 mg/dLVery High LDL: greater than or equal to 190 mg/dL HDL Cholesterol 61 >40 mg/dL [facility] Comment:Desirable HDL: great er than 40 mg/dL Note: This HDL assay may give artificially low results in patients with liver disease. Blood 06/26/2023 8:23 AM EST 06/26/2023 11:12 AM EST us Isabelle Colon MD LAB BLOOD ORDERABLES Fin al Result Performing Organization Address [facility] Co de Phone Number [facility] [address] [place] [phone] * Hepatitis Panel, General (06/26/2023 8:23 AM EST) Hepatitis A IgM Nonreactive Nonreactive [facility] Comment:IgM antibodies to EAGLE V not detected; does not exclude earlyacute or recovered HAV infection. ~Hepatitis B Surface Antibody NONREACTIVE Nonreactive [facility] Comment:Nonreactive: < 8.00 mIU/mL Hepatitis B Core Antibody Nonreactive Nonreactive [facility] Hepatitis C Antibody Nonreactive Nonreactive [facility] Comment:Antibodies to HCV no t detected; does not exclude early acuteHCV infection. Hepatitis B Surface Ag Negative Negative [facility] Blood 06/26/2023 8:23 AM EST 06/26/2023 11:12 AM EST us Isabelle Colon MD LAB BLOOD ORDERABLES Fin al Result Performing Organization Address City/[facility] Co de Phone Number [facility] [address] [place] [phone] * Hm Colonoscopy (03/29/2021 10:49 AM EDT) us Historical Provider HEALTH MAINTENANCE Final Result * [...] Most Recently Relevant to Health Maintenance Insurance [facility] STANDARD DENTAL-[facility] MEDICAID STAND ADULT Care Teams Restorative Coordinator Relationship Specialty Start Date End Date Isabelle Colon MD [address] [place] [phone] PCP - General Family Medicine 05/20/17
--- OUTSIDE RECORDS SUMMARY | 2025-04-19 10:46 | XMS_ITS | Encounter Summary ---
Author Organization [employer] Address [address] [facility] 7t [place] [address] Care Team Providers Care It Help Desk Manager Name Role Phone Isabelle Colon MD Primary Care Provider + Encounter Details Date Type Department Care Team (Latest Contact Info) Description 09/24/2021 Abstract [facility] CONVERSIONS Dental, Provider, DDS Social History [...] on filedocumented in this encounter Care Teams It Help Desk Manager Relationship Specialty Start Date End Date Isabelle Colon MD [address] [place] [phone] PCP - General Family Medicine 05/20/17 [facility] 12/28/24 01/29/25 documented as of this encounter
--- OUTSIDE RECORDS SUMMARY | 2025-04-19 10:46 | XMS_ITS | Encounter Summary ---
Author Organization [employer] Address [address] [place] [address] 7t [place] [address] Care Team Providers Care Commission Agent Livestock Name Role Phone Isabelle Colon MD Primary Care Provider + Encounter Details Date Type Department Care Team ([facility] st Contact Info) Description 02/09/2023 Orders Only [facility] [address] [place] [address] Marianna Patel LPN Social History Tobacco Use [...] documented as of this encounter Care Teams Commission Agent Livestock Relationship Specialty Start Date End Date Isabelle Colon MD [address] [place] [address] PCP - General Family Medicine 05/20/17 [facility] 12/28/24 01/29/25 documented as of this encounter
--- OUTSIDE RECORDS SUMMARY | 2025-04-19 10:46 | XMS_ITS | Encounter Summary ---
Author Organization [employer] Address [address] [facility] 7t [place] [address] Care Team Providers Care Geriatrician Name Role Phone Isabelle Colon MD Primary Care Provider + Reason for Visit * Reason Onset Date Comments delivery case 12/24/2022 Encounter Details Date Type Department Care Team ([facility] st Contact Info) Description 12/24/2022 Telephone [facility]ULT [facility] [address] [place], [place] [phone] Zachary Miller DDS [address] [place] [address] delivery case Social History Tobacco Use Types [...] documented as of this encounter Care Teams Geriatrician Relationship Specialty Start Date End Date Isabelle Colon MD [address] [place] [phone] PCP - General Family Medicine 05/20/17 [facility] 12/28/24 01/29/25 documented as of this encounter
--- OUTSIDE RECORDS SUMMARY | 2025-04-19 10:46 | XMS_ITS | Encounter Summary ---
Author Organization [facility] Address [address] [facility] [address] [place] [address] Phone Care Team Providers Care Videotape Operator Name Role Phone Unknown, Unknown Primary Care Provider Jorge ortiz Encounter Details Date Type Department Care Team (Late st Contact Info) Description 08/02/2018 Ancillary Orders [facility] [address] [place] [address] Saskia Moralez PA [address] [place] [address] [email or web address] Palpitations Social History Tobacco Use Types Packs/Day [...] Palpitations documented in this encounter Care Teams Videotape Operator Relationship Specialty Start Date End Date Unknown, Unknown, MD PCP - General 07/13/18 documented as of this encounter Additional Source Comments The information contained in this document represents components of the legal health record. It is not the complete legal health record.[facility]
--- OUTSIDE RECORDS SUMMARY | 2025-04-19 10:46 | XMS_ITS | Encounter Summary ---
Author Organization [employer] Address [address] [facility] [address] [place] [address] Care Team Providers Care Exchange Underwriting Consultant Name Role Phone Isabelle Colon MD Primary Care Provider + Encounter Details Date Type Department Care Team ([facility] st Contact Info) Description 10/14/2023 Telephone [facility] [address] [place] [address] Isabelle Colon MD [address] [place], [place] [phone] Social History Tobacco Use Types Packs/Day Years [...] documented as of this encounter Care Teams Exchange Underwriting Consultant Relationship Specialty Start Date End Date Isabelle Colon MD [address] [place] [phone] PCP - General Family Medicine 05/20/17 [facility] 12/28/24 01/29/25 documented as of this encounter
--- OUTSIDE RECORDS SUMMARY | 2025-04-19 10:46 | XMS_ITS | Clinical Summary ---
Author Organization [facility] Address [address] [place] [phone] Phone Care Team Providers Care Tax Services Intern Name Role Phone Unknown, Unknown Primary Care [...] [facility] [address] [place] [address] [place] [address] [address] [place] [address] [address] [address] [place] [phone] [place] [address] [address] [place] [phone] [place] [address] [address] [place] [phone] [place] [address] [address] [facility] Care Teams Tax Services Intern Relationship Specialty Start Date End Date Unknown, Unknown, PCP - General 07/13/18 Additional Source Comments The information contained in this document represents components of the legal health record. It is not the complete legal health record.[facility]
--- OUTSIDE RECORDS SUMMARY | 2025-04-19 10:46 | XMS_ITS | Encounter Summary ---
Author Organization [employer] Address [address] [facility] 7t [place] [address] Care Team Providers Care Manufacturing Tech Name Role Phone Isabelle Colon MD Primary Care Provider + Reason for Visit * Reason Onset Date Comments PT-1 11/18/2024 Encounter Details Date Type Department Care Team ([facility] Contact Info) Description 11/18/2024 Telephone [facility] [address] [place], [place] [phone] Isabelle Colon MD 230 [place], [place] [phone] PT-1 (/) Social History Tobacco Use Types [...] Y/N: Yes Provider name or facility name: [address] [place] [id number] for [facility] Escort needed: Y/N: No Do you have a wheelchair: Y/N: No If yes- Manual or electric: Visits: (5 x Yearly) Patient calling requesting PT1 Home Address verified: Y/N: Yes Provider name or facility name: [address] [place] [address] at [facility] Escort needed: Y/N: No Do you have a wheelchair: Y/N: No If yes- Manual or electric: Visits: (5 x Yearly) Contact Ivy at [phone] documented in this encounter Plan of Treatment Not on file documented as of this encounter Visit Diagnoses Not on filedocumented in this encounter Additional Health Concerns Assessment Noted Time PHQ-9 Depression Total Score: 11 023 9:15 AM EST documented as of this encounter Care Teams Manufacturing Tech Relationship Specialty Start Date End Date Isabelle Colon MD [address] [place] [phone] PCP - General Family Medicine 05/20/17 [facility] 12/28/24 01/29/25 documented as of this encounter
--- OUTSIDE RECORDS SUMMARY | 2025-04-19 10:46 | XMS_ITS | Encounter Summary ---
Author Organization [employer] Address [address] [facility] 7t [place] [address] Care Team Providers Care Back Padder Name Role Phone Isabelle Colon MD Primary Care Provider + Encounter Details Date Type Department Care Team ([facility] st Contact Info) Description 01/14/[address] [facility] [address] [place] [address] Isabelle Colon MD 230 [place], [place] [phone] Social History Tobacco Use Types Packs/Day Years [...] documented as of this encounter Care Teams Back Padder Relationship Specialty Start Date End Date Isabelle Colon MD [address] [place] [phone] PCP - General Family Medicine 05/20/17 [facility] 12/28/24 01/29/25 documented as of this encounter
--- OUTSIDE RECORDS SUMMARY | 2025-04-19 10:46 | XMS_ITS | Encounter Summary ---
Author Organization [employer] Address [address] [facility] 7t [place] [address] Care Team Providers Care Director Of Clinical Education Name Role Phone Isabelle Colon MD Primary Care Provider + Reason for Visit * Reason Comments Med Refill Encounter Details Date Type Department Care Team ([facility] st Contact Info) Description 10/11/2023 Refill [facility] [address] [place], [place] [phone] Isabelle Colon MD 230 [place], [place] [phone] Left hip pain Social History Tobacco Use [...] documented as of this encounter Care Teams Director Of Clinical Education Relationship Specialty Start Date End Date Isabelle Colon MD [address] [place] [phone] PCP - General Family Medicine 05/20/17 [facility] 12/28/24 01/29/25 documented as of this encounter
--- OUTSIDE RECORDS SUMMARY | 2025-04-19 10:46 | XMS_ITS | Encounter Summary ---
Author Organization [employer] Address [address] [facility] [address] [place] [address] Care Team Providers Care Truck Technician Name Role Phone Isabelle Colon MD Primary Care Provider + Encounter Details Date Type Department Care Team ([facility] st Contact Info) Description 01/06/2025 Orders Only [facility] 230 [place] [address] Pastora Jorgensen MD 230 [place], [place] [phone] Social History Tobacco Use Types Packs/Day Years [...] documented as of this encounter Care Teams Truck Technician Relationship Specialty Start Date End Date Isabelle Colon MD [address] [place] [phone] PCP - General Family Medicine 05/20/17 [facility] 12/28/24 01/29/25 documented as of this encounter
--- OUTSIDE RECORDS SUMMARY | 2025-04-19 10:46 | XMS_ITS | Encounter Summary ---
Author Organization [employer] Address [address] [facility] [address] [place] [address] Care Team Providers Care Health Occupations Teacher Name Role Phone Isabelle Colon MD Primary Care Provider + Encounter Details Date Type Department Care Team ([facility] st Contact Info) Description 07/08/2022 Orders Only [facility] [address] [place] [address] Marianna Patel LPN Social History Tobacco Use [...] on filedocumented in this encounter Care Teams Health Occupations Teacher Relationship Specialty Start Date End Date Isabelle Colon MD [address] [place] [address] PCP - General Family Medicine 05/20/17 [facility] 12/28/24 01/29/25 documented as of this encounter
== END 2025-04-19 09:10 | disposition home or self-care (01) ==
LOC: HO.MRI 09:09
PROVIDERS: Visit Provider Nurse Practitioner
DX: K86.9 Disease of pancreas, unspecified (principal)
CPT/HCPCS: 74183; A9585

== ENCOUNTER → 2025-05-03 13:46 | Outpatient (BNV) | payer MEDICAID, SELFPAY | PROVIDERS: Visit Provider Radiology Diagnostic Radiology | DX: D17.9 Benign lipomatous neoplasm, unspecified (principal) | CPT/HCPCS: 72157 ==

== ENCOUNTER 2025-05-03 13:47 | Outpatient (REF) | payer MEDICAID, SELFPAY ==
--- NOTE | ~2025-05-03 | MR_ITS ---
EXAMINATION: MR THORACIC SPINE WITHOUT AND WITH CONTRAST TECHNIQUE: Multiplanar multisequence imaging of the thoracic spine was performed from the C7-L1 without contrast. INDICATION: Back, shoulder, and neck pain, palpable lump for greater than one month in the lower chest/upper back PRIOR: None FINDINGS: Marrow and end-plates: There are no marrow replacing lesions. Alignment: Vertebral body height and alignment is preserved. Soft tissues: There is an ill-defined mass that is partially encapsulated in the deep subcutaneous soft tissues dorsal to L1 and L2. It measures 5.6 x 3.1 x 4.1 cm (CC by AP by transverse). The the pelvis fat signal on all sequences aside from a few hairline thin internal septations with minimal enhancement. Cord: There is no abnormal cord signal. There is no hydrosyringomyelia. The termination of conus medullaris is within normal limits at the level of L1. Discs: There was no disc bulge, herniation, spinal stenosis, or foraminal narrowing. MR/MR thoracic spine wo/w con IMPRESSION: Unremarkable thoracic spine. Partially encapsulated simple lipoma is present in the deep subcutaneous soft tissues dorsal to the level of L1-L2, midline. Electronically signed by: Kevin Torres MD 05/03/2025 02:58 PM EDT
== END 2025-05-03 13:48 | disposition home or self-care (01) ==
LOC: HO.MRI 13:47
PROVIDERS: Visit Provider Internal Medicine
DX: M54.9 Dorsalgia, unspecified (principal); R22.2 Localized swelling, mass and lump, trunk
CPT/HCPCS: 72157; A9585

== ENCOUNTER 2025-06-15 09:20 | Outpatient (REF) | payer MEDICAID, SELFPAY ==
--- NOTE | ~2025-06-15 | US_ITS ---
CLINICAL HISTORY: R10.9 - Unspecified abdominal pain US abdomen complete Comparison: MR - MR ABDOMEN WO/W CON - 04/19/25 09:23 EDT Findings: The visualized portion of the pancreatic head and body is normal, the uncinate process including the cystic lesion seen on prior MRI and pancreatic tail are obscured by bowel gas. The visualized aorta and inferior vena cava are normal caliber. The liver is normal in size, right lobe length is 16 cm. Normal in echogenicity, no discrete lesion is visualized in the imaged liver. No intrahepatic bile duct dilatation. The common duct is 6 mm in diameter. The gallbladder is normal. Negative sonographic Carson sign. The main portal vein is patent with antegrade flow. The right kidney demonstrates simple cyst 9 mm in the lower pole, otherwise normal, 10.0 cm in length. The left kidney demonstrates simple cyst 10 mm in the upper pole, otherwise normal, 9.7 cm in length. The spleen is normal, 9.7 cm in length. No free fluid in the abdomen. Impression: 1. No sonographic finding to account for abdominal pain. 2. Bilateral renal benign cysts. This document has been electronically signed by: Qing Alex MD on 06/15/2025 12:48:22
--- OUTSIDE RECORDS SUMMARY | 2025-06-15 12:06 | XMS_ITS | Encounter Summary ---
Author Organization [employer] Address [address] [facility] [address] [place] [address] Care Team Providers Care Welding Lead Burner Name Role Phone Isabelle Colon MD Primary Care Provider + Encounter Details Date Type Department Care Team (Late st Contact Info) Description 12/17/2023 Orders Only [facility] [address] [place], [place] [phone] ProviderEliecer MD Social History Tobacco Use Types [...] Care Team (Late st Contact Info) Description 06/20/2025 10:00 AM EST Office Visit [facility] [address] [place], [place] [phone] Zachary Miller DDS [address] [place], [place] [phone] documented as of this encounter Procedures Procedure [...] as of this encounter Care Teams Welding Lead Burner Relationship Specialty Start Date End Date Isabelle Colon MD [address] [place] [address] PCP - General Family Medicine 05/20/17 [facility] 12/28/24 01/29/25 documented as of this encounter
--- OUTSIDE RECORDS SUMMARY | 2025-06-15 12:07 | XMS_ITS | Encounter Summary ---
Author Organization [employer] Address [address] [place] [address] [address] [place] [address] Care Team Providers Care Soaker Meat Name Role Phone Isabelle Colon MD Primary Care Provider + Reason for Visit * Reason Comments Med Refill Encounter Details Date Type Department Care Team (Late st Contact Info) Description 08/20/2022 Refill [facility] [address] [place] [address] Isabelle Colon MD [address] [place] [address] Social History Tobacco Use Types Packs/Day Years [...] Description 06/20/2025 10:00 AM EST Office Visit [facility] [address] [place] [address] Zachary Miller DDS [address] [place] [address] documented as of this encounter Visit Diagnoses Not on filedocumented in this encounter Care Teams Soaker Meat Relationship Specialty Start Date End Date Isabelle Colon MD [address] [place] [id number] PCP - General Family Medicine 05/20/17 [facility] 12/28/24 01/29/25 documented as of this encounter
--- OUTSIDE RECORDS SUMMARY | 2025-06-15 12:07 | XMS_ITS | Clinical Summary ---
Author Organization [employer] Address [address] [place] [address] [address] [place] [address] Care Team Providers Care Recreational Aide Name Role Phone Isabelle Colon MD Primary [...] MG/3ML) 0.083% nebulizer solutionIndicat ions:COPD exacerbation (CMS/HCC) (HCC) INHALE 1 AMPULE USING A NEBULIZER THREE [...] nostril as directed 30 mL 12/02/19 25 2025 Active hydroCHLOROthia zide 12.5 MG tablet Take 1 tablet (12.5 mg) by mouth Once per day. 90 tablet 3 12/02/19 25 2025 Active FREESTYLE LITE test stripIndication s:IFG (impaired fasting glucose) TEST BLOOD SUGAR ONCE A DAY 100 each 12 12/09/192025 Active azithromycin (Zithromax) 500 MG tablet Take 1 tablet by mouth 3 (three) times a week. Thursday, Thursday, Thursday Active Comfort EZ Pen [place] 31G X 8 MM misc USE 1 DAILY WITH FORTEO 08/24/19 Active [place] Saline Nasal gel APPLY 1 APPLICATION IN EACH NOSTRIL EVERY DAY IN THE EVENING DIRECTED 11/29/19 Active Forteo 560 MCG/2.24ML solution pen-injector Inject 20 mcg under the skin Once per day. 11/24/19 25 Active Spiriva Respimat 2.5 MCG/ACT inhaler Inhale 2 puffs Once per day. Active dicyclomine (Bentyl) 10 MG capsule Take 1 capsule by mouth in the morning and 1 capsule at noon and 1 capsule in the evening. Active ergocalciferol (Vitamin D2) 1.25 MG (67619 UT) capsule TAKE 1 CAPSULE BY MOUTH ONCE PER WEEK 12 capsule 1 02/02/20 25 Active montelukast (Singulair) 10 MG tablet TAKE 1 TABLET BY MOUTH EVERY EVENING 90 tablet 1 02/10/20 25 Active fluticasone (Flonase) 50 MCG/ACT nasal sprayIndication s:Rhinitis, unspecified type INSTILL 1-2 SPRAYS IN EACH NOSTRIL ONCE DAILY NEEDED 48 g 1 03/22/20 25 Active Acetaminophen Extra Strength 500 MG tablet TAKE 1 TO 2 TABLETS BY MOUTH EVERY 6 HOURS NEEDED FOR PAIN OR FEVER 90 tablet 3 05/19/20 25 Active Acetaminophen Extra Strength 500 MG tabletIndicatio ns:Left hip pain TAKE 1 TO 2 TABLETS BY MOUTH EVERY 6 HOURS NEEDED FOR PAIN OR FEVER 90 tablet 3 12/02/19 25 2024 Discontinued(R eorder (will not trigger notification to Pharmacy)) traMADol (Ultram) 50 MG tabletIndicatio ns:Bursitis of right hip, unspecified bursa Take 1 tablet (50 mg) by mouth if needed in the morning, at noon, and at bedtime for severe pain for 3 days, THEN 1 tablet (50 mg) if needed in the morning and at bedtime for severe pain for 3 days, THEN 1 tablet (50 mg) if needed each day for severe pain for up to 7 days. 20 tablet 10/242024 Active Problems Problem Noted Date Diagnosed Date Chronic right hip pain 2025 Assessment & Plan (2025 5:02 PM EDT): Patient has bursitis and along with DJD of the lumbar spine has significant limitation for ambulation and do ADLs. Will reevaluate for need for home care. Bursitis of right hip 2025 Assessment & Plan (2025 4:57 PM EDT): -MRI hip on 2023 showed DJD changes - Prescribed tramadol for pain management, to be taken for 3 days, 2-3 times a day, along with Tylenol. -Recommended physical therapy to improve mobility and reduce pain. -Referral to orthopedist for further evaluation and management. Mass of lumbar region of back 04/03/2025 Assessment & Plan (04/03/2025 5:19 PM [...] style modifications, diet and referral to technical information specialist. Recommended to decrease soda and sugary [...] test: UTD, simply restarted on Forteo by veneer patcher and tolerates well. Follow-up with veneer patcher Eye exam: Information not available will attain [...] on left side 09/19/2022 Assessment & Plan (2025 5:05 PM EDT): MRI shows a soft tissue mass partially encapsulated a paravertebral area of L1 and L2, will refer to neurosurgeon for further evaluation and excision. Take tramadol as needed for the next 3 to 5 days, advised that this is not a chronic Rx Assessment & Plan (11/07/2022 12:34 PM EDT): [...] 07/16/2022 Pancreatic cyst 07/16/2022 Assessment & Plan (2025 5:01 PM EDT): General Surgery refused referral, I does not seem to's be a surgical condition at this time. Will refer to [facility] for a second opinion. Patient is due to follow-up urgency of GI in 6 months Assessment & Plan (04/03/2025 5:14 PM EDT): [...] Vascular insufficiency 07/16/2022 COVID-19 07/02/2020 COPD exacerbation (CMS/HCC) 08/17/2018 Assessment & Plan (12/01/2024 4:05 PM [...] before and rash is resolved). I called [facility] endocrinology practice and left a message to Dr. Sierra re this issue and fu with patient. Continue Vit D supplementation and Forteo until told otherwise by Dr Sierra. Patient understands the risk of fractures. Assessment & Plan (02/10/2024 3:07 PM EDT): On forteo, she seem not to tolerate it due to dermatitis, wants it dc I will talk with [facility] endocrinology for fabien alternative med. She's [...] Fosamax and Teracycline FU BMD results with veneer patcher Continue ergocalciferol Vitamin D, check levels Chronic [...] updraft today, patient needs to FU with pens and pencils repairer, she seems to be a candidate for Dali[facility]. She will reschedule appointment with pens and pencils repairer. Congratulated her on quitting smoking Continue albuterol [...] Metoprolol 50 mg BID recently adjusted by mutual fund analyst, diltiazem, HCTZ Counseled re low salt diet/increase [...] Encouraged physical activity as tolerated. Refer to foil spooler. 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 10/08/2017 03/17/2024 Assessment & Plan (01/22/2024 3:59 PM EDT): Repeat MRI due to worsening leg pain Encounters Date Type Department Care Team Description 2025 12:00 PM EDT Office Visit [facility] [address] [place] [phone] Isabelle Colon MD Mid back pain on left side (Primary Dx); Bursitis of right hip, unspecified bursa; Pancreatic cyst; Chronic right hip pain; Mass of lumbar region of back; Encounter for immunization 2025 Travel 05/18/2025 Telephone [facility] [address] [place] [address] Isabelle Colon MD Chart Prep 05/16/2025 Telephone [facility] [address] [place] [address] [place] partials 05/06/2025 Results Follow-Up [facility] [address] [place] [phone] Isabelle Colon MD MR Thoracic Spine w/ and w/o Contrast 04/13/2025 Orders Only GENERIC EXTERNAL DATA DEPARTMENT Provider, Generic External Data 04/06/2025 Telephone [facility] [address] [place] [address] Isabelle Colon MD 04/03/2025 2:30 PM EDT Office Visit [facility] [address] [place] [phone] Isabelle Colon MD Encounter for preventive health examination (Primary Dx); Class 1 obesity due to excess calories with serious comorbidity and body mass index (BMI) of 31.0 to 31.9 in adult; Pancreatic cyst; Paravertebral mass; Overweight; Dietary counseling; Exercise counseling; Screening mammogram for breast cancer 04/03/2025 Travel 03/31/2025 Telephone [facility] [address] [place] [phone] Isabelle Colon MD Chart Prep 03/29/2025 11:00 AM EDT Office Visit [facility] [address] [place] [phone] Zachary Miller DDS Ill-fitting dentures (Primary Dx) 03/23/2025 Patient Outreach [address] [phone] Isabelle Colon MD Pre-visit Planning ([facility] screening completed on 01/05/2025) 03/19/2025 Refill [facility] [address] [place], [place] [phone] Isabelle Colon MD Rhinitis, unspecified type from Last 3 Months Immunizations Immunization Administration Dates Next Due Influenza Injectable Quadriv alant Preservative Free IIV4 MDCK 06/07/2020 Influenza injectable quadriv alent IIV4 with preservative 04/09/2015 Influenza injectable quadriv alent preservative free 08/14/2023,04/28/2022,05/27/2021,04/27,07/08/2018 Influenza, IIV3, injectable 05/16/2014, 1 Influenza, Split (incl. du fied surface antigen) 04/18/2013,03/22/2012 Influenza, seasonal, injecta ble, preservative free 2025,06/17/2024,05/08/2016 Moderna Covid-19 Vaccine 12+ 05/27/2021,11/03/19 21,10/05/2020 Moderna [...] Answer Date Recorded Patient Health Questionnaire-9 Score 8 2025 Patient Health Questionnaire-9 Score 8 2025 Last PHQ-9: Questionnaire Data Not on file 1 Housing Stability Answer Date Recorded What is [...] Answer Date Recorded Patient Health Questionnaire-2 Score 1 2025 Internet Access Answer Date Recorded Internet Access [...] Sign Reading Time Taken Comments Blood Pressure 112/74 2025 12:15 PM EDT Pulse 80 2025 12:15 PM EDT Temperature 36.4 C (97.6 F) 2025 12:15 PM EDT Respiratory Rate 20 2025 12:15 PM EDT Oxygen Saturation 94% 04/03/2025 2:21 PM EDT Inhaled Oxygen Concentration - - Weight 73.7 kg (162 lb 6.4 oz) 2025 12:15 PM EDT Height 154.9 cm (5' 1 ) 2025 12:15 PM EDT Body Mass Index 30.69 2025 12:15 PM EDT Plan of Treatment Upcoming Encounters Date Type Department Care Team (Late st Contact Info) Description 06/20/2025 10:00 AM EST Office Visit [facility] [address] [place] [address] Zachary Miller DDS [address] [place] [address] Health Maintenance Due Date Last Done Comments CT Colonography 1965 Dental Prophylaxis 1965 FIT DNA/Cologuard 1965 FIT 1965 FOBT 1965 HIV Screening 1965 Sigmoidoscopy 1965 RSV Patients and Patients Aged 60 years or older (1 - Risk 50-74 years 1-dose series) 2013 Dental X-Ray: Full Mouth 01/22/2021 01/21/2018 Mammogram 02/15/2023 02/15/2021, 01/24, 09/03/2018, Additional history exists Dental Oral Exam 09/18/2024 03/17/2024 Dental X-Ray: Bitewings 01/26/2025 01/26/2024, 11/04 COVID-19 Vaccine ( season) 2025 06/17/2024, 08/08/2022, 05/27/2021, Additional history exists Alcohol/Substance Use Screening 01/05/2026 01/05/2025 Diabetes: Hemoglobin A1C 01/05/2026 025, 02/10/2024, 01/26/2024, Additional history exists Disability Screening 01/05/2026 01/05/2025 SDOH Screening 01/05/2026 01/05/2025 Colonoscopy 03/29/2026 03/29/2021 Colorectal Cancer Screening 03/29/2026 Depression Screening 2026 2025, 05/19/20 25 Tobacco Screening 2026 2025 Lipid Panel 06/26/2028 06/26/2023, 01/24/2021 DTaP/Tdap/Td Vaccines (3 - Td or Tdap) 03/17/2034 03/17/2024, 03/22/2012 Zoster Vaccines Completed 08/21/2020, 06/07/2020 Pneumococcal Vaccine: 50+ Years Completed 05/29/2022, 07/08/2018, 05/08/2016, Additional history exists Hepatitis C Screening Completed 06/26/2023 Influenza Vaccine Completed 2025, , 08/14/2023, Additional history exists HIB Vaccines Aged Out [...] Procedure Name Priority Date/Time Associated Diagnosis Comments MR THORACIC SPINE W AND WO CONTRAST Routine 05/03/2025 1:53 PM EDT TSH W/REFLEX TO FT4 Routine 04/13/2025 2 [...] Recently Relevant to Health Maintenance Results * MR Thoracic Spine w/ and w/o Contrast (05/03/2025 1:53 PM EDT) Anatomical Region Laterality Modality Spine, T-spine Magnetic Resonan ce 05/03/2025 1:53 PM EDT Narrative 05/03/2025 3:00 PM EDT [address] [address] Magnetic Resonance Report Signed Patient: Sarah Kline MR#: [id number] : 1965 Acct:[id number] Age/Sex: 59 / F ADM Date: 05/03/25 Loc: HO.MRI Attending Dr: Isabelle Colon MD Ordering Physician: Isabelle Colon MD Date of Service: 05/03/25 Procedure(s): MR thoracic spine wo/w con Accession Number(s): [id number] cc: Isabelle Colon MD; Physician,Unknown Reason for Exam: Mid back pain/palpable paraspinal mass at T11 EXAMINATION: MR THORACIC SPINE WITHOUT AND WITH CONTRAST TECHNIQUE: Multiplanar multisequence imaging of the thoracic spine was performed from the C7-L1 without contrast. INDICATION: Back, shoulder, and neck pain, palpable lump for greater than one month in the lower chest/upper back PRIOR: None FINDINGS: Marrow and end-plates: There are no marrow replacing lesions. Alignment: Vertebral body height and alignment is preserved. Soft tissues: There is an ill-defined mass that is partially encapsulated in the deep subcutaneous soft tissues dorsal to L1 and L2. It measures 5.6 x 3.1 x 4.1 cm (CC by AP by transverse). The the pelvis fat signal on all sequences aside from a few hairline thin internal septations with minimal enhancement. Cord: There is no abnormal cord signal. There is no hydrosyringomyelia. The termination of conus medullaris is within normal limits at the level of L1. Discs: There was no disc bulge, herniation, spinal stenosis, or foraminal narrowing. MR/MR thoracic spine wo/w con IMPRESSION: Unremarkable thoracic spine. Partially encapsulated simple lipoma is present in the deep subcutaneous soft tissues dorsal to the level of L1-L2, midline. Electronically signed by: Kevin Torres MD 05/03/2025 02:58 PM EDT Dictated By: Kevin Torres MD Signed By: <Electronically signed by Kevin Torres MD in OV> 05/03/25 1458 DD/ 1353 TD/TT: 05/03/25 1428 Manager Application: Procedure Note Adiliater, Image - 05/03/[address] [address] Magnetic Resonance Report Signed Patient: Sarah KlineMR#: [id number] : 1965Acct:[id number] Age/Sex: 59 / FADM Date: 05/03/25 Loc: HO.MRI Attending Dr: Isabelel Colon MD Ordering Physician: Isabelle Colon MD Date of Service: 05/03/25 Procedure(s): MR thoracic spine wo/w con Accession Number(s): [id number] cc: Isabelle Colon MD; Physician,Unknown Reason for Exam: Mid back pain/palpable paraspinal mass at T11 EXAMINATION: MR THORACIC SPINE WITHOUT AND WITH CONTRAST TECHNIQUE: Multiplanar multisequence imaging of the thoracic spine was performed from the C7-L1 without contrast. INDICATION: Back, shoulder, and neck pain, palpable lump for greater than one month in the lower chest/upper back PRIOR: None FINDINGS: Marrow and end-plates: There are no marrow replacing lesions. Alignment: Vertebral body height and alignment is preserved. Soft tissues: There is an ill-defined mass that is partially encapsulated in the deep subcutaneous soft tissues dorsal to L1 and L2. It measures 5.6 x 3.1 x 4.1 cm (CC by AP by transverse). The the pelvis fat signal on all sequences aside from a few hairline thin internal septations with minimal enhancement. Cord: There is no abnormal cord signal. There is no hydrosyringomyelia. The termination of conus medullaris is within normal limits at the level of L1. Discs: There was no disc bulge, herniation, spinal stenosis, or foraminal narrowing. MR/MR thoracic spine wo/w con IMPRESSION: Unremarkable thoracic spine. Partially encapsulated simple lipoma is present in the deep subcutaneous soft tissues dorsal to the level of L1-L2, midline. Electronically signed by: Kevin Torres MD 05/03/2025 02:58 PM EDT RP Dictated By: Kevin Torres MD Signed By: <Electronically signed by Kevin Torres MD in OV> 05/03/25 1458 DD/ 1353 TD/TT: 05/03/25 1428 Manager Application: us Isabelle Colon MD IMG MRI PROCEDURES Final Result * TSH with Reflex to Free T4 (04/13/2025 2:21 PM EDT) Pathologist [facility] TSH reflex Free T4 0.82 0.32 - 4.0 uIU/mL [facility] 04/13/2025 2:21 PM EDT 04/13/2025 2:21 PM EDT us Generic External Data Provider LAB BLOOD ORDERAB LES Final Result Performing Organization Address City/State/[facility] Co de Phone Number [facility] [address] [place] [phone] * (ABNORMAL) CBC auto differential (04/13/2025 2:21 PM EDT) Pathologist [facility] White Blood Count 7.4 4.8 - 10.8 X10*3/uL [facility] Red Blood Count 3.94(L) 4.20 - 5.50 X10*6/uL [facility] Hemoglobin 11.7(L) 12.0 - 16.0 g/dl [facility] Hematocrit 36.2(L) 37.0 - 47.0 % [facility] Mean Corpuscular Volume 91.9 80.0 - 98.0 fL [facility] Mean Corpuscular Hemoglobin 29.7 27.0 - 33.0 pg [facility] Mean Corpuscular HGB Conc 32.3 31.0 - 35.0 g/dl [facility] Red Cell Distribution Width 13.0 11.0 - 16.0 % [facility] Platelet Count 361 160 - 400 X10*3/uL [facility] Mean Platelet Volume 11.1 9.4 - 12.3 fL [facility] Neutrophils Percent Auto 57.9 45 - 73 % [facility] Imm Gran Pct Auto 0.1 0.0 - 0.4 % [facility] Lymphocytes Percent Auto 24.7 20 - 40 % [facility] Monocytes Percent Auto 8.0 2 - 11 % [facility] Eosinophils Percent Auto 7.8(H) 0 - 4 % [facility] Basophils Percent Auto 1.5 0 - 2 % [facility] NRBC Pct Auto 0.0 0.0 - 0.2 /100WBC [facility] Neutrophils Absolute Auto 4.3 2.0 - 8.3 x10*3/uL [facility] Imm Gran Abs Auto 0.01 0.00 - 0.03 X10*3/uL [facility] Lymphocytes Absolute Auto 1.8 1.2 - 4.9 X10*3/uL [facility] Monocytes Absolute Auto 0.6 0.1 - 1.2 X10*3/uL [facility] Eosinophils Absolute Auto 0.6(H) 0.0 - 0.4 X10*3/uL [facility] Basophils Absolute Auto 0.1 0.0 - 0.2 X10*3/uL [facility] NRBC Abs Auto 0.000 0.0 - 0.012 X10*3/uL [facility] 04/13/2025 2:21 PM EDT 04/13/2025 2:21 PM EDT us Generic External Data Provider LAB BLOOD ORDERAB LES Final Result [facility] [address] [place] [phone] [phone] * (ABNORMAL) Comprehensive Metabolic Panel (04/13/2025 2:21 PM EDT) Sodium 143 135 - 145 mmol/L [facility] Potassium 4.0 3.3 - 5.1 mmol/L [facility] Chloride 105 96 - 108 mmol/L [facility] Carbon Dioxide 28 22 - 29 mmol/L [facility] Anion Gap 14 12 - 20 [facility] Urea Nitrogen (BUN) 22(H) 9 - 16 mg/dL [facility] Creatinine, Serum 1.19 0.5 - 1.4 mg/dL [facility] Estimated Glomerular Filt Rate 46 [facility] Comment:Chronic Kidney Disea se: Estimated GFR < 60 mL/min/1.77m5Jgtnsp Kidney Disease: Estimated GFR < 15 mL/min/1.73m2 Glucose 137(H) 60 - 115 mg/dL [facility] Calcium 10.3(H) 8.4 - 10.2 mg/dL [facility] Bilirubin, Total 0.3 0.0 - 1.0 mg/dL [facility] Aspartate Amino Transferase 20 5 - 31 U/L [facility] Alanine Aminotransferase 12 0 - 31 U/L [facility] Total Protein 7.8 6.5 - 8.0 g/dL [facility] Albumin Level 4.5 3.5 - 5.0 g/dL [facility] Alkaline Phosphatase 91 39 - 117 U/L [facility] 04/13/2025 2:21 PM EDT 04/13/2025 2:21 PM EDT us Generic External Data Provider LAB BLOOD ORDERAB LES Final Result [facility] [address] [place] [phone] * Hemoglobin A1c (01/05/2025 10:15 AM EDT) Hemoglobin A1c 6.0 <6.0 % [facility] Comment:Hemoglobin A1C Refer ence Range Adults: 4.8 - 6.0 % Non diabetic: < 6.0 % Goal: < 7.0 %Additional Action Suggested: > 8.0 %Note: Hemoglobin A1c results are invalid for patients with abnormal amounts of HbF. Blood transfusions may impact the HbA1c concentration in the patient sample. Estimated Average Glucose 126 mg/dL [facility] Comment:eAG = Estimated ave rage glucose which is %A1C expressed asaverage glucose, using the formula of the G8X-JtppqcyPgwmrnm Glucose study (ADAG), Diabetes Care, Vol.31,#8,Feb. 2007 Blood Venous blood specimen / Unknown 01/05/2025 10:15 AM EDT 01/05/2025 11:10 AM EDT us Ernestina POWELL LAB BLOOD ORDERABLES Final Resul t Performing Organization Address [facility] de Phone Number [facility] [address] [place] [phone] * (ABNORMAL) Lipid Panel with Reflex to Direct LDL (06/26/2023 8:23 AM EST) Triglycerides 168(H) <150 mg/dL [facility] Comment:Desirable Triglyceri de: less than 150 mg/dLBorderline High Triglyceride 150-199 mg/dLHigh Triglyceride: 200-499 mg/dLVery High Triglyceride: greater than or equal to 5OO mg/dL Cholesterol 179 <200 mg/dL [facility] Comment:Desirable Cholestero l: less than 200 mg/dLBorderline High Cholesterol: 200-239 mg/dLHigh Cholesterol: greater than 239 mg/dL LDL Cholesterol Calculated 85 <100 mg/dL [facility] Comment:Desirable LDL: less than 100 mg/dLNear Optimal/Above Optimal LDL: 110- 129 mg/dLBorderline High LDL: 130-159 mg/dLHigh LDL: 160-189 mg/dLVery High LDL: greater than or equal to 190 mg/dL HDL Cholesterol 61 >40 mg/dL [facility] Comment:Desirable HDL: great er than 40 mg/dL Note: This HDL assay may give artificially low results in patients with liver disease. Blood 06/26/2023 8:23 AM EST 06/26/2023 11:12 AM EST Isabelle Colon MD LAB BLOOD ORDERABLES Fin al Result Performing Organization Address [facility] Co de Phone Number [facility] [address] [place] [phone] * Hepatitis Panel, General (06/26/2023 8:23 AM EST) Hepatitis A IgM Nonreactive Nonreactive [facility] Comment:IgM antibodies to EAGLE V not detected; does not exclude earlyacute or recovered HAV infection. ~Hepatitis B Surface Antibody NONREACTIVE Nonreactive [facility] Comment:Nonreactive: < 8.00 mIU/mL Hepatitis B Core Antibody Nonreactive Nonreactive [facility] Hepatitis C Antibody Nonreactive Nonreactive [facility] Comment:Antibodies to HCV no t detected; does not exclude early acuteHCV infection. Hepatitis B Surface Ag Negative Negative [facility] Blood 06/26/2023 8:23 AM EST 06/26/2023 11:12 AM EST Isabelle Colon MD LAB BLOOD ORDERABLES Fin al Result [facility] [address] [place] [phone] * Hm Colonoscopy (03/29/2021 10:49 AM [...] Most Recently Relevant to Health Maintenance [facility] Care Teams Recreational Aide Relationship Specialty Start Date End Date Isabelle Colon MD [address] [place] [phone] PCP - General Family Medicine 05/20/17
--- OUTSIDE RECORDS SUMMARY | 2025-06-15 12:07 | XMS_ITS | Encounter Summary ---
Author Organization [employer] Address [address] [place] [address] [address] [place] [address] Care Team Providers Care Member Certification Manager Name Role Phone Isabelle Colon MD Primary Care Provider + Encounter Details Date Type Department Care Team (Latest Contact Info) Description 09/24/2021 Abstract [facility] Dental, Provider, DDS Social History [...] Description 06/20/2025 10:00 AM EST Office Visit [facility] [address] [place] [address] Zachary Miller DDS [address] [place] [address] documented as of this encounter Visit Diagnoses Not on filedocumented in this encounter Care Teams Member Certification Manager Relationship Specialty Start Date End Date Isabelle Colon MD [address] [place] [address] PCP - General Family Medicine 05/20/17 [facility] 12/28/24 01/29/25 documented as of this encounter
--- OUTSIDE RECORDS SUMMARY | 2025-06-15 12:07 | XMS_ITS | Clinical Summary ---
Author Organization [facility] Address [address] [place] [phone] Phone Care Team Providers Care Pharmacy Clinical Specialist Name Role Phone Unknown, Unknown Primary Care [...] file Medical Devices Not on file Insurance [facility] [employer] [address] [place] [id number] [place] [address] [place] [address] [place] [address] [employer] [place] [address] [employer] [facility] [employer] [address] [place] [id number] [place] [address] [address] [place] [id number] [place] [address] [address] [place] [id number] [place] [address] [employer] [facility] [employer] Care Teams Pharmacy Clinical Specialist Relationship Specialty Start Date End Date Unknown, Unknown, PCP - General 07/13/18 Additional Source Comments The information contained in this document represents components of the legal health record. It is not the complete legal health record.[facility]
--- OUTSIDE RECORDS SUMMARY | 2025-06-15 12:07 | XMS_ITS | Encounter Summary ---
Author Organization [employer] Address [address] [place] [address] 7t [place] [address] Care Team Providers Care Automation Engineering Manager Name Role Phone Isabelle Colon MD Primary Care Provider + Encounter Details Date Type Department Care Team (Late st Contact Info) Description 07/08/2022 Orders Only [facility] [address] [place] [address] Marianna Patel LPN Social History Tobacco Use [...] Description 06/20/2025 10:00 AM EST Office Visit [facility] ADULT DENTAL [address] [place] [address] Zachary Miller DDS [address] [place] [address] documented as of this encounter Visit Diagnoses Not on filedocumented in this encounter Care Teams Automation Engineering Manager Relationship Specialty Start Date End Date Isabelle Colon MD [address] [place] [address] PCP - General Family Medicine 05/20/17 [facility] 12/28/24 01/29/25 documented as of this encounter
--- OUTSIDE RECORDS SUMMARY | 2025-06-15 12:07 | XMS_ITS | Encounter Summary ---
Author Organization [facility] Address [address] [place] [address] Phone Care Team Providers Care Timber Killer Name Role Phone Unknown, Unknown Primary Care Provider Jorge ortiz Encounter Details Date Type Department Care Team (Late st Contact Info) Description 08/02/2018 Ancillary Orders [facility] [address] [place] [address] Saskia Moralez PA [address] [place] [address] [email or web address] Palpitations Social History Tobacco Use Types Packs/Day [...] Palpitations documented in this encounter Care Teams Timber Killer Relationship Specialty Start Date End Date Unknown, Unknown, MD PCP - General 07/13/18 documented as of this encounter Additional Source Comments The information contained in this document represents components of the legal health record. It is not the complete legal health record.[facility]
--- OUTSIDE RECORDS SUMMARY | 2025-06-15 12:07 | XMS_ITS | Continuity of Care Document ---
Author Organization [place] [facility], [facility] Address [address] [place] [address] Care Team Providers Care Travel Accommodation Inspector Name Role Phone ISABELLE VÁSQUEZ Primary Care Provider Assessment Encounter Date Assessment Date Assessment LastModified by Organization Details LastModified Time 04/21/2025 04/21/2025 Sarah Quick is a 59-year-old female with sinus inflammation and nasopharyngeal swelling, likely secondary to nasal septal perforation and chronic nasal discharge. She has had chronic difficulty with neck pain, headache and ear pain. The ear pain has fluctuated between both sides. She does have known history of TMJ, chronic infection of the sinuses and chronic nasal discharge. There is evidence of lymphoid hyperplasia in the nasopharynx left greater than right The patient will be prescribed antibiotics to address the suspected infection and inflammation. She will be advised to continue using nasal rinses to manage crusting and drainage. If symptoms persist, a repeat CAT scan of the neck with contrast will be considered to rule out any additional pathology. FOLLOW-UP: The patient will return in a few weeks for reassessment of her symptoms and response to treatment. [email or web address] Not available 04/21/2025 15:18:32 Plan of Treatment Reminders Order Date Submit Date Provider Last Modified By Organization Details Last Modified Time Details Appointments None recorded. Lab None recorded. Referral None recorded. Procedures None recorded. Surgeries None recorded. Imaging None recorded. Medication Orders doxycycline hyclate 100 mg tablet 2024 025 [facility], [address] [place], [place], [id number], 05:02:39 Patient TargetsNo targets recorded. Patient Instructions Encounter Date Encounter Id Patient Instructions Last Modified By Organization Details Last Modified Time 04/21/2025 [id number] - Take prescribed antibiotics as directed. - Continue using nasal rinses to manage crusting and drainage. - Return for follow-up in a few weeks for reassessment. j carlos Not available 04/21/2025 15:16:04 Please note: Parts of this encounter note have been generated by AI based on audio conversation. Patient consent was required prior to utilizing this technology. Content review was required prior to finalizing the note. j carlos Not available 04/21/2025 15:16:04 Reason for Referral None Reported. Problems Name Problem SNOMED Code Status Onset Date Resolution Date Notes Provider Name and Address Organization Details Recorded Time Chronic rhinitis 87251443 Active 2022 Chronic rhinitis; Note: Date Diagnosed : 10/13/2022 3:19 PM (J31.0) Not Available [facility] 4 03:12:22 Dysphonia 15881301 Active 2022 Hoarsenes s; Note: Date Diagnosed : 10/13/2022 3:19 PM (R49.0) Not Available [facility] 4 03:12:23 Pain of right temporoma ndibular joint 24782412241 982302 Active 2022 Arthralgi a of right temporoma ndibular joint; Note: Date Diagnosed : 10/13/2022 3:19 PM (M26.621) Not Available [facility] 4 03:12:23 Disorder of nasal sinus 3980697 Active 2022 Perforati on of nasal septum NOS; Note: Date Diagnosed : 10/13/2022 3:19 PM (J34.89) Not Available [facility] 4 03:12:23 Disorder of the nose 29292363 Active 2022 Perforati on of nasal septum NOS; Note: Date Diagnosed : 10/13/2022 3:19 PM (J34.89) Not Available [facility] 4 03:12:23 Chronic pharyngit is 426988 Active 2022 Chronic sore throat; Note: Date Diagnosed : 01/30/2023 1:47 PM (J31.2) XIAO THOMASON MD [address] [facility] [address], [place], [address] , [place] - [facility] 5 15:16:40 Otalgia of right ear 4082212209 Active 2022 Otalgia, right ear; Note: Date Diagnosed : 01/30/2023 1:47 PM (H92.01) Not Available [facility] 4 03:12:22 Bleeding from nose 853287367 Active 2023 Epistaxis ; Note: Date Diagnosed : 08/31/2023 4:53 PM (R04.0) Not Available [facility] 4 03:12:22 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; Note: Date Diagnosed : 11/10/2023 12:18 PM (D49.1) Not Available [facility] 4 03:12:24 Perforati on of nasal septum 83629495 Active 2023 XIAO THOMASON MD [address] [facility],[place] [address], [place], [address] , [place] - [facility] 5 15:16:49 Sore throat 522919566 Active 2023 Lauren cunningham [place] - [facility] 4 14:08:15 Chronic hoarsenes s 62779150536 05 Active 2024 XIAO THOMASON MD [address] [facility],[place] [address], [address] , [place] - [facility] 5 15:16:37 Chronic sinusitis 57989897 Active 2024 XIAO THOMASON MD [address] [facility],[place] [address], [place], [address] , [place] - [facility] 5 15:16:13 Problem Notes None recorded. Procedures Surgical History Date Name Laterality Status Provider Name and Address Organization Details Recorded Time 04/21/20 25 Fiberoptic Laryngoscopy (Comprehensive) completed XIAO HERRERA MD [address] [facility] [address], [place], [address], [facility] - [facility] 04/21/2025 15:19:13 10/20/19 Fiberoptic Laryngoscopy (Comprehensive) completed XIAO HERRERA MD [address] [facility] [address], [place], [address], [facility] - [facility] 10/19/2024 10:36:08 04/08/20 Nasal Endoscopy completed Lauren Stacy [place] - [facility] 04/08/2024 17:25:07 hernia repair completed Isabelle Cerrato [place] [facility] 02/17/2024 13:41:26 Appendectomy completed Isabelle Cerrato [place] [facility] 02/17/2024 13:41:31 section completed Isabelle Cerrato [place] - [facility] 02/17/2024 13:41:41 Hysterectomy completed Isabelle Cerrato [place] [facility] 02/17/2024 13:41:47 total knee replacement completed Isabelle Cerrato [place] - [facility] 02/17/2024 13:41:57 procedure on spine completed Isabelle Cerrato [place] [facility] 02/17/2024 13:42:02 Imaging Results None recorded. Procedure Notes None recorded. Medical Equipment None Reported. Allergies Allergen ID Allergen Name Allergen Category Reaction Reaction Severity Criticality Documentation Date Start Date Code Code System Note Provider Name and Address Organization Details Recorded Time 488161 Cipro medicatio n other Not available Not available 12/08/202368495 3 RxNorm React ion: Unkno wn; Not Available [facility] 01:27:10 Medications Name Sig Start Date Stop Date Status Note LastModified by Organization Details LastModified Time pulse oximet airial [id number] USE DAILY NEEDED FOR SHORTNES S OF BREATH 02/16 completed Not Available Not Available Not Available amoxicill in 500 mg capsule TAKE 1 CAPSULE BY MOUTH EVERY 8 HOURS FOR 7 DAYS 10/19 completed Not Available Not Available Not Available prednison e 10 mg tablet TAKE 4 TABLETS ONCE DAILY FOR 2 DAYS, 3 TABLETS FOR 2 DAYS, 2 TABLETS FOR 2 DAYS THEN 1 TABLET FOR 2 DAYS 04/21 completed Not Available Not Available Not Available [...] TAKE 1 TABLET DAILY ON DAYS 2-5 04/18 completed Not Available Not Available Not Available [...] TAKE 1 TABLET BY MOUTH EVERY DAY AT BEDTIME NEEDED FOR HEARTBUR N active Not Available Not Available No t Available prednison e 20 mg tablet TAKE 2 TABLETS BY MOUTH EVERY DAY FOR 5 DAYS, THEN DECREASE TO 1 AND 1/2 TABLETS DAILY FOR 2 DAYS, THEN 1 TABLET DAILY FOR 2 DAYS, THEN 1/2 TABLET DAILY FOR 2 DAYS, THEN STOP 04/21 completed Not Available Not Available Not Available doxepin 75 mg capsule TAKE 1 CAPSULE BY MOUTH EVERY DAY AT BEDTIME active Not Available Not Available [...] Not Available Not Available No t Available [place] Saline nasal gel APPLY 1 APPLICAT ION [...] completed Not Available Not Available Not Available dicyclomi ne 20 mg tablet TAKE 1 TABLET BY MOUTH FOUR TIMES DAILY active Not Available Not Available No t Available betametha sone valerate 0.1 % topical cream APPLY TO THE AFFECTED AREA(S) TWICE DAILY IN THE MORNING AND AT BEDTIME NEEDED FOR DRY SKIN 04/21 completed Not Available Not Available Not Available diltiazem ER 120 mg capsule,2 4 hr,extend ed release active Medicati on ID: [id number] B rand Name: diltiaze m HCl Send [...] 1 TABLET BY MOUTH TWICE DAILY WITH FOOD active Not Available Not Available No t Available monteluka st 10 mg tablet TAKE 1 TABLET BY MOUTH EVERY DAY IN THE EVENING active Not Available Not Available No [...] 1 CAPSULE BY MOUTH ONCE A WEEK active Not Available Not Available No t Available azelastin e 137 mcg (0.1 %) nasal spray USE 1 SPRAY IN EACH NOSTRIL ONCE DAILY active Not Available Not Available No t Available zolpidem 10 mg tablet TAKE 1 TABLET BY MOUTH EVERY DAY AT BEDTIME active Not Available Not Available No t Available fluticaso ne propionat e 50 mcg/actua tion nasal spray,pastora pension INSTILL 1-2 SPRAYS IN EACH NOSTRIL ONCE DAILY NEEDED active Not Available Not Available No t Available doxycycli ne hyclate 100 mg tablet Take 1 tablet twice a day by oral route for 10 days. 05/08 completed Not Available Not Available Not Available dicyclomi ne 10 mg capsule TAKE [...] 3 TIMES A WEEK ON THURSDAY, AND THURSDAY active Not Available Not Available No t Available escitalop dony 20 mg tablet TAKE 1 TABLET BY MOUTH EVERY DAY active Not Available Not Available No t Available metoprolo l tartrate 25 mg tablet 02/16 completed Medicati on ID: [id number] B rand Name: metoprol ol tartrate Send Method: E-Prescr ibed Sub s Allowed: subs OK Speci al Instruct ion: TAKE 1 AND 1/2 TABLETS BY MOUTH TWICE DAILY Me dication GenericN cristi: metoprol ol tartrate Medicat ion ID: [id number] B rand Name: metoprol ol tartrate Send Method: E-Prescr ibed Sub s Allowed: subs OK Speci al Instruct ion: TAKE 1 AND 1/2 TABLETS BY MOUTH TWICE DAILY Me dication GenericN cristi: metoprol ol tartrate Not Available Not Available Not Available [place] Saline Gel nasal spray Take 2 sprays 4 times a day by nasal route for 30 days. 2023 active Not Available Not Available Not Avai lable acidophil us 25 million cell-pect in, citrus 100 mg tablet TAKE 1 TABLET BY MOUTH TWICE DAILY 10/19 completed Not Available Not Available Not Available chlorhexi dine gluconate 0.12 % mouthwash SWISH 15 ML IN THE MOUTH OR THROAT FOR 30 SECONDS THEN SPIT OUT FOR UP TO 14 DAYS 04/21 completed Not Available Not Available Not Available hydrochlo rothiazid e 12.5 mg tablet TAKE 1 TABLET BY MOUTH ONCE DAILY active Not Available Not Available No t Available Symbicort 160 mcg-4.5 mcg/actua tion HFA aerosol inhaler INHALE 2 PUFFS BY MOUTH TWICE DAILY RINSE MOUTH AFTER USING. active Not Available Not Available No t Available FreeStyle Lite Strips USE DIRECTED TO TEST BLOOD SUGAR ONCE DAILY active Not Available Not Available [...] Available No t Available Comfort EZ Pen [place] 31 gauge x 5/16 USE 1 DAILY WITH FORTEO active Not Available Not Available No t Available TRUEplus Lancets 33 gauge USE TO TEST BLOOD SUGAR EVERY MORNING DIRECTED 02/16 completed Not Available Not Available Not Available Linzess 145 mcg capsule TAKE 1 CAPSULE BY MOUTH EVERY MORNING active Not Available Not Available No t Available Spiriva Respimat 2.5 mcg/actua tion solution for inhalatio n INHALE 2 PUFFS BY MOUTH EVERY DAY active Not Available Not Available No t Available Ultra-Fin e Pen Needle 31 gauge x 10/09 active Not Available Not Available Not Available Vitals None Recorded Social History None recorded. Functional Status None [...] Diagnosis SNOMED-CT Code Diagnosis ICD10 Code Diagnosis IMO Codes Diagnosis Note [id number] XIAO THOMASON MD [facility] [address] [address] 04/21/2025 14:29:10 04/21/2025 15:18:00 Chronic sinusitis 17655907 J32.8 08593 Chronic hoarseness 25202 59318 105 R49.0 Chronic pharyngitis 1400 04 J31.2 Perforatio n of nasal septum 37212797 J34.89 Health Concerns Section Related Observation LastModified by Organization Detai ls LastModified Time None Recorded Concern Status LastModified by Organization Details LastModified Time None Recorded Payers Encounter Date Sequence Insurance Name Policy Number Policy Camacho Covered Member ID Camacho Member ID Guarantor Name 04/21/2025 1 [place] [facility] Sarah Quick [id number] Sarah Quick Notes Date Note Type Note Provider Name and Address Organization Details Recorded Time 04/21/2025 text/html Sarah Quick is a 59-year-old female who presents for evaluation of pain in the upper neck, left ear, and head, which has been ongoing for approximately two weeks. She denies any issues with eating, drinking, or swallowing. The patient has a history of smoking, currently smoking two cigarettes per day for the past 35 years, and previously smoking one pack per day for 30 years. She was seen in September for hoarseness and throat irritation, during which a telescope examination demonstrated no significant abnormalities. 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 A biopsy of a lesion in the back of the nose was performed approximately a year and a half ago, and the results were unremarkable. The patient reports increased pain in the throat, ear, and head since her last visit. She denies migraines but notes occasional heartburn. She has been using nasal rinses, which provide some relief. XIAO HERRERA MD [address] [place] [address], [phone], [facility] - [facility] 04/21/2025 15:43:04 OBGyn Episode No OBEpisode recorded.
--- OUTSIDE RECORDS SUMMARY | 2025-06-15 12:08 | XMS_ITS | Encounter Summary ---
Author Organization [employer] Address [address] [place] [address] [address]t [place] [address] Care Team Providers Care Freight Claim Investigator Name Role Phone Isabelle Colon MD Primary Care Provider + Encounter Details Date Type Department Care Team (Late Contact Info) Description 01/14/2023 Abstract [facility] MEDICINE [address] [place] [address] Isabelle Colon MD [address] [place] [address] Social History Tobacco Use Types Packs/Day Years [...] Department Care Team (Late Contact Info) Description 06/20/2025 10:00 AM EST Office Visit [facility] ADULT DENTAL [address] [place] [address] Zachary Miller DDS [address] [place], [place] [phone] documented as of this encounter Visit Diagnoses Not on filedocumented in this encounter Additional Health Concerns Assessment Noted Time PHQ-9 Depression Total Score: 13 04 023 11:55 AM EDT documented as of this encounter Care Teams Freight Claim Investigator Relationship Specialty Start Date End Date Isabelle Colon MD [address] [place] [address] PCP - General Family Medicine 05/20/17 [facility] 12/28/24 01/29/25 documented as of this encounter
--- OUTSIDE RECORDS SUMMARY | 2025-06-15 12:08 | XMS_ITS | Encounter Summary ---
Author Organization [employer] Address [address] [place] [address] [address] [place] [address] Care Team Providers Care Audio Visual Equipment Rental Clerk Name Role Phone Isabelle Colon MD Primary Care Provider + Encounter Details Date Type Department Care Team (Late Contact Info) Description 02/09/2023 Orders Only [facility] MEDICINE [address] [place], [place] [phone] Marianna Patel LPN Social History Tobacco Use [...] Description 06/20/2025 10:00 AM EST Office Visit [facility] ADULT DENTAL [address] [place], [place] [phone] Zachary Miller DDS [address] [place], [place] [phone] documented as of this encounter Visit Diagnoses Not on filedocumented in this encounter Additional Health Concerns Assessment Noted Time PHQ-9 Depression Total Score: 13 023 11:55 AM EDT documented as of this encounter Care Teams Audio Visual Equipment Rental Clerk Relationship Specialty Start Date End Date Isabelle Colon MD [address] [place] [address] PCP - General Family Medicine 05/20/17 [facility] 12/28/24 01/29/25 documented as of this encounter
--- OUTSIDE RECORDS SUMMARY | 2025-06-15 12:08 | XMS_ITS | Encounter Summary ---
Author Organization [employer] Address [address] [facility] [address]t [place] [address] Care Team Providers Care Bradder Name Role Phone Isabelle Colon MD Primary Care Provider + Reason for Visit * Reason Onset Date Comments Dr. Paul Root partials 05/16/2025 Encounter Details Date Type Department Care Team ([facility] st Contact Info) Description 05/16/2025 Telephone [facility] ADULT DENTAL [address] [place] [address] Zachary Miller, SAMUEL [address] [place] [address] Dr. Paul Root partials Social History Tobacco Use Types Packs/Day Years [...] AM EDT documented as of this encounter Functional Status * Over the past 2 weeks, how often have you been bothered by any of the following problems? Question Answer Date of Assessment Author Patient Health Questionnaire-2 Score 1 2025 12:22 PM EDT Mari Suarez MA * Little interest or pleasure in doing things Answer Date of Assessment Author Several days 2025 12:22 PM EDT Mari Cortés MA * Feeling down, depressed, or hopeless Answer Date of Assessment Author Not at all 2025 12:22 PM EDT Mari Cortés MA * Trouble falling or staying asleep, or sleeping too much Answer Date of Assessment Author Several days 2025 12:22 PM EDT Mari Cortés MA * Feeling tired or having little energy Answer Date of Assessment Author Nearly every day 2025 12:22 PM EDT Mari Yee MA * Poor appetite or overeating Answer Date of Assessment Author Not at all 2025 12:22 PM EDT Mari Cortés MA * Feeling bad about yourself - or that you are a failure or have let yourself or your family down Answer Date of Assessment Author Not at all 2025 12:22 PM EDT Mari Cortés MA * Trouble concentrating on things, such as reading the newspaper or watching television Answer Date of Assessment Author Several days 2025 12:22 PM EDT Mari Cortés MA * Moving or speaking so slowly that other people could have noticed? Or the opposite - being so fidgety or restless that you have been moving around a lot more than usual. Answer Date of Assessment Author Several days 2025 12:22 PM EDT Mari Cortés MA * Thoughts that you would be better off or hurting yourself in some way Answer Date of Assessment Author Several days 2025 12:22 PM EDT Mari Cortés MA * Patient Health Questionnaire-9 Score Answer Date of Assessment Author 8 2025 12:22 PM EDT Mari Cortés MA * How difficult have these problems made it for you to do your work, take care of things at home, or get along with other people? Answer Date of Assessment Author Somewhat difficult 2025 12:22 PM EDT Mari Fischer MA * Over the last 2 weeks, how often have you been bothered by any of the following problems? Question Answer Date of Assessment Author Feeling nervous, anxious, or on edge 2 2025 12:21 PM EDT Mari Chowdhury MA Not being able to stop or control worrying 1 2025 12:21 PM JOJOT Mari Chowdhury MA Worrying too much about different things 3 2025 12:21 PM EDT Mari Chowdhury MA Trouble relaxing 1 2025 12:21 PM EDT Mari Chowdhury MA Being so restless that it is hard to sit still 1 2025 12:21 PM EDT Mari Chowdhury MA Becoming easily annoyed or irritable 0 2025 12:21 PM EDT Mari Chowdhury MA Feeling afraid as if something awful might happen 0 2025 12:21 PM EDT Mari Yee MA STEVAN-7 Total Score 8 2025 12:21 PM EDT Mari Chowdhury MA documented as of this encounter Miscellaneous Notes * Telephone Encounter - Tiffany Byrd - 05/16/2025 1:48 [address] EDT Message for Dr. Miller and DR. Root Patient came in 03/2025 and states that partials were to be repaired However patient is also waiting for extraction and has been scheduled for 06/20. Patient is looking ot see if partials are repaired if she can be delivered or is provider waiting for extractions to then send partials for repair. Please follow up with front attendant for rescheduling if needed. documented in this encounter Plan of Treatment Upcoming Encounters Date Type Department Care Team (Late st Contact Info) Description 06/20/2025 10:00 AM EST Office Visit [facility] ADULT DENTAL [address] [place] [address] Zachary Miller DDS [address] [place] [address] documented as of this encounter Visit Diagnoses Not on filedocumented in this encounter Additional Health Concerns Assessment Noted Time PHQ-9 Depression Total Score: 9 01/06/20 25 9:14 AM EDT documented as of this encounter Care Teams Bradder Relationship Specialty Start Date End Date Isabelle Colon MD [address] [place] [address] PCP - General Family Medicine 05/20/17 documented as of this encounter
--- OUTSIDE RECORDS SUMMARY | 2025-06-15 12:08 | XMS_ITS | Encounter Summary ---
Author Organization [employer] Address [address] [facility] 7t [place] [address] Care Team Providers Care Nutrition Director Name Role Phone Isabelle Colon MD Primary Care Provider + Reason for Visit * Reason Onset Date Comments Referral 06/26/2023 Encounter Details Date Type Department Care Team ([facility] st Contact Info) Description 06/26/2023 Telephone [facility] MEDICINE [address] [place], [place] [phone] Isabelle Colon MD [address] [place], [place] [phone] Referral Social History Tobacco Use Types Packs/Day [...] Description 06/20/2025 10:00 AM EST Office Visit [facility] ADULT DENTAL [address] [place] [address] Zachary Miller DDS [address] [place] [address] documented as of this encounter Visit Diagnoses Not on filedocumented in this encounter Additional Health Concerns Assessment Noted Time PHQ-9 Depression Total Score: 11 023 9:15 AM EST documented as of this encounter Care Teams Nutrition Director Relationship Specialty Start Date End Date Isabelle Colon MD [address] [place] [address] PCP - General Family Medicine 05/20/17 [facility] 12/28/24 01/29/25 documented as of this encounter
--- OUTSIDE RECORDS SUMMARY | 2025-06-15 12:08 | XMS_ITS | Encounter Summary ---
Author Organization [employer] Address [address] [facility] 7t [place] [address] Care Team Providers Care Electronic Console Display Operator Name Role Phone Isabelle Colon MD Primary Care Provider + Reason for Visit * Reason Onset Date Comments PT-1 11/18/2024 Encounter Details Date Type Department Care Team ([facility] Contact Info) Description 11/18/2024 Telephone [facility] MEDICINE [address] [place], [place] [phone] Isabelle Colon MD [address] [place], [place] [phone] PT-1 (/) Social History Tobacco Use Types [...] Y/N: Yes Provider name or facility name: [address] [place] [id number] for [facility] Cardiology Escort needed: Y/N: No Do you have a wheelchair: Y/N: No If yes- Manual or electric: Visits: (5 x Yearly) Patient calling requesting PT1 Home Address verified: Y/N: Yes Provider name or facility name: [address] [place] [address] at [facility] Escort needed: Y/N: No Do you have a wheelchair: Y/N: No If yes- Manual or electric: Visits: (5 x Yearly) Contact Ivy at [phone] documented in this encounter Plan of Treatment Upcoming Encounters Date Type Department Care Team ([facility] st Contact Info) Description 06/20/2025 10:00 AM EST Office Visit [facility] ADULT DENTAL [address] [place] [address] Zachary Miller DDS [address] [place] [address] documented as of this encounter Visit Diagnoses Not on filedocumented in this encounter Additional Health Concerns Assessment Noted Time PHQ-9 Depression Total Score: 11 06/25/ 023 9:15 AM EST documented as of this encounter Care Teams Electronic Console Display Operator Relationship Specialty Start Date End Date Isabelle Colon MD [address] [place] [address] PCP - General Family Medicine 05/20/17 [facility] 12/28/24 01/29/25 documented as of this encounter
--- OUTSIDE RECORDS SUMMARY | 2025-06-15 12:08 | XMS_ITS | Data Portability ---
Author Organization [place] - [facility], Allergy Address [address] [facility] 100 [place] [address] Care Team Providers Care Maintenance Mechanic Helper Name Role Phone SIRENA VÁSQUEZ Primary Care [...] nose. Follow up next available for repeat nasopharyngoscopy . Previously had lesion with negative biopsy in October. Not available 02/17/2024 14:37:30 04/08/2024 04/08/2024 Physical exam reveals stability of the nasal septal perforation; it is clean and moist today. However, the superior aspect of the nasal vault was crusted over, preventing the scheduled attempt at nasopharyngoscopy today in order to re-evaluate the area of previous biopsy. Crusting was removed to patient's tolerance, uncovering purulent material. Recommend mupirocin in irrigant and return for re-evaluation by Dr. Herrera. Not available 04/08/2024 17:23:05 04/21/2025 04/21/2025 Sarah Quick is a 59-year-old [...] doxycycline hyclate 100 mg tablet 2024 025 [facility], [address] [place] [address], [id number], 5 05:02:39 mupirocin 2 % topical ointment 2023 025 [facility], [address] [place] [address], [id number], 5 18:15:17 Marrero Saline nasal gel 2023 024 [facility], [address] [place] [address], [id number], 4 14:51:45 Marrero Saline Gel nasal spray 2023 024 [facility], [address] [place] [address], [id number], 4 14:51:45 Patient TargetsNo targets recorded. Patient Instructions Encounter Date Encounter Id Patient Instructions Last Modified By Organization Details Last Modified Time 10/19/2024 [id number] Patient with chronic rhinitis and throat irritation [...] there is no evidence of any infection j carlos Not available 10/19/2024 10:34:23 04/21/2025 [id number] - Take prescribe d antibiotics as directed. - Continue using nasal rinses to manage crusting and drainage. - Return for follow-up in a few weeks for reassessment. j carlos Not available 04/21/2025 15:16:04 Please note: Par ts of this encounter note have been generated by AI based on audio conversation. Patient consent was required prior to utilizing this technology. Content review was required prior to finalizing the note. j carlos Not available 04/21/2025 15:16:04 Reason for Referral None Reported. Results Created Date Observation Date Name Description Value Unit Range Abnormal Flag Note LastModifiedBy Organization Detail LastModifiedTime 03/15/20 24 10/17/2022 imagi ng/di agnos tic resul t No observ ation record ed. [email or web address] Not Available 20:51:07 03/15/20 24 10/20/2023 imagi ng/di agnos tic resul t No observ ation record ed. [email or web address] Not Available 20:51:09 03/15/20 24 03/11/2023 imagi ng/di agnos tic resul t No observ ation record ed. [email or web address] Not Available 20:52:12 03/15/2003/13/2023 imagi ng/di agnos tic resul t No observ ation record ed. [email or web address] Not Available 20:52:22 Result Notes None recorded. Problems Name Problem SNOMED Code Status Onset Date Resolution Date Notes Provider Name and Address Organization Details Recorded Time Chronic rhinitis 03018828 Active 2022 Chronic rhinitis; Note: Date Diagnosed : 10/13/2022 3:19 PM (J31.0) Not Available [facility] 4 03:12:22 Dysphonia 16414838 Active 2022 Hoarsenes s; Note: Date Diagnosed : 10/13/2022 3:19 PM (R49.0) Not Available [facility] 4 03:12:23 Pain of right temporoma ndibular joint 03882705382 809573 Active 2022 Arthralgi a of right temporoma ndibular joint; Note: Date Diagnosed : 10/13/2022 3:19 PM (M26.621) Not Available [facility] 4 03:12:23 Disorder of nasal sinus 9424798 Active 2022 Perforati on of nasal septum NOS; Note: Date Diagnosed : 10/13/2022 3:19 PM (J34.89) Not Available [facility] 4 03:12:23 Disorder of the nose 71602561 Active 2022 Perforati on of nasal septum NOS; Note: Date Diagnosed : 10/13/2022 3:19 PM (J34.89) Not Available [facility] 4 03:12:23 Chronic pharyngit is 684076 Active 2022 Chronic sore throat; Note: Date Diagnosed : 01/30/2023 1:47 PM (J31.2) XIAO THOMASON MD [address] [place] [address], [place], [phone] , [facility] - [facility] 5 15:16:40 Otalgia of right ear 0129280849 Active 2022 Otalgia, right ear; Note: Date Diagnosed : 01/30/2023 1:47 PM (H92.01) Not Available [facility] 4 03:12:22 Bleeding from nose 877535496 Active 2023 Epistaxis ; Note: Date Diagnosed : 08/31/2023 4:53 PM (R04.0) Not Available 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 4 03:12:24 Perforati on of nasal septum 05853978 Active 2023 XIAO THOMASON MD [address] [facility] [place] [facility], [place], [address] , [place] - [facility] 5 15:16:49 Sore throat 828919119 Active 2023 Lauren cunningham [place] - [facility] 4 14:08:15 Chronic hoarsenes s 31483971027 05 Active 2024 XIAO THOMASON MD [address] [facility] [place] [facility], [place], [address] , [place] - [facility] 5 15:16:37 Chronic sinusitis 65484223 Active 2024 XIAO THOMASON MD [address] [facility] [place] [facility], [place], [address] , [place] - [facility] 5 15:16:13 Problem Notes None recorded. Procedures Surgical History Date Name Laterality Status Provider Name and Address Organization Details Recorded Time 04/21/20 25 Fiberoptic Laryngoscopy (Comprehensive) completed XIAO HERRERA MD [address] [facility] [facility], [place], [address], [facility] - [facility] 04/21/2025 15:19:13 10/20/19 25 Fiberoptic Laryngoscopy (Comprehensive) completed XIAO HERRERA MD [address] [facility] [facility], [place], [address], [place] - [facility] 10/19/2024 10:36:08 04/08/20 24 Nasal Endoscopy completed Lauren Martinez [place] - [facility] 04/08/2024 17:25:07 hernia repair completed Sirena Cerrato [place] - [facility] 02/17/2024 13:41:26 Appendectomy completed Sirena Cerrato [place] - [facility] 02/17/2024 13:41:31 section completed Sirena Cerrato [place] - [facility] 02/17/2024 13:41:41 Hysterectomy completed Sirena Cerrato [place] - [facility] 02/17/2024 13:41:47 total knee replacement completed Sirena Cerrato [place] - [facility] 02/17/2024 13:41:57 procedure on spine completed Sirena Cerrato [place] - [facility] 02/17/2024 13:42:02 Imaging Results None recorded. Procedure Notes None recorded. Medical Equipment None Reported. Allergies Allergen ID Allergen Name Allergen Category Reaction Reaction Severity Criticality Documentation Date Start Date Code Code System Note Provider Name and Address Organization Details Recorded Time [id number] Cipro medicatio n other Not available Not available 12/08/2023 3 RxNorm React ion: Unkno wn; Not Available [facility] 01:27:10 Medications Name Sig Start Date Stop Date Status Note LastModified by Organization Details LastModified Time pulse oximet airial [id number] USE DAILY NEEDED FOR SHORTNES S OF [...] Not Available Not Available No t Available Marrero Saline nasal gel APPLY 1 APPLICAT ION [...] hr,extend ed release active Medicati on ID: [id number] B rand Name: diltiaze m HCl Send [...] mg tablet 02/16 completed Medicati on ID: [id number] B rand Name: metoprol ol tartrate Send Method: E-Prescr ibed Sub s Allowed: subs OK Speci al Instruct ion: TAKE 1 AND 1/2 TABLETS BY MOUTH TWICE DAILY Me dication GenericN cristi: metoprol ol tartrate Medicat ion ID: [id number] B rand Name: metoprol ol tartrate Send Method: E-Prescr ibed Sub s Allowed: subs OK Speci al Instruct ion: TAKE 1 AND 1/2 TABLETS BY MOUTH TWICE DAILY Me dication GenericN cristi: metoprol ol tartrate Not Available Not Available Not Available Marrero Saline Gel nasal spray Take 2 sprays [...] Available No t Available Comfort EZ Pen Neely 31 gauge x 5/16 USE 1 DAILY [...] Ultra-Fin e Pen Needle 31 gauge x 3/16 active Not Available Not Available Not Available Vitals Date Recorded Body height Body mass index (BMI) Body weight Provider Name and Address Organization Details Last Updated DateTime 10/19/2024 154.94 cm 30.4 kg/m2 89016.37 g Denisa Wren [place] - [facility] 10/19/2024 10:06:52 Date Recorded Body height Body mass index (BMI) Body weight Provider Name and Address Organization Details Last Updated DateTime 04/08/2024 154.94 cm 30.6 kg/m2 64095.96 g Miles Ty [place] - [facility] 04/08/2024 13:13:56 Social History None recorded. [...] ICD10 Code Diagnosis IMO Codes Diagnosis Note [id number] LAUREN MARTINEZ PA-C [facility] [address] [address] 02/17/2024 13:30:00 02/17/2024 14:08:31 Perforation of nasal septum 35035188 J34.89 Sore throat 229359041 J0 2.9 [id number] LAUREN MARTINEZ PA-C [facility] [address] [address] 04/08/2024 13:10:24 04/11/2024 13:18:00 Disorder of the nose 17921614 J34.89 Perforatio n of nasal septum 89997524 J34.89 Tumor of r espiratory system 695575982 D49.1 [id number] XIAO THOMASON MD [facility] [address] [address] 10/19/2024 09:58:12 10/19/2024 10:35:11 Perforation of nasal septum 87312063 J34.89 Chronic hoarseness 52659 31975 105 R49.0 Chronic rhinitis 3606407 6 J31.0 [id number] XIAO THOMASON MD [facility] [address] [address] 04/21/2025 14:29:10 04/21/2025 15:18:00 Chronic sinusitis 30352183 J32.8 87939 Chronic hoarseness 31769 39565 105 R49.0 Chronic pharyngitis 1400 04 J31.2 Perforatio n of nasal septum 52176181 J34.89 Health Concerns Section Related Observation LastModified by Organization Detai ls LastModified Time None Recorded Concern Status LastModified by Organization Details LastModified Time None Recorded Advance Directives Directive None Recorded Payers Insurance Date Sequence Insurance Name Policy Number Policy Camacho Covered Member ID Camacho Member ID Guarantor Name 05/15/2025 1 [place] [facility] Sarah Quick [id number] Sarah Quick Notes Date Note Type Note Provider Name and Address Organization Details Recorded Time 02/17/2024 text/html ROS as noted in the HPI 58 year old female presents for evaluation of nose and throat. [...] gel or saline spray. JASMYN CASTELLANOS MD [address] [place] [address], [phone], [facility] - [facility] 02/18/2024 14:22:54 04/08/2024 text/html ROS as noted in the HPI 58 year old female presents for re-evaluation. Berwind like her throat infection fully resolved with [...] irrigant. Distilled water. MODESTO FELTON MD [address] [facility],[place] [address], [place], [address], [place] - [facility] 04/11/2024 07:33:26 10/19/2024 text/html ROS as noted in the HPI Patient with longstanding history of septal perforation [...] alcohol or marijuana XIAO HERRERA MD [address] [facility],[address], [address], [facility] 10/19/2024 10:36:59 04/21/2025 text/html Sarah Quick is a 59-year-old [...] which provide some relief. XIAO HERRERA MD [address],[place] [address], [place], [address], [facility] 04/21/2025 15:43:04 OBGyn Episode No OBEpisode recorded.
--- OUTSIDE RECORDS SUMMARY | 2025-06-15 12:08 | XMS_ITS | Encounter Summary ---
Author Organization [employer] Address [address] [facility] 7t [place] [address] Care Team Providers Care Engineering Director Name Role Phone Isabelle Colon MD Primary Care Provider + Reason for Visit * Reason Onset Date Comments delivery case 12/24/2022 Encounter Details Date Type Department Care Team ([facility] st Contact Info) Description 12/24/2022 Telephone [facility] ADULT DENTAL [address] [place] [address] Zachary Miller DDS [address] [place] [address] delivery case Social History Tobacco Use Types [...] 10:00 AM EST Office Visit [facility] ADULT DENTAL [address] [place] [address] Zachary Miller DDS [address] [place] [address] documented as of this encounter Visit Diagnoses Not on filedocumented in this encounter Additional Health Concerns Assessment Noted Time PHQ-9 Depression Total Score: 13 0414/2 023 11:55 AM EDT documented as of this encounter Care Teams Engineering Director Relationship Specialty Start Date End Date Isabelle Colon MD [address] [place] [address] PCP - General Family Medicine 05/20/17 [facility] 12/28/24 01/29/25 documented as of this encounter
--- OUTSIDE RECORDS SUMMARY | 2025-06-15 12:08 | XMS_ITS | Encounter Summary ---
Author Organization [employer] Address [address] [facility] [address] 7t [place] [address] Care Team Providers Care Machine Chain Maker Name Role Phone Isabelle Colon MD Primary Care Provider + Encounter Details Date Type Department Care Team ([facility] st Contact Info) Description 10/14/2023 Telephone [facility] MEDICINE [address] [place] [address] Isabelle Colon MD [address] [place], [place] [phone] Social History Tobacco Use Types Packs/Day Years [...] Description 06/20/2025 10:00 AM EST Office Visit [facility] ADULT DENTAL [address] [place] [address] Zachary Miller DDS [address] [place] [address] documented as of this encounter Visit Diagnoses Not on filedocumented in this encounter Additional Health Concerns Assessment Noted Time PHQ-9 Depression Total Score: 11 023 9:15 AM EST documented as of this encounter Care Teams Machine Chain Maker Relationship Specialty Start Date End Date Isabelle Colon MD [address] [place] [address] PCP - General Family Medicine 05/20/17 [facility] 12/28/24 01/29/25 documented as of this encounter
--- OUTSIDE RECORDS SUMMARY | 2025-06-15 12:08 | XMS_ITS | Encounter Summary ---
Author Organization [employer] Address [address] [facility] 7t [place] [address] Care Team Providers Care Loan Review Analyst Name Role Phone Isabelle Colon MD Primary Care Provider + Reason for Visit * Reason Comments Med Refill Encounter Details Date Type Department Care Team ([facility] st Contact Info) Description 10/11/2023 Refill [facility] MEDICINE [address] [place], [place] [phone] Isabelle Colon MD [address] [place], [place] [phone] Left hip pain Social History Tobacco Use [...] Description 06/20/2025 10:00 AM EST Office Visit [facility] ADULT DENTAL [address] [place] [address] Zachary Miller DDS [address] [place] [address] documented as of this encounter Visit Diagnoses Diagnosis Left hip pain Pain in joint, pelvic region and thigh documented in this encounter Additional Health Concerns Assessment Noted Time PHQ-9 Depression Total Score: 11 023 9:15 AM EST documented as of this encounter Care Teams Loan Review Analyst Relationship Specialty Start Date End Date Isabelle Colon MD [address] [place] [address] PCP - General Family Medicine 05/20/17 [facility] 12/28/24 01/29/25 documented as of this encounter
--- OUTSIDE RECORDS SUMMARY | 2025-06-15 12:08 | XMS_ITS | Encounter Summary ---
Author Organization [employer] Address [address] [facility] [address] [place] [address] Care Team Providers Care Bessemer Regulator Name Role Phone Isabelle Colon MD Primary Care Provider + Encounter Details Date Type Department Care Team ([facility] st Contact Info) Description 01/06/2025 Orders Only [facility] MEDICINE [address] [place] [address] Pastora Jorgensen MD [address] [place], [place] [phone] Social History Tobacco Use Types Packs/Day Years [...] Description 06/20/2025 10:00 AM EST Office Visit [facility] ADULT DENTAL [address] [place] [address] Zachary Miller DDS [address] [place] [address] documented as of this encounter Visit Diagnoses Not on filedocumented in this encounter Additional Health Concerns Assessment Noted Time PHQ-9 Depression Total Score: 9 01/06/20 25 9:14 AM EDT documented as of this encounter Care Teams Bessemer Regulator Relationship Specialty Start Date End Date Isabelle Colon MD [address] [place] [address] PCP - General Family Medicine 05/20/17 [facility] 12/28/24 01/29/25 documented as of this encounter
== END 2025-06-15 09:21 | disposition home or self-care (01) ==
LOC: HO.US 09:20
PROVIDERS: Visit Provider Nurse Practitioner
DX: R10.9 Unspecified abdominal pain (principal)
CPT/HCPCS: 76700

== ENCOUNTER → 2025-06-15 09:21 | Outpatient (BNV) | payer MEDICAID, SELFPAY | PROVIDERS: Visit Provider Radiology Diagnostic Radiology | DX: N28.1 Cyst of kidney, acquired (principal) | CPT/HCPCS: 76700 ==

== ENCOUNTER 2025-07-19 03:48 | Emergency (ER) | payer MEDICAID, SELFPAY ==
--- NOTE | ~2025-07-19 | XR_ITS ---
CLINICAL HISTORY: cough, fever 1 view chest x-ray Comparison: CR/SR - XR CHEST 2 VIEWS - 01/05/25 10:22 EDT CR/SR - XR RIBS 3 VIEWS MINIMUM WITH CHEST LEFT - 06/26/23 09:09 EST Findings: The lungs are hyperinflated suggesting underlying obstructive lung disease with calcified granulomata noted, unchanged. No focal consolidation is noted. No pleural effusions are seen. Heart size is normal. Degenerative change is noted within the shoulders and thoracic spine with levocurvature noted. IMPRESSION: 1. No acute findings. This document has been electronically signed by: Carlos Carson MD on 07/19/2025 06:02:50
[2025-07-19 03:52] VITALS: BP 152/80; PULSE 18; O2SAT 95
[2025-07-19 03:55] VITALS: BP 140/74; PULSE 88; RESP 16; TEMP 36.6; O2SAT 99; BMI 30.2
--- NOTE | 2025-07-19 03:59 | ED.GENADULT ---
HPI - General Adult General Chief complaint: General Medical Stated complaint: NECK TIGHTNESS/EAGLE X5DR KNEE SWELLING,R U&L EXT NUM Time Seen by Provider: 07/19/25 03:51 Source: patient and EMS Mode of arrival: EMS Limitations: no limitations History of Present Illness ED Provider: Dr. Gricel Tabor HPI narrative: Patient comes to the emergency room complaining of 5 days of headache, right-sided neck pain, no stiffness and cough. Patient denies any neck in the posterior aspect, denies any stiffness, states that it is strictly on the right side and radiates towards the front of the neck. Left side of the neck unaffected both anteriorly and posteriorly. Patient also reports subjective fevers, no chills. And states that she has been coughing. Patient states that she has been using her albuterol with good results. Related Data Home Medications ?Medication ?Instructions ?Recorded ?Confirmed aspirin 81 mg tablet,delayed 81 mg PO DAILY 05/15/20 12/15/24 release (Brianna Low Dose Aspirin) atorvastatin 20 mg tablet 20 mg PO BEDTIME 05/15/20 12/15/24 budesonide-formoterol HFA 160 2 puff inhalation BID 05/15/20 12/15/24 mcg-4.5 mcg/actuation aerosol inhaler (Symbicort) clonazepam 1 mg tablet 1 mg PO BID 05/15/20 12/15/24 montelukast 10 mg tablet 10 mg PO BEDTIME 05/15/20 12/15/24 roflumilast 500 mcg tablet 500 mcg PO DAILY 05/15/20 12/15/24 (Daliresp) tiotropium bromide 2.5 2 puff inhalation DAILY 05/15/20 12/15/24 mcg/actuation mist for inhalation (Spiriva Respimat) calcium carbonate 600 mg PO BID 08/30/21 12/15/24 diltiazem HCl 240 mg capsule,24 240 mg PO DAILY 08/30/21 12/15/24 hr,extended release fluticasone propionate 50 1 - 2 spray intranasal DAILY PRN 08/30/21 12/15/24 mcg/actuation nasal Allergy Symptoms spray,suspension zolpidem 10 mg tablet 10 mg PO BEDTIME 08/30/21 12/15/24 doxepin 75 mg capsule 75 mg PO BEDTIME 08/08/22 12/15/24 metoprolol tartrate 50 mg tablet 50 mg PO BID 03/20/23 12/15/24 teriparatide 20 mcg/dose (560 20 mcg subcut DAILY 10/26/23 12/15/24 mcg/2.24 mL) subcutaneous pen injector (Forteo) acetaminophen 500 mg tablet 500 - 1,000 mg PO Q6H PRN fever 12/15/24 12/15/24 azelastine 137 mcg (0.1 %) nasal 1 spray intranasal DAILY 12/15/24 12/15/24 spray azithromycin 500 mg tablet 500 mg PO MOWEFR 12/15/24 12/15/24 escitalopram oxalate 20 mg tablet 20 mg PO DAILY 12/15/24 12/15/24 hydrochlorothiazide 12.5 mg tablet 12.5 mg PO DAILY 12/15/24 12/15/24 ergocalciferol (vitamin D2) 1,250 1,250 mcg PO QWEEK 04/07/25 mcg (50,000 unit) capsule Previous Rx's ?Medication ?Instructions ?Recorded albuterol sulfate 2.5 mg/0.5 mL 5 mg inhalation Q6H PRN shortness 05/13/21 solution for nebulization of breath or wheezing #30 ea albuterol sulfate 90 mcg/actuation 1 inh inhalation QID PRN shortness 05/13/21 aerosol inhaler of breath or wheezing #6.7 grams dicyclomine 20 mg tablet 20 mg PO QID 30 days #120 tabs 04/18/25 famotidine 40 mg tablet (Pepcid) 40 mg PO BEDTIME PRN heartburn #30 04/18/25 tabs lansoprazole 30 mg capsule,delayed 30 mg PO BID #60 caps 04/18/25 release linaclotide 72 mcg capsule 72 mcg PO QAM #30 caps 07/04/25 (Linzess) azithromycin 250 mg tablet See Rx Instructions PO .COMPLEX #6 07/19/25 tabs prednisone 50 mg tablet 50 mg PO DAILY #5 tabs 07/19/25 Allergies Allergy/AdvReac Type Severity Reaction Status Date / Time latex (LATEX) Allergy Intermediate RASH; Verified 07/19/25 03:59 redness ciprofloxacin (From CIPRO) AdvReac Intermediate Diarrhea Verified 07/19/25 03:59 Review of Systems Review of Systems: Constitutional : No Weight loss, complaining of subjective Fever, No Chills, No Night Sweats, No Fatigue, No Malaise ENT/Mouth : No Hearing loss, No Ear Pain, No Nasal Congestion, No Sinus Pain, No Hoarseness, No sore throat, No Rhinorrhea, No Swallowing Difficulty Eyes: No Eye Pain, No Swelling, No Redness, No Foreign Body, No Discharge, No Vision Changes Cardiovascular : No Chest Pain, No SOB, No Dyspnea on Exertion, No Orthopnea, No Edema, No Palpitations Respiratory : Complaining of cough. Patient reports intermittent wheezing that responded well to breathing treatment Gastrointestinal : No Nausea, No Vomiting, No Diarrhea, No Constipation, No abdominal Pain, No Hematochezia, No Melena Genitourinary : no irregular bleeding, No Dysuria, No Urinary Frequency, No Hematuria, No Urinary Incontinence, No Urgency, No Flank Pain, No Urinary Flow Changes, No Hesitancy Musculoskeletal : No joint pain, No Myalgias, No Joint Swelling Skin : No Skin Lesions, No rash Neuro : No Weakness, No Numbness, No Paresthesias, No Loss of Consciousness, No Dizziness, complaining of 5 days of intermittent Headache Psych : No Anxiety/Panic, No Depression, No SI/HI/AH/VH, No Social Issues, Heme/Lymph: No Bruising, No Bleeding,No Lymphadenopathy Endocrine : No Polyuria, No Polydipsia, No Temperature Intolerance PMFSH Past Medical History Medical History Flank pain Abdominal cramping Epigastric pain Class 1 obesity Patellofemoral arthralgia of right knee Abdominal wall mass Fibromyalgia Chronic pain syndrome Postlaminectomy syndrome Osteopenia Back pain Irritable bowel syndrome (IBS) GERD (gastroesophageal reflux disease) Fibromyalgia Anxiety disorder Depression Lung nodule Asthma Personal history of tuberculosis COPD (chronic obstructive pulmonary disease) Elevated cholesterol HTN (hypertension) Surgical History Presence of right artificial knee joint Presence of left artificial knee joint History of back surgery Hx of section Hx of total knee replacement H/O hernia repair History of esophagogastroduodenoscopy (EGD) H/O colonoscopy Family History Family History Father Cancer Mother Kidney problem Hypertension CVD (cardiovascular disease) Paternal Uncle Cancer Colon cancer Brother Cancer Brother Colon cancer Social History Social History Household Members Other:: self Housing: Apartment Do you presently have visiting nurse or other home services: Yes ([employer]) Alcohol intake: never Patient Tobacco Use Status: Current everyday Tobacco user Tobacco use type: Cigarette Cigarettes Per Day: 3 Smoked in Last 30 Days: Yes Second Hand Smoke Exposure: No Use of substances other than those prescribed or required for medical reasons: No Advance Directives: No Advance Directives Information Provided: Yes service: No Physical Exam ED Exam Exam: Appearance: Alert. Oriented X3. No acute distress. Eyes: Pupils equal, round and reactive to light. ENT: Pharynx normal. Neck: Normal inspection. Neck supple. No lymph nodes noted. No crepitus. Patient is able to flex and extend the neck with normal range of motion. Pain to palpation on the right side of the neck. Seems to have pain with neck movements turning the head towards the right. CVS: Normal heart rate and rhythm. Pulses normal. Normal S1 and S2 Respiratory: No respiratory distress. Breath sounds normal. No Wheezing. No rales Abdomen: Soft and nontender. No rigidity. No distention. Skin: Skin warm and dry. Normal skin color. Normal skin turgor. Extremities: No lower extremity edema. No Lacerations. No Rash Neuro: Oriented X 3. No motor deficit. No sensory deficit. Moving all extremities. No slurred speech. CN 2 through 12 grossly intact Psych: calm, cooperative, normal affect Vital Signs: Vital Signs - 24 hr 07/19/25 03:55 07/19/25 04:00 Temperature 98 F 98 F Pulse Rate 88 88 Respiratory Rate 16 16 Blood Pressure 140/74 H 140/74 H Pulse Oximetry 99 99 Oxygen Delivery Method Room Air Room Air BMI result Body Mass Index 30.2 Course Course Course Narrative: Patient is receiving IM Toradol and p.o. diazepam. Patient complaining of neck only on the right side Serology test pending, x-rays pending At this time, patient's vitals are within normal limits, patient's lungs are completely clear, good air movement, no wheezing at all Medications Administered Discontinued Medications Generic Name Dose Route Start Last Admin Trade Name Freq PRN Reason Stop Dose Admin Diazepam 2 mg 07/19/25 03:58 07/19/25 04:04 Diazepam 2 Mg Tablet PO 07/19/25 03:59 2 mg ONCE ONE Administration Ketorolac Tromethamine 60 mg 07/19/25 03:58 07/19/25 04:04 Ketorolac Tromethamine 60 Mg/2 Ml Vial IM 07/19/25 03:59 60 mg ONCE ONE Administration Medical Decision Making Medical Decision Making [facility] Narrative: Patient was given p.o. Valium and ketorolac. Patient states that her neck pain is significantly much better. Chest x-ray: I do not see any obvious abnormality. Patient does have emphysema. Patient states that she is not sure she has been diagnosed before. Serology is negative for influenza RSV and COVID Patient is completely ambulatory, normal strength in both upper and lower extremities. Patient states that her headache resolved Given patient's past medical history and symptoms, also considering patient's age, it would be best to cover the patient with p.o. antibiotics and prednisone. Patient states she has not Rosi's Differential Diagnosis Differential Diagnoses: The differential diagnosis associated with the presentation includes Lab Data [facility] Lab Attestation statement: I reviewed the patient's lab results. Labs: Lab Results 07/19/25 Range/Units 04:08 Influenza Type A (PCR) NEGATIVE (Negative) Influenza Type B (PCR) NEGATIVE (Negative) RSV RNA Qual (PCR) NEGATIVE (Negative) SARS-CoV-2 RNA (RT-PCR) NEGATIVE (Negative) Independent Interpretation I performed an independent interpretation of an: Plain X-Ray Discharge Plan Discharge Clinical Impression: Viral URI with cough, Headache Patient Disposition: Home, Self-Care Instructions: Acute Bronchitis (ED) Additional Instructions: Please follow-up with your primary care physician tomorrow. If you have any worsening or new symptoms, please return to the emergency room or call 911 Prescriptions: New prednisone 50 mg tablet 50 mg PO DAILY Qty: 5 0RF azithromycin 250 mg tablet See Rx Instructions .ROUTE .COMPLEX Qty: 6 0RF Rx Instructions: For 250 mg dose pack: take 500 mg today (day 1), then 250 mg for 4 days (days 2-5) No Action dicyclomine 20 mg tablet 20 mg PO QID 30 Days Qty: 120 1RF famotidine [Pepcid] 40 mg tablet 40 mg PO BEDTIME PRN (Reason: heartburn) Qty: 30 6RF lansoprazole 30 mg capsule,delayed release(DR/EC) 30 mg PO BID Qty: 60 6RF Linzess 72 mcg capsule 72 mcg PO QAM Qty: 30 6RF atorvastatin 20 mg Tablet 20 mg PO BEDTIME clonazepam 1 mg Tablet 1 mg PO BID aspirin [Brianna Low Dose Aspirin] 81 mg Tablet,Delayed Release (Dr/Ec) 81 mg PO DAILY montelukast 10 mg Tablet 10 mg PO BEDTIME budesonide-formoterol [Symbicort] 160-4.5 mcg/actuation Hfa Aerosol Inhaler 2 puff INHALATION BID roflumilast [Daliresp] 500 mcg Tablet 500 mcg PO DAILY Spiriva Respimat 2.5 mcg/actuation Mist 2 puff INHALATION DAILY albuterol sulfate 90 mcg/actuation HFA aerosol inhaler 1 inh inhalation QID PRN (Reason: shortness of breath or wheezing) Qty: 6.7 0RF albuterol sulfate 2.5 mg/0.5 mL solution for nebulization 5 mg inhalation Q6H PRN (Reason: shortness of breath or wheezing) Qty: 30 0RF acetaminophen 500 mg tablet 500 - 1,000 mg PO Q6H PRN (Reason: fever) azelastine 137 mcg (0.1 %) spray,non-aerosol 1 spray intranasal DAILY azithromycin 500 mg tablet 500 mg PO MOWEFR escitalopram oxalate 20 mg tablet 20 mg PO DAILY hydrochlorothiazide 12.5 mg tablet 12.5 mg PO DAILY calcium carbonate 600 mg calcium (1,500 mg) tablet 600 mg PO BID fluticasone propionate 50 mcg/actuation spray,suspension 1 - 2 spray intranasal DAILY PRN (Reason: Allergy Symptoms) diltiazem HCl 240 mg capsule,extended release 24 hr 240 mg PO DAILY zolpidem 10 mg tablet 10 mg PO BEDTIME doxepin 75 mg capsule 75 mg PO BEDTIME metoprolol tartrate 50 mg tablet 50 mg PO BID teriparatide [Forteo] 20 mcg/dose (600mcg/2.4mL) pen injector 20 mcg subcut DAILY ergocalciferol (vitamin D2) 1,250 mcg (50,000 unit) capsule 1,250 mcg PO QWEEK Print Language: Vietnamese
[2025-07-19 04:00] VITALS: BP 140/74; PULSE 88; RESP 16; TEMP 36.6; O2SAT 99
[2025-07-19 04:56] LABS: Resp Syncy Virus RNA Qual PCR NEGATIVE (Negative); SARS COV2 PCR INHOUSE NEGATIVE (Negative)
--- OUTSIDE RECORDS SUMMARY | 2025-07-19 05:35 | XMS_ITS | Encounter Summary ---
Author Organization [employer] Address [address] [facility] [address] [facility] [place] [address] Care Team Providers Care Is Technician Name Role Phone Isabelle Colon MD Primary Care Provider + Encounter Details Date Type Department Care Team (Late st Contact Info) Description 12/17/2023 Orders Only [facility] MEDICINE [address] [place], [place] [phone] ProviderEliecer MD Social History Tobacco Use Types [...] Care Team (Late st Contact Info) Description 09/28/2025 10:30 AM EST Office Visit [facility] MED[facility]INE [address] [place] [address] Isabelle Colon MD [address] [place] [phone] documented as of this encounter Procedures Procedure [...] documented as of this encounter Care Teams Is Technician Relationship Specialty Start Date End Date Isabelle Colon MD [address] [place] [phone] PCP - General Family Medicine 05/20/17 [facility] 12/28/24 01/29/25 documented as of this encounter
--- OUTSIDE RECORDS SUMMARY | 2025-07-19 05:35 | XMS_ITS | Encounter Summary ---
Author Organization [employer] Address [address] [place] [address] [address] [place] [address] Care Team Providers Care Records Section Supervisor Name Role Phone Isabelle Colon MD Primary Care Provider + Reason for Visit * Reason Comments Med Refill Encounter Details Date Type Department Care Team (Late Contact Info) Description 08/20/2022 Refill [facility] MEDICINE [address] [place] [address] [phone] Isaeblle Colon MD [address] [place] [address] [phone] Social History Tobacco Use Types Packs/Day Years [...] Department Care Team (Late Contact Info) Description 09/28/2025 10:30 AM EST Office Visit [facility] MEDICINE [address] [place] [address] [phone] Isabelle Colon MD [address] [place] [address] [phone] documented as of this encounter Visit Diagnoses Not on filedocumented in this encounter Care Teams Records Section Supervisor Relationship Specialty Start Date End Date Isabelle Colon MD [address] [place] [phone] PCP - General Family Medicine 05/20/17 [facility] 12/28/24 01/29/25 documented as of this encounter
--- OUTSIDE RECORDS SUMMARY | 2025-07-19 05:36 | XMS_ITS | Data Portability ---
Author Organization [place] [facility], [facility] Address [address] [facility] [address] [place] [address] Care Team Providers Care Planned Giving Officer Name Role Phone SIRENA VÁSQUEZ Primary Care [...] doxycycline hyclate 100 mg tablet 2024 025 [facility], [address] [place] [address], [id number], 5 05:02:39 mupirocin 2 % topical ointment 2023 025 [facility], [address] [place] [address], [id number], 5 18:15:17 Humphrey Saline nasal gel 2023 024 [facility], [address] [place] [address], [id number], 4 14:51:45 Humphrey Saline Gel nasal spray 2023 024 [facility], [address] [place] [address], [id number], 4 14:51:45 Patient TargetsNo targets recorded. Patient Instructions Encounter Date Encounter Id Patient Instructions Last Modified By Organization Details Last Modified Time 10/19/2024 [id number] Patient with chronic rhinitis and throat irritation [...] j carlos Not available 10/19/2024 10:34:23 04/21/2025 [id number] - Take prescribe d antibiotics as directed. [...] Address Organization Details Recorded Time Chronic rhinitis 91632181 Active 2022 Chronic rhinitis; Note: Date Diagnosed : 10/13/2022 3:19 PM (J31.0) Not Available [facility] 4 03:12:22 Dysphonia 45013868 Active 2022 Hoarsenes s; Note: Date Diagnosed : 10/13/2022 3:19 PM (R49.0) Not Available [facility] 4 03:12:23 Pain of right temporoma ndibular joint 93456888728 455274 Active 2022 Arthralgi a of right temporoma ndibular joint; Note: Date Diagnosed : 10/13/2022 3:19 PM (M26.621) Not Available [facility] 4 03:12:23 Disorder of nasal sinus 3405496 Active 2022 Perforati on of nasal septum NOS; Note: Date Diagnosed : 10/13/2022 3:19 PM (J34.89) Not Available [facility] 4 03:12:23 Disorder of the nose 88566886 Active 2022 Perforati on of nasal septum NOS; Note: Date Diagnosed : 10/13/2022 3:19 PM (J34.89) Not Available [facility] 4 03:12:23 Chronic pharyngit is 443886 Active 2022 Chronic sore throat; Note: Date Diagnosed : 01/30/2023 1:47 PM (J31.2) XIAO THOMASON MD [address] [place] [address], [place], [phone] , [facility] 5 15:16:40 Otalgia of right ear 2629802341 Active 2022 Otalgia, right ear; Note: Date Diagnosed : 01/30/2023 1:47 PM (H92.01) Not Available [facility] 4 03:12:22 Bleeding from nose 762063793 Active 2023 Epistaxis ; Note: Date Diagnosed : 08/31/2023 4:53 PM (R04.0) Not Available [facility] 4 03:12:22 Tumor of respirato ry system 963673623 Active 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; Note: Date Diagnosed : 11/10/2023 12:18 PM (D49.1) Not Available [facility] 4 03:12:24 Perforati on of nasal septum 28575313 Active 2023 XIAO THOMASON MD [address] [facility] [place], [place], [address] , [place] [facility] 5 15:16:49 Sore throat 543396591 Active 2023 Lauren cunningham [place] - [facility] 4 14:08:15 Chronic hoarsenes s 19974500074 05 Active 2024 XIAO THOMASON MD [address] [facility] [place], [place], [address] , [place] [facility] 5 15:16:37 Chronic sinusitis 50571000 Active 2024 XIAO THOMASON MD [address] [facility] [place], [place], [address] , [place] - [facility] 5 15:16:13 Problem Notes None recorded. Procedures Surgical History Date Name Laterality Status Provider Name and Address Organization Details Recorded Time 04/21/20 25 Fiberoptic Laryngoscopy (Comprehensive) completed XIAO HERRERA MD [address] [facility] [place], [place], [address], [facility] - [facility] 04/21/2025 15:19:13 10/20/19 25 Fiberoptic Laryngoscopy (Comprehensive) completed XIAO HERRERA MD [address] [facility] [place], [place], [address], [place] - [facility] 10/19/2024 10:36:08 04/08/20 24 Nasal Endoscopy completed Lauren Martinez [place] - [facility] 04/08/2024 17:25:07 hernia repair completed Sirena Cerrato [place] - [facility] 02/17/2024 13:41:26 Appendectomy completed Sirena Cerrato [place] [facility] 02/17/2024 13:41:31 section completed Sirena Cerrato [place] [facility] 02/17/2024 13:41:41 Hysterectomy completed Sirena Cerrato [place] [facility] 02/17/2024 13:41:47 total knee replacement completed Sirena Cerrato [place] [facility] 02/17/2024 13:41:57 procedure on spine completed Sirena Cerrato [place] [facility] 02/17/2024 13:42:02 Imaging Results None recorded. Procedure Notes None recorded. Medical Equipment None Reported. Allergies Allergen ID Allergen Name Allergen Category Reaction Reaction Severity Criticality Documentation Date Start Date Code Code System Note Provider Name and Address Organization Details Recorded Time [id number] Cipro medicatio n other Not available Not available 12/08/2023 3 RxNorm React ion: Unkno wn; Not Available [facility] 01:27:10 Medications Name Sig Start Date Stop Date Status Note LastModified by Organization Details LastModified Time pulse oximet airial [id number] USE DAILY NEEDED FOR SHORTNES S OF [...] Not Available Not Available No t Available Humphrey Saline nasal gel APPLY 1 APPLICAT ION [...] hr,extend ed release active Medicati on ID: [id number] B rand Name: diltiaze m HCl Send [...] mg tablet 02/16 completed Medicati on ID: [id number] B rand Name: metoprol ol tartrate Send Method: E-Prescr ibed Sub s Allowed: subs OK Speci al Instruct ion: TAKE 1 AND 1/2 TABLETS BY MOUTH TWICE DAILY Me dication GenericN cristi: metoprol ol tartrate Medicat ion ID: [id number] B rand Name: metoprol ol tartrate Send Method: E-Prescr ibed Sub s Allowed: subs OK Speci al Instruct ion: TAKE 1 AND 1/2 TABLETS BY MOUTH TWICE DAILY Me dication GenericN cristi: metoprol ol tartrate Not Available Not Available Not Available Humphrey Saline Gel nasal spray Take 2 sprays [...] Available No t Available Comfort EZ Pen [place] 31 gauge x 5/16 USE 1 DAILY [...] Updated DateTime 10/19/2024 154.94 cm 30.4 kg/m2 10240.37 g Denisa Wren [place] [facility] 10/19/2024 10:06:52 Date Recorded Body height Body mass index (BMI) Body weight Provider Name and Address Organization Details Last Updated DateTime 04/08/2024 154.94 cm 30.6 kg/m2 51325.96 g Miles Ty [place] [facility] 04/08/2024 13:13:56 Social History None recorded. [...] Note [id number] LAUREN MARTINEZ PA-C [facility] [address] [address] 02/17/2024 13:30:00 02/17/2024 14:08:31 Perforation of nasal septum 86274274 J34.89 Sore throat 761936823 J0 2.9 [id number] LAUREN MARTINEZ PA-C [facility] [address] [address] 04/08/2024 13:10:24 04/11/2024 13:18:00 Disorder of the nose 52295644 J34.89 Perforatio n of nasal septum 57760803 J34.89 Tumor of r espiratory system 345855647 D49.1 [id number] XIAO THOMASON MD [facility] [address] [address] 10/19/2024 09:58:12 10/19/2024 10:35:11 Perforation of nasal septum 48679411 J34.89 Chronic hoarseness 22649 13192 105 R49.0 Chronic rhinitis 1057891 6 J31.0 [id number] XIAO THOMASON MD [facility] [address] [address] 04/21/2025 14:29:10 04/21/2025 15:18:00 Chronic sinusitis 00840665 J32.8 41969 Chronic hoarseness 28411 80137 105 R49.0 Chronic pharyngitis 1400 04 J31.2 Perforatio n of nasal septum 62287596 J34.89 Health Concerns Section Related Observation LastModified by Organization Detai ls LastModified Time None Recorded Concern Status LastModified by Organization Details LastModified Time None Recorded Advance Directives Directive None Recorded Payers Insurance Date Sequence Insurance Name Policy Number Policy Camacho Covered Member ID Camacho Member ID Guarantor Name 05/15/2025 1 [place] [facility] Sarah Quick [id number] Sarah Quick Notes Date Note Type Note [...] or saline spray. JASMYN CASTELLANOS MD [address] [place] [address], [phone], [facility] 02/18/2024 14:22:54 04/08/2024 text/html ROS as noted in the HPI 58 year old female presents for re-evaluation. [place] like her throat infection fully resolved with [...] irrigant. Distilled water. MODESTO FELTON MD [address] [facility],[place] [address], [place], [address], [place] [facility] 04/11/2024 07:33:26 10/19/2024 text/html ROS as noted [...] alcohol or marijuana XIAO HERRERA MD [address] [facility],[address], [address], [facility] 10/19/2024 10:36:59 04/21/2025 text/html Sarah Quick [...] provide some relief. XIAO HERRERA MD [address] [address], [place], [address], [facility] 04/21/2025 15:43:04 OBGyn Episode No OBEpisode recorded.
--- OUTSIDE RECORDS SUMMARY | 2025-07-19 05:36 | XMS_ITS | Clinical Summary ---
Author Organization [employer] Address [address] [place] [address] 7t [place] [address] Care Team Providers Care Fruit And Vegetable Parer Name Role Phone Isabelle Colon MD Primary [...] prn SOB 1 each 01/22/20 24 Active Symbicort 160-4.5 MCG/ACT inhaler 07/28/19 [...] mouth Once per day. 90 tablet 3 5 4:13 PM EST 12/02/19 25 2025 Active FREESTYLE LITE test stripIndication s:IFG (impaired fasting glucose) TEST BLOOD SUGAR ONCE A DAY 100 each 12 5 10:30 AM EST 12/09/19 25 2025 Active azithromycin (Zithromax) 500 MG tablet Take 1 tablet by mouth 3 (three) times a week. Thursday, Thursday, Thursday Active Comfort EZ Pen Mesa 31G X 8 MM misc USE 1 DAILY WITH FORTEO 08/24/19 25 Active [place] Saline Nasal gel APPLY 1 APPLICATION IN [...] evening. Active ergocalciferol (Vitamin D2) 1.25 MG (34317 UT) capsule TAKE 1 CAPSULE BY MOUTH ONCE PER WEEK 12 capsule 1 02/02/20 25 Active montelukast (Singulair) 10 MG tablet TAKE 1 TABLET BY MOUTH EVERY EVENING 90 tablet 1 5 10:30 AM EST 02/10/20 25 Active fluticasone (Flonase) 50 MCG/ACT nasal sprayIndication s:Rhinitis, unspecified type INSTILL 1-2 SPRAYS IN EACH NOSTRIL ONCE DAILY NEEDED 48 g 1 5 8:49 AM EST 03/22/20 25 Active Acetaminophen Extra Strength 500 MG tablet TAKE 1 TO 2 TABLETS BY MOUTH EVERY 6 HOURS NEEDED FOR PAIN OR FEVER 90 tablet 3 5 4:13 PM EST 05/19/20 25 Active calcium carbonate 1500 (600 Ca) MG tabletIndicatio ns:Age related osteoporosis, unspecified pathological fracture presence TAKE 1 TABLET BY MOUTH TWICE DAILY IN THE MORNING AND IN THE EVENING WITH MEALS 180 tablet 3 5 10:30 AM EST 06/19/20 25 Active Aspirin Low Dose 81 MG EC tabletIndicatio ns:Essential hypertension TAKE 1 TABLET BY MOUTH EVERY MORNING 90 tablet 3 5 10:30 AM EST 06/19/20 25 Active Aspirin Low Dose 81 MG EC tabletIndicatio ns:Essential hypertension TAKE 1 TABLET BY MOUTH EVERY DAY IN THE MORNING 90 tablet 3 06/27/20 24 2024 Discontinued(R eorder (will not trigger notification to Pharmacy)) calcium carbonate 1500 (600 Ca) MG tabletIndicatio ns:Age related osteoporosis, unspecified pathological fracture presence TAKE 1 TABLET BY MOUTH TWICE DAILY WITH BREAKFAST AND WITH DINNER 180 tablet 3 06/27/20 24 2024 Discontinued(R eorder (will not trigger notification to Pharmacy)) Active Problems Problem Noted Date Diagnosed Date RIMA (acute kidney injury) 06/20/2025 Artificial knee joint present 06/20/2025 Chronic idiopathic constipation 06/20/2025 Class 1 obesity 06/20/2025 Early satiety 06/20/2025 Family history of colon cancer in father 025 Overview (06/20/2025): 2013 not completely clear, 2020 negatives colonoscopy repeat in 5 years due to family history GERD (gastroesophageal reflux disease) IPMN (intraductal papillary mucinous neoplasm) 1 08/20/2024 Lumbar facet joint pain 06/20/2025 Nausea vomiting and diarrhea 06/20/2025 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 Recommended to decrease soda and sugary [...] on until Vitamin D is properly supplemented Perforation of nasal septum 02/17/2024 Sore throat 02/17/2024 Hypercalcemia 02/10/2024 Assessment & Plan (02/10/2024 2:50 [...] procedure with a small sip of water Epistaxis 08/31/2023 Overview (06/20/2025): Epistaxis; Note: Date Diagnosed: 08/31/2023 4:53 PM (R04.0) Acute pain of left knee 08/20/2023 Rib [...] test: UTD, simply restarted on Forteo by wrapper dipper and tolerates well. Follow-up with wrapper dipper Eye exam: Information not available will attain [...] Overdue, TBO Bone density test: UTD, next due 2024 Eye exam: Information not available [...] TD + Flu today, counseled to have Rashi IZ at our walk-in Covid IZ clinic Dental visit up to date next one due 2023 Otalgia of right ear 01/30/2023 Overview (06/20/2025): Otalgia, right ear; Note: Date Diagnosed: 01/30/2023 1:47 PM (H92.01) Periodontal disease 12/23/2022 Primary osteoarthritis of both [...] to PT as above. Dental abscess 11/04/2022 Arthralgia of right temporomandibular joint 09/25 Overview (06/20/2025): Arthralgia of right temporomandibular joint; Note: Date Diagnosed: 10/13/2022 3:19 PM (M26.621) Dysphonia 10/13/2022 Overview (06/20/2025): Hoarseness; Note: Date Diagnosed: 10/13/2022 3:19 PM (R49.0) Disorder of nasal sinus 10/13/2022 Overview (06/20/2025): Perforation of nasal septum NOS; Note: Date Diagnosed: 10/13/2022 3:19 PM (J34.89) Other specified disorders of nose and nasal sinu ses 10/13/2022 Overview (06/20/2025): Perforation of nasal septum NOS; Note: Date Diagnosed: 10/13/2022 3:19 PM (J34.89) IFG (impaired fasting glucose) 09/19/2022 Assessment & [...] condition at this time. Will refer to [facility] for a second opinion. Patient [...] 07/08/2018 History of total knee arthroplasty 07/08/2018 History of actinic keratoses 01/07/2018 Overview (06/20/2025): Actinic keratoses Contact dermatitis due to acid 12/29/2017 Knee [...] rx), total of 360mg/d Fu with cardiology History of basal cell carcinoma 01/07/2017 Overview (06/20/2025): BCC 01/10 upper lip (nodular) Myositis 05/05/2014 Urinary incontinence, mixed 05/20/2012 Hyperlipidemia 03/25/2012 Depressive disorder 03/22/2012 Backache 03/22/2012 Lung mass 03/22/2012 Osteoporosis 03/22/2012 Assessment & Plan (06/17/2024 2:20 PM EST): Patient not compliant with Forteo due to perceived side effects (leg edema is not significant, arthralgias seem to be the same as before and rash is resolved). I called [facility] endocrinology practice and left a message to Dr. Sierra re this issue and fu with patient. Continue Vit D supplementation and Forteo until told otherwise by Dr Sierra. Patient understands the risk of fractures. Assessment & Plan (02/10/2024 3:07 PM EDT): On forteo, she seem not to tolerate it due to dermatitis, wants it dc I will talk with [facility] endocrinology for fabien alternative med. She's [...] Fosamax and Teracycline FU BMD results with wrapper dipper Continue ergocalciferol Vitamin D, check levels Chronic [...] updraft today, patient needs to FU with insulation worker interior surface, she seems to be a candidate for Daliresp. She will reschedule appointment with insulation worker interior surface. Congratulated her on quitting smoking Continue albuterol [...] Metoprolol 50 mg BID recently adjusted by human services assistant, diltiazem, HCTZ Counseled re low salt diet/increase [...] Encouraged physical activity as tolerated. Refer to metal pickling equipment operator. 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 10/08/2017 03/17/2024 Assessment & Plan (01/22/2024 3:59 PM EDT): Repeat MRI due to worsening leg pain Encounters Date Type Department Care Team Description 07/17/[address] [place] [address] Isabelle Colon MD Bursitis of right hip, unspecified bursa 07/14/[address] [place] [address] Isabelle Colon MD recall 07/14/[address] [address] Isabelle Colon MD Nurse Triage 07/14/[address] [address] Isabelle Colon MD Results 07/02/[address] [address] Isabelle Colon MD 06/20/2025 10:00 AM EST Office Visit [facility] [address] [place] [address], [place] [address] Zachary Miller DDS Mild shortness of breath (Primary Dx) 06/19/[address] [place] [address] Isabelle Colon MD Age related osteoporosis, unspecified pathological fracture presence; Essential hypertension 2025 12:00 PM EDT Office Visit [address] [address] Isabelle Colon MD Mid back pain on left side (Primary Dx); Bursitis of right hip, unspecified bursa; Pancreatic cyst; Chronic right hip pain; Mass of lumbar region of back; Encounter for immunization 2025 Travel 05/18/[address] [address] Isabelle Colon MD Chart Prep 05/16/2025 Telephone [facility] [address] [place] [address] [place]osta partials 05/06/2025 Results Follow-Up [facility] [address] [place] [address] Isabelle Colon MD MR Thoracic Spine w/ and w/o Contrast from Last 3 Months Immunizations Immunization Administration [...] Description 09/28/2025 10:30 AM EST Office Visit [facility] [address] [place] [address] Isabelle Colon MD [address] [place] [address] Health Maintenance Due Date Last Done Comments [...] Procedure Name Priority Date/Time Associated Diagnosis Comments NO CHARGE VISIT Routine 06/20/2025 10:00 AM EST MR THORACIC SPINE W AND WO CONTRAST Routine 05/03/2025 1:53 PM EDT HEMOGLOBIN A1C Routine 01/05/2025 10:15 AM [...] PM EDT Narrative 05/03/2025 3:00 PM EDT [address] [place] [address] [address] Magnetic Resonance Report Signed Patient: Sarah Kline MR#: [id number] : 1965 Acct:[id number] Age/Sex: 59 / F ADM Date: 05/03/25 Loc: HO.MRI Attending Dr: Isabelle Colon MD Ordering Physician: Isabelle Colon MD Date of Service: 05/03/25 Procedure(s): MR thoracic spine wo/w con Accession Number(s): [id number] cc: Isabelle Colon MD; Physician,Unknown Reason for [...] 05/03/25 1458 DD/ 1353 TD/TT: 05/03/25 1428 Regulatory Agency Director: Procedure Note Donotuseinterpreter, Image - 05/03/[address] [address] Magnetic Resonance Report Signed Patient: Sarah KlineMR#: [id number] : 1965Acct:[id number] Age/Sex: 59 / FADM Date: 05/03/25 Loc: HO.MRI Attending Dr: Isabelle Colon MD Ordering Physician: Isabelle Colon MD Date of Service: 05/03/25 Procedure(s): MR thoracic spine wo/w con Accession Number(s): [id number] cc: Isabelle Colon MD; Physician,Unknown Reason for [...] 05/03/25 1458 DD/ 1353 TD/TT: 05/03/25 1428 Regulatory Agency Director: us Isabelle Colon MD IMG MRI PROCEDURES Final Result * Hemoglobin A1c (01/05/2025 10:15 AM EDT) Hemoglobin A1c 6.0 <6.0 % [facility] Comment:Hemoglobin A1C Refer ence Range Adults: 4.8 - 6.0 % Non diabetic: < 6.0 % Goal: < 7.0 %Additional Action Suggested: > 8.0 %Note: Hemoglobin A1c results are invalid for patients with abnormal amounts of HbF. Blood transfusions may impact the HbA1c concentration in the patient sample. Estimated Average Glucose 126 mg/dL [facility] Comment:eAG = Estimated ave rage glucose which is %A1C expressed asaverage glucose, using the formula of the Z3L-LtrgqahIqalfoy Glucose study (ADAG), Diabetes Care, Vol.31,#8,Aug. 2007 Blood Venous blood specimen / Unknown 01/05/2025 10:15 AM EDT 01/05/2025 11:10 AM EDT us Ernestina Chambers ANP LAB BLOOD ORDERABLES Final Resul t [facility] [address] [place] [address] [phone] * (ABNORMAL) Lipid Panel with Reflex to Direct LDL (06/26/2023 8:23 AM EST) Triglycerides 168(H) <150 mg/dL [facility] Comment:Desirable Triglyceri de: less than 150 mg/dLBorderline High Triglyceride 150-199 mg/dLHigh Triglyceride: 200-499 mg/dLVery High Triglyceride: greater than or equal to 5OO mg/dL Cholesterol 179 <200 mg/dL [facility] Comment:Desirable Cholestero l: less than 200 mg/dLBorderline High Cholesterol: 200-239 mg/dLHigh Cholesterol: greater than 239 mg/dL LDL Cholesterol Calculated 85 <100 mg/dL [facility] Comment:Desirable LDL: less than 100 mg/dLNear Optimal/Above Optimal LDL: 110- 129 mg/dLBorderline High LDL: 130-159 mg/dLHigh LDL: 160-189 mg/dLVery High LDL: greater than or equal to 190 mg/dL HDL Cholesterol 61 >40 mg/dL [facility] Comment:Desirable HDL: great er than 40 mg/dL Note: This HDL assay may give artificially low results in patients with liver disease. Blood 06/26/2023 8:23 AM EST 06/26/2023 11:12 AM EST us Isabelle Colon MD LAB BLOOD ORDERABLES Fin al Result Performing Organization Address [facility] de Phone Number [facility] [address] [place] [phone] * Hepatitis Panel, General (06/26/2023 8:23 AM EST) Hepatitis A IgM Nonreactive Nonreactive [facility] Comment:IgM antibodies to EAGLE V not detected; does not exclude earlyacute or recovered HAV infection. ~Hepatitis B Surface Antibody NONREACTIVE Nonreactive [facility] Comment:Nonreactive: < 8.00 mIU/mL Hepatitis B Core Antibody Nonreactive Nonreactive [facility] Hepatitis C Antibody Nonreactive Nonreactive [facility] Comment:Antibodies to HCV no t detected; does not exclude early acuteHCV infection. Hepatitis B Surface Ag Negative Negative [facility] Blood 06/26/2023 8:23 AM EST 06/26/2023 11:12 AM EST Isabelle Colon MD LAB BLOOD ORDERABLES Fin al Result Performing Organization Address [facility] Co de Phone Number [facility] [address] [place] [phone] * Hm Colonoscopy (03/29/2021 10:49 AM [...] Most Recently Relevant to Health Maintenance Insurance [facility] STAND ADULT Care Teams Fruit And Vegetable Parer Relationship Specialty Start Date End Date Isabelle Colon MD [address] [place] [address] PCP - General Family Medicine 05/20/17
--- OUTSIDE RECORDS SUMMARY | 2025-07-19 05:36 | XMS_ITS | Encounter Summary ---
Author Organization [employer] Address [address] [place] [address] 7t [place] [address] Care Team Providers Care Assistant Boys Track Coach Name Role Phone Isabelle Colon MD Primary Care Provider + Encounter Details Date Type Department Care Team (Late st Contact Info) Description 07/08/2022 Orders Only [facility] [address] [place] [phone] Marianna Patel LPN Social History Tobacco Use [...] 10:30 AM EST Office Visit [facility] [address] [place] [phone] Isabelle Colon MD [address] [place] [address] documented as of this encounter Visit Diagnoses Not on filedocumented in this encounter Care Teams Assistant Boys Track Coach Relationship Specialty Start Date End Date Isabelle Colon MD [address] [place] [phone] PCP - General Family Medicine 05/20/17 [facility] 12/28/24 01/29/25 documented as of this encounter
--- OUTSIDE RECORDS SUMMARY | 2025-07-19 05:36 | XMS_ITS | Encounter Summary ---
Author Organization [employer] Address [address] [place] [address] 7t [place] [address] Care Team Providers Care Paraprofessional Interpreter Name Role Phone Isabelle Colon MD Primary Care Provider + Encounter Details Date Type Department Care Team (Late Contact Info) Description 01/14/[address] [facility] [address] [place] [address] Isabelle Colon MD [address] [place] [address] Social History Tobacco Use Types Packs/Day Years [...] Description 09/28/2025 10:30 AM EST Office Visit [facility] [address] [place] [address] Isabelle Colon MD [address] [place] [address] documented as of this encounter Visit Diagnoses Not on filedocumented in this encounter Additional Health Concerns Assessment Noted Time PHQ-9 Depression Total Score: 13 023 11:55 AM EDT documented as of this encounter Care Teams Paraprofessional Interpreter Relationship Specialty Start Date End Date Isabelle Colon MD [address] [place] [address] PCP - General Family Medicine 05/20/17 [facility] 12/28/24 01/29/25 documented as of this encounter
--- OUTSIDE RECORDS SUMMARY | 2025-07-19 05:36 | XMS_ITS | Encounter Summary ---
Author Organization [employer] Address [address] [facility] 7t [place] [address] Care Team Providers Care Store Receiving Specialist Name Role Phone Isabelle Colon MD Primary Care Provider + Reason for Visit * Reason Onset Date Comments Dr. Paul Root partials 05/16/2025 Encounter Details Date Type Department Care Team ([facility] st Contact Info) Description 05/16/2025 Telephone [facility] [address] [place] [address] Zachary Miller, SAMUEL [address] [place] [address] Dr. Paul Root partials Social History Tobacco [...] for repair. Please follow up with front tender for rescheduling if needed. documented in this encounter Plan of Treatment Upcoming Encounters Date Type Department Care Team (Late st Contact Info) Description 09/28/2025 10:30 AM EST Office Visit [facility] [address] [place] [address] Isabelle Colon MD [address] [place] [address] documented as of this encounter Visit Diagnoses Not on filedocumented in this encounter Additional Health Concerns Assessment Noted Time PHQ-9 Depression Total Score: 9 01/06/20 25 9:14 AM EDT documented as of this encounter Care Teams Store Receiving Specialist Relationship Specialty Start Date End Date Isabelle Colon MD [address] [place] [phone] PCP - General Family Medicine 05/20/17 documented as of this encounter
--- OUTSIDE RECORDS SUMMARY | 2025-07-19 05:36 | XMS_ITS | Encounter Summary ---
Author Organization [employer] Address [address] [facility] 7t [place] [address] Care Team Providers Care Payroll Representative Name Role Phone Isabelle Colon MD Primary Care Provider + Reason for Visit * Reason Onset Date Comments Nurse Triage 07/14/2025 Encounter Details Date Type Department Care Team ([facility] st Contact Info) Description 07/14/[address] [facility] [address] [place], [place] [phone] Isabelle Colon MD [address] [place] [address] Nurse Triage Social History Tobacco Use Types Packs/Day Years [...] encounter Miscellaneous Notes * Telephone Encounter - Aruna Farnsworth RN - 07/14/2025 4:55 PM EST Call returned to pt via [employer] Balance Staff Inspector Fady #[id number]. Pt c/o 03/05 headache pain to the back of her neck, her forehead and eyes x 5 days. Pt also reports feeling tired and having stomach pain and diarrhea x 2 days. Denies diarrhea currently. Denies nausea, vomiting, sensitivity to light, sensitivity to noise. Pt reports she is not eating or drinking normally as she feels unwell. Reports she istaking acetaminophen for headache pain but it is not helping. Encouraged pt to sip clear fluids as tolerated and recommended that pt come to [facility] int he morning for evaluation. Pt reports agreement with plan Protocol Used: Headache (Adult) Protocol-Based Disposition: See in Office or Video Visit Today or Tomorrow Video visit offer not recorded Positive Triage Question: * Moderate headache (e.g., interferes with normal activities) present > 24 hours and unexplained * All higher-acuity triage questions were negative. Care Advice Discussed: * Reasons To Call Back - You become worse * Telephone Encounter - Aruna Farnsworth RN - 07/14/2025 2:37 PM EST T/C to pt via BLS Balance Staff Inspector Landon #[id number] for triage. No answer, v/m left to return call to triage nurses. * Telephone Encounter - Tammy Earl - 07/14/2025 1:16 PM EST Symptom: Headache Outcome: Schedule an urgent appointment (within 4 hours) or talk to a nurse or provider soon Reason: Started within the past 3 days Please contact [phone] Icelandic speak documented in this encounter Plan of Treatment Upcoming Encounters Date Type Department Care Team (Late st Contact Info) Description 09/28/2025 10:30 AM EST Office Visit [facility] [address] [place] [address] Isabelle Colon MD [address] [place] [address] documented as of this encounter Visit Diagnoses Not on filedocumented in this encounter Additional Health Concerns Assessment Noted Time PHQ-9 Depression Total Score: 8 05/19/20 25 12:22 PM EDT documented as of this encounter Care Teams Payroll Representative Relationship Specialty Start Date End Date Isabelle Colon MD [address] [place] [address] PCP - General Family Medicine 05/20/17 documented as of this encounter
--- OUTSIDE RECORDS SUMMARY | 2025-07-19 05:36 | XMS_ITS | Encounter Summary ---
Author Organization [employer] Address [address] [facility] 7t [place] [address] Care Team Providers Care Rocket Motor Mechanic Name Role Phone Isabelle Colon MD Primary Care Provider + Reason for Visit * Reason Onset Date Comments delivery case 12/24/2022 Encounter Details Date Type Department Care Team ([facility] st Contact Info) Description 12/24/2022 Telephone [facility] [address] [place], [place] [phone] Zachary Miller DDS [address] [place] [address] delivery case Social History Tobacco Use Types [...] Description 09/28/2025 10:30 AM EST Office Visit [facility] [address] [place] [address] Isabelle Colon MD [address] [place] [address] documented as of this encounter Visit Diagnoses Not on filedocumented in this encounter Additional Health Concerns Assessment Noted Time PHQ-9 Depression Total Score: 13 04/ 023 11:55 AM EDT documented as of this encounter Care Teams Rocket Motor Mechanic Relationship Specialty Start Date End Date Isabelle Colon MD [address] [place] [address] PCP - General Family Medicine 05/20/17 [facility] 12/28/24 01/29/25 documented as of this encounter
--- OUTSIDE RECORDS SUMMARY | 2025-07-19 05:36 | XMS_ITS | Encounter Summary ---
Author Organization [employer] Address [address] [facility] [address] 7[address] [place] [address] Care Team Providers Care Double Cut Off Saw Operator Name Role Phone Isabelle Colon MD Primary Care Provider + Encounter Details Date Type Department Care Team ([facility] st Contact Info) Description 10/14/2023 Telephone [facility] [address] [place] [address] Isabelle Colon MD [address] [place], [place] [phone] Social History Tobacco Use Types Packs/Day Years [...] Description 09/28/2025 10:30 AM EST Office Visit [facility] [address] [place] [address] Isabelle Colon MD [address] [place] [address] documented as of this encounter Visit Diagnoses Not on filedocumented in this encounter Additional Health Concerns Assessment Noted Time PHQ-9 Depression Total Score: 11 023 9:15 AM EST documented as of this encounter Care Teams Double Cut Off Saw Operator Relationship Specialty Start Date End Date Isabelle Colon MD [address] [place] [address] PCP - General Family Medicine 05/20/17 [facility] 12/28/24 01/29/25 documented as of this encounter
--- OUTSIDE RECORDS SUMMARY | 2025-07-19 05:36 | XMS_ITS | Encounter Summary ---
Author Organization [employer] Address [address] [place] [address] 7t [place] [address] Care Team Providers Care Civilian Jail Officer Name Role Phone Isabelle Colon MD Primary Care Provider + Encounter Details Date Type Department Care Team (Latest Contact Info) Description 09/24/2021 Abstract [facility] Dental, Provider, DDS Social History [...] 09/28/2025 10:30 AM EST Office Visit [facility] [address] [place] [address] Isabelle Colon MD [address] [place] [address] documented as of this encounter Visit Diagnoses Not on filedocumented in this encounter Care Teams Civilian Jail Officer Relationship Specialty Start Date End Date Isabelle Colon MD [address] [place] [phone] PCP - General Family Medicine 05/20/17 [facility] 12/28/24 01/29/25 documented as of this encounter
--- OUTSIDE RECORDS SUMMARY | 2025-07-19 05:36 | XMS_ITS | Encounter Summary ---
Author Organization [employer] Address [address] [facility] 7t [place] [address] Care Team Providers Care Feed Mixer Helper Name Role Phone Isabelle Colon MD Primary Care Provider + Reason for Visit * Reason Onset Date Comments PT-1 11/18/2024 Encounter Details Date Type Department Care Team ([facility] Contact Info) Description 11/18/2024 Telephone [facility] MEDICINE [address] [place], [place] [phone] Isabelle Colon MD [address] [place], [place] [phone] PT-1 (/) Social History Tobacco Use Types [...] Y/N: Yes Provider name or facility name: [address] [place] [phone] for [facility] Cardiology Escort needed: Y/N: No Do you have a wheelchair: Y/N: No If yes- Manual or electric: Visits: (5 x Yearly) Patient calling requesting PT1 Home Address verified: Y/N: Yes Provider name or facility name: [address] [place] [id number] [address] [facility] Escort needed: Y/N: No Do you have a wheelchair: Y/N: No If yes- Manual or electric: Visits: (5 x Yearly) Contact Ivy at [phone] documented in this encounter Plan of Treatment Upcoming Encounters Date Type Department Care Team ([facility] st Contact Info) Description 09/28/2025 10:30 AM EST Office Visit [facility] MEDICINE [address] [place] [address] Isabelle Colon MD [address] [place] [address] documented as of this encounter Visit Diagnoses Not on filedocumented in this encounter Additional Health Concerns Assessment Noted Time PHQ-9 Depression Total Score: 11 06/25/ 023 9:15 AM EST documented as of this encounter Care Teams Feed Mixer Helper Relationship Specialty Start Date End Date Isabelle Colon MD [address] [place] [address] PCP - General Family Medicine 05/20/17 [facility] 12/28/24 01/29/25 documented as of this encounter
--- OUTSIDE RECORDS SUMMARY | 2025-07-19 05:36 | XMS_ITS | Encounter Summary ---
Author Organization [facility] [employer] Address [address] [facility] [address] 7[address] [place] [address] Care Team Providers Care Transportation Driver Name Role Phone Isabelle Colon MD Primary Care Provider + Encounter Details Date Type Department Care Team ([facility] st Contact Info) Description 01/06/2025 Orders Only [facility] MEDICINE [address] [place] [address] Pastora Jorgensen MD [address] [place], [place] [phone] Social History Tobacco Use Types Packs/Day Years [...] Description 09/28/2025 10:30 AM EST Office Visit [facility] MEDICINE [address] [place] [address] Isabelle Colon MD [address] [place] [address] documented as of this encounter Visit Diagnoses Not on filedocumented in this encounter Additional Health Concerns Assessment Noted Time PHQ-9 Depression Total Score: 9 01/06/20 25 9:14 AM EDT documented as of this encounter Care Teams Transportation Driver Relationship Specialty Start Date End Date Isabelle Colon MD [address] [place] [address] PCP - General Family Medicine 05/20/17 [facility] 12/28/24 01/29/25 documented as of this encounter
--- OUTSIDE RECORDS SUMMARY | 2025-07-19 05:36 | XMS_ITS | Encounter Summary ---
Author Organization [employer] Address [address] [facility] 7t [place] [address] Care Team Providers Care Artificial Breast Fabricator Name Role Phone Isabelle Colon MD Primary Care Provider + Reason for Visit * Reason Comments Med Refill Encounter Details Date Type Department Care Team ([facility] st Contact Info) Description 07/17/2025 Refill [facility] MEDICINE [address] [place], [place] [phone] Isabelle Colon MD [address] [place] [address] Bursitis of right hip, unspecified bursa Social History Tobacco Use Types Packs/Day Years [...] encounter Miscellaneous Notes * Telephone Encounter - Monae Castillo MD - 07/17/2025 4:18 PM EST Pre PCP note, this is not a chronic rx documented in this encounter Plan of Treatment Upcoming Encounters Date Type Department Care Team (Late st Contact Info) Description 09/28/2025 10:30 AM EST Office Visit [facility] MEDICINE [address] [place] [address] Isabelle Colon MD [address] [place] [address] documented as of this encounter Visit Diagnoses Diagnosis Bursitis of right hip, unspecified bursa documented in this encounter Additional Health Concerns Assessment Noted Time PHQ-9 Depression Total Score: 8 05/19/20 12:22 PM EDT documented as of this encounter Care Teams Artificial Breast Fabricator Relationship Specialty Start Date End Date Isabelle Colon MD [address] [place] [address] PCP - General Family Medicine 05/20/17 documented as of this encounter
--- OUTSIDE RECORDS SUMMARY | 2025-07-19 05:36 | XMS_ITS | Encounter Summary ---
Author Organization [employer] Address [address] [place] [address] 7t [place] [address] Care Team Providers Care Production Technologist Name Role Phone Isabelle Colon MD Primary Care Provider + Encounter Details Date Type Department Care Team (Late Contact Info) Description 02/09/2023 Orders Only [facility] MEDICINE [address] [place] [address] [phone] Marianna Patel LPN Social History Tobacco Use [...] Description 09/28/2025 10:30 AM EST Office Visit [facility] MEDICINE [address] [place] [address] [phone] Isabelle Colon MD [address] [place] [address] [phone] documented as of this encounter Visit Diagnoses Not on filedocumented in this encounter Additional Health Concerns Assessment Noted Time PHQ-9 Depression Total Score: 13 023 11:55 AM EDT documented as of this encounter Care Teams Production Technologist Relationship Specialty Start Date End Date Isabelle Colon MD [address] [place] [address] PCP - General Family Medicine 05/20/17 [facility] 12/28/24 01/29/25 documented as of this encounter
--- OUTSIDE RECORDS SUMMARY | 2025-07-19 05:36 | XMS_ITS | Clinical Summary ---
Author Organization [facility] Address [address] [place] [phone] Phone Care Team Providers Care Healthcare Consultant Name Role Phone Unknown, Unknown Primary Care [...] file Medical Devices Not on file Insurance [facility] [address] [place] [address] [place] [address] [place] [address] [place] [address] [address] [address] [place] [address] [employer] [facility] [employer] [address] [place] [id number] [place] [address] [address] [place] [id number] [place] [address] [address] [address] [place] [id number] [place] [address] [employer] [facility] [employer] Care Teams Healthcare Consultant Relationship Specialty Start Date End Date Unknown, Unknown, PCP - General 07/13/18 Additional Source Comments The information contained in this document represents components of the legal health record. It is not the complete legal health record.[facility]
--- OUTSIDE RECORDS SUMMARY | 2025-07-19 05:36 | XMS_ITS | Encounter Summary ---
Author Organization [facility] Address [address] [facility] [address] [place] [address] Phone Care Team Providers Care Shop Estimator Name Role Phone Unknown, Unknown Primary Care Provider Jorge ortiz Encounter Details Date Type Department Care Team (Late st Contact Info) Description 08/02/2018 Ancillary Orders [facility] [address] [place] [address] Saskia Moralez PA [address] [place] [address] [email or web address] Social History Tobacco Use Types Packs/Day [...] Palpitations documented in this encounter Care Teams Shop Estimator Relationship Specialty Start Date End Date Unknown, Unknown, MD PCP - General 07/13/18 documented as of this encounter Additional Source Comments The information contained in this document represents components of the legal health record. It is not the complete legal health record.[facility]
--- OUTSIDE RECORDS SUMMARY | 2025-07-19 05:36 | XMS_ITS | Encounter Summary ---
Author Organization [employer] Address [address] [facility] 7t [place] [address] Care Team Providers Care Viscera Washer Name Role Phone Isabelle Colon MD Primary Care Provider + Reason for Visit * Reason Onset Date Comments Referral 06/26/2023 Encounter Details Date Type Department Care Team ([facility] st Contact Info) Description 06/26/2023 Telephone [facility] MEDICINE [address] [place], [place] [phone] Isabelle Colon MD [address] [place], [place] [phone] Referral Social History Tobacco Use Types Packs/Day [...] Description 09/28/2025 10:30 AM EST Office Visit [facility] MEDICINE [address] [place] [address] Isabelle Colon MD [address] [place] [address] documented as of this encounter Visit Diagnoses Not on filedocumented in this encounter Additional Health Concerns Assessment Noted Time PHQ-9 Depression Total Score: 11 023 9:15 AM EST documented as of this encounter Care Teams Viscera Washer Relationship Specialty Start Date End Date Isabelle Colon MD [address] [place] [address] PCP - General Family Medicine 05/20/17 [facility] 12/28/24 01/29/25 documented as of this encounter
--- OUTSIDE RECORDS SUMMARY | 2025-07-19 05:36 | XMS_ITS | Encounter Summary ---
Author Organization [employer] Address [address] [facility] 7t [place] [address] Care Team Providers Care Product Development Actuary Name Role Phone Isabelle Colon MD Primary Care Provider + Reason for Visit * Reason Onset Date Comments recall 07/14/2025 Encounter Details Date Type Department Care Team ([facility] Contact Info) Description 07/14/2025 Telephone [facility] MEDICINE [address] [place], [place] [phone] Isabelle Colon MD [address] [place], [place] [phone] recall Social History Tobacco Use Types Packs/Day Years [...] encounter Miscellaneous Notes * Telephone Encounter - Itzel Curtis MA - 07/14/2025 1:33 PM EST Telephone call to patient to schedule the following recall: Visit type: Office visit Appointment notes: fu MRI/pain Patient agree to appointment on 09/28/25 at 10:30 AM with Darlene. documented in this encounter Plan of Treatment Upcoming Encounters Date Type Department Care Team (Late st Contact Info) Description 09/28/2025 10:30 AM EST Office Visit [facility] MEDICINE [address] [place] [phone] Isabelle Colon MD [address] [place] [address] documented as of this encounter Visit Diagnoses Not on filedocumented in this encounter Additional Health Concerns Assessment Noted Time PHQ-9 Depression Total Score: 8 05/19/20 25 12:22 PM EDT documented as of this encounter Care Teams Product Development Actuary Relationship Specialty Start Date End Date Isabelle Colon MD [address] [place] [address] PCP - General Family Medicine 05/20/17 documented as of this encounter
--- OUTSIDE RECORDS SUMMARY | 2025-07-19 05:36 | XMS_ITS | Encounter Summary ---
Author Organization [employer] Address [address] [facility] 7t [place] [address] Care Team Providers Care Body Shop Worker Name Role Phone Isabelle Colon MD Primary Care Provider + Reason for Visit * Reason Comments Med Refill Encounter Details Date Type Department Care Team ([facility] st Contact Info) Description 10/11/2023 Refill [facility] MEDICINE [address] [place], [place] [phone] Isabelle Colon MD [address] [place], [place] [phone] Left hip pain Social History Tobacco Use [...] 10:30 AM EST Office Visit [facility] MEDICINE [address] [place] [phone] Isabelle Colon MD [address] [place] [address] documented as of this encounter Visit Diagnoses Diagnosis Left hip pain Pain in joint, pelvic region and thigh documented in this encounter Additional Health Concerns Assessment Noted Time PHQ-9 Depression Total Score: 11 023 9:15 AM EST documented as of this encounter Care Teams Body Shop Worker Relationship Specialty Start Date End Date Isabelle Colon MD [address] [place] [address] PCP - General Family Medicine 05/20/17 [facility] 12/28/24 01/29/25 documented as of this encounter
--- OUTSIDE RECORDS SUMMARY | 2025-07-19 05:36 | XMS_ITS | Encounter Summary ---
Author Organization [employer] Address [address] [facility] 7t [place] [address] Care Team Providers Care Comparator Operator Name Role Phone Isabelle Colon MD Primary Care Provider + Reason for Visit * Reason Onset Date Comments Results 07/14/2025 Encounter Details Date Type Department Care Team ([facility] Contact Info) Description 07/14/2025 Telephone [facility] MEDICINE [address] [place], [place] [phone] Isabelle Colon MD [address] [place], [place] [phone] Results Social History Tobacco Use Types Packs/Day Years [...] encounter Miscellaneous Notes * Telephone Encounter - Lauryn Ozuna RN - 07/17/2025 1:46 PM EST TC returned to pt. At [phone] to inquire what she is looking for results for, no answer, left VM requesting call back to Red Team RN upon receipt of message. No one listed on HIPAA form. Pt. To f/up prn * Telephone Encounter - Tammy Earl - 07/14/2025 1:12 PM EST Tc from pt requesting appointment with pcp regarding heel edge inker machine result Please contact pt at [phone] documented in this encounter Plan of Treatment Upcoming Encounters Date Type Department Care Team (Late st Contact Info) Description 09/28/2025 10:30 AM EST Office Visit [facility] MEDICINE [address] [place] [address] Isabelle Colon MD [address] [place] [address] documented as of this encounter Visit Diagnoses Not on filedocumented in this encounter Additional Health Concerns Assessment Noted Time PHQ-9 Depression Total Score: 8 05/19/20 25 12:22 PM EDT documented as of this encounter Care Teams Comparator Operator Relationship Specialty Start Date End Date Isabelle Colon MD [address] [place] [address] PCP - General Family Medicine 05/20/17 documented as of this encounter
--- NOTE | 2025-07-19 06:05 | PC.NURSE ---
Pt upset at time of DC stating she wants an ambulance ride home. Attempted to explain to patient that she does not meet medical necessity for ambulance. Pt upset. Explained to patient she can wait in waiting room and make phone calls or take bus. Pt walked briskly out of ED. Unable to obtain last set of vitals.
== END 2025-07-19 06:07 | disposition home or self-care (01) ==
PROVIDERS: Emergency Provider Emergency Medicine; PCP Internal Medicine
DX: J06.9 Acute upper respiratory infection, unspecified (principal); R05.9 Cough, unspecified; R51.9 Headache, unspecified; I10 Essential (primary) hypertension; E78.5 Hyperlipidemia, unspecified; J45.909 Unspecified asthma, uncomplicated; Z79.82 Long term (current) use of aspirin; Z79.02 Long term (current) use of antithrombotics/antiplatelets; Z79.899 Other long term (current) drug therapy; F17.210 Nicotine dependence, cigarettes, uncomplicated; Z03.818 Encounter for observation for suspected exposure to other biological agents ruled out
CPT/HCPCS: 71045; 87637; 96372; 99284; J1885

== ENCOUNTER → 2025-07-19 04:01 | Outpatient (BNV) | payer MEDICAID, SELFPAY | PROVIDERS: Emergency Provider Emergency Medicine; PCP Internal Medicine; Visit Provider Radiology Diagnostic Radiology | DX: R05.9 Cough, unspecified (principal); R50.9 Fever, unspecified | CPT/HCPCS: 71045 ==